=== PATIENT | female | born 1945 | race Caucasian/White ===

== ENCOUNTER → 2018-05-14 | Outpatient (CLI) | payer MEDICARE ==
--- NOTE | 2018-05-14 18:38 | ECHOF ---
Referral Reason:G47.33 obstructive sleep apnea MEASUREMENTS -------- HEIGHT: 165.1 cm WEIGHT: 147.4 kg BP: RVIDd: 3.7 cm (< 3.3) IVSd: 1.2 cm (0.6 - 1.1) LVIDd: 5.1 cm (3.9 - 5.3) LVPWd: 1.2 cm (0.6 - 1.1) IVSs: 1.4 cm LVIDs: 4.1 cm LVPWs: 1.5 cm LA Diam: 5.3 cm (2.7 - 3.8) LAESV Index (A-L): 55.95 ml/m Ao Diam: 2.9 cm (2.0 - 3.7) AV Cusp: 1.3 cm (1.5 - 2.6) LA Diam: 5.0 cm (2.7 - 3.8) MV EXCURSION: 20.304 mm (> 18.000) MV EF SLOPE: 44 mm/s (70 - 150) EPSS: 0.5 cm MV E Jesse: 1.21 m/s MV DecT: 286 ms MV A Jesse: 0.33 m/s MV E/A Ratio: 3.67 AV maxP.86 mmHg AV meanP.53 mmHg RAP: 5.00 mmHg RVSP: 44.08 mmHg FINDINGS -------- Sinus rhythm. This was a technically adequate study. Morbid Obesity The left ventricular size is normal. There is mild concentric left ventricular hypertrophy. Overa ll left ventricular systolic function is low-normal with, an EF between 50 - 55 %. The right ventricle is mildly enlarged. The left atrium is markedly dilated. The right atrial size is normal. Aortic valve is trileaflet and is moderately thickened. There is moderate aortic stenosis present. Peak/mean gradient across the Aortic Valve is 40.86mmHg / 24.53mmHg. Mild mitral annular calcification present. Moderate mitral regurgitation is present. Moderate tricuspid regurgitation present. There is mild pulmonary hypertension. The right ventric ular systolic pressure, as measured by Doppler, is 44.08mmHg. There is no pulmonic regurgitation present. The aortic root size is normal. There is no pericardial effusion. CONCLUSIONS -------- 1. This was a technically adequate study. 2. Morbid Obesity 3. The left ventricular size is normal. 4. There is mild concentric left ventricular hypertrophy. 5. Overall left ventricular systolic function is low-normal with, an EF between 50 - 55 %. 6. The right ventricle is mildly enlarged. 7. The left atrium is markedly dilated. 8. The right atrial size is normal. 9. Aortic valve is trileaflet and is moderately thickened. 10. There is moderate aortic stenosis present. 11. Peak/mean gradient across the Aortic Valve is 40.86mmHg / 24.53mmHg. 12. Mild mitral annular calcification present. 13. Moderate mitral regurgitation is present. 14. Moderate tricuspid regurgitation present. 15. There is mild pulmonary hypertension. 16. The right ventricular systolic pressure, as measured by Doppler, is 44.08mmHg. 17. There is no pulmonic regurgitation present. 18. The aortic root size is normal. 19. There is no pericardial effusion. SLURRY CONTROL OPERATOR HELPER: Mariana Mullen RDCS
== END | disposition home or self-care (01) ==
LOC: RADECHMAIN 12:58
PROVIDERS: ATTEND Family Medicine
DX: I08.1 Rheumatic disorders of both mitral and tricuspid valves (principal); E66.01 Morbid (severe) obesity due to excess calories; I27.20 Pulmonary hypertension, unspecified; G47.33 Obstructive sleep apnea (adult) (pediatric)
CPT/HCPCS: 93306

== ENCOUNTER 2019-03-23 11:41 | Inpatient (IN) | payer MEDICARE ==
--- NOTE | 2019-03-23 11:57 | ED ---
General Adult HPI - General Stated complaint: SHARON Time Seen by Provider: 03/23/19 11:43 Source: patient, family, RN notes reviewed, old records reviewed - History of Present Illness Initial comments: 73-year-old female presenting for evaluation of dyspnea. Patient has had mobility issues for the past 2 months she is on chronic home oxygen to 3 L continuous. She's had worsening dyspnea and difficulty ambulating over the past 2 months. This is gone to the point where she cannot go to the bathroom. She discontinued her Lasix one week ago because she could not make it to the bathroom. Her dyspnea has continued to worsen. She's had weight gain and lower extremity edema. No history of asthma or COPD. No history DVT or PE. No chest pain. No fever. No cough. - Related Data Home Medications Medication Instructions Recorded Confirmed ALPRAZolam [Xanax] 0.25 - 0.5 mg PO DAILY PRN 12/29/14 03/23/19 Famotidine [Pepcid] 20 mg PO DAILY 12/29/14 03/23/19 Potassium Chloride ER [K-Dur 20] 20 meq PO DAILY 12/29/14 03/23/19 Sertraline HCl [Zoloft] 100 mg PO BID 12/29/14 03/23/19 Furosemide [Lasix] 20 mg PO MOWEFR 03/23/19 03/23/19 Losartan Potassium 100 mg PO DAILY 03/23/19 03/23/19 Metoprolol Tartrate [Lopressor] 25 mg PO DAILY 03/23/19 03/23/19 Allergies Allergy/AdvReac Type Severity Reaction Status Date / Time No Known Allergies Allergy Verified 03/23/19 12:29 Review of Systems ROS Statement: Those systems with pertinent positive or pertinent negative responses have been documented in the HPI. ROS Other: All systems not noted in ROS Statement are negative. Past Medical History Past Medical History: Blood Disorder, Heart Failure, CVA/TIA, GERD/Reflux, Hypertension Additional Past Medical History / Comment(s): ITP DISORDER History of Any Multi-Drug Resistant Organisms: MRSA Date of last positivie culture/infection: 2012 MDRO Source:: URINE Additional Past Surgical History / Comment(s): BRAIN SURGERY AFTER BLEED Past Psychological History: Depression Smoking Status: Never smoker Past Alcohol Use History: None Reported Past Drug Use History: None Reported General Exam General appearance: alert, in no apparent distress Head exam: Present: atraumatic, normocephalic Eye exam: Present: normal appearance, PERRL ENT exam: Present: normal exam Neck exam: Present: normal inspection. Absent: tenderness, meningismus Respiratory exam: Present: respiratory distress, wheezes, rales, accessory muscle use, decreased breath sounds Cardiovascular Exam: Present: regular rate, normal rhythm, systolic murmur GI/Abdominal exam: Present: soft, distended. Absent: tenderness, guarding, rebound Extremities exam: Present: pedal edema Neurological exam: Present: alert, oriented X3 Psychiatric exam: Present: normal affect, normal mood Skin exam: Present: warm, dry, intact. Absent: cyanosis, diaphoretic Course Vital Signs 03/23/19 03/23/19 11:59 13:26 Temperature 97.8 F Pulse Rate 75 75 Respiratory 18 20 Rate Blood Pressure 141/69 143/73 O2 Sat by Pulse 94 L 98 Oximetry EKG Findings - EKG Comments: EKG Findings:: EKG: Atrial fibrillation, incomplete right bundle branch block, no ST segment elevation, rate of 77, QRS duration 108, QTC 488 Medical Decision Making - Medical Decision Making 73-year-old female presenting with dyspnea, weight gain, lower extremity edema. Patient has not been on her Lasix because she's had difficulty ambulating to the restroom. On exam patient has bilateral Rales and decreased breath sounds. She has significant lower extremity edema. She is dyspneic on 3 L of oxygen. Chest x-ray confirming pulmonary venous congestion and congestive heart failure with small effusions. She has a hemoglobin 9.7 with no recent for comparison. She has an elevated BNP 1140. She's given Lasix in the emergency department. She is in atrial fibrillation with no history of A. fib, she has previous history of intracranial hemorrhage, she will not be heparinized at this time, awaiting cardiology recommendations. She will be admitted for diuresis, repeat echo, telemetry, cardiology consultation. - Lab Data Result diagrams: 03/23/19 12:10 03/23/19 12:10 Lab Results 03/23/19 03/23/19 03/23/19 Range/Units 12:10 12:10 12:10 WBC 6.6 (3.8-10.6) k/uL RBC 3.52 L (3.80-5.40) m/uL Hgb 9.7 L (11.4-16.0) gm/dL Hct 31.4 L (34.0-46.0) % MCV 89.0 (80.0-100.0) fL MCH 27.6 (25.0-35.0) pg MCHC 31.0 (31.0-37.0) g/dL RDW 15.6 H (11.5-15.5) % Plt Count 113 L (150-450) k/uL Neutrophils % 85 % Lymphocytes % 6 % Monocytes % 6 % Eosinophils % 2 % Basophils % 0 % Neutrophils # 5.6 (1.3-7.7) k/uL Lymphocytes # 0.4 L (1.0-4.8) k/uL Monocytes # 0.4 (0-1.0) k/uL Eosinophils # 0.1 (0-0.7) k/uL Basophils # 0.0 (0-0.2) k/uL Hypochromasia Moderate PT (9.0-12.0) sec INR (<1.2) APTT (22.0-30.0) sec Sodium 142 (137-145) mmol/L Potassium 4.2 (3.5-5.1) mmol/L Chloride 107 (98-107) mmol/L Carbon Dioxide 26 (22-30) mmol/L Anion Gap 9 mmol/L BUN 19 H (7-17) mg/dL Creatinine 0.68 (0.52-1.04) mg/dL Est GFR (CKD-EPI)AfAm >90 (>60 ml/min/1.73 sqM) Est GFR (CKD-EPI)NonAf 86 (>60 ml/min/1.73 sqM) Glucose 117 H (74-99) mg/dL Calcium 9.0 (8.4-10.2) mg/dL Magnesium 1.8 (1.6-2.3) mg/dL Total Bilirubin 1.2 (0.2-1.3) mg/dL AST 35 (14-36) U/L ALT 23 (4-34) U/L Alkaline Phosphatase 113 (38-126) U/L Troponin I (0.000-0.034) ng/mL NT-Pro-B Natriuret Pep 1140 pg/mL Total Protein 7.2 (6.3-8.2) g/dL Albumin 3.8 (3.5-5.0) g/dL 03/23/19 03/23/19 Range/Units 12:10 12:10 WBC (3.8-10.6) k/uL RBC (3.80-5.40) m/uL Hgb (11.4-16.0) gm/dL Hct (34.0-46.0) % MCV (80.0-100.0) fL MCH (25.0-35.0) pg MCHC (31.0-37.0) g/dL RDW (11.5-15.5) % Plt Count (150-450) k/uL Neutrophils % % Lymphocytes % % Monocytes % % Eosinophils % % Basophils % % Neutrophils # (1.3-7.7) k/uL Lymphocytes # (1.0-4.8) k/uL Monocytes # (0-1.0) k/uL Eosinophils # (0-0.7) k/uL Basophils # (0-0.2) k/uL Hypochromasia PT 11.5 (9.0-12.0) sec INR 1.1 (<1.2) APTT 24.8 (22.0-30.0) sec Sodium (137-145) mmol/L Potassium (3.5-5.1) mmol/L Chloride (98-107) mmol/L Carbon Dioxide (22-30) mmol/L Anion Gap mmol/L BUN (7-17) mg/dL Creatinine (0.52-1.04) mg/dL Est GFR (CKD-EPI)AfAm (>60 ml/min/1.73 sqM) Est GFR (CKD-EPI)NonAf (>60 ml/min/1.73 sqM) Glucose (74-99) mg/dL Calcium (8.4-10.2) mg/dL Magnesium (1.6-2.3) mg/dL Total Bilirubin (0.2-1.3) mg/dL AST (14-36) U/L ALT (4-34) U/L Alkaline Phosphatase (38-126) U/L Troponin I 0.031 (0.000-0.034) ng/mL NT-Pro-B Natriuret Pep pg/mL Total Protein (6.3-8.2) g/dL Albumin (3.5-5.0) g/dL Disposition Clinical Impression: Congestive heart failure, A-fib Disposition: ADMITTED IP TO THIS [facility] Condition: Stable Is patient prescribed a controlled substance at d/c from ED?: No Referrals: Bob Kuo MD [Primary Care Provider] - 1-2 days Decision to Admit Reason: Admit from EC Decision Date: 03/23/19 Decision Time: 13:37
[2019-03-23 12:27] LABS: Basophils % (A) 0 %; Eosinophils # (A) 0.1 k/uL (0-0.7); Eosinophils % (A) 2 %; HCT 31.4 % (34.0-46.0); HGB 9.7 gm/dL (11.4-16.0); Hypochromasia Moderate; Lymphocytes # (A) 0.4 k/uL (1.0-4.8); Lymphocytes % (A) 6 %; MCH 27.6 pg (25.0-35.0); Monocytes # (A) 0.4 k/uL (0-1.0); Monocytes % (A) 6 %; Neutrophils # (A) 5.6 k/uL (1.3-7.7); Neutrophils % (A) 85 %; Platelet Count 113 k/uL (150-450); RBC 3.52 m/uL (3.80-5.40); RDW 15.6 % (11.5-15.5); WBC 6.6 k/uL (3.8-10.6)
[2019-03-23 12:41] LABS: INR 1.1 (<1.2); Partial Thromboplastin Time 24.8 sec (22.0-30.0); Prothrombin Time 11.5 sec (9.0-12.0)
[2019-03-23 12:45] LABS: ALT 23 U/L (4-34); AST 35 U/L (14-36); African American GFR (CKD) >90 (>60 ml/min/1.73 sqM); Albumin 3.8 g/dL (3.5-5.0); Alkaline Phosphatase 113 U/L (38-126); Anion Gap 9 mmol/L; Blood Urea Nitrogen 19 mg/dL (7-17); Carbon Dioxide 26 mmol/L (22-30); Chloride 107 mmol/L (98-107); Glucose 117 mg/dL (74-99); Magnesium 1.8 mg/dL (1.6-2.3); Non-African American GFR(CKD) 86 (>60 ml/min/1.73 sqM); Potassium 4.2 mmol/L (3.5-5.1); Sodium 142 mmol/L (137-145); Total Bilirubin 1.2 mg/dL (0.2-1.3); Total Protein 7.2 g/dL (6.3-8.2)
--- NOTE | 2019-03-23 12:50 | XR ---
EXAMINATION TYPE: XR chest 2V DATE OF EXAM: 03/23/2019 COMPARISON: NONE TECHNIQUE: PA and lateral views submitted. HISTORY: Hypertension FINDINGS: Exam limited by technique. Heart is markedly enlarged and the mediastinum is prominent. Diffuse osteo penia and arthropathy of the shoulders and there is a coarsened interstitium. No definite consolidati ve process seen. Pleural thickening or tiny effusions not excluded. IMPRESSION: 1. Cardiomegaly with diffuse interstitial pattern could be on the basis of interstitial venous conges tion or pneumonitis. Lateral view does suggest tiny bilateral pleural effusions. Interstitial pneumon itis or chronic lung disease in the differential diagnosis.
[2019-03-23] MEDS ORDERED: ASPIRIN 325 MG TAB PO STA (13:15)
[2019-03-23] MEDS ORDERED: FUROSEMIDE 10 MG/ML 4 ML VIAL IV STA (13:15)
[2019-03-23] MEDS ORDERED: NALOXONE 0.4 MG/ML 1 ML VIAL IV PRN (13:33)
[2019-03-23] MEDS ORDERED: FUROSEMIDE 10 MG/ML 4 ML VIAL IV SCH (21:00)
--- NOTE | 2019-03-23 22:27 | P.HPIM ---
History of Present Illness H&P Date: 03/23/19 Chief Complaint: Short of breath History of presenting complaint: This is a very pleasant 73-year-old patient of Dr. Bob Kuo. Chronic stable medical conditions include GERD, hypertension, ITP, depression,. Patient's a prior brain bleed. Has left her with some weakness on the right side. She has trouble feeling with the right hand. Patient has trouble getting to the bathroom. Patient is noticed that progressively she's been getting more and more short of breath interval activity. Increasing leg swelling. No cough no chills no fever. Some orthopnea is present. Because of trouble making up to the bathroom patient has not been taking Lasix for at least 1 month. Patient ER was diagnosed to have congestive heart exacerbation. Started on IV Lasix. Daughter the bedside. Review of systems: GEN.: Tired EYES: None HEENT: None NECK: None RESPIRATORY: As above CARDIOVASCULAR: As above, no chest pain GASTROINTESTINAL: None GENITOURINARY: None MUSCULOSKELETAL: Joint pains LYMPHATICS: None HEMATOLOGICAL: None PSYCHIATRY: None NEUROLOGICAL: Residual right-sided weakness Past medical history to include: Congestive heart failure, brain bleed pleural effusion and right-sided weakness, GERD, hypertension, ITP, depression Social history: . Does use a walker. Does not smoke or drink alcohol. Family history: Reviewed, noncontributory to presentation Physical examination: VITAL SIGNS: 97.8, 75, 18, 141/69, 94% room air GENERAL: BMI 43.6, laying in bed tired. EYES: Pupils equal. Conjunctiva normal. HEENT: External appearance of nose and ears normal, oral cavity grossly normal. NECK: JVD unable to assess, masses not palpable. HEART: First and second heart sounds are normal; edema present. LUNGS: Respiratory rate normal; clear to auscultation. ABDOMEN: Soft, nontender, liver spleen not palpable, no masses palpable. PSYCH: Alert and oriented x3; mood and affect normal. NEUROLOGICAL: Cranial nerves grossly intact; no facial asymmetry, power and sensation grossly intact. LYMPHATICS: No lymph nodes palpable in the axilla and neck Muscular skeletal: Evidence of OA INVESTIGATIONS, reviewed in the clinical context: White count 6.6 hemoglobin 9.7 L from 13 potassium 4.2 creatinine 0.68 ProBNP 1140 Chest x-ray film personally reviewed by me-cardiomegaly, venous prominence EKG tracing personally reviewed by me-atrial fibrillation with controlled Assessment: -Acute on chronic congestive heart failure exacerbation EF not known -New diagnosis of atrial fibrillation rate controlled -GERD -Essential hypertension -Chronic ITP -Depression otherwise specified -Morbid obesity BMI 43.6 -Some 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 We'll start the patient on IV Lasix 60 mg every 8. Given 2-D echocardiogram. Eyes of nose and a tricycle followed closely. Care was discussed with the patient and daughter the bedside. Question were answered. She'll also start on Lovenox. Past Medical History Past Medical History: Blood Disorder, Heart Failure, CVA/TIA, GERD/Reflux, Hypertension Additional Past Medical History / Comment(s): ITP DISORDER History of Any Multi-Drug Resistant Organisms: MRSA Date of last positivie culture/infection: 2012 MDRO Source:: URINE Past Surgical History: Orthopedic Surgery Additional Past Surgical History / Comment(s): BRAIN SURGERY AFTER BLEED in 2 013, bilateral knee replacements Past Psychological History: Depression Smoking Status: Never smoker Past Alcohol Use History: None Reported Past Drug Use History: None Reported Medications and Allergies Home Medications Medication Instructions Recorded Confirmed Type ALPRAZolam [Xanax] 0.25 mg PO DAILY PRN 12/29/14 03/23/19 History Famotidine [Pepcid] 20 mg PO DAILY 12/29/14 03/23/19 History Potassium Chloride ER [K-Dur 20] 20 meq PO DAILY 12/29/14 03/23/19 History Sertraline HCl [Zoloft] 200 mg PO DAILY 12/29/14 03/23/19 History Furosemide [Lasix] 20 mg PO BID 03/23/19 03/23/19 History HYDROcodone/APAP 5-325MG [Goddard 5 - 325 mg PO Q6HR PRN 03/23/19 03/23/19 History 5-325] Losartan Potassium 100 mg PO DAILY 03/23/19 03/23/19 History Metoprolol Tartrate [Lopressor] 25 mg PO DAILY 03/23/19 03/23/19 History Allergies Allergy/AdvReac Type Severity Reaction Status Date / Time No Known Allergies Allergy Verified 03/23/19 12:29 Physical Exam Vitals: Vital Signs Temp Pulse Pulse Resp BP BP Pulse Ox 03/23/19 20:51 100 03/23/19 20:09 98.4 F 85 18 150/74 98 03/23/19 20:00 85 18 03/23/19 19:43 98.0 F 70 20 99/65 98 03/23/19 18:30 76 18 101/77 100 03/23/19 16:00 68 20 130/65 97 03/23/19 13:26 75 20 143/73 98 03/23/19 11:59 97.8 F 75 18 141/69 94 L Intake and Output 03/23/19 03/23/19 03/23/19 06:59 14:59 22:59 Intake Total 222 Output Total 3075 Balance -2853 Intake: Oral 222 Output: Urine 3075 Other: Weight 170.097 kg 122.5 kg Results CBC & Chem 7: 03/23/19 12:10 03/23/19 12:10 Labs: Abnormal Lab Results - Last 24 Hours (Table) 03/23/19 03/23/19 Range/Units 12:10 12:10 RBC 3.52 L (3.80-5.40) m/uL Hgb 9.7 L (11.4-16.0) gm/dL Hct 31.4 L (34.0-46.0) % RDW 15.6 H (11.5-15.5) % Plt Count 113 L (150-450) k/uL Lymphocytes # 0.4 L (1.0-4.8) k/uL BUN 19 H (7-17) mg/dL Glucose 117 H (74-99) mg/dL Thrombosis Risk Factor Assmnt - Choose All That Apply Any of the Below Risk Factors Present?: No Other Risk Factors: Yes Each Risk Factor Represents 2 Points: Age 61-74 years Other congenital or acquired thrombophilia - If yes, enter type in comment: No Thrombosis Risk Factor Assessment Total Risk Factor Score: 2 Thrombosis Risk Factor Assessment Level: Low Risk
[2019-03-23] MEDS ORDERED: ENOXAPARIN 40 MG/0.4 ML SYRINGE SQ SCH (22:30)
[2019-03-23] MEDS: ALPRAZolam 0.25 MG TAB PO PRN (22:39)
[2019-03-24] MEDS: FUROSEMIDE 10 MG/ML 10 ML VIAL IV SCH ×3 (06:38→20:00)
[2019-03-24 07:15] LABS: African American GFR (CKD) >90 (>60 ml/min/1.73 sqM); Anion Gap 7 mmol/L; Blood Urea Nitrogen 18 mg/dL (7-17); Calcium 8.8 mg/dL (8.4-10.2); Carbon Dioxide 34 mmol/L (22-30); Chloride 101 mmol/L (98-107); Glucose 88 mg/dL (74-99); Non-African American GFR(CKD) 87 (>60 ml/min/1.73 sqM); Potassium 3.6 mmol/L (3.5-5.1); Sodium 142 mmol/L (137-145)
[2019-03-24] MEDS: FAMOTIDINE 20 MG TAB PO SCH (07:43)
[2019-03-24] MEDS: SERTRALINE 100 MG TAB PO SCH (07:44)
[2019-03-24] MEDS: POTASSIUM CHLORIDE ER 20 MEQ TAB.ER PO SCH (07:44)
[2019-03-24] MEDS: LOSARTAN 50 MG TAB PO SCH (07:44)
[2019-03-24] MEDS ORDERED: METOPROLOL TARTRATE 25 MG TAB PO SCH (09:00)
[2019-03-24] MEDS ORDERED: APIXABAN 5 MG TAB PO SCH (10:30)
--- NOTE | 2019-03-24 11:38 | ECHOF ---
Referral Reason:CHF MEASUREMENTS -------- HEIGHT: 167.6 cm WEIGHT: 170.1 kg BP: RVIDd: 3.8 cm (< 3.3) IVSd: 1.2 cm (0.6 - 1.1) LVIDd: 4.8 cm (3.9 - 5.3) LVPWd: 1.5 cm (0.6 - 1.1) IVSs: 1.8 cm LVIDs: 2.6 cm LVPWs: 1.9 cm IVSd: 1.2 cm (0.6 - 1.1) LVIDd: 5.0 cm (3.9 - 5.3) LVPWd: 1.5 cm (0.6 - 1.1) IVSs: 1.6 cm LVIDs: 2.8 cm LVPWs: 2.3 cm EDV(Teich): 121 ml ESV(Teich): 30 ml EF(Teich): 75 % %FS: 44 % SV(Teich): 91 ml Ao Diam: 2.4 cm (2.0 - 3.7) AV Cusp: 1.5 cm (1.5 - 2.6) LA Diam: 4.6 cm (2.7 - 3.8) MV EXCURSION: 16.937 mm (> 18.000) MV EF SLOPE: 80 mm/s (70 - 150) EPSS: 0.6 cm MV E Jesse: 1.67 m/s MV DecT: 191 ms MV A Jesse: 0.69 m/s MV E/A Ratio: 2.41 AV maxP.83 mmHg AV meanP.43 mmHg AR PHT: 686 ms RAP: 5.00 mmHg RVSP: 57.04 mmHg FINDINGS -------- Undetermined rhythm. This was a technically difficult study with suboptimal views. The left ventricular size is normal. There is mild concentric left ventricular hypertrophy. Overa ll left ventricular systolic function is normal with, an EF between 55 - 60 %. The right ventricle is mild to moderately enlarged. The left atrial size is normal. RA appears enlarged. 5.0mg of Lumason was utilized for enhancement of images Aortic valve is trileaflet and is moderately thickened. There is mild aortic regurgitation. There is moderate aortic stenosis present. Peak/mean gradient across the Aortic Valve is 41.83mmHg / 23. 43mmHg. The mitral valve is normal. The mitral valve leaflets are mildly thickened. Moderate mitral regur gitation is present. The tricuspid valve appears structurally normal. Moderate tricuspid regurgitation present. There is moderate pulmonary hypertension. The right ventricular systolic pressure, as measured by Doppler , is 57.04mmHg. There is no pulmonic regurgitation present. The aortic root size is normal. IVC Not well visulized. There is no pericardial effusion. CONCLUSIONS -------- 1. Undetermined rhythm. 2. This was a technically difficult study with suboptimal views. 3. The left ventricular size is normal. 4. There is mild concentric left ventricular hypertrophy. 5. Overall left ventricular systolic function is normal with, an EF between 55 - 60 %. 6. The right ventricle is mild to moderately enlarged. 7. The left atrial size is normal. 8. RA appears enlarged. 9. 5.0mg of Lumason was utilized for enhancement of images 10. Aortic valve is trileaflet and is moderately thickened. 11. There is mild aortic regurgitation. 12. There is moderate aortic stenosis present. 13. Peak/mean gradient across the Aortic Valve is 41.83mmHg / 23.43mmHg. 14. The mitral valve is normal. 15. The mitral valve leaflets are mildly thickened. 16. Moderate mitral regurgitation is present. 17. The tricuspid valve appears structurally normal. 18. Moderate tricuspid regurgitation present. 19. There is moderate pulmonary hypertension. 20. The right ventricular systolic pressure, as measured by Doppler, is 57.04mmHg. 21. There is no pulmonic regurgitation present. 22. The aortic root size is normal. 23. IVC Not well visulized. 24. There is no pericardial effusion. PHLEBOTOMIST MEDICAL LAB ASSISTANT: Latanya Tinoco RDCS
--- NOTE | 2019-03-24 12:40 | P.CRDCN ---
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 She has a known history of hypertension, hyperlipidemia, obesity, history according to Dr. Alves's office note of paroxysmal atrial fibrillation,. According to the patient's office note, she also at that time had some mild aortic stenosis. She presented to the hospital on this admission with symptoms of one month's duration of progressively worsening shortness of breath with associated peripheral edema. Positive PND and orthopnea. Approximately 2 months ago patient states she experienced a fall and since then has been progressively more and more weak and short of breath. Patient does have a history of a brain bleed in the past which was felt to be secondary to ITP according to her. Chest x-ray on presentation here showed cardiomegaly with diffuse interstitial pattern which could be on the basis of interstitial venous congestion or pneumonitis. Lateral view does suggest tiny bilateral pleural effusions. Interstitial pneumonitis or chronic lung disease in the differential diagnosis. EKG on presentation here showed atrial fibrillation with a controlled ventricular response, incomplete right bundle branch block pattern. An echocardiogram with Doppler study was performed which revealed moderate aorti c stenosis, moderate mitral regurgitation and moderate tricuspid regurg, ejection fraction of 55-60%. Blood pressure 126/78 with a heart rate in the 90s, 95% on 3 L of oxygen. White blood cell count 6.6, hemoglobin 9.7, platelet count 113. Sodium 142, potassium 3.6, BUN 18, creatinine 0.6. Magnesium 1.8. Troponin 0.031 BNP level 1140. Patient was initiated on IV Lasix in the emergency room and has already been diuresing well according to her. She continues to have shortness of breath and significant edema. Past Medical History Past Medical History: Blood Disorder, Heart Failure, CVA/TIA, GERD/Reflux, Hypertension Additional Past Medical History / Comment(s): ITP DISORDER History of Any Multi-Drug Resistant Organisms: MRSA Date of last positivie culture/infection: 2012 MDRO Source:: URINE Past Surgical History: Orthopedic Surgery Additional Past Surgical History / Comment(s): BRAIN SURGERY AFTER BLEED in 2013, bilateral knee replacements Past Psychological History: Depression Smoking Status: Never smoker Past Alcohol Use History: None Reported Past Drug Use History: None Reported Medications and Allergies Home Medications Medication Instructions Recorded Confirmed Type ALPRAZolam [Xanax] 0.25 mg PO DAILY PRN 12/29/14 03/23/19 History Famotidine [Pepcid] 20 mg PO DAILY 12/29/14 03/23/19 History Potassium Chloride ER [K-Dur 20] 20 meq PO DAILY 12/29/14 03/23/19 History Sertraline HCl [Zoloft] 200 mg PO DAILY 12/29/14 03/23/19 History Furosemide [Lasix] 20 mg PO BID 03/23/19 03/23/19 History HYDROcodone/APAP 5-325MG [[place] 5 - 325 mg PO Q6HR PRN 03/23/19 03/23/19 History 5-325] Losartan Potassium 100 mg PO DAILY 03/23/19 03/23/19 History Metoprolol Tartrate [Lopressor] 25 mg PO DAILY 03/23/19 03/23/19 History Allergies Allergy/AdvReac Type Severity Reaction Status Date / Time No Known Allergies Allergy Verified 03/23/19 12:29 Physical Exam Vitals: Vital Signs Temp Pulse Pulse Resp BP BP Pulse Ox 03/24/19 07:50 98.4 F 96 18 126/79 95 03/24/19 04:00 97.5 F L 63 18 125/77 95 03/24/19 00:00 98.0 F 78 18 121/67 98 03/23/19 20:51 100 03/23/19 20:09 98.4 F 85 18 150/74 98 03/23/19 20:00 85 18 03/23/19 19:43 98.0 F 70 20 99/65 98 03/23/19 18:30 76 18 101/77 100 03/23/19 16:00 68 20 130/65 97 03/23/19 13:26 75 20 143/73 98 Intake and Output 03/23/19 03/24/19 03/24/19 22:59 06:59 14:59 Intake Total 222 358 Output Total 4075 1999 1099 Balance -3853 -1999 -742 Intake: Oral 222 358 Output: Urine 4074 1999 1099 Other: Weight 122.5 kg 119.5 kg PHYSICAL EXAMINATION: GENERAL: 73 HEENT: Head is atraumatic, normocephalic. Pupils equal, round. Sclera anicteric. Conjunctiva are clear. Mucous membranes of the mouth are moist. Neck is supple. There is elevated jugular venous pressure. No carotid bruit is heard. HEART EXAMINATION: Heart S1 and S2 irregularly irregular a systolic murmur is heard in the aortic and mitral area CHEST EXAMINATION:'s reveal diminished air entry to bilateral bases ABDOMEN: Soft, obese, nontender. Bowel sounds are heard. No organomegaly noted. EXTREMITIES: 2+ peripheral pulses with 2+ evidence of peripheral edema , evidence of some erythema and small ulcerated areas . NEUROLOGIC patient is awake, alert and oriented 3. . Results 03/23/19 12:10 03/24/19 06:13 Cardiac Enzymes 03/23/19 03/23/19 Range/Units 12:10 12:10 AST 35 (14-36) U/L Troponin I 0.031 (0.000-0.034) ng/mL Coagulation 03/23/19 Range/Units 12:10 PT 11.5 (9.0-12.0) sec APTT 24.8 (22.0-30.0) sec Comprehensive Metabolic Panel 03/23/19 03/24/19 Range/Units 12:10 06:13 Sodium 142 142 (137-145) mmol/L Potassium 4.2 3.6 (3.5-5.1) mmol/L Chloride 107 101 (98-107) mmol/L Carbon Dioxide 26 34 H (22-30) mmol/L BUN 19 H 18 H (7-17) mg/dL Creatinine 0.68 0.66 (0.52-1.04) mg/dL Glucose 117 H 88 (74-99) mg/dL Calcium 9.0 8.8 (8.4-10.2) mg/dL AST 35 (14-36) U/L ALT 23 (4-34) U/L Alkaline Phosphatase 113 (38-126) U/L Total Protein 7.2 (6.3-8.2) g/dL Albumin 3.8 (3.5-5.0) g/dL Current Medications Generic Name Dose Route Start Last Admin Trade Name Freq PRN Reason Stop Dose Admin Hydrocodone Bitart/Acetaminophen 1 each 03/23/19 20:42 [place] 5-325 PO Q6HR PRN Moderate to Severe Pain Alprazolam 0.25 mg 03/23/19 20:42 03/23/19 22:39 Xanax PO 0.25 mg DAILY PRN Administration Anxiety Famotidine 20 mg 03/24/19 09:00 03/24/19 07:43 Pepcid PO 20 mg DAILY BLAINE Administration Furosemide 60 mg 03/24/19 06:00 03/24/19 06:38 Lasix IV 60 mg Q8H BLAINE Administration Losartan Potassium 100 mg 03/24/19 09:00 03/24/19 07:44 Cozaar PO 100 mg DAILY [facility]LAINE Administration Metoprolol Tartrate 25 mg 03/24/19 09:00 03/24/19 07:45 Lopressor PO 25 mg DAILY [facility]LAINE Administration Naloxone HCl 0.2 mg 03/23/19 13:33 Narcan IV Q2M PRN Opioid Reversal Potassium Chloride 20 meq 03/24/19 09:00 03/24/19 07:44 K-Dur 20 PO 20 meq DAILY BLAINE Administration Sertraline HCl 200 mg 03/24/19 09:00 03/24/19 07:44 Zoloft PO 200 mg DAILY [facility]LAINE Administration Intake and Output 03/23/19 03/24/19 03/24/19 22:59 06:59 14:59 Intake Total 222 358 Output Total 4075 1999 1099 Balance -3853 -2000 -742 Intake: Oral 222 358 Output: Urine 4075 1999 1100 Other: Weight 122.5 kg 119.5 kg 03/23/19 12:10 03/24/19 06:13 EKG Interpretations (text) EKG showed atrial fibrillation with a controlled ventricular response Assessment and Plan Plan: Assessment and plan #1 congestive heart failure, diastolic acute on chronic #2 aortic stenosis and mitral regurgitation' #3 paroxysmal atrial fibrillation, not on anticoagulation as an outpatient #4 hypertension #5 hyperlipidemia #6 obesity Plan We will discontinue the Lovenox and start the patient on Eliquis 5 mg one tablet by mouth twice a day, consult hematology, continue light Lasix IV 60 mg every 8 hourly and from tomorrow morning changed to Lasix 40 mg by mouth twice a day. Increase dose of beta palmira to 25 mg by mouth twice a day, discontinue aspirin. Further recommendations to follow. DNP note has been reviewed, I agree with a documented findings and plan of care. Patient was seen and examined.
[2019-03-24] MEDS: HYDROcodone/APAP 5-325MG 1 EACH TAB PO PRN (12:42)
[2019-03-24] MEDS: APIXABAN 5 MG TAB PO SCH ×2 (12:56→20:00)
--- NOTE | 2019-03-24 14:20 | P.PN ---
Progress Note - Text Progress Note Date: 03/24/19 Chief Complaint: Short of breath Interval history: This is a very pleasant 73-year-old patient of Dr. Bob Kuo. Chronic stable medical conditions include GERD, hypertension, ITP, depression,. Patient's a prior brain bleed. Has left her with some weakness on the right side. She has trouble feeling with the right hand. Patient has trouble getting to the bathroom. Patient is noticed that progressively she's been getting more and more short of breath interval activity. Increasing leg swelling. No cough no chills no fever. Some orthopnea is present. Because of trouble making up to the bathroom patient has not been taking Lasix for at least 1 month. Patient ER was diagnosed to have congestive heart exacerbation. Started on IV Lasix. Today-patient has been diuresing well. Making good urine. Feels edema was coming down. Abdomen less distended. at the bedside. Eating better. Review of systems: Was done for constitutional, cardiovascular, GI, pulmonary. relevant finding as above Active Medications Hydrocodone Bitart/Acetaminophen ([place] 5-325) 1 each PO Q6HR PRN PRN Reason: Moderate to Severe Pain Last Admin: 03/24/19 12:42 Dose: 1 each Documented by: Alprazolam (Xanax) 0.25 mg PO DAILY PRN PRN Reason: Anxiety Last Admin: 03/23/19 22:39 Dose: 0.25 mg Documented by: Apixaban (Eliquis) 5 mg PO BID [facility] Last Admin: 03/24/19 12:56 Dose: 5 mg Documented by: Famotidine (Pepcid) 20 mg PO DAILY [facility] Last Admin: 03/24/19 07:43 Dose: 20 mg Documented by: Furosemide (Lasix) 60 mg IV Q8H [facility] Stop: 03/25/19 09:00 Last Admin: 03/24/19 06:38 Dose: 60 mg Documented by: Furosemide (Lasix) 40 mg PO BID@0900,1600 [facility] Losartan Potassium (Cozaar) 100 mg PO DAILY [facility] Last Admin: 03/24/19 07:44 Dose: 100 mg Documented by: Metoprolol Tartrate (Lopressor) 25 mg PO BID [facility] Naloxone HCl (Narcan) 0.2 mg IV Q2M PRN PRN Reason: Opioid Reversal Potassium Chloride (K-Dur 20) 20 meq PO DAILY [facility] Last Admin: 03/24/19 07:44 Dose: 20 meq Documented by: Sertraline HCl (Zoloft) 200 mg PO DAILY [facility] Last Admin: 03/24/19 07:44 Dose: 200 mg Documented by: Physical examination: VITAL SIGNS: 98.4, 96, 18, 126/79, 95% on 3 L GENERAL: Laying in bed, more perky EYES: Pupils equal. Conjunctiva normal. HEENT: External appearance of nose and ears normal, oral cavity grossly normal. NECK: JVD unable to assess, masses not palpable. HEART: First and second heart sounds are normal; edema decreased. LUNGS: Respiratory rate normal; clear to auscultation. ABDOMEN: Soft, nontender, liver spleen not palpable, no masses palpable. PSYCH: Alert and oriented x3; mood and affect normal. Muscular skeletal: Evidence of OA INVESTIGATIONS, reviewed in the clinical context: Creatinine 0.66 Previous testing White count 6.6 hemoglobin 9.7 L from 13 potassium 4.2 creatinine 0.68 ProBNP 1140 Chest x-ray film personally reviewed by me-cardiomegaly, venous prominence EKG tracing personally reviewed by me-atrial fibrillation with controlled 2-D echo-EF 55-60%, moderate aortic stenosis, moderate tricuspid regurgitation, moderate pulmonary hypertension Assessment: -Acute on chronic congestive heart failure exacerbation from diastolic dysfunction EF 55-60% from hypertensive heart disease, slow to respond -Moderate aortic stenosis, moderate tricuspid regurgitation, moderate pulmonary hypertension secondary -New diagnosis of atrial fibrillation rate controlled -GERD -Essential hypertension -Chronic ITP -Depression otherwise specified -Morbid obesity BMI 43.6 -Some right-sided paresis from a prior brain bleed -Depression not otherwise specified -Chronic gait dysfunction uses a walker at her baseline -Full code Plan: Patient diuresing well. Continue with IV Lasix. Consult PTOT. Also consult Dr. Mcnally from rehab. Care was discussed at length with the patient and husb and at the bedside. Follow electrolytes closely. Cardiology did start the patient on eliquis. Patient has a superficial wound on the right lower extremity for which we'll use Silvadene cream with Kerlix and Curt wrap. Total time spent today was about 40 minutes with over 25 minutes discussion.
[2019-03-24] MEDS: METOPROLOL TARTRATE 25 MG TAB PO SCH (20:00)
[2019-03-25] MEDS: FUROSEMIDE 10 MG/ML 10 ML VIAL IV SCH (06:12)
[2019-03-25] MEDS: APIXABAN 5 MG TAB PO SCH ×2 (07:32→20:22)
[2019-03-25] MEDS: FAMOTIDINE 20 MG TAB PO SCH (07:32)
[2019-03-25] MEDS: POTASSIUM CHLORIDE ER 20 MEQ TAB.ER PO SCH (07:32)
[2019-03-25] MEDS: LOSARTAN 50 MG TAB PO SCH (07:32)
[2019-03-25] MEDS: SERTRALINE 100 MG TAB PO SCH (07:32)
[2019-03-25] MEDS: METOPROLOL TARTRATE 25 MG TAB PO SCH ×2 (07:32→20:21)
--- NOTE | 2019-03-25 11:51 | PN ---
PROGRESS NOTE Mrs Mays is feeling much better today. A lot of weight has come down. Edema has improved. She was on IV Lasix, which I will switch her to oral Lasix. She came in with diastolic heart failure, pulmonary hypertension. She also has moderate aortic stenosis and what seems to be atrial fibrillation with a controlled ventricular rate. I am recommending that we continue her Eliquis, switch her from IV to oral Lasix and based on clinical course, make further recommendations. I will request physical therapy to increase activity and improve her strength, coordination, and mobility. I placed her on Lopressor 25 mg b.i.d., rate control is good. She is on Eliquis 2.5 mg b.i.d., rhythm remains atrial fibrillation but the rate control is much better. Vitals are stable, JVD is evident. S1-S2 heard normally, irregular rhythm noted, short systolic murmur noted at the base. lungs reveal improved air entry. Abdomen is soft. Lower extremity edema has improved remarkably. Echocardiogram revealed ejection fraction of 55% to 60% with moderate pulmonary hypertension and moderate aortic stenosis. Plan is to switch her to oral Lasix and see how she does. MMODL / IJN: [id number] /
[2019-03-25] MEDS: FUROSEMIDE 40 MG TAB PO SCH (16:33)
--- NOTE | 2019-03-25 17:13 | P.CONS ---
<Stephanie Quan - Last Filed: 03/25/19 17:01> History of Present Illness - Reason for Consult Consult date: 03/25/19 Hx ITP Requesting physician: Maya Guerrero - Chief Complaint weakness, fall - History of Present Illness Ms. Mays is a very pleasant 73-year-old female patient who has seen Dr. Mckeon the past for history of ITP. She presented in 2012 with complaints of severe headache and vaginal bleeding, she was found to have intracranial bleeding, platelet count was 6000. She was taken to [facility], seen by Neurosurgery and Hematology. She was treated with IV steroids, IVIG and platelets. She had a craniotomy for decompression of the bleeding. She ended up responding very well to the therapy, steroids were weaned off and she was discharged home. She followed with Dr. Mckeon from that time until September 2014. All of the workup for ITP was negative, platelet count had become nearly normal, staying in the 120,000 range. She was placed on PRN f/u and reminded to follow with her PCP regularly. Patient is currently admitted with congestive heart failure, she has a history of proximal atrial fibrillation. We've been asked to see patient for anticoagulation recommendations. Patient is doing well today, she denies any complaints on a 14 point review of systems. Review of Systems 14 point review of systems is negative except as stated in HPI 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 MDRO Source:: URINE Past Surgical History: Orthopedic Surgery Additional Past Surgical History / Comment(s): BRAIN SURGERY AFTER BLEED in 2013, bilateral knee replacements Past Psychological History: Depression Smoking Status: Never smoker Past Alcohol Use History: None Reported Past Drug Use History: None Reported Medications and Allergies Home Medications Medication Instructions Recorded Confirmed Type ALPRAZolam [Xanax] 0.25 mg PO DAILY PRN 12/29/14 03/23/19 History Famotidine [Pepcid] 20 mg PO DAILY 12/29/14 03/23/19 History Potassium Chloride ER [K-Dur 20] 20 meq PO DAILY 12/29/14 03/23/19 History Sertraline HCl [Zoloft] 200 mg PO DAILY 12/29/14 03/23/19 History Furosemide [Lasix] 20 mg PO BID 03/23/19 03/23/19 History HYDROcodone/APAP 5-325MG [[place] 5 - 325 mg PO Q6HR PRN 03/23/19 03/23/19 History 5-325] Losartan Potassium 100 mg PO DAILY 03/23/19 03/23/19 History Metoprolol Tartrate [Lopressor] 25 mg PO DAILY 03/23/19 03/23/19 History Allergies Allergy/AdvReac Type Severity Reaction Status Date / Time No Known Allergies Allergy Verified 03/23/19 12:29 Physical Exam Vitals: Vital Signs Temp Pulse Resp BP Pulse Ox 03/25/19 16:00 98.1 F 83 18 126/66 93 L 03/25/19 12:00 82 18 03/25/19 11:13 98.1 F 82 18 121/62 93 L 03/25/19 08:00 93 18 03/25/19 07:28 98.2 F 93 18 141/79 95 03/25/19 03:33 98.2 F 75 18 127/74 95 03/25/19 00:00 78 18 132/75 96 03/24/19 23:24 79 20 03/24/19 20:00 98.4 F 75 20 142/64 95 Intake and Output 03/25/19 03/25/19 03/25/19 06:59 14:59 22:59 Intake Total 240 Output Total 1000 1500 Balance -1000 -1260 Intake: Oral 240 Output: Urine 1000 1500 Other: Weight 104.5 kg - Constitutional General appearance: cooperative, morbidly obese, no acute distress - EENT Eyes: anicteric sclerae, EOMI ENT: hearing grossly normal, normal oropharynx - Neck Neck: no lymphadenopathy - Respiratory Respiratory: bilateral: CTA - Cardiovascular Rhythm: irregularly irregular Heart sounds: normal: S1, S2 leg Peripheral Edema: bilateral: Trace - Gastrointestinal General gastrointestinal: no absent bowel sounds, no decreased bowel sounds, no distended, no hepatomegaly, no hyperactive bowel sounds, normal bowel sounds, no organomegaly, no rigid, no scaphoid, soft, no splenomegaly, no tenderness, no umbilical hernia, no ventral hernia - Integumentary Integumentary: normal - Neurologic Neurologic: CNII-XII intact - Psychiatric Psychiatric: A&O x's 3, appropriate affect, intact judgment & insight Results CBC & Chem 7: 03/23/19 12:10 03/24/19 06:13 Comments: echo report reviewed Assessment and Plan (1) A-fib Current Visit: Yes Status: Chronic Priority: High Code(s): I48.91 - UNSPECIFIED ATRIAL FIBRILLATION SNOMED Code(s): 62965536 Plan: Patient had incidence of ITP back in 2012. After treatment she has had no recurrence. Platelet count may not be normal, ranging in the 120,000 range, but it is adequate for anticoagulation. Platelet count needs to be greater than 50,000 to be on anticoagulation. If patient's platelets were to fall below 50,000 recommendation would be to treat ITP. I reviewed the scenario with the patient and her boyfriend, they verbalized understanding. Patient were told to contact the office at any time for follow-up if need be. She will follow with her Marketing Operations Coordinator and PCP at this time and cont CBC monitoring. We reviewed bleeding precautions on anticoagulation. <Farhad Pillai - Last Filed: 03/25/19 17:53> Physical Exam Vitals: Vital Signs Temp Pulse Resp BP Pulse Ox 03/25/19 16:00 98.1 F 83 18 126/66 93 L 03/25/19 12:00 82 18 03/25/19 11:13 98.1 F 82 18 121/62 93 L 03/25/19 08:00 93 18 03/25/19 07:28 98.2 F 93 18 141/79 95 03/25/19 03:33 98.2 F 75 18 127/74 95 03/25/19 00:00 78 18 132/75 96 03/24/19 23:24 79 20 03/24/19 20:00 98.4 F 75 20 142/64 95 Intake and Output 03/25/19 03/25/19 03/25/19 06:59 14:59 22:59 Intake Total 240 Output Total 1000 1500 1999 Balance -[id number] Intake: Oral 240 Output: Urine 1000 1500 2000 Other: Weight 104.5 kg Results CBC & Chem 7: 03/23/19 12:10 03/24/19 06:13 Assessment and Plan Plan: Patient evaluated and examined personally. Case discussed with SLIVER LAPPER. Agree with the above plan. At this time there is no contrast indication from the hematology standpoint for anticoagulation or antiplatelet therapy. A platelet count of greater than 50,000 is adequate for the same. I did discuss with the patient, and given the unpredictable nature of ITP, exacerbations could occur in the future. The patient therefore has to be quite attentive for any signs of unusual bruising or bleeding. Typical signs and symptoms of the same were discussed with her. If this were to occur, then she was advised to immediately stop her anticoagulation and seek attention to get her CBC checked as soon as possible.
[2019-03-25] MEDS: HYDROcodone/APAP 5-325MG 1 EACH TAB PO PRN (20:25)
--- NOTE | 2019-03-25 21:43 | P.PN ---
Progress Note - Text Progress Note Date: 03/25/19 Chief Complaint: Short of breath Interval history: This is a very pleasant 73-year-old patient of Dr. Bob Kuo. Chronic stable medical conditions include GERD, hypertension, ITP, depression,. Patient's a prior brain bleed. Has left her with some weakness on the right side. She has trouble feeling with the right hand. Patient has trouble getting to the bathroom. Patient is noticed that progressively she's been getting more and more short of breath interval activity. Increasing leg swelling. No cough no chills no fever. Some orthopnea is present. Because of trouble making up to the bathroom patient has not been taking Lasix for at least 1 month. Patient ER was diagnosed to have congestive heart exacerbation. Started on IV Lasix. Today-. Responded well to IV Lasix. Switched over to by mouth Lasix. Overall feeling much better. at the bedside. Review of systems: Was done for constitutional, cardiovascular, GI, pulmonary. relevant finding as above Active Medications Hydrocodone Bitart/Acetaminophen ([place] 5-325) 1 each PO Q6HR PRN PRN Reason: Moderate to Severe Pain Last Admin: 03/25/19 20:25 Dose: 1 each Documented by: Alprazolam (Xanax) 0.25 mg PO DAILY PRN PRN Reason: Anxiety Last Admin: 03/23/19 22:39 Dose: 0.25 mg Documented by: Apixaban (Eliquis) 5 mg PO BID [facility] Last Admin: 03/25/19 20:22 Dose: 5 mg Documented by: Famotidine (Pepcid) 20 mg PO DAILY [facility] Last Admin: 03/25/19 07:32 Dose: 20 mg Documented by: Furosemide (Lasix) 40 mg PO BID@0900,1600 [facility] Last Admin: 03/25/19 16:33 Dose: 40 mg Documented by: Losartan Potassium (Cozaar) 100 mg PO DAILY [facility] Last Admin: 03/25/19 07:32 Dose: 100 mg Documented by: Metoprolol Tartrate (Lopressor) 25 mg PO BID [facility] Last Admin: 03/25/19 20:21 Dose: 25 mg Documented by: Naloxone HCl (Narcan) 0.2 mg IV Q2M PRN PRN Reason: Opioid Reversal Potassium Chloride (K-Dur 20) 20 meq PO DAILY [facility] Last Admin: 03/25/19 07:32 Dose: 20 meq Documented by: Sertraline HCl (Zoloft) 200 mg PO DAILY [facility] Last Admin: 03/25/19 07:32 Dose: 200 mg Documented by: Silver Sulfadiazine (Silvadene Cream) 1 applic TOPICAL DAILY [facility] Physical examination: VITAL SIGNS: 98.1, 82, 18, 121/62, 93% on 3 L GENERAL: Laying in bed, more comfortable EYES: Pupils equal. Conjunctiva normal. HEENT: External appearance of nose and ears normal, oral cavity grossly normal. NECK: JVD unable to assess, masses not palpable. HEART: First and second heart sounds are normal; minimal edema LUNGS: Respiratory rate normal; improved air entry. ABDOMEN: Soft, nontender, liver spleen not palpable, no masses palpable. PSYCH: Alert and oriented x3; mood and affect normal. Muscular skeletal: Evidence of OA INVESTIGATIONS, reviewed in the clinical context: Creatinine 0.66 Previous testing White count 6.6 hemoglobin 9.7 L from 13 potassium 4.2 creatinine 0.68 ProBNP 1140 Chest x-ray film personally reviewed by me-cardiomegaly, venous prominence EKG tracing personally reviewed by me-atrial fibrillation with controlled 2-D echo-EF 55-60%, moderate aortic stenosis, moderate tricuspid regurgitation, moderate pulmonary hypertension Assessment: -Acute on chronic congestive heart failure exacerbation from diastolic dysfunction EF 55-60% from hypertensive heart disease, improved -Moderate aortic stenosis, moderate tricuspid regurgitation, moderate pulmonary hypertension secondary -New diagnosis of atrial fibrillation rate controlled -GERD -Essential hypertension -Chronic ITP -Depression otherwise specified -Morbid obesity BMI 43.6 -Some right-sided paresis from a prior brain bleed -Depression not otherwise specified -Chronic gait dysfunction uses a walker at her baseline -Full code Plan: Clinically much improved. Patient is going to rehab. Authorization pending. Switched to by mouth Lasix. Discussed with the patient and her . Question answered. Patient started on eliquis.
[2019-03-26] MEDS: FAMOTIDINE 20 MG TAB PO SCH (08:35)
[2019-03-26] MEDS: POTASSIUM CHLORIDE ER 20 MEQ TAB.ER PO SCH (08:35)
[2019-03-26] MEDS: APIXABAN 5 MG TAB PO SCH ×2 (08:35→19:53)
[2019-03-26] MEDS: FUROSEMIDE 40 MG TAB PO SCH ×2 (08:35→15:30)
[2019-03-26] MEDS: SERTRALINE 100 MG TAB PO SCH (08:35)
[2019-03-26] MEDS: METOPROLOL TARTRATE 25 MG TAB PO SCH ×2 (08:35→19:52)
[2019-03-26] MEDS: LOSARTAN 50 MG TAB PO SCH (08:35)
[2019-03-26] MEDS: HYDROcodone/APAP 5-325MG 1 EACH TAB PO PRN ×3 (08:41→19:53)
--- NOTE | 2019-03-26 13:06 | PN ---
PROGRESS NOTE Mrs. Mays is in atrial fibrillation, which is chronic. Rate is controlled. She is anticoagulated. Heart rate is well controlled. She has lost weight. Edema has improved. Vitals are stable. JVD is 1 cm. No carotid bruit. S1, S2 heard normally. Regular rate and rhythm noted. Short systolic murmur noted. Lungs reveal improved air entry. Abdomen is soft. Lower extremity edema has improved. We will leave her on oral Lasix, increase activity and plan for discharge in the next 24 to 48 hours. MMODL / IJN: [id number] /
--- NOTE | 2019-03-26 22:26 | P.PN ---
Progress Note - Text Progress Note Date: 03/26/19 Chief Complaint: Short of breath Interval history: This is a very pleasant 73-year-old patient of Dr. Bob Kuo. Chronic stable medical conditions include GERD, hypertension, ITP, depression,. Patient's a prior brain bleed. Has left her with some weakness on the right side. She has trouble feeling with the right hand. Patient has trouble getting to the bathroom. Patient is noticed that progressively she's been getting more and more short of breath interval activity. Increasing leg swelling. No cough no chills no fever. Some orthopnea is present. Because of trouble making up to the bathroom patient has not been taking Lasix for at least 1 month. Patient ER was diagnosed to have congestive heart exacerbation. Started on IV Lasix. Today-. stable. Edema was gone on. On oral Lasix. Tolerating a diet. No new issues. at the bedside. Review of systems: Was done for constitutional, cardiovascular, GI, pulmonary. relevant finding as above Active Medications Hydrocodone Bitart/Acetaminophen ([place] 5-325) 1 each PO Q6HR PRN PRN Reason: Moderate to Severe Pain Last Admin: 03/26/19 19:53 Dose: 1 each Documented by: Alprazolam (Xanax) 0.25 mg PO DAILY PRN PRN Reason: Anxiety Last Admin: 03/23/19 22:39 Dose: 0.25 mg Documented by: Apixaban (Eliquis) 5 mg PO BID [facility] Last Admin: 03/26/19 19:53 Dose: 5 mg Documented by: Famotidine (Pepcid) 20 mg PO DAILY [facility] Last Admin: 03/26/19 08:35 Dose: 20 mg Documented by: Furosemide (Lasix) 40 mg PO BID@0900,1600 [facility] Last Admin: 03/26/19 15:30 Dose: 40 mg Documented by: Losartan Potassium (Cozaar) 100 mg PO DAILY [facility] Last Admin: 03/26/19 08:35 Dose: 100 mg Documented by: Metoprolol Tartrate (Lopressor) 25 mg PO BID [facility] Last Admin: 03/26/19 19:52 Dose: 25 mg Documented by: Naloxone HCl (Narcan) 0.2 mg IV Q2M PRN PRN Reason: Opioid Reversal Potassium Chloride (K-Dur 20) 20 meq PO DAILY [facility] Last Admin: 03/26/19 08:35 Dose: 20 meq Documented by: Sertraline HCl (Zoloft) 200 mg PO DAILY [facility] Last Admin: 03/26/19 08:35 Dose: 200 mg Documented by: Silver Sulfadiazine (Silvadene Cream) 1 applic TOPICAL DAILY [facility] Last Admin: 03/26/19 11:13 Dose: 1 applic Documented by: Physical examination: VITAL SIGNS:98.7, 79, 18, 11 6/71, para 3% on 4 L GENERAL: propped up in bed, comfortable EYES: Pupils equal. Conjunctiva normal. HEENT: External appearance of nose and ears normal, oral cavity grossly normal. NECK: JVD unable to assess, masses not palpable. HEART: First and second heart sounds are normal; minimal edema LUNGS: Respiratory rate normal; improved air entry. ABDOMEN: Soft, nontender, liver spleen not palpable, no masses palpable. PSYCH: Alert and oriented x3; mood and affect normal. Muscular skeletal: Evidence of OA INVESTIGATIONS, reviewed in the clinical context: Creatinine 0.66 Previous testing White count 6.6 hemoglobin 9.7 L from 13 potassium 4.2 creatinine 0.68 ProBNP 1140 Chest x-ray film personally reviewed by me-cardiomegaly, venous prominence EKG tracing personally reviewed by me-atrial fibrillation with controlled 2-D echo-EF 55-60%, moderate aortic stenosis, moderate tricuspid regurgitation, moderate pulmonary hypertension Assessment: -Acute on chronic congestive heart failure exacerbation from diastolic dysfunction EF 55-60% from hypertensive heart disease, compensated -Moderate aortic stenosis, moderate tricuspid regurgitation, moderate pulmonary hypertension secondary -New diagnosis of atrial fibrillation rate controlled -Acute cellulitis on the right lower extremity, on Silvadene cream with Kerlix and Curt wrap -GERD -Essential hypertension -Chronic ITP -Depression otherwise specified -Morbid obesity BMI 43.6 -Some 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 No new issues. Pending to go to the [facility] that'll happen on Thursday.
[2019-03-27] MEDS: HYDROcodone/APAP 5-325MG 1 EACH TAB PO PRN ×4 (04:04→22:05)
[2019-03-27 08:07] LABS: Calcium 8.3 mg/dL (8.4-10.2); Potassium 3.5 mmol/L (3.5-5.1)
[2019-03-27] MEDS: METOPROLOL TARTRATE 25 MG TAB PO SCH ×2 (08:15→22:05)
[2019-03-27] MEDS: FAMOTIDINE 20 MG TAB PO SCH (08:15)
[2019-03-27] MEDS: FUROSEMIDE 40 MG TAB PO SCH (08:15)
[2019-03-27] MEDS: SERTRALINE 100 MG TAB PO SCH (08:15)
[2019-03-27] MEDS: POTASSIUM CHLORIDE ER 20 MEQ TAB.ER PO SCH (08:15)
[2019-03-27] MEDS: LOSARTAN 50 MG TAB PO SCH (08:15)
[2019-03-27] MEDS: APIXABAN 5 MG TAB PO SCH ×2 (08:15→22:05)
[2019-03-27 09:21] LABS: HCT 31.6 % (34.0-46.0); HGB 9.8 gm/dL (11.4-16.0); Hypochromasia Moderate; MCH 27.1 pg (25.0-35.0); MCV 87.4 fL (80.0-100.0); Mean Platelet Volume 10.5; Platelet Count 127 k/uL (150-450); RBC 3.61 m/uL (3.80-5.40); RDW 15.2 % (11.5-15.5); WBC 7.2 k/uL (3.8-10.6)
[2019-03-27] MEDS: FUROSEMIDE 100 MG in SODIUM CHLORIDE 0.9% 90 ML IV SCH ×2 (11:02→19:34)
[2019-03-27] MEDS: METOLAZONE 5 MG TAB PO SCH (11:02)
--- NOTE | 2019-03-27 12:45 | US ---
EXAMINATION TYPE: US venous doppler duplex LE LT DATE OF EXAM: 03/27/2019 11:28 AM COMPARISON: NONE CLINICAL HISTORY: left foot pain, new . Left foot pain noted after removal of Curt Wrap on foot 2 days ago. SIDE PERFORMED: Left TECHNIQUE: The lower extremity deep venous system is examined utilizing real time linear array sonog giselle with graded compression, doppler sonography and color-flow sonography. VESSELS IMAGED: Common Femoral Vein Deep Femoral Vein Greater Saphenous Vein * Femoral Vein Popliteal Vein Small Saphenous Vein * Proximal Calf Veins (* superficial vessels) Left Leg: Negative for DVT as was able to assess as limited access to left popliteal fossa space with large body limb. No popliteal fossa lesion was identified. IMPRESSION: THIS EXAMINATION IS NEGATIVE FOR DVT WITHIN THE LEFT LEG.
--- NOTE | 2019-03-27 13:51 | XR ---
EXAMINATION TYPE: XR foot complete LT , 3 VIEWS DATE OF EXAM ORDERED: 03/27/2019 HISTORY: left foot pain, new as of 2 days ago. COMPARISON: None. FINDINGS: There is a mild hallux valgus deformity. There are degenerative changes in the left first MTP joint. There are hammertoe deformities of the second through fifth digits. No fracture or disloca tion is seen. IMPRESSION: 1. DEGENERATIVE CHANGE. 2. HAMMERTOE DEFORMITIES OF THE SECOND THROUGH FIFTH DIGITS.
--- NOTE | 2019-03-27 15:22 | PN ---
PROGRESS NOTE Mrs. Mays has gained some weight. Her edema is more obvious today. She remains in atrial fib, rate control is good. Vitals are stable. JVD is evident. S1-S2 heard normally. Irregular rhythm noted. Short systolic murmur at the base is audible, second heart sound is preserved. Lungs reveal diminished air entry over both bases. Abdomen is soft. Lower extremity edema has increased. RECOMMENDATION: I am recommending that we will initiate her on Lasix drip with a 40 mg bolus, Lasix drip and Metolazone. Do daily weights, strict I and Os and check BMP tomorrow. This lady has multiple comorbid conditions and we will try and diurese her aggressively and based on clinical course, we will make further recommendations. Discussed my thoughts with the patient and family. MMTONOL / IJN: [id number] /
--- NOTE | 2019-03-27 20:45 | P.PN ---
Progress Note - Text Progress Note Date: 03/27/19 Chief Complaint: Short of breath Interval history: This is a very pleasant 73-year-old patient of Dr. Bob Kuo. Chronic stable medical conditions include GERD, hypertension, ITP, depression,. Patient's a prior brain bleed. Has left her with some weakness on the right side. She has trouble feeling with the right hand. Patient has trouble getting to the bathroom. Patient is noticed that progressively she's been getting more and more short of breath interval activity. Increasing leg swelling. No cough no chills no fever. Some orthopnea is present. Because of trouble making up to the bathroom patient has not been taking Lasix for at least 1 month. Patient ER was diagnosed to have congestive heart exacerbation. Started on IV Lasix. Patient did diurese well. Also patient has localized cellulitis lower extremity for which she was put on Silvadene cream. Today-. Patient has been complaining of pain in the left lower extremity. Doppler ultrasound was ordered. Patient breathing has been stable. Overall feeling better. Eating fine. Seen by Dr. ELDA Finch earlier today who put the patient on a Lasix drip for fluid overload. Review of systems: Was done for constitutional, cardiovascular, GI, pulmonary. relevant finding as above Active Medications Hydrocodone Bitart/Acetaminophen ([place] 5-325) 1 each PO Q6HR PRN PRN Reason: Moderate to Severe Pain Last Admin: 03/27/19 15:20 Dose: 1 each Documented by: Alprazolam (Xanax) 0.25 mg PO DAILY PRN PRN Reason: Anxiety Last Admin: 03/23/19 22:39 Dose: 0.25 mg Documented by: Apixaban (Eliquis) 5 mg PO BID [facility] Last Admin: 03/27/19 08:15 Dose: 5 mg Documented by: Famotidine (Pepcid) 20 mg PO DAILY [facility] Last Admin: 03/27/19 08:15 Dose: 20 mg Documented by: Gabapentin (Neurontin) 100 mg PO HS [facility] Furosemide 100 mg/ Sodium (Chloride) 100 mls @ 10 mls/hr IV .Q10H [facility] Last Admin: 03/27/19 19:34 Dose: 10 mg/hr, 10 mls/hr Documented by: Losartan Potassium (Cozaar) 100 mg PO DAILY [facility] Last Admin: 03/27/19 08:15 Dose: 100 mg Documented by: Metolazone (Zaroxolyn) 5 mg PO DAILY [facility] Last Admin: 03/27/19 11:02 Dose: 5 mg Documented by: Metoprolol Tartrate (Lopressor) 25 mg PO BID [facility] Last Admin: 03/27/19 08:15 Dose: 25 mg Documented by: Naloxone HCl (Narcan) 0.2 mg IV Q2M PRN PRN Reason: Opioid Reversal Potassium Chloride (K-Dur 20) 20 meq PO DAILY [facility] Last Admin: 03/27/19 08:15 Dose: 20 meq Documented by: Sertraline HCl (Zoloft) 200 mg PO DAILY [facility] Last Admin: 03/27/19 08:15 Dose: 200 mg Documented by: Silver Sulfadiazine (Silvadene Cream) 1 applic TOPICAL DAILY [facility] Last Admin: 03/27/19 12:00 Dose: 1 applic Documented by: Physical examination: VITAL SIGNS: 98.1, 85, 18, 120/66, 96% 4 L GENERAL: propped up in bed, comfortable, awake EYES: Pupils equal. Conjunctiva normal. HEENT: External appearance of nose and ears normal, oral cavity grossly normal. NECK: JVD unable to assess, masses not palpable. HEART: First and second heart sounds are normal; nonpitting edema LUNGS: Respiratory rate normal; improved air entry. ABDOMEN: Soft, nontender, liver spleen not palpable, no masses palpable. PSYCH: Alert and oriented x3; mood and affect normal. Muscular skeletal: Evidence of OA DERMATOLOGICAL: Evidence of localized cellulitis on the right lower extremity on mid between ankle and knee Neurological: Patient is hypersensitive lower extremity with minimal touch INVESTIGATIONS, reviewed in the clinical context: White count 7.2 hemoglobin 9.8 bun 29 creatinine 0.81 Previous testing White count 6.6 hemoglobin 9.7 L from 13 potassium 4.2 creatinine 0.68 ProBNP 1140 Chest x-ray film personally reviewed by me-cardiomegaly, venous prominence EKG tracing personally reviewed by me-atrial fibrillation with controlled 2-D echo-EF 55-60%, moderate aortic stenosis, moderate tricuspid regurgitation, moderate pulmonary hypertension Assessment: -Acute on chronic congestive heart failure exacerbation from diastolic dysfunction EF 55-60% from hypertensive heart disease, started on Lasix drip by cardiology today. -Moderate aortic stenosis, moderate tricuspid regurgitation, moderate pulmonary hypertension secondary -New diagnosis of atrial fibrillation rate controlled -Acute cellulitis on the right lower extremity, on Silvadene cream with Kerlix and Curt wrap -Left foot pain. Likely from arthritis. Plan x-ray and orthopedic consult will be done. -Possible painful peripheral neuropathy, start Neurontin -GERD -Essential hypertension -Chronic ITP -Depression otherwise specified -Morbid obesity BMI 43.6 -Some right-sided paresis from a prior brain bleed -Depression not otherwise specified -Chronic gait dysfunction uses a walker at her baseline -Full code Plan: -Cardiac patient started on Lasix drip by Dr. ELDA Finch. Concern for renal function. Recheck tomorrow. We'll start the patient on Neurontin 100 mg daily at bedtime. X-ray of the left foot and orthopedic consultation. Care was discussed with the patient and at the bedside.
[2019-03-27] MEDS: GABAPENTIN 100 MG CAP PO SCH (22:05)
[2019-03-28 06:43] LABS: HCT 30.4 % (34.0-46.0); HGB 9.2 gm/dL (11.4-16.0); Hypochromasia Moderate; MCH 26.5 pg (25.0-35.0); MCHC 30.3 g/dL (31.0-37.0); MCV 87.6 fL (80.0-100.0); Mean Platelet Volume 8.7; Platelet Count 124 k/uL (150-450); RBC 3.47 m/uL (3.80-5.40); RDW 15.1 % (11.5-15.5); WBC 6.9 k/uL (3.8-10.6)
[2019-03-28] MEDS: FUROSEMIDE 100 MG in SODIUM CHLORIDE 0.9% 90 ML IV SCH ×3 (06:46→20:10)
[2019-03-28 06:53] LABS: Calcium 8.4 mg/dL (8.4-10.2); Potassium 3.2 mmol/L (3.5-5.1)
[2019-03-28] MEDS: SERTRALINE 100 MG TAB PO SCH (09:28)
[2019-03-28] MEDS: METOLAZONE 5 MG TAB PO SCH (09:29)
[2019-03-28] MEDS: METOPROLOL TARTRATE 25 MG TAB PO SCH ×2 (09:29→20:09)
[2019-03-28] MEDS: APIXABAN 5 MG TAB PO SCH ×2 (09:29→20:10)
[2019-03-28] MEDS: FAMOTIDINE 20 MG TAB PO SCH (09:29)
[2019-03-28] MEDS: POTASSIUM CHLORIDE ER 20 MEQ TAB.ER PO SCH ×5 (09:29→20:09)
[2019-03-28] MEDS: LOSARTAN 50 MG TAB PO SCH (09:29)
[2019-03-28] MEDS: HYDROcodone/APAP 5-325MG 1 EACH TAB PO PRN (16:16)
--- NOTE | 2019-03-28 18:06 | P.CNOR ---
History of Present Illness - [facility] Consult date: 03/28/19 Requesting physician: Shaq Carrasco Consult reason: other (Left foot pain) History of present illness: Patient is a pleasant 73-year-old female who is seen and examined at bedside for further evaluation for left foot pain. She originally presented to the emergency department with dyspnea. She was diagnosed with congestive heart failure. She's been started on a Eliquis. She is known have aortic stenosis, mitral regurgitation, atrial fibrillation. She also has a medical history which includes hypertension. She states over the past 2 months she has had difficulty with ambulation. She has pain in the bilateral lower extremities. She states her skin is sensitive to even light palpation. She did sustain a fall couple weeks ago. She has had some increased pain in her left foot since that time. She is also being treated for cellulitis of the right lower extremity. She does have a dressing on the left lower extremity as well. She is undergoing dressing changes with Silvadene cream. She has been experiencing some pain in the left calf as well recently had a Doppler performed due to her leg pain as well and results were negative for DVT. Patient does have the swelling in bilateral lower extremities and has been placed on Lasix. Patient has been using a walker to aid in ambulation. 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 MDRO Source:: URINE Past Surgical History: Orthopedic Surgery Additional Past Surgical History / Comment(s): BRAIN SURGERY AFTER BLEED in 2013, bilateral knee replacements Past Psychological History: Depression Smoking Status: Never smoker Past Alcohol Use History: None Reported Past Drug Use History: None Reported Medications and Allergies Home Medications Medication Instructions Recorded Confirmed Type ALPRAZolam [Xanax] 0.25 mg PO DAILY PRN 12/29/14 03/23/19 History Famotidine [Pepcid] 20 mg PO DAILY 12/29/14 03/23/19 History Potassium Chloride ER [K-Dur 20] 20 meq PO DAILY 12/29/14 03/23/19 History Sertraline HCl [Zoloft] 200 mg PO DAILY 12/29/14 03/23/19 History Furosemide [Lasix] 20 mg PO BID 03/23/19 03/23/19 History HYDROcodone/APAP 5-325MG [[place] 5 - 325 mg PO Q6HR PRN 03/23/19 03/23/19 History 5-325] Losartan Potassium 100 mg PO DAILY 03/23/19 03/23/19 History Metoprolol Tartrate [Lopressor] 25 mg PO DAILY 03/23/19 03/23/19 History Allergies Allergy/AdvReac Type Severity Reaction Status Date / Time No Known Allergies Allergy Verified 03/23/19 12:29 Physical Examination Physical Exam: Patient is awake, alert, and oriented 3 Vital signs stable Good chest excursion with deep inspiration and expiration Pain with palpation at the metatarsal phalangeal joints at the left third, fourth, and fifth digits No significant swelling, erythema, or bruising over the left foot Evidence of some swelling over the bilateral lower extremities Patient is able to perform some dorsiflexion and plantarflexion on the left Generalized pain with palpation of the bilateral lower extremities below the knees Lower extremities pneumatic heel cuffs intact which are removed and replaced during physical examination Evidence of dressing over the distal lower extremities bilaterally to treat cellulitis Results Pertinent studies: X-rays left foot taken on 03/27/2019: No evidence of fracture dislocation in the left foot or ankle; mild hallux valgus deformity; osteoarthritis of the first m etacarpal phalangeal joint; hammertoe deformities of the second through fifth digits Venous ultrasound Doppler left lower extremity taken on 03/27/2019: Negative for DVT in the left lower extremity - Labs Labs: Abnormal Lab Results - Last 24 Hours (Table) 03/28/19 03/28/19 Range/Units 05:52 05:52 RBC 3.47 L (3.80-5.40) m/uL Hgb 9.2 L (11.4-16.0) gm/dL Hct 30.4 L (34.0-46.0) % MCHC 30.3 L (31.0-37.0) g/dL Plt Count 124 L (150-450) k/uL Sodium 136 L (137-145) mmol/L Potassium 3.2 L (3.5-5.1) mmol/L Chloride 90 L (98-107) mmol/L Carbon Dioxide 38 H (22-30) mmol/L BUN 41 H (7-17) mg/dL Creatinine 1.16 H (0.52-1.04) mg/dL H & H 03/23/19 03/27/19 03/28/19 Range/Units 12:10 05:30 05:52 Hgb 9.7 L 9.8 L 9.2 L (11.4-16.0) gm/dL Hct 31.4 L 31.6 L 30.4 L (34.0-46.0) % Coagulation 03/23/19 Range/Units 12:10 INR 1.1 (<1.2) Result Diagrams: 03/28/19 05:52 03/28/19 05:52 Assessment and Plan Assessment: Assessment: Left foot pain without evidence of fracture dislocation within the left foot Difficulty with ambulation due to pain Status post fall Mild hallux valgus deformity 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 Hammertoe deformities of the second through fifth digits Congestive heart failure Hypertension Lower extremity edema Aortic stenosis Mitral regurgitation Atrial fibrillation Right lower extremity cellulitis Hypersensitivity bilateral lower extremities (1) Left foot pain Current Visit: Yes Status: Acute Code(s): M79.672 - PAIN IN LEFT FOOT SNOMED Code(s): 56627172 (2) Osteoarthritis of left foot Current Visit: Yes Status: Acute Code(s): M19.072 - PRIMARY OSTEOARTHRITIS, LEFT ANKLE AND FOOT SNOMED Code(s): 7092353683074936 (3) Hallux valgus (acquired), left foot Current Visit: Yes Status: Acute Code(s): M20.12 - HALLUX VALGUS (ACQUIRED), LEFT FOOT SNOMED Code(s): 17176349 (4) Hammertoe of left foot Current Visit: Yes Status: Acute Code(s): M20.42 - OTHER HAMMER TOE(S) (ACQUIRED), LEFT FOOT SNOMED Code(s): 586015112 (5) Hypertension Current Visit: Yes Status: Acute Code(s): I10 - ESSENTIAL (PRIMARY) HYPERTENSION SNOMED Code(s): 58956313 (6) Lower extremity edema Current Visit: Yes Status: Acute Code(s): R60.0 - LOCALIZED EDEMA SNOMED Code(s): 809637867 (7) Lower extremity cellulitis Current Visit: Yes Status: Acute Code(s): L03.119 - CELLULITIS OF UNSPECIFIED PART OF LIMB SNOMED Code(s): 332142366 (8) Aortic stenosis Current Visit: Yes Status: Acute Code(s): I35.0 - NONRHEUMATIC AORTIC (VALVE) STENOSIS SNOMED Code(s): 07649249 (9) Mitral regurgitation Current Visit: Yes Status: Acute Code(s): I34.0 - NONRHEUMATIC MITRAL (VALVE ) INSUFFICIENCY SNOMED Code(s): 56713747 (10) Hypersensitivity Current Visit: Yes Status: Acute Code(s): T78.40XA - ALLERGY, UNSPECIFIED, INITIAL ENCOUNTER SNOMED Code(s): 120137461 (11) Congestive heart failure Current Visit: Yes Status: Acute Code(s): I50.9 - HEART FAILURE, UNSPECIFIED SNOMED Code(s): 28032951 (12) A-fib Current Visit: Yes Status: Chronic Priority: High Code(s): I48.91 - UNSPECIFIED ATRIAL FIBRILLATION SNOMED Code(s): 20921736 Plan: Plan: 1. After reviewing of imaging, further discussion with the patient, and physical examination the patient, we'll currently plan to continue with conservative at this time. Reviewing of imaging does not show evidence of any fracture or dislocation within the left foot. She does have multilevel significant degenerative change in her left foot. She also is currently being treated for multiple other medical diagnoses including acute on chronic congestive heart failure, atrial fibrillation, and acute cellulitis. At this time, we recommend continued conservative treatment with regards to her left foot. We discussed we do not plan for acute surgical intervention as her imaging shows significant degenerative change without acute injury and surgery will most likely not alleviate all of her symptoms. We will plan to have her follow-up with Dr. Petty in the outpatient setting for further evaluation and discuss further treatment options in regards to her left foot. She may ambulate as tolerated on her left lower extremity. She may use a walker to aid in ambulation as needed. We discussed she should continue with treatment as recommended by other medical providers for her other medical diagnoses. From an orthopedic standpoint, patient is clear for discharge. Plan have her follow-up with Dr. Petty at [facility] had approximately 2-3 weeks for further evaluation 2. Patient will continue to be seen and examined by other medical providers for her other medical diagnoses. Time with Patient: Greater than 30 (Including obtaining history, physical examination, reviewing of imaging, and dictation.)
--- NOTE | 2019-03-28 20:01 | PN ---
PROGRESS NOTE Mrs. Mays is doing better. I placed her on a Lasix drip. Her edema has improved. Her breathing has improved. She is quite obese and she also has significant edema, but there is definitely some clinical improvement. Her potassium level was low. I am aggressively supplementing the potassium and we will repeat CBC and BMP tomorrow. Her echocardiogram revealed fairly well-preserved systolic function with ejection fraction in the range of 55%. There was moderate aortic stenosis with moderate pulmonary hypertension. Plan is to continue the current diuretic regimen, obtain CBC, BMP tomorrow, and based on clinical course, I will make further recommendations. Prognosis remains guarded. Blood pressure was 116/70, pulse rate 60 per minute. JVD 1 cm. No carotid bruit. S1, S2 heard normally. Distant heart sounds. Short systolic murmur at the base of the heart. Second heart sound preserved. Lungs reveal diminished air entry. Abdomen is soft. Lower extremity edema has improved. MMODL / IJN: [id number] /
[2019-03-28] MEDS: GABAPENTIN 100 MG CAP PO SCH (20:09)
--- NOTE | 2019-03-28 22:29 | P.PN ---
Progress Note - Text Progress Note Date: 03/28/19 Chief Complaint: Short of breath Interval history: This is a very pleasant 73-year-old patient of Dr. Bob Kuo. Chronic stable medical conditions include GERD, hypertension, ITP, depression,. Patient's a prior brain bleed. Has left her with some weakness on the right side. She has trouble feeling with the right hand. Patient has trouble getting to the bathroom. Patient is noticed that progressively she's been getting more and more short of breath interval activity. Increasing leg swelling. No cough no chills no fever. Some orthopnea is present. Because of trouble making up to the bathroom patient has not been taking Lasix for at least 1 month. Patient ER was diagnosed to have congestive heart exacerbation. Started on IV Lasix. Patient did diurese well. Also patient has localized cellulitis lower extremity for which she was put on Silvadene cream. On March 27 patient started on a Lasix drip. Patient also felt to have painful peripheral neuropathy for which Neurontin was started. Today-. Patient started on Neurontin yesterday for painful peripheral neuropathy. Diuresis well with a Lasix drip. Does feel weak and tired.. Daughter and at the bedside. Review of systems: Was done for constitutional, cardiovascular, GI, pulmonary. relevant finding as above Active Medications Hydrocodone Bitart/Acetaminophen ([place] 5-325) 1 each PO Q6HR PRN PRN Reason: Moderate to Severe Pain Last Admin: 03/28/19 16:16 Dose: 1 each Documented by: Alprazolam (Xanax) 0.25 mg PO DAILY PRN PRN Reason: Anxiety Last Admin: 03/23/19 22:39 Dose: 0.25 mg Documented by: Apixaban (Eliquis) 5 mg PO BID [facility] Last Admin: 03/28/19 20:10 Dose: 5 mg Documented by: Famotidine (Pepcid) 20 mg PO DAILY [facility] Last Admin: 03/28/19 09:29 Dose: 20 mg Documented by: Gabapentin (Neurontin) 100 mg PO HS [facility] Last Admin: 03/28/19 20:09 Dose: 100 mg Documented by: Furosemide 100 mg/ Sodium (Chloride) 100 mls @ 10 mls/hr IV .Q10H [facility] Last Admin: 03/28/19 20:10 Dose: 10 mg/hr, 10 mls/hr Documented by: Losartan Potassium (Cozaar) 100 mg PO DAILY [facility] Last Admin: 03/28/19 09:29 Dose: 100 mg Documented by: Metolazone (Zaroxolyn) 5 mg PO DAILY [facility] Last Admin: 03/28/19 09:29 Dose: 5 mg Documented by: Metoprolol Tartrate (Lopressor) 25 mg PO BID [facility] Last Admin: 03/28/19 20:09 Dose: 25 mg Documented by: Naloxone HCl (Narcan) 0.2 mg IV Q2M PRN PRN Reason: Opioid Reversal Potassium Chloride (K-Dur 20) 20 meq PO DAILY [facility] Last Admin: 03/28/19 09:29 Dose: 20 meq Documented by: Sertraline HCl (Zoloft) 200 mg PO DAILY [facility] Last Admin: 03/28/19 09:28 Dose: 200 mg Documented by: Silver Sulfadiazine (Silvadene Cream) 1 applic TOPICAL DAILY [facility] Last Admin: 03/28/19 09:30 Dose: 1 applic Documented by: Physical examination: VITAL SIGNS: 98.2, 72, 20, 103/58, 96% on 3 L GENERAL: propped up in bed, comfortable, awake EYES: Pupils equal. Conjunctiva normal. HEENT: External appearance of nose and ears normal, oral cavity grossly normal. NECK: JVD unable to assess, masses not palpable. HEART: First and second heart sounds are normal; nonpitting edema LUNGS: Respiratory rate normal; improved air entry. ABDOMEN: Soft, nontender, liver spleen not palpable, no masses palpable. PSYCH: Alert and oriented x3; mood and affect normal. Muscular skeletal: Evidence of OA DERMATOLOGICAL: Evidence of localized cellulitis/dermatitis on the right lower extremity on mid between ankle and knee Neurological: Patient is hypersensitive lower extremity with minimal touch INVESTIGATIONS, reviewed in the clinical context: White count 6.9 hemoglobin 9.2 potassium 3.2 bun 41 creatinine 1.16 Previous testing White count 6.6 hemoglobin 9.7 L from 13 potassium 4.2 creatinine 0.68 ProBNP 1140 Chest x-ray film personally reviewed by me-cardiomegaly, venous prominence EKG tracing personally reviewed by me-atrial fibrillation with controlled 2-D echo-EF 55-60%, moderate aortic stenosis, moderate tricuspid regurgitation, moderate pulmonary hypertension Assessment: -Acute on chronic congestive heart failure exacerbation from diastolic dysfunction EF 55-60% from hypertensive heart disease, started on Lasix drip . -Moderate aortic stenosis, moderate tricuspid regurgitation, moderate pulmonary hypertension secondary -New diagnosis of atrial fibrillation rate controlled -Acute cellulitis on the right lower extremity, on Silvadene cream with Kerlix and Curt wrap -Left foot pain. Likely from arthritis. Plan x-ray and orthopedic consult will be done. 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 -Depression not otherwise specified -Chronic gait dysfunction uses a walker at her baseline -Full code Plan: Patient remains on Lasix drip. Dose of Neurontin will be increased to 100 mg 3 times a day. Care was discussed at length with the patient daughter bedside and with the patient. Patient was diagnosed probable well. Looking the patient go to rehab in 24-48 hours
[2019-03-29 06:44] LABS: Potassium 3.7 mmol/L (3.5-5.1)
[2019-03-29] MEDS: FUROSEMIDE 100 MG in SODIUM CHLORIDE 0.9% 90 ML IV SCH (08:46)
[2019-03-29] MEDS: LOSARTAN 50 MG TAB PO SCH (08:47)
[2019-03-29] MEDS: SERTRALINE 100 MG TAB PO SCH (08:47)
[2019-03-29] MEDS: POTASSIUM CHLORIDE ER 20 MEQ TAB.ER PO SCH (08:47)
[2019-03-29] MEDS: APIXABAN 5 MG TAB PO SCH ×2 (08:47→20:03)
[2019-03-29] MEDS: GABAPENTIN 100 MG CAP PO SCH ×3 (08:47→23:44)
[2019-03-29] MEDS: HYDROcodone/APAP 5-325MG 1 EACH TAB PO PRN ×2 (08:47→20:03)
[2019-03-29] MEDS: FAMOTIDINE 20 MG TAB PO SCH (08:47)
[2019-03-29] MEDS: METOLAZONE 5 MG TAB PO SCH (08:49)
[2019-03-29] MEDS: METOPROLOL TARTRATE 25 MG TAB PO SCH ×2 (11:33→20:03)
[2019-03-29] MEDS: ALPRAZolam 0.25 MG TAB PO PRN (12:43)
--- NOTE | 2019-03-29 14:41 | P.PN ---
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 She has a known history of hypertension, hyperlipidemia, obesity, history according to Dr. Alves's office note of paroxysmal atrial fibrillation,. According to the patient's office note, she also at that time had some mild aortic stenosis. She presented to the hospital on this admission with symptoms of one month's duration of progressively worsening shortness of breath with associated peripheral edema. Positive PND and orthopnea. Approximately 2 months ago patient states she experienced a fall and since then has been progressively more and more weak and short of breath. Patient does have a history of a brain bleed in the past which was felt to be secondary to ITP according to her. Chest x-ray on presentation here showed cardiomegaly with diffuse interstitial pattern which could be on the basis of interstitial venous congestion or pneumonitis. Lateral view does suggest tiny bilateral pleural effusions. Interstitial pneumonitis or chronic lung disease in the differential diagnosis. EKG on presentation here showed atrial fibrillation with a controlled ventricular response, incomplete right bundle branch block pattern. An echocardiogram with Doppler study was performed which revealed moderate aortic stenosis, moderate mitral regurgitation and moderate tricuspid regurg, ejection fraction of 55-60%. Blood pressure 126/78 with a heart rate in the 90s, 95% on 3 L of oxygen. White blood cell count 6.6, hemoglobin 9.7, platelet count 113. Sodium 142, potassium 3.6, BUN 18, creatinine 0.6. Magnesium 1.8. Troponin 0.031 BNP level 1140. Patient was initiated on IV Lasix in the emergency room and has already been diuresing well according to her. She continues to have shortness of breath and significant edema. 03/29/2019 Patient was seen and examined this morning, diuresed very well on the IV Lasix drip, edema is improving significantly and patient overall feels better.let pressure 105/56, heart rate in the 60s, 94% on 3 L of oxygen.sodium 140, potassium 3.7, BUN 53, creatinine 1.3. Objective - Vital Signs Vital signs: Vital Signs Temp 97.9 F 03/29/19 08:00 Pulse 66 03/29/19 11:55 Resp 18 03/29/19 11:55 BP 105/57 03/29/19 11:55 Pulse Ox 94 L 03/29/19 11:55 Intake & Output 03/28/19 03/29/19 03/29/19 18:59 06:59 18:59 Intake Total 730.833 453.167 590 Output Total 1700 3140 650 Balance -969.167 -2686.833 -60 Weight 161.3 kg Intake: Intake, IV Titration 80.833 153.167 Amount Furosemide 100 mg In 80.833 153.167 Sodium Chloride 0.9% 90 ml @ 10 MG/HR 10 mls/hr IV .Q10H [facility] Rx#: [id number] Oral 650 300 590 Output: Urine 1700 3140 650 Other: # Voids 0 - Exam PHYSICAL EXAMINATION: GENERAL: 73Caucasian female in no acute distress at the time of my examination HEENT: Head is atraumatic, normocephalic. Pupils equal, round. Sclera anicteric. Conjunctiva are clear. Mucous membranes of the mouth are moist. Neck is supple. There is elevated jugular venous pressure. No carotid bruit is heard. HEART EXAMINATION: Heart S1 and S2 irregularly irregular a systolic murmur is heard in the aortic and mitral area CHEST EXAMINATION: lungss reveal improvement in air entry to bilateral bases ABDOMEN: Soft, obese, nontender. Bowel sounds are heard. No organomegaly noted. EXTREMITIES: 2+ peripheral pulses with 1-2+ evidence of peripheral edema , e vidence of some erythema and small ulcerated areas . NEUROLOGIC patient is awake, alert and oriented 3. . - Labs CBC & Chem 7: 03/28/19 05:52 03/29/19 05:35 Labs: Abnormal Lab Results - Last 24 Hours (Table) 03/29/19 Range/Units 05:35 Chloride 86 L (98-107) mmol/L Carbon Dioxide 43 H* (22-30) mmol/L BUN 53 H (7-17) mg/dL Creatinine 1.35 H (0.52-1.04) mg/dL Assessment and Plan Plan: Assessment and plan #1 congestive heart failure, diastolic acute on chronic #2 aortic stenosis and mitral regurgitation' #3 paroxysmal atrial fibrillation, not on anticoagulation as an outpatient #4 hypertension #5 hyperlipidemia #6 obesity Plan We'll decrease the metolazone to every other day, discontinue the Lasix drip and start the patient on Lasix 40 mg IV every 8 hourly. Obtain lytes BUN and creatinine today and daily, repeat chest x-ray in the morning. DNP note has been reviewed, I agree with a documented findings and plan of care. Patient was seen and examined.
[2019-03-29] MEDS ORDERED: FUROSEMIDE 10 MG/ML 4 ML VIAL IV SCH (16:00)
--- NOTE | 2019-03-29 22:33 | P.PN ---
Progress Note - Text Progress Note Date: 03/29/19 Chief Complaint: Short of breath Interval history: This is a very pleasant 73-year-old patient of Dr. Bob Kuo. Chronic stable medical conditions include GERD, hypertension, ITP, depression,. Patient's a prior brain bleed. Has left her with some weakness on the right side. She has trouble feeling with the right hand. Patient has trouble getting to the bathroom. Patient is noticed that progressively she's been getting more and more short of breath interval activity. Increasing leg swelling. No cough no chills no fever. Some orthopnea is present. Because of trouble making up to the bathroom patient has not been taking Lasix for at least 1 month. Patient ER was diagnosed to have congestive heart exacerbation. Started on IV Lasix. Patient did diurese well. Also patient has localized cellulitis lower extremity for which she was put on Silvadene cream. On March 27 patient started on a Lasix drip. Patient also felt to have painful peripheral neuropathy for which Neurontin was started. Today-. Eating well. Per cardiology Lasix drip. This morning. Put on 40 mg IV bolus every 8 hours. Dose of metolazone cut back. Review of systems: Was done for constitutional, cardiovascular, GI, pulmonary. relevant finding as above Active Medications Hydrocodone Bitart/Acetaminophen ([place] 5-325) 1 each PO Q6HR PRN PRN Reason: Moderate to Severe Pain Last Admin: 03/29/19 20:03 Dose: 1 each Documented by: Alprazolam (Xanax) 0.25 mg PO DAILY PRN PRN Reason: Anxiety Last Admin: 03/29/19 12:43 Dose: 0.25 mg Documented by: Apixaban (Eliquis) 5 mg PO BID [facility] Last Admin: 03/29/19 20:03 Dose: 5 mg Documented by: Famotidine (Pepcid) 20 mg PO DAILY [facility] Last Admin: 03/29/19 08:47 Dose: 20 mg Documented by: Furosemide (Lasix) 40 mg IV Q8HR [facility] Last Admin: 03/29/19 15:00 Dose: 40 mg Documented by: Gabapentin (Neurontin) 100 mg PO TID [facility] Last Admin: 03/29/19 15:00 Dose: 100 mg Documented by: Losartan Potassium (Cozaar) 100 mg PO DAILY [facility] Last Admin: 03/29/19 08:47 Dose: 100 mg Documented by: Metolazone (Zaroxolyn) 5 mg PO MOWE [facility] Metoprolol Tartrate (Lopressor) 25 mg PO BID [facility] Last Admin: 03/29/19 20:03 Dose: 25 mg Documented by: Naloxone HCl (Narcan) 0.2 mg IV Q2M PRN PRN Reason: Opioid Reversal Potassium Chloride (K-Dur 20) 20 meq PO DAILY [facility] Last Admin: 03/29/19 08:47 Dose: 20 meq Documented by: Sertraline HCl (Zoloft) 200 mg PO DAILY [facility] Last Admin: 03/29/19 08:47 Dose: 200 mg Documented by: Silver Sulfadiazine (Silvadene Cream) 1 applic TOPICAL DAILY [facility] Last Admin: 03/29/19 11:33 Dose: 1 applic Documented by: Physical examination: VITAL SIGNS: 97.9, 67, 18, 98/57, 93% on 3 L GENERAL: propped up in bed, comfortable, awake EYES: Pupils equal. Conjunctiva normal. HEENT: External appearance of nose and ears normal, oral cavity grossly normal. NECK: JVD unable to assess, masses not palpable. HEART: First and second heart sounds are normal; nonpitting edema LUNGS: Respiratory rate normal; improved air entry. ABDOMEN: Soft, nontender, liver spleen not palpable, no masses palpable. PSYCH: Alert and oriented x3; mood and affect normal. Muscular skeletal: Evidence of OA DERMATOLOGICAL: Evidence of localized cellulitis/dermatitis on the right lower extremity on mid between ankle and knee Neurological: Patient is hypersensitive lower extremity with minimal touch INVESTIGATIONS, reviewed in the clinical context: Potassium 3.7 bun 53 creatinine 1.35 Previous testing White count 6.6 hemoglobin 9.7 L from 13 potassium 4.2 creatinine 0.68 ProBNP 1140 Chest x-ray film personally reviewed by me-cardiomegaly, venous prominence EKG tracing personally reviewed by me-atrial fibrillation with controlled 2-D echo-EF 55-60%, moderate aortic stenosis, moderate tricuspid regurgitation, moderate pulmonary hypertension Assessment: -Acute on chronic congestive heart failure exacerbation from diastolic dysfunction EF 55-60% from hypertensive heart disease, much improved. -Acute kidney injury creatinine going from 0.68-1.35, along with metabolic alkalosis indicating volume contraction. -Moderate aortic stenosis, moderate tricuspid regurgitation, moderate pulmonary hypertension secondary -New diagnosis of atrial fibrillation rate controlled -Acute cellulitis on the right lower extremity, on Silvadene cream with Kerlix and Curt wrap -Left foot pain. Likely from arthritis. Plan x-ray and orthopedic consult will be done. 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 -Depression not otherwise specified -Chronic gait dysfunction uses a walker at her baseline -Full code Plan: Per cardiology Lasix drip. This morning. Put on IV Lasix bolus. Patient's creatinine has jumped up and also metabolic alkalosis contraction. We'll hold off Lasix for now. Resume tomorrow depending on renal function and clinical status. Discussed with patient.
[2019-03-30 06:23] LABS: Calcium 8.7 mg/dL (8.4-10.2); Potassium 3.4 mmol/L (3.5-5.1)
[2019-03-30] MEDS: SERTRALINE 100 MG TAB PO SCH (07:39)
[2019-03-30] MEDS: FAMOTIDINE 20 MG TAB PO SCH (07:39)
[2019-03-30] MEDS: LOSARTAN 50 MG TAB PO SCH (07:39)
[2019-03-30] MEDS: APIXABAN 5 MG TAB PO SCH ×2 (07:40→20:40)
[2019-03-30] MEDS: HYDROcodone/APAP 5-325MG 1 EACH TAB PO PRN ×3 (07:40→20:40)
[2019-03-30] MEDS: POTASSIUM CHLORIDE ER 20 MEQ TAB.ER PO SCH (07:40)
[2019-03-30] MEDS: GABAPENTIN 100 MG CAP PO SCH ×3 (07:40→22:43)
[2019-03-30] MEDS: METOPROLOL TARTRATE 25 MG TAB PO SCH ×2 (07:42→20:40)
[2019-03-30] MEDS ORDERED: METOLAZONE 5 MG TAB PO SCH (09:00)
--- NOTE | 2019-03-30 09:08 | XR ---
EXAMINATION TYPE: XR chest 2V DATE OF EXAM: 03/30/2019 COMPARISON: Prior chest x-ray 03/23/2019 HISTORY: Congestive heart failure follow-up TECHNIQUE: Frontal and lateral views of the chest are obtained. FINDINGS: The heart remains enlarged. Central vascularity is again prominent. Aorta is dense and pos sibly ectatic. No evident pneumothorax or pleural effusion. There are overlying cardiac leads. There may be some improvement in aeration within the lungs. . Marked cardiomegaly. IMPRESSION: There may be some improvement in patient's volume status. Additional findings above.
--- NOTE | 2019-03-30 15:05 | PN ---
PROGRESS NOTE Mrs Mays has developed some prerenal azotemia with aggressive diuresis, but she is feeling better. Weight is down almost 15-20 pounds. Vitals are stable. JVD 1 cm, no carotid bruit. S1-S2 heard normally. Rate is controlled, irregular, short systolic murmur noted. Lungs revealed improved air entry. Abdomen is soft. Lower extremity edema has improved. Plan is to hold Lasix today, switch her to oral Lasix and Zaroxolyn will be every other day and will recheck her BMP tomorrow. MMODL / IJN: [id number] /
[2019-03-30] MEDS: ALPRAZolam 0.25 MG TAB PO PRN (15:43)
--- NOTE | 2019-03-30 16:43 | P.PN ---
Progress Note - Text Progress Note Date: 03/30/19 Chief Complaint: Short of breath Interval history: This is a very pleasant 73-year-old patient of Dr. Bob Kuo. Chronic stable medical conditions include GERD, hypertension, ITP, depression,. Patient's a prior brain bleed. Has left her with some weakness on the right side. She has trouble feeling with the right hand. Patient has trouble getting to the bathroom. Patient is noticed that progressively she's been getting more and more short of breath interval activity. Increasing leg swelling. No cough no chills no fever. Some orthopnea is present. Because of trouble making up to the bathroom patient has not been taking Lasix for at least 1 month. Patient ER was diagnosed to have congestive heart exacerbation. Started on IV Lasix. Patient did diurese well. Also patient has localized cellulitis lower extremity for which she was put on Silvadene cream. On March 27 patient started on a Lasix drip. Patient also felt to have painful peripheral neuropathy for which Neurontin was started. Acute kidney injury, prerenal from diuresis. Today-. He stopped Lasix drip last night. Renal function is worsening. Patient tolerated diet. Breathing is stable. Neuropathic pain and lower extremity present. Review of systems: Was done for constitutional, cardiovascular, GI, pulmonary. relevant finding as above Active Medications Hydrocodone Bitart/Acetaminophen ([place] 5-325) 1 each PO Q6HR PRN PRN Reason: Moderate to Severe Pain Last Admin: 03/30/19 13:17 Dose: 1 each Documented by: Alprazolam (Xanax) 0.25 mg PO DAILY PRN PRN Reason: Anxiety Last Admin: 03/30/19 15:43 Dose: 0.25 mg Documented by: Apixaban (Eliquis) 5 mg PO BID [facility] Last Admin: 03/30/19 07:40 Dose: 5 mg Documented by: Famotidine (Pepcid) 20 mg PO DAILY [facility] Last Admin: 03/30/19 07:39 Dose: 20 mg Documented by: Gabapentin (Neurontin) 100 mg PO TID [facility] Last Admin: 03/30/19 15:16 Dose: 100 mg Documented by: Losartan Potassium (Cozaar) 100 mg PO DAILY [facility] Last Admin: 03/30/19 07:39 Dose: 100 mg Documented by: Metolazone (Zaroxolyn) 5 mg PO MOWEFR [facility] Last Admin: 03/30/19 07:42 Dose: 5 mg Documented by: Metoprolol Tartrate (Lopressor) 25 mg PO BID [facility] Last Admin: 03/30/19 07:42 Dose: 25 mg Documented by: Naloxone HCl (Narcan) 0.2 mg IV Q2M PRN PRN Reason: Opioid Reversal Potassium Chloride (K-Dur 20) 20 meq PO DAILY [facility] Last Admin: 03/30/19 07:40 Dose: 20 meq Documented by: Sertraline HCl (Zoloft) 200 mg PO DAILY [facility] Last Admin: 03/30/19 07:39 Dose: 200 mg Documented by: Silver Sulfadiazine (Silvadene Cream) 1 applic TOPICAL DAILY [facility] Last Admin: 03/30/19 10:30 Dose: 1 applic Documented by: Physical examination: VITAL SIGNS: 97.6, 71, 18, 107/51, 97% on 3 L GENERAL: propped up in bed, comfortable, awake EYES: Pupils equal. Conjunctiva normal. HEENT: External appearance of nose and ears normal, oral cavity grossly normal. NECK: JVD unable to assess, masses not palpable. HEART: First and second heart sounds are normal; nonpitting edema LUNGS: Respiratory rate normal; improved air entry. ABDOMEN: Soft, nontender, liver spleen not palpable, no masses palpable. PSYCH: Alert and oriented x3; mood and affect normal. Muscular skeletal: Evidence of OA DERMATOLOGICAL: Evidence of localized cellulitis/dermatitis on the right lower extremity on mid between ankle and knee Neurological: Patient is hypersensitive lower extremity with minimal touch INVESTIGATIONS, reviewed in the clinical context: Potassium 3.4 bicarb 45 132 creatinine 1.98 Previous testing White count 6.6 hemoglobin 9.7 L from 13 potassium 4.2 creatinine 0.68 ProBNP 1140 Chest x-ray film personally reviewed by me-cardiomegaly, venous prominence EKG tracing personally reviewed by me-atrial fibrillation with controlled 2-D echo-EF 55-60%, moderate aortic stenosis, moderate tricuspid regurgitation, moderate pulmonary hypertension Assessment: -Acute on chronic congestive heart failure exacerbation from diastolic dysfunction EF 55-60% from hypertensive heart disease, much improved. -Acute kidney injury creatinine going from 0.68- 1.98 along with metabolic alkalosis indicating volume contraction. Patient in no -Moderate aortic stenosis, moderate tricuspid regurgitation, moderate pulmonary hypertension secondary -New diagnosis of atrial fibrillation rate controlled -Acute cellulitis on the right lower extremity, on Silvadene cream with Kerlix and Curt wrap -Left foot pain. Likely from arthritis. Plan x-ray and orthopedic consult will be done. 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 -Depression not otherwise specified -Chronic gait dysfunction uses a walker at her baseline -Full code Plan: -Continue to hold off Lasix. Patient did receive metolazone today. Repeated twice in the morning. Discussed with Dr. ELDA Finch. Continue to hold off Lasix for now. Patient is rather more contracted and creatinine has bumped up. We'll get some IV fluids gently today. Discussed with patient and .
[2019-03-30] MEDS ORDERED: SODIUM CHLORIDE 0.9% 1,000 ML IV SCH (16:45)
[2019-03-30] MEDS ORDERED: POTASSIUM CHLORIDE ER 20 MEQ TAB.ER PO STA (17:13)
[2019-03-31 06:47] LABS: HCT 29.3 % (34.0-46.0); HGB 9.2 gm/dL (11.4-16.0); Hypochromasia Marked; MCH 27.6 pg (25.0-35.0); MCHC 31.3 g/dL (31.0-37.0); MCV 88.1 fL (80.0-100.0); Mean Platelet Volume 8.4; Platelet Count 162 k/uL (150-450); RBC 3.32 m/uL (3.80-5.40); RDW 14.7 % (11.5-15.5); WBC 5.9 k/uL (3.8-10.6)
[2019-03-31 07:06] LABS: Calcium 8.1 mg/dL (8.4-10.2); Potassium 3.8 mmol/L (3.5-5.1)
[2019-03-31] MEDS: ALPRAZolam 0.25 MG TAB PO PRN (07:47)
[2019-03-31] MEDS: POTASSIUM CHLORIDE ER 20 MEQ TAB.ER PO SCH (07:47)
[2019-03-31] MEDS: METOPROLOL TARTRATE 25 MG TAB PO SCH ×2 (07:47→23:02)
[2019-03-31] MEDS: LOSARTAN 50 MG TAB PO SCH (07:47)
[2019-03-31] MEDS: GABAPENTIN 100 MG CAP PO SCH ×3 (07:48→23:01)
[2019-03-31] MEDS: FAMOTIDINE 20 MG TAB PO SCH (07:48)
[2019-03-31] MEDS: HYDROcodone/APAP 5-325MG 1 EACH TAB PO PRN ×3 (07:48→23:02)
[2019-03-31] MEDS: APIXABAN 5 MG TAB PO SCH ×2 (07:48→23:02)
[2019-03-31] MEDS: SERTRALINE 100 MG TAB PO SCH (07:53)
[2019-03-31] MEDS ORDERED: FUROSEMIDE 40 MG TAB PO SCH (09:00)
[2019-03-31 11:31] VITALS: BMI 58.0
--- NOTE | 2019-03-31 11:46 | P.PN ---
Subjective Progress Note Date: 03/31/19 This is a 73-year-old female who follows with Dr. Alves as her sole skiver. She has a known history of hypertension, hyperlipidemia, obesity, history according to Dr. Alves's office note of paroxysmal atrial fibrillation,. According to the patient's office note, she also at that time had some mild aortic stenosis. She presented to the hospital on this admission with symptoms of one month's duration of progressively worsening shortness of breath with associated peripheral edema. Positive PND and orthopnea. Approximately 2 months ago patient states she experienced a fall and since then has been progressively more and more weak and short of breath. Patient does have a history of a brain bleed in the past which was felt to be secondary to ITP according to her. Chest x-ray on presentation here showed cardiomegaly with diffuse interstitial pattern which could be on the basis of interstitial venous congestion or pneumonitis. Lateral view does suggest tiny bilateral pleural effusions. Interstitial pneumonitis or chronic lung disease in the differential diagnosis. EKG on presentation here showed atrial fibrillation with a controlled ventricular response, incomplete right bundle branch block pattern. An echocardiogram with Doppler study was performed which revealed moderate aortic stenosis, moderate mitral regurgitation and moderate tricuspid regurg, ejection fraction of 55-60%. Blood pressure 126/78 with a heart rate in the 90s, 95% on 3 L of oxygen. White blood cell count 6.6, hemoglobin 9.7, platelet count 113. Sodium 142, potassium 3.6, BUN 18, creatinine 0.6. Magnesium 1.8. Troponin 0.031 BNP level 1140. Patient was initiated on IV Lasix in the emergency room and has already been diuresing well according to her. She continues to have shortness of breath and significant edema. 03/29/2019 Patient was seen and examined this morning, diuresed very well on the IV Lasix drip, edema is improving significantly and patient overall feels better.let pressure 105/56, heart rate in the 60s, 94% on 3 L of oxygen.sodium 140, potassium 3.7, BUN 53, creatinine 1.3. 03/31/2019 Patient seen and examined this morning, overall doing significantly better. Her creatinine however is up to 2.83 today, BUN 83, potassium 3.8, sodium 136. Hemoglobin 9.2. We will discontinue her oral Lasix, discontinue Zaroxolyn, discontinue her angiotensin palmira, give the patient 75 mL per hour of IV fluids. Continue to monitor the patient for 24 hours check lytes BUN and c reatinine in the morning. Objective - Vital Signs Vital signs: Vital Signs Temp 96.6 F L 03/31/19 08:00 Pulse 60 03/31/19 10:31 Resp 20 03/31/19 08:00 BP 97/55 03/31/19 10:31 Pulse Ox 99 03/31/19 08:00 Intake & Output 03/30/19 03/31/19 03/31/19 18:59 06:59 18:59 Intake Total 480 150 240 Output Total 600 Balance 480 -450 240 Weight 163.2 kg 163.2 kg Intake: Intake, IV Titration 150 Amount Sodium Chloride 0.9% 1, 150 000 ml @ 75 mls/hr IV . [id number] [facility] Rx#:[id number] Oral 480 240 Output: Urine 600 - Exam PHYSICAL EXAMINATION: GENERAL: 73Caucasian female in no acute distress at the time of my examination HEENT: Head is atraumatic, normocephalic. Pupils equal, round. Sclera anicteric. Conjunctiva are clear. Mucous membranes of the mouth are moist. Neck is supple. There is elevated jugular venous pressure. No carotid bruit is heard. HEART EXAMINATION: Heart S1 and S2 irregularly irregular a systolic murmur is heard in the aortic and mitral area CHEST EXAMINATION: lungss reveal improvement in air entry to bilateral bases ABDOMEN: Soft, obese, nontender. Bowel sounds are heard. No organomegaly noted. EXTREMITIES: 2+ peripheral pulses with 1-2+ evidence of peripheral edema , evidence of some erythema and small ulcerated areas . NEUROLOGIC patient is awake, alert and oriented 3. . - Labs CBC & Chem 7: 03/31/19 05:42 03/31/19 05:42 Labs: Abnormal Lab Results - Last 24 Hours (Table) 03/31/19 03/31/19 Range/Units 05:42 05:42 RBC 3.32 L (3.80-5.40) m/uL Hgb 9.2 L (11.4-16.0) gm/dL Hct 29.3 L (34.0-46.0) % Sodium 136 L (137-145) mmol/L Chloride 86 L (98-107) mmol/L Carbon Dioxide 43 H* (22-30) mmol/L BUN 83 H (7-17) mg/dL Creatinine 2.83 H (0.52-1.04) mg/dL Calcium 8.1 L (8.4-10.2) mg/dL Assessment and Plan Plan: Assessment and plan #1 congestive heart failure, diastolic acute on chronic #2 aortic stenosis and mitral regurgitation' #3 paroxysmal atrial fibrillation, not on anticoagulation as an outpatient #4 hypertension #5 hyperlipidemia #6 obesity Plan Creatinine today has gone up to 2.8, we will discontinue the oral diuretics and Zaroxolyn, discontinue the angiotensin palmira, give the patient 75 mL of normal saline per hour. Monitor for 24 hours check lytes BUN and creatinine in the morning. DNP note has been reviewed, I agree with a documented findings and plan of care. Patient was seen and examined.
[2019-03-31] MEDS: SODIUM CHLORIDE 0.9% 1,000 ML IV SCH (13:48)
--- NOTE | 2019-03-31 21:04 | P.PN ---
Progress Note - Text Progress Note Date: 03/31/19 Chief Complaint: Short of breath Interval history: This is a very pleasant 73-year-old patient of Dr. Bob Kuo. Chronic stable medical conditions include GERD, hypertension, ITP, depression,. Patient's a prior brain bleed. Has left her with some weakness on the right side. She has trouble feeling with the right hand. Patient has trouble getting to the bathroom. Patient is noticed that progressively she's been getting more and more short of breath interval activity. Increasing leg swelling. No cough no chills no fever. Some orthopnea is present. Because of trouble making up to the bathroom patient has not been taking Lasix for at least 1 month. Patient ER was diagnosed to have congestive heart exacerbation. Started on IV Lasix. Patient did diurese well. Also patient has localized cellulitis lower extremity for which she was put on Silvadene cream. On March 27 patient started on a Lasix drip. Patient also felt to have painful peripheral neuropathy for which Neurontin was started. Acute kidney injury, prerenal from diuresis. Today-. I started the patient some IV fluids last night-75 mL an hour.. Feels tired. Otherwise tolerating a diet. Review of systems: Was done for constitutional, cardiovascular, GI, pulmonary. relevant finding as above Active Medications Hydrocodone Bitart/Acetaminophen ([place] 5-325) 1 each PO Q6HR PRN PRN Reason: Moderate to Severe Pain Last Admin: 03/31/19 13:50 Dose: 1 each Documented by: Alprazolam (Xanax) 0.25 mg PO DAILY PRN PRN Reason: Anxiety Last Admin: 03/31/19 07:47 Dose: 0.25 mg Documented by: Apixaban (Eliquis) 5 mg PO BID [facility] Last Admin: 03/31/19 07:48 Dose: 5 mg Documented by: Famotidine (Pepcid) 20 mg PO DAILY [facility] Last Admin: 03/31/19 07:48 Dose: 20 mg Documented by: Gabapentin (Neurontin) 100 mg PO TID [facility] Last Admin: 03/31/19 15:23 Dose: 100 mg Documented by: Sodium Chloride (Saline 0.9%) 1,000 mls @ 75 mls/hr IV .[id number] [facility] Last Admin: 03/31/19 13:48 Dose: 75 mls/hr Documented by: Metoprolol Tartrate (Lopressor) 25 mg PO BID [facility] Last Admin: 03/31/19 07:47 Dose: 25 mg Documented by: Naloxone HCl (Narcan) 0.2 mg IV Q2M PRN PRN Reason: Opioid Reversal Potassium Chloride (K-Dur 20) 20 meq PO DAILY [facility] Last Admin: 03/31/19 07:47 Dose: 20 meq Documented by: Sertraline HCl (Zoloft) 200 mg PO DAILY [facility] Last Admin: 03/31/19 07:53 Dose: 200 mg Documented by: Silver Sulfadiazine (Silvadene Cream) 1 applic TOPICAL DAILY [facility] Last Admin: 03/31/19 07:56 Dose: 1 applic Documented by: Physical examination: VITAL SIGNS: 96.6, 66, 18, 96/50, 99% on 3 L GENERAL: propped up in bed, tired, awake EYES: Pupils equal. Conjunctiva normal. HEENT: External appearance of nose and ears normal, oral cavity grossly normal. NECK: JVD unable to assess, masses not palpable. HEART: First and second heart sounds are normal; nonpitting edema LUNGS: Respiratory rate normal; improved air entry. ABDOMEN: Soft, nontender, liver spleen not palpable, no masses palpable. PSYCH: Alert and oriented x3; mood and affect tired Muscular skeletal: Evidence of OA DERMATOLOGICAL: Evidence of localized cellulitis/dermatitis on the right lower extremity on mid between ankle and knee Neurological: Patient is hypersensitive lower extremity with minimal touch INVESTIGATIONS, reviewed in the clinical context: Potassium 3.8 bun 83, creatinine 2.83 Previous testing White count 6.6 hemoglobin 9.7 L from 13 potassium 4.2 creatinine 0.68 ProBNP 1140 Chest x-ray film personally reviewed by me-cardiomegaly, venous prominence EKG tracing personally reviewed by me-atrial fibrillation with controlled 2-D echo-EF 55-60%, moderate aortic stenosis, moderate tricuspid regurgitation, moderate pulmonary hypertension Assessment: -Acute on chronic congestive heart failure exacerbation from diastolic dysfunction EF 55-60% from hypertensive heart disease, he will awake. -Acute kidney injury creatinine going from 0.68-2.8 along with metabolic alkalosis indicating volume contraction. Worsening -Moderate aortic stenosis, moderate tricuspid regurgitation, moderate pulmonary hypertension secondary -New diagnosis of atrial fibrillation rate controlled -Acute cellulitis on the right lower extremity, on Silvadene cream with Kerlix and Curt wrap -Left foot pain. Likely from arthritis. Plan x-ray and orthopedic consult will be done. 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 -Depression not otherwise specified -Chronic gait dysfunction uses a walker at her baseline -Full code Plan: Patient's continued on IV fluids. Discharge has been held. Would like to renal function to stabilize before we let her go. Discussed with the patient and . Also discussed with Dr. ELDA Finch.
[2019-04-01 06:58] LABS: Calcium 8.4 mg/dL (8.4-10.2); Potassium 4.4 mmol/L (3.5-5.1)
[2019-04-01] MEDS: SODIUM CHLORIDE 0.9% 1,000 ML IV SCH ×2 (08:06→15:02)
[2019-04-01] MEDS: POTASSIUM CHLORIDE ER 20 MEQ TAB.ER PO SCH (09:19)
[2019-04-01] MEDS: GABAPENTIN 100 MG CAP PO SCH (09:19)
[2019-04-01] MEDS: SERTRALINE 100 MG TAB PO SCH (09:19)
[2019-04-01] MEDS: FAMOTIDINE 20 MG TAB PO SCH (09:19)
[2019-04-01] MEDS: APIXABAN 5 MG TAB PO SCH (09:19)
[2019-04-01] MEDS: METOPROLOL TARTRATE 25 MG TAB PO SCH ×2 (09:20→19:58)
--- NOTE | 2019-04-01 12:59 | PN ---
PROGRESS NOTE Mrs. Mays is a lady with diastolic heart failure and pulmonary hypertension with chronic atrial fibrillation. With some aggressive diuresis in view of significant edema, she has developed initially what seemed to be prerenal azotemia, but now the creatinine is still going up and the BUN is a stable at . I am requesting nephrology evaluation. Diuretics and losartan have all been discontinued. We are going to hydrate her cautiously and seek Nephrology input. She is complaining of fatigue and lack of energy, remains in atrial fib. Rate is controlled. Vitals are stable. JVD 1 cm. No carotid bruit. S1, S2 heard normally. Short systolic murmur noted. Lungs reveal improved air entry. Abdomen is soft. Lower extremity edema has improved. Her BUN and creatinine are still increased, especially creatinine has gone up. Will seek Nephrology input. Continue cautious hydration. MMTONOL / HON: [id number] /
--- NOTE | 2019-04-01 23:03 | P.PN ---
Progress Note - Text Progress Note Date: 04/01/19 Chief Complaint: Short of breath Interval history: This is a very pleasant 73-year-old patient of Dr. Bob Kuo. Chronic stable medical conditions include GERD, hypertension, ITP, depression,. Patient's a prior brain bleed. Has left her with some weakness on the right side. She has trouble feeling with the right hand. Patient has trouble getting to the bathroom. Patient is noticed that progressively she's been getting more and more short of breath interval activity. Increasing leg swelling. No cough no chills no fever. Some orthopnea is present. Because of trouble making up to the bathroom patient has not been taking Lasix for at least 1 month. Patient ER was diagnosed to have congestive heart exacerbation. Started on IV Lasix. Patient did diurese well. Also patient has localized cellulitis lower extremity for which she was put on Silvadene cream. On March 27 patient started on a Lasix drip. Patient also felt to have painful peripheral neuropathy for which Neurontin was started. Acute kidney injury, prerenal from diuresis. Today-. Patient remains on gentle hydration. However tired. Some shortness of lower extremity. [place] to be from Neurontin the setting of renal failure. Nephrology was consulted. Review of systems: Was done for constitutional, cardiovascular, GI, pulmonary. relevant finding as above Active Medications Hydrocodone Bitart/Acetaminophen ([place] 5-325) 1 each PO Q6HR PRN PRN Reason: Moderate to Severe Pain Last Admin: 03/31/19 23:02 Dose: 1 each Documented by: Alprazolam (Xanax) 0.25 mg PO DAILY PRN PRN Reason: Anxiety Last Admin: 03/31/19 07:47 Dose: 0.25 mg Documented by: Apixaban (Eliquis) 2.5 mg PO BID [facility] Famotidine (Pepcid) 20 mg PO DAILY [facility] Last Admin: 04/01/19 09:19 Dose: 20 mg Documented by: Gabapentin (Neurontin) 100 mg PO DAILY [facility] Sodium Chloride (Saline 0.9%) 1,000 mls @ 75 mls/hr IV .[id number] [facility] Last Admin: 04/01/19 15:02 Dose: Not Given Documented by: Metoprolol Tartrate (Lopressor) 25 mg PO BID [facility] Last Admin: 04/01/19 19:58 Dose: 25 mg Documented by: Naloxone HCl (Narcan) 0.2 mg IV Q2M PRN PRN Reason: Opioid Reversal Potassium Chloride (K-Dur 20) 20 meq PO DAILY [facility] Last Admin: 04/01/19 09:19 Dose: 20 meq Documented by: Sertraline HCl (Zoloft) 200 mg PO DAILY [facility] Last Admin: 04/01/19 09:19 Dose: 200 mg Documented by: Silver Sulfadiazine (Silvadene Cream) 1 applic TOPICAL HS [facility] Last Admin: 04/01/19 19:59 Dose: 1 applic Documented by: Physical examination: VITAL SIGNS: 97.8, 85, 16, 131/82, 100% on 3 L GENERAL: Propped her diet, we can bit tired EYES: Pupils equal. Conjunctiva normal. HEENT: External appearance of nose and ears normal, oral cavity grossly normal. NECK: JVD unable to assess, masses not palpable. HEART: First and second heart sounds are normal; nonpitting edema LUNGS: Respiratory rate normal; improved air entry. ABDOMEN: Soft, nontender, liver spleen not palpable, no masses palpable. PSYCH: Alert and oriented x3; mood and affect tired Muscular skeletal: Evidence of OA DERMATOLOGICAL: Evidence of localized cellulitis/dermatitis on the right lower extremity on mid between ankle and knee Neurological: Patient is hypersensitive lower extremity with minimal touch INVESTIGATIONS, reviewed in the clinical context: Potassium 4.4 bicarb 40, bun 33 creatinine 2.69 Previous testing White count 6.6 hemoglobin 9.7 L from 13 potassium 4.2 creatinine 0.68 ProBNP 1140 Chest x-ray film personally reviewed by me-cardiomegaly, venous prominence EKG tracing personally reviewed by me-atrial fibrillation with controlled 2-D echo-EF 55-60%, moderate aortic stenosis, moderate tricuspid regurgitation, moderate pulmonary hypertension Assessment: -Acute on chronic congestive heart failure exacerbation from diastolic dysfunction EF 55-60% from hypertensive heart disease, stabilized -Acute kidney injury creatinine going from 0.68-2.8 along with metabolic alkalosis indicating volume contraction. Slow to respond -Moderate aortic stenosis, moderate tricuspid regurgitation, moderate pulmonary hypertension secondary -New diagnosis of atrial fibrillation rate controlled -Acute cellulitis on the right lower extremity, on Silvadene cream with Kerlix and Curt wrap -Left foot pain. Likely from arthritis. Plan x-ray and orthopedic consult will be done. 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 -Depression not otherwise specified -Chronic gait dysfunction uses a walker at her baseline -Full code Plan: Continue with gentle hydration. Nephrology was consulted. We'll cut back the dose of Neurontin 100 mg a day. Care was discussed with the patient and at the bedside. Hopefully the leg jerks should improve in 24 hours. Repeat labs.
[2019-04-02] MEDS: SODIUM CHLORIDE 0.9% 1,000 ML IV SCH ×3 (02:43→14:46)
[2019-04-02 06:26] LABS: HCT 29.5 % (34.0-46.0); HGB 9.2 gm/dL (11.4-16.0); Hypochromasia Marked; MCH 27.1 pg (25.0-35.0); MCHC 31.2 g/dL (31.0-37.0); Mean Platelet Volume 8.4; Platelet Count 148 k/uL (150-450); RBC 3.39 m/uL (3.80-5.40); RDW 14.6 % (11.5-15.5); WBC 4.9 k/uL (3.8-10.6)
[2019-04-02 06:33] LABS: Calcium 8.8 mg/dL (8.4-10.2); Potassium 4.1 mmol/L (3.5-5.1)
--- NOTE | 2019-04-02 10:10 | PN ---
PROGRESS NOTE DATE OF SERVICE: April 02, 2019. INTERVAL HISTORY: The patient was seen this morning. Overall, she is feeling better in term of shortness of breath. No chest pain or chest discomfort. She continues to be on IV fluids 75 mL/hour. The creatinine has been trending down. She is currently in the process of seeing a nephrology consult. She denies any symptoms of chest pain or chest discomfort at this point. We will continue the IV fluid. Follow up with the Nephrology consult and follow up with the patient. MMODL / IJN: [id number] /
[2019-04-02] MEDS: METOPROLOL TARTRATE 25 MG TAB PO SCH ×2 (10:12→21:59)
[2019-04-02] MEDS: FAMOTIDINE 20 MG TAB PO SCH (10:12)
[2019-04-02] MEDS: APIXABAN 2.5 MG TABLET PO SCH ×2 (10:12→21:59)
[2019-04-02] MEDS: GABAPENTIN 100 MG CAP PO SCH (10:12)
[2019-04-02] MEDS: SERTRALINE 100 MG TAB PO SCH (10:12)
[2019-04-02] MEDS: ALPRAZolam 0.25 MG TAB PO PRN (10:19)
--- NOTE | 2019-04-02 12:38 | P.NPCON ---
History of Present Illness - Reason for Consult Consult date: 04/02/19 acute renal failure - Chief Complaint Congestive heart failure - History of Present Illness This is a 73-year-old somewhat obese female who is being seen because of acute kidney injury that occurred in the hospital and is resolving. She came in because of shortness of breath at home over the last few days. She was diuresed. Her creatinine was 0.68 on admission on 03/23/2019, went up to 1.16 dated 03/28/2019, further peaked at 2.83 on 03/31/2019. Subsequently her Lasix was discontinued and she was hydrated and her creatinine, known to 1.29 this morning Additionally she showed significant metabolic alkalosis this also improving. Her bicarb was 26 on admission, went up to 45 as of 03/30/2019 and is down to 39 this morning improved She currently she is awake alert oriented on oxygen but says she is somewhat dizzy when she stands up. Appetite is poor. No nausea vomiting diarrhea a bdominal pain no chest pain no cough. No fever chills. Past Medical History Past Medical History: Blood Disorder, Heart Failure, CVA/TIA, GERD/Reflux, Hypertension Additional Past Medical History / Comment(s): ITP DISORDER History of Any Multi-Drug Resistant Organisms: MRSA Date of last positivie culture/infection: 2012 MDRO Source:: URINE Past Surgical History: Orthopedic Surgery Additional Past Surgical History / Comment(s): BRAIN SURGERY AFTER BLEED in 2012, bilateral knee replacements Past Psychological History: Depression Smoking Status: Never smoker Past Alcohol Use History: None Reported Past Drug Use History: None Reported Medications and Allergies Home Medications Medication Instructions Recorded Confirmed Type ALPRAZolam [Xanax] 0.25 mg PO DAILY PRN 12/29/14 03/23/19 History Famotidine [Pepcid] 20 mg PO DAILY 12/29/14 03/23/19 History Potassium Chloride ER [K-Dur 20] 20 meq PO DAILY 12/29/14 03/23/19 History Sertraline HCl [Zoloft] 200 mg PO DAILY 12/29/14 03/23/19 History Furosemide [Lasix] 20 mg PO BID 03/23/19 03/23/19 History HYDROcodone/APAP 5-325MG [[place] 5 - 325 mg PO Q6HR PRN 03/23/19 03/23/19 History 5-325] Losartan Potassium 100 mg PO DAILY 03/23/19 03/23/19 History Metoprolol Tartrate [Lopressor] 25 mg PO DAILY 03/23/19 03/23/19 History Allergies Allergy/AdvReac Type Severity Reaction Status Date / Time No Known Allergies Allergy Verified 03/23/19 12:29 Physical Exam Vitals: Vital Signs Temp Pulse Resp BP Pulse Ox 04/02/19 07:57 97.7 F 79 16 112/70 04/02/19 04:00 71 20 96/59 96 04/02/19 00:00 67 20 98/62 04/01/19 20:00 97.7 F 76 19 125/60 98 04/01/19 16:00 97.7 F 78 14 107/57 95 Intake and Output 04/01/19 04/02/19 04/02/19 22:59 06:59 14:59 Intake Total 180 Output Total 1350 850 Balance -1170 -850 Intake: Oral 180 Output: Urine 1350 850 Stool 0 Other: Voiding Method Bedside Commode Weight 165.6 kg On examination obese female comfortable on supine and on oxygen HEENT exam no JVP, neck is supple no facial asymmetry Lungs are significant for diminished air entry bilaterally. No crackles were heard. Heart sounds are unremarkable seen to be normal sinus rhythm with some extra beats. She has a grade 2 systolic ejection murmur at the aortic area. Abdomen soft nontender obese difficult to examine no masses were felt Extreme exam was minimal edema Neurologically awake alert oriented but generalized weakness Results - Lab Results Most recent lab results Calcium 8.8 mg/dL (8.4-10.2) 04/02/19 06:10 Magnesium 1.8 mg/dL (1.6-2.3) 03/23/19 12:10 04/02/19 06:10 04/02/19 06:10 Assessment and Plan Assessment: Impression 1. Acute kidney injury from prerenal. Improved with hydration and off of diuretics. Creatinine was 0.68 on 03/23/2019, peaked at 2.18 on 03/31/2019 and today is 1.29. 2. Significant metabolic alkalosis secondary to diuresis, improved from 45-39 hydration and discontinuation of diuretics 3. Obesity 4. Paroxysmal atrial fibrillation 5. Moderate aortic stenosis and mitral regurg and right ventricle pressure of 57 suggestive of pulmonary hypertension. Recommendation 1. Maintain slow hydration. Could be done orally no need for IV fluids anymore 2. Repeat labs tomorrow. 3. She is off of the ARB, losartan which was taking at home are 100 mg. She may be her to resume when her creatinine is stable and her blood pressure is stable 4. Keep strict I's and O's
--- NOTE | 2019-04-02 22:24 | P.PN ---
Progress Note - Text Progress Note Date: 04/02/19 Chief Complaint: Short of breath Interval history: This is a very pleasant 73-year-old patient of Dr. Bob Kuo. Chronic stable medical conditions include GERD, hypertension, ITP, depression,. Patient's a prior brain bleed. Has left her with some weakness on the right side. She has trouble feeling with the right hand. Patient has trouble getting to the bathroom. Patient is noticed that progressively she's been getting more and more short of breath interval activity. Increasing leg swelling. No cough no chills no fever. Some orthopnea is present. Because of trouble making up to the bathroom patient has not been taking Lasix for at least 1 month. Patient ER was diagnosed to have congestive heart exacerbation. Started on IV Lasix. Patient did diurese well. Also patient has localized cellulitis lower extremity for which she was put on Silvadene cream. On March 27 patient started on a Lasix drip. Patient also felt to have painful peripheral neuropathy for which Neurontin was started. Acute kidney injury, prerenal from diuresis. Today-. Continue gentle hydration. Diuretics continued to be held off. Dose of Neurontin was cut back yesterday. Jerkiness stopped. Tolerating a diet. at the bedside. Review of systems: Was done for constitutional, cardiovascular, GI, pulmonary. relevant finding as above Active Medications Hydrocodone Bitart/Acetaminophen ([place] 5-325) 1 each PO Q6HR PRN PRN Reason: Moderate to Severe Pain Last Admin: 03/31/19 23:02 Dose: 1 each Documented by: Alprazolam (Xanax) 0.25 mg PO DAILY PRN PRN Reason: Anxiety Last Admin: 04/02/19 10:19 Dose: 0.25 mg Documented by: Apixaban (Eliquis) 2.5 mg PO BID [facility] Last Admin: 04/02/19 21:59 Dose: 2.5 mg Documented by: Famotidine (Pepcid) 20 mg PO DAILY [facility] Last Admin: 04/02/19 10:12 Dose: 20 mg Documented by: Gabapentin (Neurontin) 100 mg PO DAILY [facility] Last Admin: 04/02/19 10:12 Dose: 100 mg Documented by: Sodium Chloride (Saline 0.9%) 1,000 mls @ 75 mls/hr IV .[id number] [facility] Last Admin: 04/02/19 14:46 Dose: Not Given Documented by: Sodium Chloride (Saline 0.9%) 1,000 mls @ 50 mls/hr IV .Q20H [facility] Last Admin: 04/02/19 13:03 Dose: 50 mls/hr Documented by: Metoprolol Tartrate (Lopressor) 25 mg PO BID [facility] Last Admin: 04/02/19 21:59 Dose: 25 mg Documented by: Naloxone HCl (Narcan) 0.2 mg IV Q2M PRN PRN Reason: Opioid Reversal Sertraline HCl (Zoloft) 200 mg PO DAILY [facility] Last Admin: 04/02/19 10:12 Dose: 200 mg Documented by: Silver Sulfadiazine (Silvadene Cream) 1 applic TOPICAL HS [facility] Last Admin: 04/02/19 21:59 Dose: 1 applic Documented by: Physical examination: VITAL SIGNS: 97.9, 63, 12, 123/71, 95% on 4 L GENERAL: Propped up in bed, EYES: Pupils equal. Conjunctiva normal. HEENT: External appearance of nose and ears normal, oral cavity grossly normal. NECK: JVD unable to assess, masses not palpable. HEART: First and second heart sounds are normal; nonpitting edema LUNGS: Respiratory rate normal; improved air entry. ABDOMEN: Soft, nontender, liver spleen not palpable, no masses palpable. PSYCH: Alert and oriented x3; mood and affect tired Muscular skeletal: Evidence of OA DERMATOLOGICAL: Evidence of localized cellulitis/dermatitis on the right lower extremity on mid between ankle and knee Neurological: Patient is hypersensitive lower extremity with minimal touch INVESTIGATIONS, reviewed in the clinical context: Impression 4.1 bun 84 creatinine 1.29 hemoglobin 9.2 Previous testing White count 6.6 hemoglobin 9.7 L from 13 potassium 4.2 creatinine 0.68 ProBNP 1140 Chest x-ray film personally reviewed by me-cardiomegaly, venous prominence EKG tracing personally reviewed by me-atrial fibrillation with controlled 2-D echo-EF 55-60%, moderate aortic stenosis, moderate tricuspid regurgitation, moderate pulmonary hypertension Assessment: -Acute on chronic congestive heart failure exacerbation from diastolic dysfunction EF 55-60% from hypertensive heart disease, stabilized -Acute kidney injury creatinine going from 0.68-2.8 along with metabolic alkalosis indicating volume contraction. Improving -Moderate aortic stenosis, moderate tricuspid regurgitation, moderate pulmonary hypertension secondary -New diagnosis of atrial fibrillation rate controlled -Acute cellulitis on the right lower extremity, on Silvadene cream with Kerlix and Curt wrap -Left foot pain. Likely from arthritis. Plan x-ray and orthopedic consult will be done. 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 -Depression not otherwise specified -Chronic gait dysfunction uses a walker at her baseline -Full code Plan: Renal function much improved. IV fluids cut back. Discussed at length with the . Patient eventually will need long-term care. He does understand the same. Questions were answered. ECF on Thursday
[2019-04-03] MEDS: HYDROcodone/APAP 5-325MG 1 EACH TAB PO PRN (04:17)
[2019-04-03] MEDS: ALPRAZolam 0.25 MG TAB PO PRN (09:54)
[2019-04-03] MEDS: SERTRALINE 100 MG TAB PO SCH (09:54)
[2019-04-03] MEDS: FAMOTIDINE 20 MG TAB PO SCH (09:54)
[2019-04-03] MEDS: GABAPENTIN 100 MG CAP PO SCH (09:54)
[2019-04-03] MEDS: METOPROLOL TARTRATE 25 MG TAB PO SCH ×2 (09:55→20:03)
[2019-04-03] MEDS: APIXABAN 2.5 MG TABLET PO SCH ×2 (09:55→20:03)
[2019-04-03] MEDS: SODIUM CHLORIDE 0.9% 1,000 ML IV SCH (10:26)
--- NOTE | 2019-04-03 11:18 | P.PN ---
Subjective Progress Note Date: 04/03/19 Principal diagnosis: This is a 73-year-old somewhat obese female who is being seen because of acute kidney injury that occurred in the hospital and is resolving. Her acute kidney injury is deemed to be from prerenal from diuresis. She is responding to but all of diuretics and gentle hydration. Her breathing is improved she is on home oxygen and remains on oxygen here via nasal cannula Appetite is better did she complains of fatigue and tiredness and inability to walk. History of present illness; She came in because of shortness of breath at home over the last few days. She was diuresed. Her creatinine was 0.68 on admission on 03/23/2019, went up to 1.16 dated 03/28/2019, further peaked at 2.83 on 03/31/2019. Subsequently her Lasix was discontinued and she was hydrated and her creatinine, known to 1.29 this morning Objective - Vital Signs Vital signs: Vital Signs Temp 97.7 F 04/03/19 08:00 Pulse 75 04/03/19 08:00 Resp 21 04/03/19 08:00 BP 133/94 04/03/19 08:00 Pulse Ox 95 04/03/19 08:00 Intake & Output 04/02/19 04/03/19 04/03/19 18:59 06:59 18:59 Intake Total 1450 120 600 Output Total 950 600 Balance 500 120 0 Weight 163.2 kg Intake: Intake, IV Titration 550 600 Amount Sodium Chloride 0.9% 1, 100 600 000 ml @ 50 mls/hr IV . Q20H [facility] Rx#:[id number] Sodium Chloride 0.9% 1, 450 000 ml @ 75 mls/hr IV . [id number] [facility] Rx#:[id number] Oral 900 120 Output: Urine 950 600 Stool 0 Other: Voiding Method Bedside Commode Diaper Incontinent # Voids 1 On examination she is obese on nasal cannula oxygen. HEENT exam no JVP neck is supple no facial asymmetry Lungs are significant for somewhat diminished breath sounds and maybe an occasional coarse crackle Heart sounds are unremarkable for any murmur rub gallop somewhat distant Abdomen is obese protuberant and nontender Extremity exam was trace edema Neurologically awake alert oriented but profoundly weak - Labs CBC & Chem 7: 04/02/19 06:10 04/02/19 06:10 Assessment and Plan Assessment: Impression 1. Acute kidney injury from prerenal. Improved with hydration and off of diuretics. Creatinine was 0.68 on 03/23/2019, peaked at 2.18 on 03/31/2019 and yesterday was 1.29. labs today are pending 2. Significant metabolic alkalosis secondary to diuresis, improved from 45-39 hydration and discontinuation of diuretics. Bicarb is improving. Labs are pending today 3. Obesity 4. Paroxysmal atrial fibrillation 5. Moderate aortic stenosis and mitral regurg and right ventricle pressure of 57 suggestive of pulmonary hypertension. Recommendation 1. DC IV hydration 2. Repeat labs today 3. She is off of the ARB, losartan which was taking at home are 100 mg. She may be her to resume when her creatinine is stable and her blood pressure is stable 4. Keep Keep strict I's 5. We can resume her diuretics based on orthostatic changes
--- NOTE | 2019-04-03 11:24 | P.PN ---
Subjective Progress Note Date: 04/03/19 Principal diagnosis: Heart failure/atrial fibrillation This is a very pleasant 73-year-old female patient with a past medical history significant for heart failure, paroxysmal atrial fibrillation, and aortic stenosis, was admitted to the hospital initially with shortness of breath and was diagnosed with heart failure secondary to diastolic dysfunction. The patient was started on diuretics but she developed acute renal failure. Subsequently the diuretics was stopped and she was started on IV fluids. She was seen this morning. Overall she's feeling better in terms of shortness of breath. She is a slightly on the dry side. The chest examination is unremarkable. She does have bilateral lower extremity swelling but no edema and that seems to be chronic. No symptoms of chest pain or chest discomfort. The creatinine was trending down until yesterday but we don't have any creatinine this morning. Blood work was ordered and will follow-up with . Overall she's feeling weak and I asked the patient to get up and around. She is on IV fluid at 75 mm per hour. Nephrology is on the case. Objective - Vital Signs Vital signs: Vital Signs Temp 97.7 F 04/03/19 08:00 Pulse 75 04/03/19 08:00 Resp 21 04/03/19 08:00 BP 133/94 04/03/19 08:00 Pulse Ox 95 04/03/19 08:00 Intake & Output 04/02/19 04/03/19 04/03/19 18:59 06:59 18:59 Intake Total 1450 120 600 Output Total 950 600 Balance 500 120 0 Weight 163.2 kg Intake: Intake, IV Titration 550 600 Amount Sodium Chloride 0.9% 1, 100 600 000 ml @ 50 mls/hr IV . Q20H [facility] Rx#:[id number] Sodium Chloride 0.9% 1, 450 000 ml @ 75 mls/hr IV . [id number] [facility] Rx#:[id number] Oral 900 120 Output: Urine 950 600 Stool 0 0 Other: Voiding Method Bedside Commode Bedside Commode Diaper Diaper Incontinent Incontinent # Voids 1 - Constitutional General appearance: Present: no acute distress - Respiratory Respiratory: bilateral: diminished - Cardiovascular Heart sounds: normal: S1, S2 Abnormal Heart Sounds: Present: systolic murmur - Labs CBC & Chem 7: 04/02/19 06:10 04/02/19 06:10 Assessment and Plan Assessment: Assessment #1 congestive heart failure exacerbation secondary to diastolic dysfunction which has resolved #2 acute renal failure which has been improving #3 paroxysmal atrial fibrillation #4 aortic stenosis Plan #1 continue monitoring the kidney function and electrolytes #2 follow-up with the patient for possible discharge in the next 24 hours
[2019-04-03 11:54] LABS: African American GFR (CKD) >90 (>60 ml/min/1.73 sqM); Anion Gap 3 mmol/L; Blood Urea Nitrogen 44 mg/dL (7-17); Calcium 9.3 mg/dL (8.4-10.2); Chloride 100 mmol/L (98-107); Glucose 108 mg/dL (74-99); Non-African American GFR(CKD) 81 (>60 ml/min/1.73 sqM); Potassium 3.7 mmol/L (3.5-5.1); Sodium 143 mmol/L (137-145)
[2019-04-03 12:04] LABS: Carbon Dioxide 40 mmol/L (22-30)
[2019-04-03 16:38] VITALS: RESP 18
--- NOTE | 2019-04-03 22:30 | P.PN ---
Progress Note - Text Progress Note Date: 04/03/19 Chief Complaint: Short of breath Interval history: This is a very pleasant 73-year-old patient of Dr. Bob Kuo. Chronic stable medical conditions include GERD, hypertension, ITP, depression,. Patient's a prior brain bleed. Has left her with some weakness on the right side. She has trouble feeling with the right hand. Patient has trouble getting to the bathroom. Patient is noticed that progressively she's been getting more and more short of breath interval activity. Increasing leg swelling. No cough no chills no fever. Some orthopnea is present. Because of trouble making up to the bathroom patient has not been taking Lasix for at least 1 month. Patient ER was diagnosed to have congestive heart exacerbation. Started on IV Lasix. Patient did diurese well. Also patient has localized cellulitis lower extremity for which she was put on Silvadene cream. On March 27 patient started on a Lasix drip. Patient also felt to have painful peripheral neuropathy for which Neurontin was started. Acute kidney injury, prerenal from diuresis. Today-. Feeling better. Oral intake fine. Kidney function improving. Review of systems: Was done for constitutional, cardiovascular, GI, pulmonary. relevant finding as above Active Medications Hydrocodone Bitart/Acetaminophen ([place] 5-325) 1 each PO Q6HR PRN PRN Reason: Moderate to Severe Pain Last Admin: 04/03/19 04:17 Dose: 1 each Documented by: Alprazolam (Xanax) 0.25 mg PO DAILY PRN PRN Reason: Anxiety Last Admin: 04/03/19 09:54 Dose: 0.25 mg Documented by: Apixaban (Eliquis) 2.5 mg PO BID [facility] Last Admin: 04/03/19 20:03 Dose: 2.5 mg Documented by: Famotidine (Pepcid) 20 mg PO DAILY [facility] Last Admin: 04/03/19 09:54 Dose: 20 mg Documented by: Gabapentin (Neurontin) 100 mg PO DAILY [facility] Last Admin: 04/03/19 09:54 Dose: 100 mg Documented by: Sodium Chloride (Saline 0.9%) 1,000 mls @ 50 mls/hr IV .Q20H [facility] Last Admin: 04/03/19 10:26 Dose: Not Given Documented by: Metoprolol Tartrate (Lopressor) 25 mg PO BID [facility] Last Admin: 04/03/19 20:03 Dose: 25 mg Documented by: Naloxone HCl (Narcan) 0.2 mg IV Q2M PRN PRN Reason: Opioid Reversal Sertraline HCl (Zoloft) 200 mg PO DAILY [facility] Last Admin: 04/03/19 09:54 Dose: 200 mg Documented by: Silver Sulfadiazine (Silvadene Cream) 1 applic TOPICAL HS [facility] Last Admin: 04/03/19 20:03 Dose: 1 applic Documented by: Physical examination: VITAL SIGNS: 97.8, 70, 19, 123/80, 94% on 3 L GENERAL: Propped up in bed, EYES: Pupils equal. Conjunctiva normal. HEENT: External appearance of nose and ears normal, oral cavity grossly normal. NECK: JVD unable to assess, masses not palpable. HEART: First and second heart sounds are normal; nonpitting edema LUNGS: Respiratory rate normal; improved air entry. ABDOMEN: Soft, nontender, liver spleen not palpable, no masses palpable. PSYCH: Alert and oriented x3; mood and affect tired Muscular skeletal: Evidence of OA DERMATOLOGICAL: Evidence of localized cellulitis/dermatitis on the right lower extremity on mid between ankle and knee Neurological: Patient is hypersensitive lower extremity with minimal touch INVESTIGATIONS, reviewed in the clinical context: Potassium 3.7 bun 44 creatinine 0.74 Previous testing White count 6.6 hemoglobin 9.7 L from 13 potassium 4.2 creatinine 0.68 ProBNP 1140 Chest x-ray film personally reviewed by me-cardiomegaly, venous prominence EKG tracing personally reviewed by me-atrial fibrillation with controlled 2-D echo-EF 55-60%, moderate aortic stenosis, moderate tricuspid regurgitation, moderate pulmonary hypertension Assessment: -Acute on chronic congestive heart failure exacerbation from diastolic dysfunction EF 55-60% from hypertensive heart disease, stabilized -Acute kidney injury creatinine going from 0.68-2.8 along with metabolic alkalosis indicating volume contraction. Corrected -Moderate aortic stenosis, moderate tricuspid regurgitation, moderate pulmonary hypertension secondary -New diagnosis of atrial fibrillation rate controlled -Acute cellulitis on the right lower extremity, on Silvadene cream with Kerlix and Curt wrap -Left foot pain. Likely from arthritis. Plan x-ray and orthopedic consult will be done. 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 -Depression not otherwise specified -Chronic gait dysfunction uses a walker at her baseline -Full code Plan: Overall doing much better. Kidney function corrected. Discussed the patient. DC the ECF tomorrow.
[2019-04-04 08:05] VITALS: BP 123/72; PULSE 75; TEMP 97.8
[2019-04-04] MEDS ORDERED: FUROSEMIDE 40 MG TAB PO SCH (09:00)
--- NOTE | 2019-04-04 09:06 | P.PN ---
Subjective Patient is seen in follow-up for acute kidney injury. GFR is back to baseline. Denies chest pain or shortness of breath. Urine output is good. Vital signs are stable. General: The patient appeared well nourished and normally developed. HEENT: Head exam is unremarkable. Neck is without jugular venous distension. LUNGS: Lungs are clear to auscultation and percussion. Breath sounds decreased. HEART: Rate and Rhythm are regular. First and second heart sounds normal. No murmurs, rubs or gallops. ABDOMEN: Abdominal exam reveals normal bowel sounds. Non-tender and non- distended. No evidence of peritonitis. EXTREMITITES: No clubbing, cyanosis, or edema. No drainage. Objective - Vital Signs Vital signs: Vital Signs Temp 97.8 F 04/04/19 08:00 Pulse 75 04/04/19 08:00 Resp 18 04/04/19 08:00 BP 123/72 04/04/19 08:00 Pulse Ox 95 04/04/19 08:00 Intake & Output 04/03/19 04/04/19 04/04/19 18:59 06:59 18:59 Intake Total 840 777 240 Output Total 1100 1225 Balance -260 -448 240 Weight 161.3 kg Intake: Intake, IV Titration 600 Amount Sodium Chloride 0.9% 1, 600 000 ml @ 50 mls/hr IV . Q20H [facility] Rx#:[id number] Oral 240 777 240 Output: Urine 1100 1225 Stool 0 0 Other: Voiding Method Bedside Commode Bedside Commode Diaper Diaper Incontinent Incontinent - Labs CBC & Chem 7: 04/02/19 06:10 04/03/19 11:15 Labs: Abnormal Lab Results - Last 24 Hours (Table) 04/03/19 Range/Units 11:15 Carbon Dioxide 40 H (22-30) mmol/L BUN 44 H (7-17) mg/dL Glucose 108 H (74-99) mg/dL Assessment and Plan Plan: Assessment: 1. Acute kidney injury mostly prerenal secondary to overdiuresis. Resolved. Creatinine 0.74 today. 2. Chronic diastolic CHF with moderate aortic stenosis, mitral regurgitation, tricuspid regurgitation and pulmonary hypertension. 3. Metabolic alkalosis secondary to diuresis. Improved. 4. A. fib. Plan: Resume Lasix 40 mg orally once daily. Potential discharge to ECF today. Repeat BMP and magnesium level 2-3 days postdischarge. Follow up outpatient in 1-2 weeks. Advised to monitor her weight closely.
[2019-04-04] MEDS: ALPRAZolam 0.25 MG TAB PO PRN (09:18)
[2019-04-04] MEDS: APIXABAN 2.5 MG TABLET PO SCH (09:18)
[2019-04-04] MEDS: GABAPENTIN 100 MG CAP PO SCH (09:18)
[2019-04-04] MEDS: FAMOTIDINE 20 MG TAB PO SCH (09:19)
[2019-04-04] MEDS: METOPROLOL TARTRATE 25 MG TAB PO SCH (09:19)
[2019-04-04] MEDS: SERTRALINE 100 MG TAB PO SCH (09:19)
--- NOTE | 2019-04-04 11:46 | P.PN ---
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 She has a known history of hypertension, hyperlipidemia, obesity, history according to Dr. Alves's office note of paroxysmal atrial fibrillation,. According to the patient's office note, she also at that time had some mild aortic stenosis. She presented to the hospital on this admission with symptoms of one month's duration of progressively worsening shortness of breath with associated peripheral edema. Positive PND and orthopnea. Approximately 2 months ago patient states she experienced a fall and since then has been progressively more and more weak and short of breath. Patient does have a history of a brain bleed in the past which was felt to be secondary to ITP according to her. Chest x-ray on presentation here showed cardiomegaly with diffuse interstitial pattern which could be on the basis of interstitial venous congestion or pneumonitis. Lateral view does suggest tiny bilateral pleural effusions. Interstitial pneumonitis or chronic lung disease in the differential diagnosis. EKG on presentation here showed atrial fibrillation with a controlled ventricular response, incomplete right bundle branch block pattern. An echocardiogram with Doppler study was performed which revealed moderate aortic stenosis, moderate mitral regurgitation and moderate tricuspid regurg, ejection fraction of 55-60%. Blood pressure 126/78 with a heart rate in the 90s, 95% on 3 L of oxygen. White blood cell count 6.6, hemoglobin 9.7, platelet count 113. Sodium 142, potassium 3.6, BUN 18, creatinine 0.6. Magnesium 1.8. Troponin 0.031 BNP level 1140. Patient was initiated on IV Lasix in the emergency room and has already been diuresing well according to her. She continues to have shortness of breath and significant edema. 03/29/2019 Patient was seen and examined this morning, diuresed very well on the IV Lasix drip, edema is improving significantly and patient overall feels better.let pressure 105/56, heart rate in the 60s, 94% on 3 L of oxygen.sodium 140, potassium 3.7, BUN 53, creatinine 1.3. 03/31/2019 Patient seen and examined this morning, overall doing significantly better. Her creatinine however is up to 2.83 today, BUN 83, potassium 3.8, sodium 136. Hemoglobin 9.2. We will discontinue her oral Lasix, discontinue Zaroxolyn, discontinue her angiotensin palmira, give the patient 75 mL per hour of IV fluids. Continue to monitor the patient for 24 hours check lytes BUN and c reatinine in the morning. 04/04/2019 Patient seen and examined this morning, overall she states she's feeling significantly better. I pressure 122/70 with a heart rate in the 70s, 95% on 3 L of oxygen. Sodium 143, potassium 3.7, BUN 44, creatinine 0.7. Objective - Vital Signs Vital signs: Vital Signs Temp 97.8 F 04/04/19 08:00 Pulse 75 04/04/19 08:00 Resp 18 04/04/19 08:00 BP 123/72 04/04/19 08:00 Pulse Ox 95 04/04/19 08:00 Intake & Output 04/03/19 04/04/19 04/04/19 18:59 06:59 18:59 Intake Total 840 777 240 Output Total 1100 1225 Balance -260 -448 240 Weight 161.3 kg Intake: Intake, IV Titration 600 Amount Sodium Chloride 0.9% 1, 600 000 ml @ 50 mls/hr IV . Q20H [facility] Rx#:[id number] Oral 240 777 240 Output: Urine 1100 1225 Stool 0 0 Other: Voiding Method Bedside Commode Bedside Commode Bedside Commode Diaper Diaper Diaper Incontinent Incontinent Incontinent - Exam PHYSICAL EXAMINATION: GENERAL: 73Caucasian female in no acute distress at the time of my examination HEENT: Head is atraumatic, normocephalic. Pupils equal, round. Sclera anicteric. Conjunctiva are clear. Mucous membranes of the mouth are moist. Neck is supple. There is elevated jugular venous pressure. No carotid bruit is heard. HEART EXAMINATION: Heart S1 and S2 irregularly irregular a systolic murmur is heard in the aortic and mitral area CHEST EXAMINATION: lungss reveal improvement in air entry to bilateral bases ABDOMEN: Soft, obese, nontender. Bowel sounds are heard. No organomegaly noted. EXTREMITIES: 2+ peripheral pulses with 1-2+ evidence of peripheral edema , evidence of some erythema and small ulcerated areas . NEUROLOGIC patient is awake, alert and oriented 3. . - Labs CBC & Chem 7: 04/02/19 06:10 04/03/19 11:15 Labs: Abnormal Lab Results - Last 24 Hours (Table) 04/03/19 Range/Units 11:15 Carbon Dioxide 40 H (22-30) mmol/L BUN 44 H (7-17) mg/dL Glucose 108 H (74-99) mg/dL Assessment and Plan Plan: Assessment and plan #1 congestive heart failure, diastolic acute on chronic #2 aortic stenosis and mitral regurgitation' #3 paroxysmal atrial fibrillation, not on anticoagulation as an outpatient #4 hypertension #5 hyperlipidemia #6 obesity Plan From cardiology's perspective, patient may be discharged to ECF or home once cleared by primary. We will recommend to continue current medications. Patient has also been advised to take her Lasix regularly at home on discharge. She was taking 20 mg daily and will be discharged home on 40 mg daily. DNP note has been reviewed, I agree with a documented findings and plan of care. Patient was seen and examined.
--- NOTE | 2019-04-04 13:10 | P.DS ---
Providers Date of admission: 03/23/19 13:33 Expected date of discharge: 04/04/19 Attending physician: Shaq Carrasco Consults: 03/23/19 13:34 Consult Physician Routine Consulting Provider: Isabel Trujillo Consult Reason/Comments: CHF, a-fib Do you want consulting provider notified?: Yes 03/24/19 12:39 Consult Physician Routine Consulting Provider: Farhad Pillai Consult Reason/Comments: hx itp Do you want consulting provider notified?: Yes 03/27/19 14:43 Consult Physician Routine Consulting Provider: Dayami Jimenez Consult Reason/Comments: new Left foot pain, degenerative changes Do you want consulting provider notified?: Yes 04/01/19 09:49 Consult Physician Routine Consulting Provider: Lyly Ace Consult Reason/Comments: arf new onset Do you want consulting provider notified?: Yes Primary care physician: Bob Kuo [place] Hospital Course: Chief Complaint: Short of breath Hospital course: This is a very pleasant 73-year-old patient of Dr. Bob Kuo. Chronic stable medical conditions include GERD, hypertension, ITP, depression,. Patient's a prior brain bleed. Has left her with some weakness on the right side. She has trouble feeling with the right hand. Patient has trouble getting to the bathroom. Patient is noticed that progressively she's been getting more and more short of breath interval activity. Increasing leg swelling. No cough no chills no fever. Some orthopnea is present. Because of trouble making up to the bathroom patient has not been taking Lasix for at least 1 month. Patient ER was diagnosed to have congestive heart exacerbation. Started on IV Lasix. Patient did diurese well. Also patient has localized cellulitis lower extremity for which she was put on Silvadene cream. On March 27 patient started on a Lasix drip. Patient also felt to have painful peripheral neuropathy for which Neurontin was started. Acute kidney injury, prerenal from diuresis. Diuretics held. Given IV fluids. Creatinine had bumped up to 2.83 came down to 0.74. Also new onset atrial fibrillation. Rate now controlled. Also had cellulitis of the right lower extremity. Applied Silvadene cream. Today-. Feeling better. Oral intake fine. Stable. Breathing stable. Discussed with patient.. Discussion and discharge planning more than 35 minutes Consultation: [facility] Dr. Petty from orthopedics for left foot pain. Dr. Ace from nephrology Physical examination: VITAL SIGNS: 97.8, 75, 18, 123/72, 95% on 3 L GENERAL: Propped up in bed, EYES: Pupils equal. Conjunctiva normal. HEENT: External appearance of nose and ears normal, oral cavity grossly normal. NECK: JVD unable to assess, masses not palpable. HEART: First and second heart sounds are normal; nonpitting edema LUNGS: Respiratory rate normal; improved air entry. ABDOMEN: Soft, nontender, liver spleen not palpable, no masses palpable. PSYCH: Alert and oriented x3; mood and affect tired Muscular skeletal: Evidence of OA DERMATOLOGICAL: Evidence of localized cellulitis/dermatitis on the right lower extremity on mid between ankle and knee Neurological: Patient is hypersensitive lower extremity with minimal touch INVESTIGATIONS, reviewed in the clinical context: Potassium 3.7 bun 44 creatinine 0.74 Previous testing White count 6.6 hemoglobin 9.7 L from 13 potassium 4.2 creatinine 0.68 ProBNP 1140 Chest x-ray film personally reviewed by me-cardiomegaly, venous prominence EKG tracing personally reviewed by me-atrial fibrillation with controlled 2-D echo-EF 55-60%, moderate aortic stenosis, moderate tricuspid regurgitation, moderate pulmonary hypertension Foot [id number] of DJD, hammertoe deformity of the second through fifth digits. Assessment: -Acute on chronic congestive heart failure exacerbation from diastolic dysfunction EF 55-60% from hypertensive heart disease, stabilized -Acute kidney injury creatinine going from 0.68-2.8 along with metabolic alkalosis indicating volume contraction. Corrected -Moderate aortic stenosis, moderate tricuspid regurgitation, moderate pulmonary hypertension secondary -Persistent atrial fibrillation rate controlled -Acute cellulitis on the right lower extremity, on Silvadene cream with Kerlix and Curt wrap -Left foot pain. -Left foot osteoarthritis with hammertoe from second to through fifth toe. 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 -Depression not otherwise specified -Chronic gait dysfunction uses a walker at her baseline -Full code Disposition: F/[place] Patient Condition at Discharge: Stable Plan - Discharge Summary Discharge Rx Participant: No New Discharge Prescriptions: New Apixaban [Eliquis] 2.5 mg PO BID tablet Furosemide [Lasix] 40 mg PO DAILY #0 tab Metoprolol Tartrate [Lopressor] 25 mg PO BID tab Gabapentin [Neurontin] 100 mg PO BID #6 cap SILVER sulfADIAZINE CREAM [Silvadene Cream] 1 applic TOPICAL HS applic Continue Famotidine [Pepcid] 20 mg PO DAILY Sertraline HCl [Zoloft] 200 mg PO DAILY Potassium Chloride ER [K-Dur 20] 20 meq PO DAILY HYDROcodone/APAP 5-325MG [[place] 5-325] 5 - 325 mg PO Q6HR PRN #12 tab PRN Reason: Moderate To Severe Pain ALPRAZolam [Xanax] 0.25 mg PO DAILY PRN #3 tab PRN Reason: Anxiety Discontinued Metoprolol Tartrate [Lopressor] 25 mg PO DAILY Furosemide [Lasix] 20 mg PO BID No Action Losartan Potassium 100 mg PO DAILY Discharge Medication List Famotidine [Pepcid] 20 mg PO DAILY 12/29/14 [History] Potassium Chloride ER [K-Dur 20] 20 meq PO DAILY 12/29/14 [History] Sertraline HCl [Zoloft] 200 mg PO DAILY 12/29/14 [History] Losartan Potassium 100 mg PO DAILY 03/23/19 [History] ALPRAZolam [Xanax] 0.25 mg PO DAILY PRN #3 tab 04/04/19 [Rx] Apixaban [Eliquis] 2.5 mg PO BID tablet 04/04/19 [Rx] Furosemide [Lasix] 40 mg PO DAILY #0 tab 04/04/19 [Rx] Gabapentin [Neurontin] 100 mg PO BID #6 cap 04/04/19 [Rx] HYDROcodone/APAP 5-325MG [[place] 5-325] 5 - 325 mg PO Q6HR PRN #12 tab 04/04/19 [Rx] Metoprolol Tartrate [Lopressor] 25 mg PO BID tab 04/04/19 [Rx] SILVER sulfADIAZINE CREAM [Silvadene Cream] 1 applic TOPICAL HS applic 04/04/19 [Rx] Follow up Appointment(s)/Referral(s): Pardeep Finch MD [STAFF PHYSICIAN] - 04/05/19 1:30 pm Bob Kuo MD [Primary Care Provider] - 1-2 days [facility], [NON-STAFF] - Mello Petty MD [Medical Doctor] - 2 Weeks (Patient may follow-up with Dr. Petty at [facility] in 2-3 weeks following discharge. ) Activity/Diet/Wound Care/Special Instructions: 1. Patient may weight-bear as tolerated on the left lower extremity 2. Patient may use walker to aid in ambulation as needed BMP per Dr. Hernandes
== END 2019-04-04 16:51 | DRG 292 ==
LOC: EC 11:41 → 3SCARD 13:33
PROVIDERS: ADMIT Hospitalist; ATTEND Hospitalist
DX: I11.0 Hypertensive heart disease with heart failure (principal); I48.19 Other persistent atrial fibrillation; N17.9 Acute kidney failure, unspecified; L03.115 Cellulitis of right lower limb; Z68.41 Body mass index [BMI] 40.0-44.9, adult; D69.3 Immune thrombocytopenic purpura; I69.251 Hemiplegia and hemiparesis following other nontraumatic intracranial hemorrhage affecting right dominant side; E87.3 Alkalosis; I50.33 Acute on chronic diastolic (congestive) heart failure; I27.20 Pulmonary hypertension, unspecified; M19.072 Primary osteoarthritis, left ankle and foot; M20.10 Hallux valgus (acquired), unspecified foot; M20.42 Other hammer toe(s) (acquired), left foot; T50.2X5A Adverse effect of carbonic-anhydrase inhibitors, benzothiadiazides and other diuretics, initial encounter; Z79.899 Other long term (current) drug therapy; I45.10 Unspecified right bundle-branch block; I08.3 Combined rheumatic disorders of mitral, aortic and tricuspid valves; G62.9 Polyneuropathy, unspecified; F32.9 Major depressive disorder, single episode, unspecified; E66.01 Morbid (severe) obesity due to excess calories; E78.5 Hyperlipidemia, unspecified; K21.9 Gastro-esophageal reflux disease without esophagitis; Z96.653 Presence of artificial knee joint, bilateral; Z99.81 Dependence on supplemental oxygen; Z86.14 Personal history of Methicillin resistant Staphylococcus aureus infection; Z91.81 History of falling; R26.9 Unspecified abnormalities of gait and mobility
CPT/HCPCS: 36415; 71046; 80048; 80053; 83735; 83880; 84484; 85025; 85027; 85610; 85730; 93005; 93306; 94760; 96374; 99285

== ENCOUNTER 2019-04-28 17:13 | Inpatient (IN) | payer MEDICARE ==
[2019-04-28 18:22] LABS: Anisocytosis Slight; Basophils % (A) 0 %; Eosinophils # (A) 0.1 k/uL (0-0.7); Eosinophils % (A) 1 %; Hypochromasia Marked; Lymphocytes % (A) 10 %; MCH 27.8 pg (25.0-35.0); MCHC 31.1 g/dL (31.0-37.0); MCV 89.3 fL (80.0-100.0); Monocytes # (A) 0.5 k/uL (0-1.0); Monocytes % (A) 5 %; Neutrophils # (A) 7.9 k/uL (1.3-7.7); Neutrophils % (A) 82 %; Platelet Count 167 k/uL (150-450); RBC 2.01 m/uL (3.80-5.40); RDW 18.5 % (11.5-15.5); WBC 9.6 k/uL (3.8-10.6)
[2019-04-28] MEDS ORDERED: DEXAMETHASONE SOD PHOSPHATE 10 MG/ML 1 ML VIAL IV STA (18:24)
[2019-04-28] MEDS ORDERED: IPRATROPIUM-ALBUTEROL 3 ML NEB INHALATION STA (18:24)
[2019-04-28 18:25] LABS: Albumin 3.5 g/dL (3.5-5.0); Calcium 9.1 mg/dL (8.4-10.2); Magnesium 2.8 mg/dL (1.6-2.3); Total Bilirubin 0.5 mg/dL (0.2-1.3); Total Protein 6.5 g/dL (6.3-8.2)
[2019-04-28 18:29] LABS: Potassium 6.2 mmol/L (3.5-5.1)
--- NOTE | 2019-04-28 18:29 | XR ---
EXAMINATION: XR chest 2V DATE AND TIME: 04/28/2019 6:01 PM CLINICAL INDICATION: PHH; difficulty breathing TECHNIQUE: Departmental protocol COMPARISON: 03/30/2019 FINDINGS: The lungs are positive for an interstitial pattern in the appearance of interstitial phase pulmonary edema. The pleural spaces are negative. The cardiac silhouette is markedly enlarged, with radiographic features of left atrial enlargement. The skeletal structures and soft tissues are negative for acute findings. IMPRESSION: Interstitial phase cardiogenic pulmonary edema pattern.
[2019-04-28 18:30] LABS: HCT 17.9 % (34.0-46.0); HGB 5.6 gm/dL (11.4-16.0)
[2019-04-28 18:40] LABS: Partial Thromboplastin Time 20.9 sec (22.0-30.0); Prothrombin Time 10.8 sec (9.0-12.0)
[2019-04-28] MEDS ORDERED: PANTOPRAZOLE 40 MG/10 ML VIAL IVP ONE (19:58)
[2019-04-28] MEDS ORDERED: INSULIN REGULAR 100 UNIT/ML VIAL IV ONE (19:59)
[2019-04-28] MEDS ORDERED: DEXTROSE 10 % IN WATER 250 ML IV ONE (19:59)
[2019-04-28] MEDS ORDERED: SODIUM BICARB 8.4% 50 ML SYR (1 MEQ/ML) IV ONE (19:59)
[2019-04-28] MEDS ORDERED: ALBUTEROL NEB (CONC) 2.5 MG/0.5 ML INHALATION ONE (19:59)
[2019-04-28] MEDS ORDERED: FUROSEMIDE 10 MG/ML 4 ML VIAL IV STA (21:05)
[2019-04-28] MEDS ORDERED: ASPIRIN 81 MG PO STA (21:07)
[2019-04-28] MEDS ORDERED: NALOXONE 0.4 MG/ML 1 ML VIAL IV PRN (21:10)
[2019-04-28] MEDS ORDERED: ONDANSETRON 4 MG/2 ML VIAL IVP PRN (21:10)
--- NOTE | 2019-04-28 21:10 | ED ---
General Adult HPI - General Chief complaint: Shortness of Breath Stated complaint: Difficulty Breathing Time Seen by Provider: 04/28/19 17:28 Source: EMS Mode of arrival: EMS Limitations: no limitations - History of Present Illness Initial comments: Dictation was produced using [employer] dictation software. please excuse any grammatical, word or spelling errors. Chief Complaint: 73-year-old female past medical history of ITP, heart failure, hypertension presents with generalized weakness, shortness of breath, lower extremity swelling. History of Present Illness: 73-year-old female she presents with the aforementioned symptoms. Patient was recently discharged from rehab facility and is ago. Since being at home she is been having worsening symptoms of generalized weakness shortness of breath and lower extremity swelling. For se dation are really felt quite right since leaving from the rehab facility. She states she lives at home by herself under the care of her who has medical issues as well. Patient does not know if she's had GI bleed. She reports she has history of hemorrhoids. The ROS documented in this emergency department record has been reviewed and confirmed by me. Those systems with pertinent positive or negative responses have been documented in the HPI. All other systems are other negative and/or noncontributory. PHYSICAL EXAM: General Impression: Alert and oriented x3, mildly dyspneic HEENT: Normocephalic atraumatic, extra-ocular movements intact, pupils equal and reactive to light bilaterally, mucous membranes moist. Cardiovascular: Heart regular rate and rhythm, S1&S2 audible, no murmurs, rubs or gallops Chest: Bilateral wheezing Abdomen: Bowel sounds present, abdomen soft, non-tender, non-distended, no organomegaly Musculoskeletal: Pulses present and equal in all extremities, no peripheral edema Motor: no focal deficits noted Neurological: CN II-XII grossly intact, no focal motor or sensory deficits noted Skin: Intact with no visualized rashes Psych: Normal affect and mood Rectal exam: Melanotic stool, no masses in the rectal vault ED course: 73-year-old female with multiple complaints. As upon arrival shows heart rate of 59, rest of vital signs within acceptable limits. Physical examination shows well-appearing female she is in moderate respiratory distress. She does have wheezing on auscultation of lungs. She pushes history of COPD and heart failure. Patient was given a trial of breathing treatment and steroids. She does not report any improvement with breathing treatment. She does have a history of heart failure. Patient treated with Lasix. Laboratory evaluation obtained. Hemoglobin 5.6. Celexa secondary to GI bleed. Coag panel is unremarkable. She is on close however. Metabolic panel shows potassium 6.2 without any hemolysis. BNP creatinine ratio is elevated. He secondary to prolonged Lasix use with dehydration and prerenal azotemia. Patient given gentle hydration. Troponin is elevated with a level of 2.950. This is likely a component of troponin leak and acute kidney injury. Patient does have baseline elevated troponin and usually is not this high however. EKG shows diffuse ST depressions without any ST elevation. Concern for non-ST segment elevation [place]. Given aspirin. Heparin is held at this time given concerns of GI bleed. Furthermore, patient's elevated troponin could be secondary to anemia, type II [place]. Chest x-ray shows cardiogenic pulmonary edema. Patient treated with hyperkalemia cocktail. Patient will be admitted to cardiac telemetry. Cardiology and gastroenterology will be consulted. Patient was given Protonix. Discussed patient case with Dr. Hermes Seay who is willing to accept patients care. EKG interpretation: Ventricular rate 71, sinus rhythm, QS 118, QTc 445. There appears to be ST depression in 1, aVL, V2 through V4. - Related Data Home Medications Medication Instructions Recorded Confirmed Famotidine [Pepcid] 20 mg PO DAILY 12/29/14 03/23/19 Potassium Chloride ER [K-Dur 20] 20 meq PO DAILY 12/29/14 03/23/19 Sertraline HCl [Zoloft] 200 mg PO DAILY 12/29/14 03/23/19 Losartan Potassium 100 mg PO DAILY 03/23/19 03/23/19 Previous Rx's Medication Instructions Recorded ALPRAZolam [Xanax] 0.25 mg PO DAILY PRN #3 tab 04/04/19 Apixaban [Eliquis] 2.5 mg PO BID tablet 04/04/19 Furosemide [Lasix] 40 mg PO DAILY #0 tab 04/04/19 Gabapentin [Neurontin] 100 mg PO BID #6 cap 04/04/19 HYDROcodone/APAP 5-325MG [[place] 5 - 325 mg PO Q6HR PRN #12 tab 04/04/19 5-325] Metoprolol Tartrate [Lopressor] 25 mg PO BID tab 04/04/19 SILVER sulfADIAZINE CREAM 1 applic TOPICAL HS applic 04/04/19 [Silvadene Cream] Allergies Allergy/AdvReac Type Severity Reaction Status Date / Time No Known Allergies Allergy Verified 03/23/19 12:29 Review of Systems ROS Statement: Those systems with pertinent positive or pertinent negative responses have been documented in the HPI. ROS Other: All systems not noted in ROS Statement are negative. Past Medical History Past Medical History: Blood Disorder, Heart Failure, CVA/TIA, GERD/Reflux, Hypertension Additional Past Medical History / Comment(s): ITP DISORDER History of Any Multi-Drug Resistant Organisms: MRSA Date of last positivie culture/infection: 2012 MDRO Source:: URINE Past Surgical History: Orthopedic Surgery Additional Past Surgical History / Comment(s): BRAIN SURGERY AFTER BLEED in 2012, bilateral knee replacements Past Psychological History: Depression Smoking Status: Never smoker Past Alcohol Use History: None Reported Past Drug Use History: None Reported General Exam Limitations: no limitations Course Vital Signs 04/28/19 04/28/19 04/28/19 17:19 17:30 18:39 Temperature 98.0 F Pulse Rate 59 L 71 Respiratory 22 26 H Rate Blood Pressure 119/57 O2 Sat by Pulse 100 Oximetry 04/28/19 04/28/19 18:47 20:15 Temperature Pulse Rate 75 69 Respiratory 20 Rate Blood Pressure 97/46 O2 Sat by Pulse 100 Oximetry Medical Decision Making - Lab Data Result diagrams: 04/28/19 18:05 04/28/19 18:05 Lab Results 04/28/19 04/28/19 04/28/19 Range/Units 18:05 18:05 18:05 WBC 9.6 (3.8-10.6) k/uL RBC 2.01 L (3.80-5.40) m/uL Hgb 5.6 L* D (11.4-16.0) gm/dL Hct 17.9 L* (34.0-46.0) % MCV 89.3 (80.0-100.0) fL MCH 27.8 (25.0-35.0) pg MCHC 31.1 (31.0-37.0) g/dL RDW 18.5 H (11.5-15.5) % Plt Count 167 (150-450) k/uL Neutrophils % 82 % Lymphocytes % 10 % Monocytes % 5 % Eosinophils % 1 % Basophils % 0 % Neutrophils # 7.9 H (1.3-7.7) k/uL Lymphocytes # 1.0 (1.0-4.8) k/uL Monocytes # 0.5 (0-1.0) k/uL Eosinophils # 0.1 (0-0.7) k/uL Basophils # 0.0 (0-0.2) k/uL Hypochromasia Marked Anisocytosis Slight PT (9.0-12.0) sec INR (<1.2) APTT (22.0-30.0) sec Sodium 135 L (137-145) mmol/L Potassium 6.2 H* (3.5-5.1) mmol/L Chloride 103 (98-107) mmol/L Carbon Dioxide 22 (22-30) mmol/L Anion Gap 10 mmol/L BUN 87 H (7-17) mg/dL Creatinine 1.77 H (0.52-1.04) mg/dL Est GFR (CKD-EPI)AfAm 32 (>60 ml/min/1.73 sqM) Est GFR (CKD-EPI)NonAf 28 (>60 ml/min/1.73 sqM) Glucose 122 H (74-99) mg/dL Plasma Lactic Acid Sam (0.7-2.0) mmol/L Calcium 9.1 (8.4-10.2) mg/dL Magnesium 2.8 H (1.6-2.3) mg/dL Total Bilirubin 0.5 (0.2-1.3) mg/dL AST 47 H (14-36) U/L ALT 27 (4-34) U/L Alkaline Phosphatase 69 (38-126) U/L Troponin I (0.000-0.034) ng/mL NT-Pro-B Natriuret Pep pg/mL Total Protein 6.5 (6.3-8.2) g/dL Albumin 3.5 (3.5-5.0) g/dL Stool Occult Blood (Negative) Influenza Type A RNA Not Detected (Not Detectd) Influenza Type B (PCR) Not Detected (Not Detectd) 04/28/19 04/28/19 04/28/19 Range/Units 18:05 18:05 18:05 WBC (3.8-10.6) k/uL RBC (3.80-5.40) m/uL Hgb (11.4-16.0) gm/dL Hct (34.0-46.0) % MCV (80.0-100.0) fL MCH (25.0-35.0) pg MCHC (31.0-37.0) g/dL RDW (11.5-15.5) % Plt Count (150-450) k/uL Neutrophils % % Lymphocytes % % Monocytes % % Eosinophils % % Basophils % % Neutrophils # (1.3-7.7) k/uL Lymphocytes # (1.0-4.8) k/uL Monocytes # (0-1.0) k/uL Eosinophils # (0-0.7) k/uL Basophils # (0-0.2) k/uL Hypochromasia Anisocytosis PT 10.8 (9.0-12.0) sec INR 1.0 (<1.2) APTT 20.9 L (22.0-30.0) sec Sodium (137-145) mmol/L Potassium (3.5-5.1) mmol/L Chloride (98-107) mmol/L Carbon Dioxide (22-30) mmol/L Anion Gap mmol/L BUN (7-17) mg/dL Creatinine (0.52-1.04) mg/dL Est GFR (CKD-EPI)AfAm (>60 ml/min/1.73 sqM) Est GFR (CKD-EPI)NonAf (>60 ml/min/1.73 sqM) Glucose (74-99) mg/dL Plasma Lactic Acid Sam 1.7 (0.7-2.0) mmol/L Calcium (8.4-10.2) mg/dL Magnesium (1.6-2.3) mg/dL Total Bilirubin (0.2-1.3) mg/dL AST (14-36) U/L ALT (4-34) U/L Alkaline Phosphatase (38-126) U/L Troponin I (0.000-0.034) ng/mL NT-Pro-B Natriuret Pep 89533 pg/mL Total Protein (6.3-8.2) g/dL Albumin (3.5-5.0) g/dL Stool Occult Blood (Negative) Influenza Type A RNA (Not Detectd) Influenza Type B (PCR) (Not Detectd) 04/28/19 04/28/19 Range/Units 18:05 20:11 WBC (3.8-10.6) k/uL RBC (3.80-5.40) m/uL Hgb (11.4-16.0) gm/dL Hct (34.0-46.0) % MCV (80.0-100.0) fL MCH (25.0-35.0) pg MCHC (31.0-37.0) g/dL RDW (11.5-15.5) % Plt Count (150-450) k/uL Neutrophils % % Lymphocytes % % Monocytes % % Eosinophils % % Basophils % % Neutrophils # (1.3-7.7) k/uL Lymphocytes # (1.0-4.8) k/uL Monocytes # (0-1.0) k/uL Eosinophils # (0-0.7) k/uL Basophils # (0-0.2) k/uL Hypochromasia Anisocytosis PT (9.0-12.0) sec INR (<1.2) APTT (22.0-30.0) sec Sodium (137-145) mmol/L Potassium (3.5-5.1) mmol/L Chloride (98-107) mmol/L Carbon Dioxide (22-30) mmol/L Anion Gap mmol/L BUN (7-17) mg/dL Creatinine (0.52-1.04) mg/dL Est GFR (CKD-EPI)AfAm (>60 ml/min/1.73 sqM) Est GFR (CKD-EPI)NonAf (>60 ml/min/1.73 sqM) Glucose (74-99) mg/dL Plasma Lactic Acid Sam (0.7-2.0) mmol/L Calcium (8.4-10.2) mg/dL Magnesium (1.6-2.3) mg/dL Total Bilirubin (0.2-1.3) mg/dL AST (14-36) U/L ALT (4-34) U/L Alkaline Phosphatase (38-126) U/L Troponin I 2.950 H* (0.000-0.034) ng/mL NT-Pro-B Natriuret Pep pg/mL Total Protein (6.3-8.2) g/dL Albumin (3.5-5.0) g/dL Stool Occult Blood Positive H (Negative) Influenza Type A RNA (Not Detectd) Influenza Type B (PCR) (Not Detectd) Critical Care Time Critical Care Time: Yes Total Critical Care Time: 31 Disposition Clinical Impression: GI bleed, JANNET (acute kidney injury), Hyperkalemia Disposition: ADMITTED IP TO THIS [facility] Condition: Critical Referrals: Bob Kuo MD [Primary Care Provider] - 1-2 days Decision Time: 21:09
[2019-04-28] MEDS ORDERED: SODIUM CHLORIDE 0.9% 1,000 ML IV SCH (21:15)
[2019-04-28] MEDS: SODIUM CHLORIDE 0.9% 500 ML 500 ML IV STA ×2 (22:31→22:36)
[2019-04-28] MEDS: SODIUM POLYSTYRENE SULFONATE 15 GM/60 ML BOTTLE PO SCH (22:34)
--- NOTE | 2019-04-28 22:43 | P.HPIM ---
History of Present Illness H&P Date: 04/28/19 Chief Complaint: Difficulty breathing The patient is a 73-year-old female with a past medical history of chronic diastolic congestive heart failure, essential hypertension , persistent atrial fibrillation on anticoagulation with Eliquis. Moderate aortic stenosis. Moderate TR and moderate pulmonary artery hypertension and Chronic ITP that presented to the ER with chief complaint of generalized weakness lower, extremity swelling and difficulty breathing over the last 7 days. The patient was recently discharged to rehab services and was discharged approximately a week ago, she had reported intermittent cough and was seen by her PCP and prescribed cefuroxime and an inhaler for reported pneumonia. Over the past several weeks the patient has been noting bleeding from suspected hemorrhoids, she describes a dripping faucet -type sound when going to have a bowel movement. She reports she was doing well and was ambulating with a walker but is now too weak to do so. In the ER the patient a comprehensive workup, chest x-ray showed interstitial phase cardiogenic pulmonary edema. On labs he was noted to have a hemoglobin and hematocrit of 5.6 and 17.9. Serum sodium was 135, potassium 6.2, BUN 87 creatinine 1.77, glucose 122. Magnesium 2.8, AST 47, troponin 2.95, NT proBNP 09635, stool Hemoccult was positive. The patient was given a liter of normal saline and started on maintenance fluids at NS at 120 mL per hour Review of Systems pertinent positives per HPI all other review of systems otherwise negative Past Medical History Past Medical History: Blood Disorder, Heart Failure, CVA/TIA, GERD/Reflux, Hypertension Additional Past Medical History / Comment(s): ITP DISORDER History of Any Multi-Drug Resistant Organisms: MRSA Date of last positivie culture/infection: 2012 MDRO Source:: URINE Past Surgical History: Orthopedic Surgery Additional Past Surgical History / Comment(s): BRAIN SURGERY AFTER BLEED in 2013, bilateral knee replacements Past Psychological History: Depression Smoking Status: Never smoker Past Alcohol Use History: None Reported Past Drug Use History: None Reported - Past Family History Sister(s) Family Medical History: Congestive Heart Failure (CHF) Medications and Allergies Home Medications Medication Instructions Recorded Confirmed Type Famotidine [Pepcid] 20 mg PO DAILY 12/29/14 04/28/19 History Potassium Chloride ER [K-Dur 20] 20 meq PO DAILY 12/29/14 04/28/19 History Sertraline HCl [Zoloft] 200 mg PO DAILY 12/29/14 04/28/19 History Losartan Potassium 100 mg PO DAILY 03/23/19 04/28/19 History Apixaban [Eliquis] 2.5 mg PO BID tablet 04/04/19 04/28/19 Rx Furosemide [Lasix] 40 mg PO DAILY #0 tab 04/04/19 04/28/19 Rx Gabapentin [Neurontin] 100 mg PO BID #6 cap 04/04/19 04/28/19 Rx Metoprolol Tartrate [Lopressor] 25 mg PO BID tab 04/04/19 04/28/19 Rx SILVER sulfADIAZINE CREAM 1 applic TOPICAL HS applic 04/04/19 04/28/19 Rx [Silvadene Cream] ALPRAZolam [Xanax] 0.25 mg PO TID PRN 04/28/19 04/28/19 History Albuterol Sulfate [Ventolin HFA] 2 puff INHALATION RT-Q4H PRN 04/28/19 04/28/19 History Cefuroxime Axetil [Ceftin] 500 mg PO Q12H 04/28/19 04/28/19 History HYDROcodone/APAP 5-325MG [[place] 1 tab PO Q6HR PRN 04/28/19 04/28/19 History 5-325] SUMAtriptan SUCCINATE [Imitrex] 50 mg PO DAILY PRN 04/28/19 04/28/19 History Allergies Allergy/AdvReac Type Severity Reaction Status Date / Time No Known Allergies Allergy Verified 04/28/19 22:21 Physical Exam Vitals: Vital Signs Temp Pulse Resp BP Pulse Ox 04/28/19 20:15 69 20 97/46 100 04/28/19 18:47 75 04/28/19 18:39 71 04/28/19 17:30 26 H 04/28/19 17:19 98.0 F 59 L 22 119/57 100 Intake and Output 04/28/19 04/28/19 04/28/19 06:59 14:59 22:59 Other: Weight 160.572 kg Constitutional: No acute distress, conversant, pleasant Eyes: Anicteric sclerae, moist conjunctiva, no lid-lag, PERRLA ENMT: NC/AT,Oropharynx clear, no erythema, exudates Neck:Supple, FROM, no masses, or JVD, No carotid bruits; No thyromegaly Lungs: Clear to auscultation, Clear to percussion, Normal respiratory effort, no accessory muscle use Cardiovascular: irregularly irregular, No murmurs, gallops, or rubs no peripheral edema Abdominal: Soft Nontender, nom distended, no guarding, no rebound or rigidity, Normoactive bowel sounds No hepatomegaly, No splenomegaly, No palpable mass No abdominal wall hernia noted Skin: Normal temperature, tone, texture, turgor, No induration No subcutaneous nodules, No rash, lesions, No ulcers Extremities:No digital cyanosis No clubbing, Pedal pulses intact and symmetrical Radial pulses intact and symmetrical Normal gait and station, No calf tenderness Psychiatric: Alert and oriented to person, place and time, Appropriate affect Intact judgement Neuro: Muscles Strength 5/5 in all 4 extremities, Sensation to light touch grossly present throughout, Cranial nerves II-XII grossly intact. No focal sensory deficits Results CBC & Chem 7: 04/29/19 05:57 04/29/19 05:57 Labs: Abnormal Lab Results - Last 24 Hours (Table) 04/28/19 04/28/19 04/28/19 Range/Units 18:05 18:05 18:05 RBC 2.01 L (3.80-5.40) m/uL Hgb 5.6 L* D (11.4-16.0) gm/dL Hct 17.9 L* (34.0-46.0) % RDW 18.5 H (11.5-15.5) % Neutrophils # 7.9 H (1.3-7.7) k/uL APTT 20.9 L (22.0-30.0) sec Sodium 135 L (137-145) mmol/L Potassium 6.2 H* (3.5-5.1) mmol/L BUN 87 H (7-17) mg/dL Creatinine 1.77 H (0.52-1.04) mg/dL Glucose 122 H (74-99) mg/dL Magnesium 2.8 H (1.6-2.3) mg/dL AST 47 H (14-36) U/L Troponin I (0.000-0.034) ng/mL Stool Occult Blood (Negative) 04/28/19 04/28/19 Range/Units 18:05 20:11 RBC (3.80-5.40) m/uL Hgb (11.4-16.0) gm/dL Hct (34.0-46.0) % RDW (11.5-15.5) % Neutrophils # (1.3-7.7) k/uL APTT (22.0-30.0) sec Sodium (137-145) mmol/L Potassium (3.5-5.1) mmol/L BUN (7-17) mg/dL Creatinine (0.52-1.04) mg/dL Glucose (74-99) mg/dL Magnesium (1.6-2.3) mg/dL AST (14-36) U/L Troponin I 2.950 H* (0.000-0.034) ng/mL Stool Occult Blood Positive H (Negative) Assessment and Plan Assessment: GI bleed Acute blood loss anemia Acute on chronic diastolic CHF exacerbation acute kidney injury Elevated troponin Hyperkalemia Multifactorial dyspnea Hemorrhoids Persistent A. fib previously on anticoagulation w/Eliquis Plan: The patient is admitted anticipated greater than 2 midnight stay with GI bleed with acute blood loss anemia due to suspected bleeding hemorrhoid in a patient on anticoagulation with Eliquis for persistent A. fib that presented with dyspn ea likely multifactorial etiology due to acute on chronic diastolic CHF and severe anemia. On presentation hemoglobin is 5.7, noted positive Hemoccult, patient was typed and crossed for 2 units of packed RBCs. We'll plan for diuresis with Lasix 40 mg IV between transfusions. Patient is also with have acute kidney injury and hyperkalemia , patient given high-dose albuterol/IV insulin/amp of bicarb and Kayexalate in the ER we'll recheck. plan to consult nephrology. will also continue to trend sequential H/H. Will plan for GI consultation to evaluate the anemia possibly considering EGD and colonoscopy cardiology was also been consulted re: elevated troponin which is likely a type II event secondary to demand ischemia from severe anemia/CHF exacerbation. Our team, will continue to follow patient's clinical course. CODE STATUS: Full code Anticipated discharge place: care home facility versus home Discussed plan of care with: Patient's and daughter Greater than 60 minutes was spent in evaluation of this patient
[2019-04-28 23:05] LABS: Glucose,Whole Blood 85 mg/dL (75-99)
[2019-04-29] MEDS ORDERED: FUROSEMIDE 10 MG/ML 4 ML VIAL IV STA (01:00)
[2019-04-29] MEDS: ALPRAZolam 0.25 MG TAB PO PRN ×3 (01:18→20:47)
[2019-04-29] MEDS: SODIUM POLYSTYRENE SULFONATE 15 GM/60 ML BOTTLE PO SCH ×3 (01:21→15:28)
[2019-04-29 06:12] LABS: Anisocytosis Slight; Basophils % (A) 0 %; Eosinophils % (A) 0 %; HCT 20.7 % (34.0-46.0); Hypochromasia Slight; Lymphocytes # (A) 0.6 k/uL (1.0-4.8); Lymphocytes % (A) 6 %; MCH 28.3 pg (25.0-35.0); MCHC 31.8 g/dL (31.0-37.0); Mean Platelet Volume 8.5; Monocytes # (A) 0.1 k/uL (0-1.0); Monocytes % (A) 1 %; Neutrophils # (A) 8.9 k/uL (1.3-7.7); Neutrophils % (A) 92 %; Platelet Count 136 k/uL (150-450); RBC 2.32 m/uL (3.80-5.40); RDW 17.8 % (11.5-15.5); WBC 9.7 k/uL (3.8-10.6)
[2019-04-29 06:26] LABS: Calcium 8.6 mg/dL (8.4-10.2); Potassium 5.9 mmol/L (3.5-5.1)
[2019-04-29 06:29] LABS: HGB 6.6 gm/dL (11.4-16.0)
[2019-04-29] MEDS ORDERED: DEXTROSE 10 % IN WATER 250 ML IV STA (07:21)
[2019-04-29] MEDS ORDERED: INSULIN REGULAR 100 UNIT/ML VIAL IV ONE (07:22)
[2019-04-29] MEDS ORDERED: CALCIUM GLUCONATE 1 GM in SODIUM CHLORIDE 0.9% 100 ML IVPB ONE (07:22)
[2019-04-29] MEDS ORDERED: SODIUM BICARB 8.4% 50 ML SYR (1 MEQ/ML) IV STA (07:22)
[2019-04-29] MEDS ORDERED: FUROSEMIDE 10 MG/ML 10 ML VIAL IV STA (07:57)
--- NOTE | 2019-04-29 08:27 | P.NPCON ---
History of Present Illness - Reason for Consult acute renal failure - History of Present Illness Reason for consultation: Acute kidney injury and hyperkalemia History of present illness: Patient is a 73-year-old female seen in renal consultation for acute kidney injury and hyperkalemia. Patient presented to the hospital due to progressively worsening weakness over the last 2-3 weeks. Patient was recently started on liquids for new onset atrial fibrillation. Patient has been noticing blood with her bowel movements. Hemoglobin was 5.6 on admission and she is currently receiving third unit of blood transfusion. Hemoglobin this morning was 6.6. Patient's potassium level was also high at 6.2 on admission which was medically treated. This morning her potassium level was 5.9. She is currently receiving IV calcium, Kayexalate as well as IV insulin. Patient does admit to history of hemorrhoids. No vomiting or diarrhea. Denies use of nonsteroidals. Her baseline creatinine is near 1. Denies family history of renal disease. No history of diabetes. She was also on losartan as well as potassium supplementation at home which are both currently held at this time. She denies any hematuria. No chest pain. Patient states edema in the lower extremities is better. Vital signs are stable. General: The patient appeared well nourished and normally developed. HEENT: Head exam is unremarkable. Neck is without jugular venous distension. LUNGS: Lungs are clear to auscultation and percussion. Breath sounds decreased. HEART: Rate and Rhythm are regular. First and second heart sounds normal. No murmurs, rubs or gallops. ABDOMEN: Abdominal exam reveals normal bowel sounds. Non-tender and non- distended. No evidence of peritonitis. EXTREMITITES: 1+ edema. Chronic changes noted. Past Medical History Past Medical History: Blood Disorder, Heart Failure, CVA/TIA, GERD/Reflux, Hypertension Additional Past Medical History / Comment(s): ITP DISORDER History of Any Multi-Drug Resistant Organisms: MRSA Date of last positivie culture/infection: 2012 MDRO Source:: URINE Past Surgical History: Orthopedic Surgery Additional Past Surgical History / Comment(s): BRAIN SURGERY AFTER BLEED in 2013, bilateral knee replacements Past Anesthesia/Blood Transfusion Reactions: No Reported Reaction Past Psychological History: Depression Smoking Status: Never smoker Past Alcohol Use History: None Reported Past Drug Use History: None Reported - Past Family History Sister(s) Family Medical History: Congestive Heart Failure (CHF) Medications and Allergies Home Medications Medication Instructions Recorded Confirmed Type Famotidine [Pepcid] 20 mg PO DAILY 12/29/14 04/28/19 History Potassium Chloride ER [K-Dur 20] 20 meq PO DAILY 12/29/14 04/28/19 History Sertraline HCl [Zoloft] 200 mg PO DAILY 12/29/14 04/28/19 History Losartan Potassium 100 mg PO DAILY 03/23/19 04/28/19 History Apixaban [Eliquis] 2.5 mg PO BID tablet 04/04/19 04/28/19 Rx Furosemide [Lasix] 40 mg PO DAILY #0 tab 04/04/19 04/28/19 Rx Gabapentin [Neurontin] 100 mg PO BID #6 cap 04/04/19 04/28/19 Rx Metoprolol Tartrate [Lopressor] 25 mg PO BID tab 04/04/19 04/28/19 Rx SILVER sulfADIAZINE CREAM 1 applic TOPICAL HS applic 04/04/19 04/28/19 Rx [Silvadene Cream] ALPRAZolam [Xanax] 0.25 mg PO TID PRN 04/28/19 04/28/19 History Albuterol Sulfate [Ventolin HFA] 2 puff INHALATION RT-Q4H PRN 04/28/19 04/28/19 History Cefuroxime Axetil [Ceftin] 500 mg PO Q12H 04/28/19 04/28/19 History HYDROcodone/APAP 5-325MG [[place] 1 tab PO Q6HR PRN 04/28/19 04/28/19 History 5-325] SUMAtriptan SUCCINATE [Imitrex] 50 mg PO DAILY PRN 04/28/19 04/28/19 History Allergies Allergy/AdvReac Type Severity Reaction Status Date / Time No Known Allergies Allergy Verified 04/28/19 22:21 Physical Exam Vitals: Vital Signs Temp Pulse Resp BP Pulse Ox 04/29/19 07:00 79 24 108/88 98 04/29/19 06:30 84 15 98/78 98 04/29/19 06:00 85 18 107/66 98 04/29/19 05:30 77 20 80/47 99 04/29/19 05:00 80 19 95/54 92 L 04/29/19 04:51 98.3 F 82 19 95/54 98 02/14/20 04:30 86 22 107/56 97 04/29/19 04:00 98.3 F 84 17 124/60 97 04/29/19 03:58 98.3 F 76 19 115/68 98 04/29/19 03:30 93 23 83/52 97 04/29/19 03:28 98.2 F 90 18 124/60 97 04/29/19 03:18 98.2 F 94 21 83/52 98 04/29/19 03:00 80 15 81/68 98 04/29/19 02:38 98.2 F 80 17 95/79 99 04/29/19 02:30 100 17 110/27 100 04/29/19 02:00 80 14 97/64 100 04/29/19 01:30 81 24 91/66 100 04/29/19 01:27 98.2 F 88 17 102/52 100 04/29/19 01:00 80 24 93/76 93 L 04/29/19 00:57 98.1 F 92 18 101/61 100 04/29/19 00:47 97.9 F 80 20 93/76 99 04/29/19 00:30 78 8 L 80/56 100 04/29/19 00:00 85 16 74/41 98 04/28/19 23:30 97.9 F 90 24 148/105 97 04/28/19 23:05 86 23 100 04/28/19 22:41 100 22 04/28/19 22:13 92 22 04/28/19 22:00 78 93/58 97 04/28/19 20:15 69 20 97/46 100 04/28/19 20:00 98.7 F 65 26 H 92/51 97 04/28/19 18:47 75 04/28/19 18:39 71 04/28/19 17:30 26 H 04/28/19 17:19 98.0 F 59 L 22 119/57 100 Intake and Output 04/28/19 04/29/19 04/29/19 22:59 06:59 14:59 Intake Total 1320 20 Output Total 500 200 Balance 820 -180 Intake: IV 80 20 normal saline 80 20 Blood Product 1240 0 Rc As-1 Unit 0 [id number] Rc As-1 Unit 310 [id number] Rc Pheresis As-3 Unit 310 [id number] Output: Urine 500 200 Other: # Voids 1 1 Weight 162.8 kg 159.6 kg Results - Lab Results Most recent lab results Calcium 8.6 mg/dL (8.4-10.2) 04/29/19 05:57 Magnesium 2.8 mg/dL (1.6-2.3) H 04/28/19 18:05 04/29/19 05:57 04/29/19 05:57 Assessment and Plan Plan: Assessment: 1. Acute kidney injury mostly prerenal secondary to acute blood loss anemia. Creatinine 1.77 on admission and is 1.61 today. 2. Acute blood loss anemia currently receiving third unit of blood transfusion. Hemoglobin 6.6 this morning. GI consulted. 3. Hyperkalemia secondary to acute kidney injury, GI bleed. Patient was also on potassium supplementation and losartan at home. 4. Volume overload. 5. Acute on chronic diastolic CHF with moderate aortic stenosis, moderate mitral and tricuspid regurgitation and moderate pulmonary hypertension. 6. History of A. fib. Plan: Lasix 60 mg IV once after blood transfusion completed. Repeat potassium level this evening. Avoid nephrotoxins. Continue to monitor renal function and urine output. Thank you for the consultation. I will continue to follow the patient with you during her hospital stay.
[2019-04-29] MEDS ORDERED: PANTOPRAZOLE 40 MG/10 ML VIAL IV SCH (09:00)
--- NOTE | 2019-04-29 09:17 | P.CRDCN ---
History of Present Illness Consult date: 04/29/19 History of present illness: This is a 73-year-old female with history of atrial fibrillation on long-term anticoagulation therapy who was admitted to the hospital with complaints of increasing fatigue and weakness. She was found to be significantly anemic with hemoglobin of less than 7. She apparently has a hemorrhoids and bleeding issues, but recently has been having excessive bleeding from hemorrhoids. She also developed acute renal failure. She denied any chest pain and doesn't appear to be in acute respiratory distress. Patient has received blood transfusion and still receiving blood transfusion at this time. She is going to be evaluated by GI department and also surgery for evaluation of a hemorrhoid problem. Her anticoagulation is held at this time. She is also seen by nephrology for acute renal failure. Patient's potassium was high and she has received Axillary and also IV insulin. At the time of my examination patient seemed to be relatively stable. Denies any chest pain and doesn't appear to be in acute distress at this time. Patient is in atrial fibrillation but rate is controlled Review of Systems As per the chart Past Medical History Past Medical History: Blood Disorder, Heart Failure, CVA/TIA, GERD/Reflux, Hypertension Additional Past Medical History / Comment(s): ITP DISORDER History of Any Multi-Drug Resistant Organisms: MRSA Date of last positivie culture/infection: 2012 MDRO Source:: URINE Past Surgical History: Orthopedic Surgery Additional Past Surgical History / Comment(s): BRAIN SURGERY AFTER BLEED in 2013, bilateral knee replacements Past Anesthesia/Blood Transfusion Reactions: No Reported Reaction Past Psychological History: Depression Smoking Status: Never smoker Past Alcohol Use History: None Reported Past Drug Use History: None Reported - Past Family History Sister(s) Family Medical History: Congestive Heart Failure (CHF) Medications and Allergies Home Medications Medication Instructions Recorded Confirmed Type Famotidine [Pepcid] 20 mg PO DAILY 12/29/14 04/28/19 History Potassium Chloride ER [K-Dur 20] 20 meq PO DAILY 12/29/14 04/28/19 History Sertraline HCl [Zoloft] 200 mg PO DAILY 12/29/14 04/28/19 History Losartan Potassium 100 mg PO DAILY 03/23/19 04/28/19 History Apixaban [Eliquis] 2.5 mg PO BID tablet 04/04/19 04/28/19 Rx Furosemide [Lasix] 40 mg PO DAILY #0 tab 04/04/19 04/28/19 Rx Gabapentin [Neurontin] 100 mg PO BID #6 cap 04/04/19 04/28/19 Rx Metoprolol Tartrate [Lopressor] 25 mg PO BID tab 04/04/19 04/28/19 Rx SILVER sulfADIAZINE CREAM 1 applic TOPICAL HS applic 04/04/19 04/28/19 Rx [Silvadene Cream] ALPRAZolam [Xanax] 0.25 mg PO TID PRN 04/28/19 04/28/19 History Albuterol Sulfate [Ventolin HFA] 2 puff INHALATION RT-Q4H PRN 04/28/19 04/28/19 History Cefuroxime Axetil [Ceftin] 500 mg PO Q12H 04/28/19 04/28/19 History HYDROcodone/APAP 5-325MG [[place] 1 tab PO Q6HR PRN 04/28/19 04/28/19 History 5-325] SUMAtriptan SUCCINATE [Imitrex] 50 mg PO DAILY PRN 04/28/19 04/28/19 History Allergies Allergy/AdvReac Type Severity Reaction Status Date / Time No Known Allergies Allergy Verified 04/28/19 22:21 Physical Exam Vitals: Vital Signs Temp Pulse Resp BP Pulse Ox 04/29/19 08:28 98.6 F 88 20 101/59 94 L 04/29/19 07:58 98.9 F 84 20 134/59 98 04/29/19 07:48 98.7 F 84 20 96/68 96 04/29/19 07:00 79 24 108/88 98 04/29/19 06:30 84 15 98/78 98 04/29/19 06:00 85 18 107/66 98 04/29/19 05:30 77 20 80/47 99 04/29/19 05:00 80 19 95/54 92 L 04/29/19 04:51 98.3 F 82 19 95/54 98 04/29/19 04:30 86 22 107/56 97 04/29/19 04:00 98.3 F 84 17 124/60 97 04/29/19 03:58 98.3 F 76 19 115/68 98 04/29/19 03:30 93 23 83/52 97 04/29/19 03:28 98.2 F 90 18 124/60 97 02/14/20 03:18 98.2 F 94 21 83/52 98 04/29/19 03:00 80 15 81/68 98 04/29/19 02:38 98.2 F 80 17 95/79 99 04/29/19 02:30 100 17 110/27 100 04/29/19 02:00 80 14 97/64 100 04/29/19 01:30 81 24 91/66 100 04/29/19 01:27 98.2 F 88 17 102/52 100 04/29/19 01:00 80 24 93/76 93 L 04/29/19 00:57 98.1 F 92 18 101/61 100 04/29/19 00:47 97.9 F 80 20 93/76 99 04/29/19 00:30 78 8 L 80/56 100 04/29/19 00:00 85 16 74/41 98 04/28/19 23:30 97.9 F 90 24 148/105 97 04/28/19 23:05 86 23 100 04/28/19 22:41 100 22 04/28/19 22:13 92 22 04/28/19 22:00 78 93/58 97 04/28/19 20:15 69 20 97/46 100 04/28/19 20:00 98.7 F 65 26 H 92/51 97 04/28/19 18:47 75 04/28/19 18:39 71 04/28/19 17:30 26 H 04/28/19 17:19 98.0 F 59 L 22 119/57 100 Intake and Output 04/28/19 04/29/19 04/29/19 22:59 06:59 14:59 Intake Total 1320 20 Output Total 500 200 Balance 820 -180 Intake: IV 80 20 normal saline 80 20 Blood Product 1240 0 Rc As-1 Unit 0 [id number] Rc As-1 Unit 310 [id number] Rc Pheresis As-3 Unit 310 [id number] Output: Urine 500 200 Other: # Voids 1 1 Weight 162.8 kg 159.6 kg GENERAL EXAM: Patient is alert and oriented and doesn't appear to be in any acute distress HEENT: Normocephalic. Normal reaction of pupils, equal size, normal range of extraocular motion. No erythema or exudates in the throat. NECK: No masses, no nuchal rigidity. CHEST: No chest wall deformity. LUNGS: Equal air entry with no crackles or wheeze. HEART: S1 and S2 normal. Systolic murmur in the aortic area suggestive of aortic flow murmur ABDOMEN: No hepatosplenomegaly, normal bowel sounds, no guarding or rigidity. SKIN: No rashes CENTRAL NERVOUS SYSTEM: No focal deficits. EXTREMITIES: Mild edema Results 04/29/19 05:57 04/29/19 05:57 Cardiac Enzymes 04/28/19 04/28/19 04/29/19 Range/Units 18:05 18:05 00:38 AST 47 H (14-36) U/L Lactate Dehydrogenase (313-618) U/L Troponin I 2.950 H* 2.780 H* (0.000-0.034) ng/mL 04/29/19 04/29/19 Range/Units 05:37 05:57 AST (14-36) U/L Lactate Dehydrogenase 586 (313-618) U/L Troponin I 2.430 H* (0.000-0.034) ng/mL Coagulation 04/28/19 Range/Units 18:05 PT 10.8 (9.0-12.0) sec APTT 20.9 L (22.0-30.0) sec CBC 04/28/19 04/29/19 Range/Units 18:05 05:57 WBC 9.6 9.7 (3.8-10.6) k/uL RBC 2.01 L 2.32 L (3.80-5.40) m/uL Hgb 5.6 L* D 6.6 L* (11.4-16.0) gm/dL Hct 17.9 L* 20.7 L (34.0-46.0) % Plt Count 167 136 L (150-450) k/uL Comprehensive Metabolic Panel 04/28/19 04/29/19 04/29/19 Range/Units 18:05 00:38 05:57 Sodium 135 L 136 L (137-145) mmol/L Potassium 6.2 H* 5.2 H 5.9 H (3.5-5.1) mmol/L Chloride 103 104 (98-107) mmol/L Carbon Dioxide 22 23 (22-30) mmol/L BUN 87 H 91 H (7-17) mg/dL Creatinine 1.77 H 1.61 H (0.52-1.04) mg/dL Glucose 122 H 129 H (74-99) mg/dL Calcium 9.1 8.6 (8.4-10.2) mg/dL AST 47 H (14-36) U/L ALT 27 (4-34) U/L Alkaline Phosphatase 69 (38-126) U/L Total Protein 6.5 (6.3-8.2) g/dL Albumin 3.5 (3.5-5.0) g/dL Current Medications Generic Name Dose Route Start Last Admin Trade Name Freq PRN Reason Stop Dose Admin Acetaminophen 650 mg 04/28/19 21:10 Tylenol Tab PO Q6HR PRN Mild Pain or Fever > 100.5 Alprazolam 0.25 mg 04/29/19 00:59 04/29/19 08:43 Xanax PO 0.25 mg TID PRN Administration Mild Anxiety Naloxone HCl 0.2 mg 04/28/19 21:10 Narcan IV Q2M PRN Opioid Reversal Ondansetron HCl 4 mg 04/28/19 21:10 Zofran IVP Q8HR PRN Nausea And Vomiting Pantoprazole Sodium 40 mg 04/29/19 09:00 04/29/19 08:43 Protonix IV 40 mg DAILY BLAINE Administration Sodium Polystyrene Sulfonate 15 gm 04/28/19 20:00 04/29/19 07:08 Kayexalate PO 15 gm Q6HR BLAINE Administration Protocol Intake and Output 04/28/19 04/29/19 04/29/19 22:59 06:59 14:59 Intake Total 1320 20 Output Total 500 200 Balance 820 -180 Intake: IV 80 20 normal saline 80 20 Blood Product 1240 0 Rc As-1 Unit 0 [id number] Rc As-1 Unit 310 [id number] Rc Pheresis As-3 Unit 310 [id number] Output: Urine 500 200 Other: # Voids 1 1 Weight 162.8 kg 159.6 kg 04/29/19 05:57 04/29/19 05:57 EKG Interpretations (text) Atrial fibrillation with controlled ventricular response Assessment and Plan (1) JANNET (acute kidney injury) Current Visit: Yes Status: Acute Code(s): N17.9 - ACUTE KIDNEY FAILURE, UNSPECIFIED SNOMED Code(s): 87348398 (2) GI bleed Current Visit: Yes Status: Acute Code(s): K92.2 - GASTROINTESTINAL HEMORRHAGE, UNSPECIFIED SNOMED Code(s): 23663899 (3) Hyperkalemia Current Visit: Yes Status: Acute Code(s): E87.5 - HYPERKALEMIA SNOMED Co de(s): 10769507 (4) Aortic stenosis Current Visit: No Status: Acute Code(s): I35.0 - NONRHEUMATIC AORTIC (VALVE) STENOSIS SNOMED Code(s): 26150486 (5) Congestive heart failure Current Visit: No Status: Acute Code(s): I50.9 - HEART FAILURE, UNSPECIFIED SNOMED Code(s): 11195900 (6) A-fib Current Visit: No Status: Chronic Priority: High Code(s): I48.91 - UNSPECIFIED ATRIAL FIBRILLATION SNOMED Code(s): 83967020 Plan: This patient is mainly admitted with GI bleeding and anemia and also acute renal injury associated with hyperkalemia. Patient is receiving blood transfusion. She is off anticoagulation therapy. Surgical and also gastroenterology sales consultant residential manager short pending. Further comminution depend upon the clinical course
--- NOTE | 2019-04-29 11:09 | P.GSCN ---
<Cheri Alva - Last Filed: 04/29/19 11:08> History of Present Illness Consult date: 04/29/19 Reason for Consult: Hemorrhoids Requesting physician: Hermes Seay History of present illness: CHIEF COMPLAINT: Hemorrhoids HISTORY OF PRESENT ILLNESS: 73-year-old female who is admitted to the hospital s econdary to possible GI bleed. General surgery was consulted to evaluate patients hemorrhoids for possible source of bleeding. Patient examined in the intensive care unit with Dr. Gordon. Patient's daughter at the bedside. Patient reports she has a history of hemorrhoids for the last 2 or 3 years. She denies any discomfort to her rectum. She denies any rectal bleeding since coming to the hospital but states she has noticed rectal bleeding when she uses the bathroom for the last few weeks. Patient states she has never had a colonoscopy. No history of colon cancer. Patient's daughter does have a history of colon polyps. PAST MEDICAL HISTORY: See list. PAST SURGICAL HISTORY: See list. MEDICATIONS: See list. ALLERGIES: See list. SOCIAL HISTORY: No illicit drug use. REVIEW OF SYSTEMS: CONSTITUTIONAL: Denies fever or chills. HEENT: Denies blurred vision, vision changes, or eye pain. Denies hemoptysis ENDOCRINE: Denies heat or cold intolerance. CARDIOVASCULAR: Denies chest pain or pressure. Reports history of irregular heartbeat RESPIRATORY: No shortness of breath. GASTROINTESTINAL: Denies abdominal pain. Denies nausea or vomiting. Reports history of hemorrhoids NEURO: Denies history of seizures. PSYCH: No suicidal ideation HEMATOLOGIC: Denies bleeding disorders. LYMPHATIC: The patient denies any lumps and bumps around the neck. GENITOURINARY: Denies any blood in urine or increased urinary frequency. MUSCULOSKELETAL: Denies myalgias. Denies joint swelling. Denies decreased range of motion beyond patients baseline. SKIN: Denies pruitis. Denies rash. PHYSICAL EXAM: VITAL SIGNS: Reviewed. GENERAL: Well-developed in no acute distress. HEENT: No sclera icterus. Extraocular movements grossly intact. Moist buccal mucosa. Head is atraumatic, normocephalic. Hears conversational speech. No nasal drainage. NECK: Supple without lymphadenopathy. CHEST: Non-labored respirations and equal bilateral excursions. CARDIOVASCULAR: Irregular rhythm. Palpable 2+ radial pulses. ABDOMEN: Soft. Nondistended. Nontender. MUSCULOSKELETAL: No clubbing or cyanosis. NEUROLOGIC: No focal or lateralizing signs. Cranial nerves II through XII grossly intact. PSYCH: Appropriate affect. Alert and oriented to person, place and time. SKIN: Well perfused. Good skin turgor. LABORATORY DATA: WBC 9.7. Hemoglobin 6.6. Platelet count 136. Sodium 136. Potassium 5.9. BUN 91. Creatinine 1.61. Troponin 2.950, 2.780, 2.430. Stool for occult blood positive ASSESSMENT: 1. Acute blood loss anemia, possibly related to hemorrhoids 2. History of atrial fibrillation, previously on anticoagulation with Eliquis 3. Acute kidney injury 4. Hyperkalemia 5. Acute on chronic diastolic congestive heart failure PLAN: -Okay for clear liquid diet -Monitor hemoglobin. Transfuse for hemoglobin less than 7.0 -Continue to hold Eliquis -Patient will need EGD/colonoscopy when medically stable to evaluate for source of bleeding. Possibly related to hemorrhoids but cannot rule out underlying neoplasm or diverticuli as source of bleeding Nurse practitioner note has been reviewed by physician. Signing provider agrees with the documented findings, assessment, and plan of care. 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 MDRO Source:: URINE Past Surgical History: Orthopedic Surgery Additional Past Surgical History / Comment(s): BRAIN SURGERY AFTER BLEED in 2013, bilateral knee replacements Past Anesthesia/Blood Transfusion Reactions: No Reported Reaction Past Psychological History: Depression Smoking Status: Never smoker Past Alcohol Use History: None Reported Past Drug Use History: None Reported - Past Family History Sister(s) Family Medical History: Congestive Heart Failure (CHF) Medications and Allergies Home Medications Medication Instructions Recorded Confirmed Type Famotidine [Pepcid] 20 mg PO DAILY 12/29/14 04/28/19 History Potassium Chloride ER [K-Dur 20] 20 meq PO DAILY 12/29/14 04/28/19 History Sertraline HCl [Zoloft] 200 mg PO DAILY 12/29/14 04/28/19 History Losartan Potassium 100 mg PO DAILY 03/23/19 04/28/19 History Apixaban [Eliquis] 2.5 mg PO BID tablet 04/04/19 04/28/19 Rx Furosemide [Lasix] 40 mg PO DAILY #0 tab 04/04/19 04/28/19 Rx Gabapentin [Neurontin] 100 mg PO BID #6 cap 04/04/19 04/28/19 Rx Metoprolol Tartrate [Lopressor] 25 mg PO BID tab 04/04/19 04/28/19 Rx SILVER sulfADIAZINE CREAM 1 applic TOPICAL HS applic 04/04/19 04/28/19 Rx [Silvadene Cream] ALPRAZolam [Xanax] 0.25 mg PO TID PRN 04/28/19 04/28/19 History Albuterol Sulfate [Ventolin HFA] 2 puff INHALATION RT-Q4H PRN 04/28/19 04/28/19 History Cefuroxime Axetil [Ceftin] 500 mg PO Q12H 04/28/19 04/28/19 History HYDROcodone/APAP 5-325MG [[place] 1 tab PO Q6HR PRN 04/28/19 04/28/19 History 5-325] SUMAtriptan SUCCINATE [Imitrex] 50 mg PO DAILY PRN 04/28/19 04/28/19 History Allergies Allergy/AdvReac Type Severity Reaction Status Date / Time No Known Allergies Allergy Verified 04/28/19 22:21 Surgical - Exam Vital Signs Temp Pulse Resp BP Pulse Ox 98.0 F 59 L 22 119/57 100 04/28/19 17:19 04/28/19 17:19 04/28/19 17:19 04/28/19 17:19 04/28/19 17:19 Results - Labs 04/29/19 05:57 04/29/19 05:57 Abnormal Lab Results - Last 24 Hours (Table) 04/28/19 04/28/19 04/28/19 Range/Units 18:05 18:05 18:05 RBC 2.01 L (3.80-5.40) m/uL Hgb 5.6 L* D (11.4-16.0) gm/dL Hct 17.9 L* (34.0-46.0) % RDW 18.5 H (11.5-15.5) % Plt Count (150-450) k/uL Neutrophils # 7.9 H (1.3-7.7) k/uL Lymphocytes # (1.0-4.8) k/uL APTT 20.9 L (22.0-30.0) sec Sodium 135 L (137-145) mmol/L Potassium 6.2 H* (3.5-5.1) mmol/L BUN 87 H (7-17) mg/dL Creatinine 1.77 H (0.52-1.04) mg/dL Glucose 122 H (74-99) mg/dL Magnesium 2.8 H (1.6-2.3) mg/dL AST 47 H (14-36) U/L Troponin I (0.000-0.034) ng/mL Stool Occult Blood (Negative) Crossmatch 04/28/19 04/28/19 04/28/19 Range/Units 18:05 19:00 20:11 RBC (3.80-5.40) m/uL Hgb (11.4-16.0) gm/dL Hct (34.0-46.0) % RDW (11.5-15.5) % Plt Count (150-450) k/uL Neutrophils # (1.3-7.7) k/uL Lymphocytes # (1.0-4.8) k/uL APTT (22.0-30.0) sec Sodium (137-145) mmol/L Potassium (3.5-5.1) mmol/L BUN (7-17) mg/dL Creatinine (0.52-1.04) mg/dL Glucose (74-99) mg/dL Magnesium (1.6-2.3) mg/dL AST (14-36) U/L Troponin I 2.950 H* (0.000-0.034) ng/mL Stool Occult Blood Positive H (Negative) Crossmatch See Detail 04/29/19 04/29/19 04/29/19 Range/Units 00:38 00:38 05:57 RBC (3.80-5.40) m/uL Hgb (11.4-16.0) gm/dL Hct (34.0-46.0) % RDW (11.5-15.5) % Plt Count (150-450) k/uL Neutrophils # (1.3-7.7) k/uL Lymphocytes # (1.0-4.8) k/uL APTT (22.0-30.0) sec Sodium (137-145) mmol/L Potassium 5.2 H (3.5-5.1) mmol/L BUN (7-17) mg/dL Creatinine (0.52-1.04) mg/dL Glucose (74-99) mg/dL Magnesium (1.6-2.3) mg/dL AST (14-36) U/L Troponin I 2.780 H* 2.430 H* (0.000-0.034) ng/mL Stool Occult Blood (Negative) Crossmatch 04/29/19 04/29/19 Range/Units 05:57 05:57 RBC 2.32 L (3.80-5.40) m/uL Hgb 6.6 L* (11.4-16.0) gm/dL Hct 20.7 L (34.0-46.0) % RDW 17.8 H (11.5-15.5) % Plt Count 136 L (150-450) k/uL Neutrophils # 8.9 H (1.3-7.7) k/uL Lymphocytes # 0.6 L (1.0-4.8) k/uL APTT (22.0-30.0) sec Sodium 136 L (137-145) mmol/L Potassium 5.9 H (3.5-5.1) mmol/L BUN 91 H (7-17) mg/dL Creatinine 1.61 H (0.52-1.04) mg/dL Glucose 129 H (74-99) mg/dL Magnesium (1.6-2.3) mg/dL AST (14-36) U/L Troponin I (0.000-0.034) ng/mL Stool Occult Blood (Negative) Crossmatch Diabetes panel 04/28/19 04/29/19 04/29/19 Range/Units 18:05 00:38 05:57 Sodium 135 L 136 L (137-145) mmol/L Potassium 6.2 H* 5.2 H 5.9 H (3.5-5.1) mmol/L Chloride 103 104 (98-107) mmol/L Carbon Dioxide 22 23 (22-30) mmol/L BUN 87 H 91 H (7-17) mg/dL Creatinine 1.77 H 1.61 H (0.52-1.04) mg/dL Glucose 122 H 129 H (74-99) mg/dL Calcium 9.1 8.6 (8.4-10.2) mg/dL AST 47 H (14-36) U/L ALT 27 (4-34) U/L Alkaline Phosphatase 69 (38-126) U/L Total Protein 6.5 (6.3-8.2) g/dL Albumin 3.5 (3.5-5.0) g/dL Calcium panel 04/28/19 04/29/19 Range/Units 18:05 05:57 Calcium 9.1 8.6 (8.4-10.2) mg/dL Albumin 3.5 (3.5-5.0) g/dL Pituitary panel 04/28/19 04/29/19 04/29/19 Range/Units 18:05 00:38 05:57 Sodium 135 L 136 L (137-145) mmol/L Potassium 6.2 H* 5.2 H 5.9 H (3.5-5.1) mmol/L Chloride 103 104 (98-107) mmol/L Carbon Dioxide 22 23 (22-30) mmol/L BUN 87 H 91 H (7-17) mg/dL Creatinine 1.77 H 1.61 H (0.52-1.04) mg/dL Glucose 122 H 129 H (74-99) mg/dL Calcium 9.1 8.6 (8.4-10.2) mg/dL Adrenal panel 04/28/19 04/29/19 04/29/19 Range/Units 18:05 00:38 05:57 Sodium 135 L 136 L (137-145) mmol/L Potassium 6.2 H* 5.2 H 5.9 H (3.5-5.1) mmol/L Chloride 103 104 (98-107) mmol/L Carbon Dioxide 22 23 (22-30) mmol/L BUN 87 H 91 H (7-17) mg/dL Creatinine 1.77 H 1.61 H (0.52-1.04) mg/dL Glucose 122 H 129 H (74-99) mg/dL Calcium 9.1 8.6 (8.4-10.2) mg/dL Total Bilirubin 0.5 (0.2-1.3) mg/dL AST 47 H (14-36) U/L ALT 27 (4-34) U/L Alkaline Phosphatase 69 (38-126) U/L Total Protein 6.5 (6.3-8.2) g/dL Albumin 3.5 (3.5-5.0) g/dL <Audrey Gordon N - Last Filed: 04/29/19 19:11> History of Present Illness History of present illness: Patient seen and evaluated with above. Patient reports NEVER having a colonoscopy with persistent rectal bleeding. She reports being afraid to get screening colonoscopy or medical care. Her daughter at bedside reports her own personal history of colon polyps. With the patient's delayed presentation, 24 years of no medical care or colon screening including family history of colon polyps, I am suspicious of colon malignancy. Recommend upper and lower endoscopy when medically stable. Otherwise, may also benefit from cancer tumor markers, iron panel, and CT of the abdomen and pelvis with oral contrast only. Will follow. Surgical - Exam Vital Signs Temp Pulse Resp BP Pulse Ox 98.0 F 59 L 22 119/57 100 04/28/19 17:19 04/28/19 17:19 04/28/19 17:19 04/28/19 17:19 04/28/19 17:19 Results - Labs 04/29/19 16:59 04/29/19 16:59 Abnormal Lab Results - Last 24 Hours (Table) 04/28/19 04/28/19 04/29/19 Range/Units 19:00 20:11 00:38 WBC (3.8-10.6) k/uL RBC (3.80-5.40) m/uL Hgb (11.4-16.0) gm/dL Hct (34.0-46.0) % RDW (11.5-15.5) % Plt Count (150-450) k/uL Neutrophils # (1.3-7.7) k/uL Lymphocytes # (1.0-4.8) k/uL Sodium (137-145) mmol/L Potassium (3.5-5.1) mmol/L BUN (7-17) mg/dL Creatinine (0.52-1.04) mg/dL Glucose (74-99) mg/dL Troponin I 2.780 H* (0.000-0.034) ng/mL Stool Occult Blood Positive H (Negative) Crossmatch See Detail 04/29/19 04/29/19 04/29/19 Range/Units 00:38 05:57 05:57 WBC (3.8-10.6) k/uL RBC 2.32 L (3.80-5.40) m/uL Hgb 6.6 L* (11.4-16.0) gm/dL Hct 20.7 L (34.0-46.0) % RDW 17.8 H (11.5-15.5) % Plt Count 136 L (150-450) k/uL Neutrophils # 8.9 H (1.3-7.7) k/uL Lymphocytes # 0.6 L (1.0-4.8) k/uL Sodium (137-145) mmol/L Potassium 5.2 H (3.5-5.1) mmol/L BUN (7-17) mg/dL Creatinine (0.52-1.04) mg/dL Glucose (74-99) mg/dL Troponin I 2.430 H* (0.000-0.034) ng/mL Stool Occult Blood (Negative) Crossmatch 04/29/19 04/29/19 Range/Units 05:57 16:59 WBC 14.3 H (3.8-10.6) k/uL RBC 2.66 L (3.80-5.40) m/uL Hgb 7.5 L (11.4-16.0) gm/dL Hct 23.8 L (34.0-46.0) % RDW 17.5 H (11.5-15.5) % Plt Count 144 L (150-450) k/uL Neutrophils # (1.3-7.7) k/uL Lymphocytes # (1.0-4.8) k/uL Sodium 136 L (137-145) mmol/L Potassium 5.9 H (3.5-5.1) mmol/L BUN 91 H (7-17) mg/dL Creatinine 1.61 H (0.52-1.04) mg/dL Glucose 129 H (74-99) mg/dL Troponin I (0.000-0.034) ng/mL Stool Occult Blood (Negative) Crossmatch Diabetes panel 04/29/19 04/29/19 04/29/19 Range/Units 00:38 05:57 16:59 Sodium 136 L (137-145) mmol/L Potassium 5.2 H 5.9 H 4.9 (3.5-5.1) mmol/L Chloride 104 (98-107) mmol/L Carbon Dioxide 23 (22-30) mmol/L BUN 91 H (7-17) mg/dL Creatinine 1.61 H (0.52-1.04) mg/dL Glucose 129 H (74-99) mg/dL Calcium 8.6 (8.4-10.2) mg/dL Calcium panel 04/29/19 Range/Units 05:57 Calcium 8.6 (8.4-10.2) mg/dL Pituitary panel 04/29/19 04/29/19 04/29/19 Range/Units 00:38 05:57 16:59 Sodium 136 L (137-145) mmol/L Potassium 5.2 H 5.9 H 4.9 (3.5-5.1) mmol/L Chloride 104 (98-107) mmol/L Carbon Dioxide 23 (22-30) mmol/L BUN 91 H (7-17) mg/dL Creatinine 1.61 H (0.52-1.04) mg/dL Glucose 129 H (74-99) mg/dL Calcium 8.6 (8.4-10.2) mg/dL Adrenal panel 04/29/19 04/29/19 04/29/19 Range/Units 00:38 05:57 16:59 Sodium 136 L (137-145) mmol/L Potassium 5.2 H 5.9 H 4.9 (3.5-5.1) mmol/L Chloride 104 (98-107) mmol/L Carbon Dioxide 23 (22-30) mmol/L BUN 91 H (7-17) mg/dL Creatinine 1.61 H (0.52-1.04) mg/dL Glucose 129 H (74-99) mg/dL Calcium 8.6 (8.4-10.2) mg/dL Assessment and Plan (1) Morbid obesity due to excess calories Current Visit: Yes Status: Acute Code(s): E66.01 - MORBID (SEVERE) OBESITY DUE TO EXCESS CALORIES SNOMED Code(s): 600829157 (2) Adult BMI 50.0-59.9 kg/sq m Current Visit: Yes Status: Acute Code(s): Z68.43 - BODY MASS INDEX (BMI) 50.0-59.9, ADULT SNOMED Code(s): 588428046 (3) Family hx colonic polyps Current Visit: Yes Status: Acute Code(s): Z83.71 - FAMILY HISTORY OF COLONIC POLYPS SNOMED Code(s): 184801575 (4) Fear of other medical care Current Visit: Yes Status: Acute Code(s): F40.232 - FEAR OF OTHER MEDICAL C ARE SNOMED Code(s): 800754052 (5) JANNET (acute kidney injury) Current Visit: Yes Status: Acute Code(s): N17.9 - ACUTE KIDNEY FAILURE, UNSPECIFIED SNOMED Code(s): 88432254 (6) GI bleed Current Visit: Yes Status: Acute Code(s): K92.2 - GASTROINTESTINAL HEM ORRHAGE, UNSPECIFIED SNOMED Code(s): 86383621 (7) Congestive heart failure Current Visit: No Status: Acute Code(s): I50.9 - HEART FAILURE, UNSPECIFIED SNOMED Code(s): 14032516
[2019-04-29] MEDS ORDERED: ALPRAZolam 0.25 MG TAB PO PRN (15:25)
--- NOTE | 2019-04-29 15:30 | P.PN ---
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 On arrival here she was found to have a pulse of 59 and vital signs were otherwise within normal limits. Laboratory analysis showed he moglobin of 5.6 (baseline 9), hematocrit 17, platelet 167, sodium 135, potassium 6.2, BUN 87, creatinine 1.77, an elevated troponin at 2.95. She was also found to have an elevated BNP at 10,200, fecal occult blood was positive, and influenza nasal swab is negative. Initial chest x-ray showed cardiogenic pulmonary edema. She was ordered 2 units of packed red blood cells on have possible bleeding hemorrhoid. She is admitted to the ICU for further monitoring. She was started on IV Protonix and made nothing by mouth. She is given temporizing measures for her hyperkalemia. She has not started on aspirin or heparin secondary to her ongoing GI bleed and significant anemia. Her Eliquis was held. Initially her potassium went down. Despite 2 units of packed red blood cells her hemoglobin does not rise appropriately. One additional unit of packed red blood cells was ordered. Her potassium remained elevated and nephrology was consulted, they recommended lasix and following potassium levels. Objective - Vital Signs Vital signs: Vital Signs Temp 98.5 F 04/29/19 11:41 Pulse 88 04/29/19 11:41 Resp 20 04/29/19 11:41 BP 108/52 04/29/19 11:41 Pulse Ox 96 04/29/19 11:41 Intake & Output 04/28/19 04/29/19 04/29/19 18:59 06:59 18:59 Intake Total 1320 1430 Output Total 500 900 Balance 820 530 Weight 160.572 kg 159.6 kg Intake: IV 80 60 normal saline 80 60 Intake, IV Titration 350 Amount Calcium Gluconate 1 gm In 100 Sodium Chloride 0.9% 100 ml @ 100 mls/hr IVPB ONCE ONE Rx#:[id number] Dextrose 10 % in Water 250 250 ml @ 999 mls/hr IV ONCE STA Rx#:[id number] Oral 360 Blood Product 1240 660 Rc As-1 Unit 310 [id number] Rc As-1 Unit 310 [id number] Rc Pheresis As-3 Unit 310 [id number] Output: Urine 500 900 Other: # Voids 1 1 - Labs CBC & Chem 7: 04/29/19 05:57 04/29/19 05:57 Labs: Abnormal Lab Results - Last 24 Hours (Table) 04/28/19 04/28/19 04/28/19 Range/Units 18:05 18:05 18:05 RBC 2.01 L (3.80-5.40) m/uL Hgb 5.6 L* D (11.4-16.0) gm/dL Hct 17.9 L* (34.0-46.0) % RDW 18.5 H (11.5-15.5) % Plt Count (150-450) k/uL Neutrophils # 7.9 H (1.3-7.7) k/uL Lymphocytes # (1.0-4.8) k/uL APTT 20.9 L (22.0-30.0) sec Sodium 135 L (137-145) mmol/L Potassium 6.2 H* (3.5-5.1) mmol/L BUN 87 H (7-17) mg/dL Creatinine 1.77 H (0.52-1.04) mg/dL Glucose 122 H (74-99) mg/dL Magnesium 2.8 H (1.6-2.3) mg/dL AST 47 H (14-36) U/L Troponin I (0.000-0.034) ng/mL Stool Occult Blood (Negative) Crossmatch 04/28/19 04/28/19 04/28/19 Range/Units 18:05 19:00 20:11 RBC (3.80-5.40) m/uL Hgb (11.4-16.0) gm/dL Hct (34.0-46.0) % RDW (11.5-15.5) % Plt Count (150-450) k/uL Neutrophils # (1.3-7.7) k/uL Lymphocytes # (1.0-4.8) k/uL APTT (22.0-30.0) sec Sodium (137-145) mmol/L Potassium (3.5-5.1) mmol/L BUN (7-17) mg/dL Creatinine (0.52-1.04) mg/dL Glucose (74-99) mg/dL Magnesium (1.6-2.3) mg/dL AST (14-36) U/L Troponin I 2.950 H* (0.000-0.034) ng/mL Stool Occult Blood Positive H (Negative) Crossmatch See Detail 04/29/19 04/29/19 04/29/19 Range/Units 00:38 00:38 05:57 RBC (3.80-5.40) m/uL Hgb (11.4-16.0) gm/dL Hct (34.0-46.0) % RDW (11.5-15.5) % Plt Count (150-450) k/uL Neutrophils # (1.3-7.7) k/uL Lymphocytes # (1.0-4.8) k/uL APTT (22.0-30.0) sec Sodium (137-145) mmol/L Potassium 5.2 H (3.5-5.1) mmol/L BUN (7-17) mg/dL Creatinine (0.52-1.04) mg/dL Glucose (74-99) mg/dL Magnesium (1.6-2.3) mg/dL AST (14-36) U/L Troponin I 2.780 H* 2.430 H* (0.000-0.034) ng/mL Stool Occult Blood (Negative) Crossmatch 04/29/19 04/29/19 Range/Units 05:57 05:57 RBC 2.32 L (3.80-5.40) m/uL Hgb 6.6 L* (11.4-16.0) gm/dL Hct 20.7 L (34.0-46.0) % RDW 17.8 H (11.5-15.5) % Plt Count 136 L (150-450) k/uL Neutrophils # 8.9 H (1.3-7.7) k/uL Lymphocytes # 0.6 L (1.0-4.8) k/uL APTT (22.0-30.0) sec Sodium 136 L (137-145) mmol/L Potassium 5.9 H (3.5-5.1) mmol/L BUN 91 H (7-17) mg/dL Creatinine 1.61 H (0.52-1.04) mg/dL Glucose 129 H (74-99) mg/dL Magnesium (1.6-2.3) mg/dL AST (14-36) U/L Troponin I (0.000-0.034) ng/mL Stool Occult Blood (Negative) Crossmatch Assessment and Plan Assessment: Acute blood loss anemia with probable bleeding hemorrhoid - s/p 3 units pRBC - follow CBC - eliquis on hold. - patient now with 2 significant bleeding events - clear liquid diet - Surgery recs appreciated, plan is for EGD and Colon JANNET with hyperkalemia - lasix, s/p temporazing measures for hyperkalemia - neohro recs appreciated - follow CR and K levels - avoid additional nephrotoxic agents - losartan and K+ on hold NSTEMI - Cardio recs - echo - unable to have ASA or heparin due to active bleeding - tele - Beta palmira as able blood pressure and hold - Statin therapy Acute exacerbation of diastolic CHF, EF 55-60 % - Status post IV Lasix -Resume oral Lasix -Resume beta palmira -Arb on hold secondary trachea and hyperkalemia -Cardiology recommendations A fib - resume Lopressor mild thrombocytopenia with History of ITP -Follow CBC closely Morbid obesity with BMI 56.8 - structured outpatient weight loss DVT prophylaxis: SCDs Discussed with: Patient, daughter, nursing Anticipated discharge: 4-[address]: home A total of 45 minutes was spent on the care of this complex patient more than 50% of the time was spent in counseling and care coordination.
[2019-04-29] MEDS: HYDROcodone/APAP 5-325MG 1 EACH TAB PO PRN (15:35)
[2019-04-29] MEDS: ALBUTEROL NEBULIZED 2.5 MG/3 ML INHALATION PRN ×2 (16:42→19:18)
[2019-04-29 17:48] LABS: Anisocytosis Slight; HCT 23.8 % (34.0-46.0); HGB 7.5 gm/dL (11.4-16.0); Hypochromasia Slight; MCHC 31.4 g/dL (31.0-37.0); MCV 89.4 fL (80.0-100.0); Mean Platelet Volume 8.5; Platelet Count 144 k/uL (150-450); Poikilocytosis Slight; RBC 2.66 m/uL (3.80-5.40); RDW 17.5 % (11.5-15.5); WBC 14.3 k/uL (3.8-10.6)
[2019-04-29] MEDS: PANTOPRAZOLE 40 MG/10 ML VIAL IV SCH (20:46)
[2019-04-29] MEDS: ATORVASTATIN 40 MG TAB PO SCH (20:47)
[2019-04-29] MEDS: GABAPENTIN 100 MG CAP PO SCH (20:47)
[2019-04-29] MEDS: METOPROLOL TARTRATE 25 MG TAB PO SCH (20:47)
[2019-04-30 05:41] LABS: Anisocytosis Slight; Hypochromasia Slight; MCH 28.2 pg (25.0-35.0); MCHC 31.7 g/dL (31.0-37.0); Mean Platelet Volume 8.5; Platelet Count 151 k/uL (150-450); Poikilocytosis Slight; RBC 2.47 m/uL (3.80-5.40)
[2019-04-30 05:53] LABS: Calcium 8.4 mg/dL (8.4-10.2); Potassium 4.3 mmol/L (3.5-5.1)
--- NOTE | 2019-04-30 07:15 | XR ---
EXAMINATION TYPE: XR chest 1V DATE OF EXAM: 04/30/2019 HISTORY: CHF. REFERENCE: Previous study dated 04/28/2019. FINDINGS: Heart is enlarged. There is vascular congestion and subtle interstitial change. I suspect s mall, bilateral effusions. IMPRESSION: CONTINUING CHANGES OF CONGESTIVE HEART FAILURE.
[2019-04-30] MEDS: ALBUTEROL NEBULIZED 2.5 MG/3 ML INHALATION PRN ×4 (08:05→19:50)
--- NOTE | 2019-04-30 08:33 | PN ---
PROGRESS NOTE Mrs Lorraine Mays is a lady with chronic atrial fibrillation, controlled ventricular rate, came to the hospital with anemia, had hemorrhoidal bleed. She is resting comfortably. No further active bleeding. Hemoglobin is around 7.5. She received multiple units of blood. Vitals are stable. No JVD. S1, S2 heard normally, ejection systolic murmur is audible. Lungs reveal diminished air entry. Abdomen and lower extremity exam unchanged. FRUCTOSE LOADER=OK. Troponin is high, but all values are flat and there was some acute Kidney injury which is resolving. In the setting of acute anemia, the troponin may reflect some Oxygen mismatch situation. No aggressive intervention needed. LV function is preserved. Will follow up after D/C. From a cardiac standpoint I am recommending no anticoagulation for this lady. Rate control is good with beta blockers. Will continue current medications and I will await further input from GI and Surgery. We will see her as needed from a cardiac standpoint. Thank you very much for the consult. MMODL / IJN: [id number] / JESÚS
--- NOTE | 2019-04-30 08:39 | ECHOF ---
Referral Reason:EF, wall motion abnormality, new [place] MEASUREMENTS -------- HEIGHT: 167.6 cm WEIGHT: 159.2 kg BP: 111/67 IVSd: 1.5 cm (0.6 - 1.1) LVIDd: 5.3 cm (3.9 - 5.3) LVPWd: 1.5 cm (0.6 - 1.1) IVSs: 2.2 cm LVIDs: 3.8 cm LVPWs: 2.0 cm FINDINGS -------- Sinus rhythm. This was a technically difficult study with suboptimal views. Morbid Obesity Limited Study The left ventricle is mildly dilated. There is moderate concentric left ventricular hypertrophy. Overall left ventricular systolic function is low-normal with, an EF between 50 - 55 %. There is no pericardial effusion. CONCLUSIONS -------- 1. Sinus rhythm. 2. This was a technically difficult study with suboptimal views. 3. Morbid Obesity 4. Limited Study 5. The left ventricle is mildly dilated. 6. There is moderate concentric left ventricular hypertrophy. 7. There is no pericardial effusion. PANTS PRESSER: Bre Yadav, [facility]
[2019-04-30] MEDS: FUROSEMIDE 10 MG/ML 4 ML VIAL IV SCH (08:42)
[2019-04-30] MEDS: GABAPENTIN 100 MG CAP PO SCH ×2 (08:42→22:09)
[2019-04-30] MEDS: PANTOPRAZOLE 40 MG/10 ML VIAL IV SCH ×2 (08:42→22:08)
[2019-04-30] MEDS: METOPROLOL TARTRATE 25 MG TAB PO SCH (08:42)
[2019-04-30] MEDS: ALPRAZolam 0.25 MG TAB PO PRN ×2 (08:43→22:09)
[2019-04-30] MEDS: SERTRALINE 100 MG TAB PO SCH (08:43)
[2019-04-30] MEDS ORDERED: FUROSEMIDE 40 MG TAB PO SCH (09:00)
--- NOTE | 2019-04-30 09:12 | P.PN ---
Subjective Patient is seen in follow-up for acute kidney injury. Renal function is improving. Urine output is good. Denies any active bleeding. No vomiting or diarrhea. Vital signs are stable. General: The patient appeared well nourished and normally developed. HEENT: Head exam is unremarkable. Neck is without jugular venous distension. LUNGS: Lungs are clear to auscultation and percussion. Breath sounds decreased. HEART: Rate and Rhythm are regular. First and second heart sounds normal. No murmurs, rubs or gallops. ABDOMEN: Abdominal exam reveals normal bowel sounds. Non-tender and non- distended. Obese. EXTREMITITES: 1+ edema. Objective - Vital Signs Vital signs: Vital Signs Temp 99.6 F 04/30/19 08:00 Pulse 91 04/30/19 08:17 Resp 26 H 04/30/19 08:00 BP 111/26 04/30/19 08:00 Pulse Ox 96 04/30/19 08:00 Intake & Output 04/29/19 04/30/19 04/30/19 18:59 06:59 18:59 Intake Total 2090 110 Output Total 2300 500 Balance -210 -390 Weight 160 kg Intake: IV 120 110 normal saline 120 110 Intake, IV Titration 350 Amount Calcium Gluconate 1 gm In 100 Sodium Chloride 0.9% 100 ml @ 100 mls/hr IVPB ONCE ONE Rx#:[id number] Dextrose 10 % in Water 250 250 ml @ 999 mls/hr IV ONCE STA Rx#:[id number] Oral 960 Blood Product 660 Rc As-1 Unit 310 [id number] Output: Urine 2300 500 Other: # Voids 1 # Bowel Movements 1 - Labs CBC & Chem 7: 04/30/19 05:13 04/30/19 05:13 Labs: Abnormal Lab Results - Last 24 Hours (Table) 04/28/19 04/29/19 04/30/19 Range/Units 19:00 16:59 05:13 WBC 14.3 H 13.0 H (3.8-10.6) k/uL RBC 2.66 L 2.47 L (3.80-5.40) m/uL Hgb 7.5 L 7.0 L (11.4-16.0) gm/dL Hct 23.8 L 22.0 L (34.0-46.0) % RDW 17.5 H 17.0 H (11.5-15.5) % Plt Count 144 L (150-450) k/uL Sodium (137-145) mmol/L BUN (7-17) mg/dL Creatinine (0.52-1.04) mg/dL Glucose (74-99) mg/dL Crossmatch See Detail 04/30/19 Range/Units 05:13 WBC (3.8-10.6) k/uL RBC (3.80-5.40) m/uL Hgb (11.4-16.0) gm/dL Hct (34.0-46.0) % RDW (11.5-15.5) % Plt Count (150-450) k/uL Sodium 136 L (137-145) mmol/L BUN 80 H (7-17) mg/dL Creatinine 1.27 H (0.52-1.04) mg/dL Glucose 102 H (74-99) mg/dL Crossmatch Microbiology - Last 24 Hours (Table) 04/28/19 19:00 Blood Culture - Preliminary Blood No Growth after 24 hours Assessment and Plan Plan: Assessment: 1. Acute kidney injury mostly prerenal secondary to acute blood loss anemia. Creatinine 1.77 on admission and is 1.27 today. 2. Acute blood loss anemia currently receiving third unit of blood transfusion. Hemoglobin 7 this morning. Surgery following. Potential endoscopy this admission. 3. Hyperkalemia secondary to acute kidney injury, GI bleed. Patient was also on potassium supplementation and losartan at home. Resolved. 4. Volume overload. 5. Acute on chronic diastolic CHF with moderate aortic stenosis, moderate mitral and tricuspid regurgitation and moderate pulmonary hypertension. 6. History of A. fib. Plan: Start Lasix 40 mg IV once daily. Avoid nephrotoxins. Continue to monitor renal function and urine output.
[2019-04-30 10:03] LABS: Carcinoembryonic Antigen 2.4 ng/mL (0.0-4.9)
[2019-04-30 10:06] LABS: Alpha Fetoprotein, Tumor Mkr <2.5 ng/mL (0.0-7.9)
[2019-04-30 10:08] LABS: Ferritin 39.8 ng/mL (10.0-291.0)
[2019-04-30 10:10] LABS: % Iron Saturation 3.46 (12.00-45.00)
--- NOTE | 2019-04-30 11:19 | P.CONS ---
History of Present Illness - Reason for Consult Consult date: 04/29/19 Blood per rectum, deficiency anemia Requesting physician: Hermes Seay - Chief Complaint Weakness, shortness of breath, blood per rectum - History of Present Illness 73 with a medical history significant for diastolic congestive heart failure, persistent atrial fibrillation on Eliquis therapy, hypertension, aortic stenosis, tricuspid regurgitation chronic ITP and pulmonary artery hypertension who presented to the hospital due to complaints of weakness and worsening carlee rtness of breath and lower extremity swelling. Patient reports symptoms have been worsening over the past week. She is recently being treated for suspected pneumonia with antibiotic therapy and use of an inhaler. Patient also reports painless blood per rectum. She states that this has been intermittent over past few years but worse over the past 3-4 weeks. She reports baseline of 1-2 bowel movements daily with no change in her bowel habits, constipation or diarrhea. She reports passage of painless bright red blood with the bowel movements. On presentation to the hospital she was found to have stool testing positive for blood. She has never had an EGD or colonoscopy in the past. She denies any abdominal pain. We will been 5.6 on presentation and subsequently 6.6 after transfusion, total bilirubin 0.5, alkaline phosphatase 69, AST 47 and ALT 27. Review of Systems REVIEW OF SYSTEMS: CONSTITUTIONAL: Denies any fevers, chills, weight change but does report shortness of breath and fatigue. CARDIOVASCULAR: Denies any chest pain, palpitations high or low blood pressures RESPIRATORY: Denies any hemoptysis or cough but does report shortness of breath. GENITOURINARY: No dysuria or hematuria. MUSCULOSKELETAL: No focal weakness reported. SKIN: Denies any new rashes or lesions, jaundice or pallor. PSYCHIATRIC: Denies any depression or anxiety. NEUROLOGY: Denies headache, denies any new focal deficits. EARS/NOSE/THROAT: No recent hearing change, congestion, nasal discharge or sore throat. EYES: No pain in eyes, discharge or change in vision. GASTROINTESTINAL: As per HPI. Past Medical History Past Medical History: Blood Disorder, Heart Failure, CVA/TIA, GERD/Reflux, H ypertension Additional Past Medical History / Comment(s): ITP DISORDER History of Any Multi-Drug Resistant Organisms: MRSA Year Discovered:: 2013 MDRO Source:: URINE Past Surgical History: Orthopedic Surgery Additional Past Surgical History / Comment(s): BRAIN SURGERY AFTER BLEED in 2013, bilateral knee replacements Past Anesthesia/Blood Transfusion Reactions: No Reported Reaction Past Psychological History: Depression Smoking Status: Never smoker Past Alcohol Use History: None Reported Past Drug Use History: None Reported - Past Family History Sister(s) Family Medical History: Congestive Heart Failure (CHF) Medications and Allergies Home Medications Medication Instructions Recorded Confirmed Type Famotidine [Pepcid] 20 mg PO DAILY 12/29/14 04/28/19 History Potassium Chloride ER [K-Dur 20] 20 meq PO DAILY 12/29/14 04/28/19 History Sertraline HCl [Zoloft] 200 mg PO DAILY 12/29/14 04/28/19 History Losartan Potassium 100 mg PO DAILY 03/23/19 04/28/19 History Apixaban [Eliquis] 2.5 mg PO BID tablet 04/04/19 04/28/19 Rx Furosemide [Lasix] 40 mg PO DAILY #0 tab 04/04/19 04/28/19 Rx Gabapentin [Neurontin] 100 mg PO BID #6 cap 04/04/19 04/28/19 Rx Metoprolol Tartrate [Lopressor] 25 mg PO BID tab 04/04/19 04/28/19 Rx SILVER sulfADIAZINE CREAM 1 applic TOPICAL HS applic 04/04/19 04/28/19 Rx [Silvadene Cream] ALPRAZolam [Xanax] 0.25 mg PO TID PRN 04/28/19 04/28/19 History Albuterol Sulfate [Ventolin HFA] 2 puff INHALATION RT-Q4H PRN 04/28/19 04/28/19 History Cefuroxime Axetil [Ceftin] 500 mg PO Q12H 04/28/19 04/28/19 History HYDROcodone/APAP 5-325MG [[place] 1 tab PO Q6HR PRN 04/28/19 04/28/19 History 5-325] SUMAtriptan SUCCINATE [Imitrex] 50 mg PO DAILY PRN 04/28/19 04/28/19 History Allergies Allergy/AdvReac Type Severity Reaction Status Date / Time No Known Allergies Allergy Verified 04/28/19 22:21 Physical Exam Vitals: Vital Signs Temp Pulse Resp BP Pulse Ox 04/29/19 11:41 98.5 F 88 20 108/52 96 04/29/19 11:00 77 25 H 82/57 98 04/29/19 10:30 69 18 102/60 96 04/29/19 10:00 76 19 98/66 98 04/29/19 09:30 72 22 102/63 99 04/29/19 09:00 81 20 93/82 92 L 04/29/19 08:30 87 19 134/89 99 04/29/19 08:28 98.6 F 88 20 101/59 94 L 04/29/19 08:00 98.7 F 44 L 25 H 114/32 95 04/29/19 07:58 98.9 F 84 20 134/59 98 04/29/19 07:48 98.7 F 84 20 96/68 96 04/29/19 07:30 82 29 H 115/88 97 04/29/19 07:00 79 24 108/88 98 04/29/19 06:30 84 15 98/78 98 04/29/19 06:00 85 18 107/66 98 04/29/19 05:30 77 20 80/47 99 04/29/19 05:00 80 19 95/54 92 L 04/29/19 04:51 98.3 F 82 19 95/54 98 04/29/19 04:30 86 22 107/56 97 04/29/19 04:00 98.3 F 84 17 124/60 97 04/29/19 03:58 98.3 F 76 19 115/68 98 04/29/19 03:30 93 23 83/52 97 04/29/19 03:28 98.2 F 90 18 124/60 97 04/29/19 03:18 98.2 F 94 21 83/52 98 04/29/19 03:00 80 15 81/68 98 04/29/19 02:38 98.2 F 80 17 95/79 99 04/29/19 02:30 100 17 110/27 100 04/29/19 02:00 80 14 97/64 100 04/29/19 01:30 81 24 91/66 100 04/29/19 01:27 98.2 F 88 17 102/52 100 04/29/19 01:00 80 24 93/76 93 L 04/29/19 00:57 98.1 F 92 18 101/61 100 04/29/19 00:47 97.9 F 80 20 93/76 99 04/29/19 00:30 78 8 L 80/56 100 04/29/19 00:00 85 16 74/41 98 04/28/19 23:30 97.9 F 90 24 148/105 97 04/28/19 23:05 86 23 100 04/28/19 22:41 100 22 04/28/19 22:13 92 22 04/28/19 22:00 78 93/58 97 04/28/19 20:15 69 20 97/46 100 04/28/19 20:00 98.7 F 65 26 H 92/51 97 04/28/19 18:47 75 04/28/19 18:39 71 04/28/19 17:30 26 H 04/28/19 17:19 98.0 F 59 L 22 119/57 100 Intake and Output 04/28/19 04/29/19 04/29/19 22:59 06:59 14:59 Intake Total 1320 1430 Output Total 500 900 Balance 820 530 Intake: IV 80 60 normal saline 80 60 Intake, IV Titration 350 Amount Calcium Gluconate 1 gm In 100 Sodium Chloride 0.9% 100 ml @ 100 mls/hr IVPB ONCE ONE Rx#:[id number] Dextrose 10 % in Water 250 250 ml @ 999 mls/hr IV ONCE STA Rx#:[id number] Oral 360 Blood Product 1240 660 Rc As-1 Unit 310 [id number] Rc As-1 Unit 310 [id number] Rc Pheresis As-3 Unit 310 [id number] Output: Urine 500 900 Other: # Voids 1 1 Weight 162.8 kg 159.6 kg On physical examination, patient appears comfortable in no apparent distress. HEAD: Normocephalic, atraumatic. EYES: No scleral icterus. No conjunctival injection. MOUTH: No lesions, tongue midline. NECK: Trachea midline, no gross abnormalities. CHEST: Decreased air entry in all lung hussein. HEART: S1-S2 appreciated. ABDOMEN: Soft, obese and nontender. Bowel sounds are positive. No organomegaly. No guarding or rigidity. EXTREMITIES: 2+ pedal edema. SKIN: No rashes, no jaundice. NEUROLOGIC: Alert and oriented x3. No focal deficits. Results CBC & Chem 7: 04/30/19 05:13 04/30/19 05:13 Labs: Abnormal Lab Results - Last 24 Hours (Table) 04/28/19 04/28/19 04/28/19 Range/Units 18:05 18:05 18:05 RBC 2.01 L (3.80-5.40) m/uL Hgb 5.6 L* D (11.4-16.0) gm/dL Hct 17.9 L* (34.0-46.0) % RDW 18.5 H (11.5-15.5) % Plt Count (150-450) k/uL Neutrophils # 7.9 H (1.3-7.7) k/uL Lymphocytes # (1.0-4.8) k/uL APTT 20.9 L (22.0-30.0) sec Sodium 135 L (137-145) mmol/L Potassium 6.2 H* (3.5-5.1) mmol/L BUN 87 H (7-17) mg/dL Creatinine 1.77 H (0.52-1.04) mg/dL Glucose 122 H (74-99) mg/dL Magnesium 2.8 H (1.6-2.3) mg/dL AST 47 H (14-36) U/L Troponin I (0.000-0.034) ng/mL Stool Occult Blood (Negative) Crossmatch 04/28/19 04/28/19 04/28/19 Range/Units 18:05 19:00 20:11 RBC (3.80-5.40) m/uL Hgb (11.4-16.0) gm/dL Hct (34.0-46.0) % RDW (11.5-15.5) % Plt Count (150-450) k/uL Neutrophils # (1.3-7.7) k/uL Lymphocytes # (1.0-4.8) k/uL APTT (22.0-30.0) sec Sodium (137-145) mmol/L Potassium (3.5-5.1) mmol/L BUN (7-17) mg/dL Creatinine (0.52-1.04) mg/dL Glucose (74-99) mg/dL Magnesium (1.6-2.3) mg/dL AST (14-36) U/L Troponin I 2.950 H* (0.000-0.034) ng/mL Stool Occult Blood Positive H (Negative) Crossmatch See Detail 04/29/19 04/29/19 04/29/19 Range/Units 00:38 00:38 05:57 RBC (3.80-5.40) m/uL Hgb (11.4-16.0) gm/dL Hct (34.0-46.0) % RDW (11.5-15.5) % Plt Count (150-450) k/uL Neutrophils # (1.3-7.7) k/uL Lymphocytes # (1.0-4.8) k/uL APTT (22.0-30.0) sec Sodium (137-145) mmol/L Potassium 5.2 H (3.5-5.1) mmol/L BUN (7-17) mg/dL Creatinine (0.52-1.04) mg/dL Glucose (74-99) mg/dL Magnesium (1.6-2.3) mg/dL AST (14-36) U/L Troponin I 2.780 H* 2.430 H* (0.000-0.034) ng/mL Stool Occult Blood (Negative) Crossmatch 04/29/19 04/29/19 Range/Units 05:57 05:57 RBC 2.32 L (3.80-5.40) m/uL Hgb 6.6 L* (11.4-16.0) gm/dL Hct 20.7 L (34.0-46.0) % RDW 17.8 H (11.5-15.5) % Plt Count 136 L (150-450) k/uL Neutrophils # 8.9 H (1.3-7.7) k/uL Lymphocytes # 0.6 L (1.0-4.8) k/uL APTT (22.0-30.0) sec Sodium 136 L (137-145) mmol/L Potassium 5.9 H (3.5-5.1) mmol/L BUN 91 H (7-17) mg/dL Creatinine 1.61 H (0.52-1.04) mg/dL Glucose 129 H (74-99) mg/dL Magnesium (1.6-2.3) mg/dL AST (14-36) U/L Troponin I (0.000-0.034) ng/mL Stool Occult Blood (Negative) Crossmatch Chest x-ray: report reviewed (Cardiogenic pulmonary edema noted on x-ray on admission) Assessment and Plan (1) Anemia associated with acute blood loss Narrative/Plan: 73-year-old female with multiple medical comorbidities who came into the [facility] with complaints of shortness of breath, increased lower extremity swelling, and painless bright red blood per rectum. Currently being treated for fluid overload the patient also found to have an iron deficiency anemia. She reports painless episodes of bright red blood per rectum. She is been going on intermittently but more frequent over the past few weeks. No change in her bowel habits or abdominal pain reported. No prior EGD or colonoscopy reported. Patient reports problems with hemorrhoids in the past. Unclear etiology, may be secondary to hemorrhoidal bleeding worsened in the setting of anticoagulation therapy, AVM, diverticular bleed or other etiology. Current Visit: Yes Status: Acute Code(s): D62 - ACUTE POSTHEMORRHAGIC ANEMIA SNOMED Code(s): 605148891 (2) GI bleed Current Visit: Yes Status: Acute Code(s): K92.2 - GASTROINTESTINAL HEMORRHAGE, UNSPECIFIED SNOMED Code(s): 37114758 Plan: Supportive care Clear liquid diet Continue to monitor hemoglobin and hematocrit and transfuse as needed Hold anticoagulation therapy for now Surgical service following Extensive conversation with the patient and her at bedside, at this time they would like to proceed with EGD and colonoscopy with the surgical service with timing deferred to the surgical service Agree with plan for endoscopy with surgery given patient's complaint of hemorrhoidal disease Active for allowing us to participate in the care of the patient
[2019-04-30] MEDS ORDERED: SODIUM FERRIC GLUCONAT-SUCROSE 125 MG in SODIUM CHLORIDE 0.9% 100 ML IVPB ONE (12:30)
[2019-04-30] MEDS: HYDROcodone/APAP 5-325MG 1 EACH TAB PO PRN (13:10)
[2019-04-30] MEDS: MUPIROCIN 2% OINT 22 GM TUBE TOPICAL SCH ×3 (13:10→22:24)
[2019-04-30 15:25] LABS: Anisocytosis Slight; Basophils % (A) 0 %; Eosinophils # (A) 0.1 k/uL (0-0.7); Eosinophils % (A) 1 %; HCT 20.8 % (34.0-46.0); Hypochromasia Slight; Lymphocytes # (A) 0.5 k/uL (1.0-4.8); Lymphocytes % (A) 4 %; MCH 27.8 pg (25.0-35.0); MCHC 31.3 g/dL (31.0-37.0); MCV 88.8 fL (80.0-100.0); Mean Platelet Volume 8.2; Monocytes # (A) 0.5 k/uL (0-1.0); Monocytes % (A) 4 %; Neutrophils # (A) 10.1 k/uL (1.3-7.7); Neutrophils % (A) 90 %; Platelet Count 149 k/uL (150-450); Poikilocytosis Slight; RBC 2.34 m/uL (3.80-5.40); WBC 11.2 k/uL (3.8-10.6)
[2019-04-30 15:27] LABS: HGB 6.5 gm/dL (11.4-16.0)
[2019-04-30 16:21] LABS: INR 1.1 (<1.2); Partial Thromboplastin Time 25.4 sec (22.0-30.0); Prothrombin Time 11.2 sec (9.0-12.0)
--- NOTE | 2019-04-30 16:27 | P.PN ---
Subjective Progress Note Date: 04/30/19 (delayed charting patient seen at 1105) Principal diagnosis: shortness of breath Patient is a 73-year-old female with atrial fibrillation on anticoagulation with Eliquis diagnosed approximately one month ago during her hospital stay, hypertension, chronic diastolic congestive heart failure, history of ITP with intracranial hemorrhage resulting in craniotomy, and valvular heart disease who presented to the emergency department with complaints of difficulty in breathing. On arrival here she was found to have a pulse of 59 and vital signs were otherwise within normal limits. Laboratory analysis showed hemoglobin of 5.6 (baseline 9), hematocrit 17, platelet 167, sodium 135, potassium 6.2, BUN 87, creatinine 1.77, an elevated troponin at 2.95. She was also found to have an elevated BNP at 10,200, fecal occult blood was positive, and influenza nasal swab is negative. Initial chest x-ray showed cardiogenic pulmonary edema. She was ordered 2 units of packed red blood cells on have possible bleeding hemorrhoid. She is admitted to the ICU for further monitor ing. She was started on IV Protonix and made nothing by mouth. She is given temporizing measures for her hyperkalemia. She has not started on aspirin or heparin secondary to her ongoing GI bleed and significant anemia. Her Eliquis was held. Initially her potassium went down. Despite 2 units of packed red blood cells her hemoglobin does not rise appropriately. One additional unit of packed red blood cells was ordered. Her potassium remained elevated and nephrology was consulted, they recommended lasix and following potassium levels. Her renal function improved and potassium normalized. Her hemoglobin was initially stable on 04/29 which is slightly down on 04/30. Patient seen and examined at bedside. She complains of shortness of breath and cough productive of yellow sputum. She is concerned she is getting pneumonia again. She denies any overt chest discomfort, lightheadedness, dizziness, nausea, vomiting. Her last bowel movement was nonbloody green and formed. She has not noted any more hemorrhoidal bleeding. Objective - Vital Signs Vital signs: Vital Signs Temp 98.7 F 04/30/19 16:07 Pulse 71 04/30/19 16:07 Resp 22 04/30/19 16:07 BP 97/41 04/30/19 16:07 Pulse Ox 94 L 04/30/19 16:07 Intake & Output 04/29/19 04/30/19 04/30/19 18:59 06:59 18:59 Intake Total 2090 110 1100 Output Total 2300 500 900 Balance -210 -390 200 Weight 160 kg Intake: IV 120 110 260 Sodium Ferric Gluconat- 100 Sucrose 125 mg In Sodium Chloride 0.9% 100 ml @ 100 mls/hr IVPB ONCE ONE Rx#:[id number] normal saline 120 110 160 Intake, IV Titration 350 Amount Calcium Gluconate 1 gm In 100 Sodium Chloride 0.9% 100 ml @ 100 mls/hr IVPB ONCE ONE Rx#:[id number] Dextrose 10 % in Water 250 250 ml @ 999 mls/hr IV ONCE STA Rx#:[id number] Oral 960 840 Blood Product 660 0 Rc As-1 Unit 310 [id number] Rc As-1 Unit 0 [id number] Output: Urine 2300 500 900 Other: # Voids 1 # Bowel Movements 1 - Exam General: ill appearing, no distress, appears at stated age, obese Derm: Chronic venous statsis changes b/i LE with small opening right lower extremity, warm, dry Head: atraumatic, normocephalic, symmetric Eyes: EOMI, no lid lag, anicteric sclera Mouth: no lip lesion, mucus membranes moist Cardiovascular: S1S2 reg, no murmur, positive posterior tibial pulse bilateral, Lungs: crackles bilateral bases , no accessory muscle use Abdominal: soft, nontender to palpation, no guarding, no appreciable organomegaly Ext: no gross muscle atrophy, 2+ edema, no contractures Neuro: CN II-XI grossly intact, no focal neuro deficits Psych: Alert, oriented, appropriate affect - Labs CBC & Chem 7: 04/30/19 14:59 04/30/19 05:13 Labs: Abnormal Lab Results - Last 24 Hours (Table) 04/28/19 04/29/19 04/30/19 Range/Units 19:00 16:59 05:13 WBC 14.3 H 13.0 H (3.8-10.6) k/uL RBC 2.66 L 2.47 L (3.80-5.40) m/uL Hgb 7.5 L 7.0 L (11.4-16.0) gm/dL Hct 23.8 L 22.0 L (34.0-46.0) % RDW 17.5 H 17.0 H (11.5-15.5) % Plt Count 144 L (150-450) k/uL Neutrophils # (1.3-7.7) k/uL Lymphocytes # (1.0-4.8) k/uL Sodium (137-145) mmol/L BUN (7-17) mg/dL Creatinine (0.52-1.04) mg/dL Glucose (74-99) mg/dL Iron (50-170) ug/dL % Saturation (12.00-45.00) Crossmatch See Detail 04/30/19 04/30/19 Range/Units 05:13 14:59 WBC 11.2 H (3.8-10.6) k/uL RBC 2.34 L (3.80-5.40) m/uL Hgb 6.5 L* (11.4-16.0) gm/dL Hct 20.8 L (34.0-46.0) % RDW 17.0 H (11.5-15.5) % Plt Count 149 L (150-450) k/uL Neutrophils # 10.1 H (1.3-7.7) k/uL Lymphocytes # 0.5 L (1.0-4.8) k/uL Sodium 136 L (137-145) mmol/L BUN 80 H (7-17) mg/dL Creatinine 1.27 H (0.52-1.04) mg/dL Glucose 102 H (74-99) mg/dL Iron 12 L (50-170) ug/dL % Saturation 3.46 L (12.00-45.00) Crossmatch Microbiology - Last 24 Hours (Table) 04/28/19 19:00 Blood Culture - Preliminary Blood No Growth after 24 hours Assessment and Plan Assessment: Acute blood loss anemia with probable bleeding hemorrhoid - s/p 3 units pRBC, 1 additional unit now - follow CBC - eliquis on hold, recommended not restarting patient now with 2 significant bleeding events - full iquid diet - Surgery recs appreciated, plan is for EGD and Colon JANNET with hyperkalemia (resolved) - lasix, s/p temporazing measures for hyperkalemia - neohro recs appreciated - follow CR - avoid additional nephrotoxic agents - losartan and K+ on hold NSTEMI - Cardio recs - echo with preserved EF and no wall motion abnormality - unable to have ASA or heparin due to active bleeding - tele - Beta palmira on hold due to hypotension - Statin therapy Acute exacerbation of diastolic CHF, EF 55-60 % - IV Lasix -Beta palmira on hold due to hypotension -Arb on hold secondary trachea and hyperkalemia -Cardiology recommendations A fib - rate controlled - no AC, see above - tele - lopressor on hold due to hypotension mild thrombocytopenia with History of ITP -Follow CBC closely Morbid obesity with BMI 56.8 - structured outpatient weight loss DVT prophylaxis: SCDs Discussed with: Patient, daughter, nursing Anticipated discharge: 4-[address]: home A total of 35 minutes was spent on the care of this complex patient more than 50% of the time was spent in counseling and care coordination.
[2019-04-30] MEDS ORDERED: IOPAMIDOL CONTRAST (ORAL USE) VIAL PO PRN (17:22)
--- NOTE | 2019-04-30 17:22 | P.PN ---
Subjective Progress Note Date: 04/30/19 CHIEF COMPLAINT: Acute blood loss anemia HISTORY OF PRESENT ILLNESS: The patient is a 73-year-old female admitted secondary to acute bolus anemia requiring multiple blood transfusions, acute renal failure, congestive cardiomyopathy, super morbid obesity, and history of hemorrhoids. General surgery was consulted for management of hemorrhoids. She has received over 2+ units of blood. She has remained hypotensive and in the intensive care unit I was notified by nursing that patient Hgb dropped. No signs of bleeding. She had a bowel movement without blood. She is now on full liquid diet and tolera ting. She denies any abdominal pain. She is requesting oatmeal. Her family is at bedside. ROS: No reports of nausea and vomiting. Has bowel movements. No fevers or chills. No new chest pain. No productive sputum PHYSICAL EXAM: VITAL SIGNS: Reviewed CONSTITUTIONAL: Well developed and in no acute distress. EYES: Conjuctivae without sclera icterus. Extraocular movements grossly intact. HEAD, EARS, NOSE, THROAT: Moist buccal mucosa. Head is atraumatic, normocephalic. Hears conversational speech. No nasal drainage. NECK: Supple. No thyroidomegaly. RESPIRATORY: Non-labored respirations and equal bilateral excursions. CARDIOVASCULAR: Palpable 2+ radial pulses. ABDOMEN: Protuberant, soft, nontender MUSCULOSKELETAL: No gross deformity of the lower extremities noted. No clubbing. No cyanosis. SKIN: Good skin turgor. Well perfused. NEUROLOGIC: Cranial nerves I through XII grossly intact. No focal or lateralizing signs. PSYCH: Appropriate affect. Alert and oriented to person, place and time. CLINICAL LABS: White blood cell count normal. Hemoglobin 7.0. Tumor markers n egative. ASSESSMENT: 1. Acute bolus anemia 2. Hypovolemic hypotension due to chronic blood loss 3. Severe ischemic cardiomyopathy PLAN: 1. I personally spoke with GI for coordinated care including need for endoscopy. 2. Will get CT of the abdomen and pelvis to delineate abdominal tumors as at this time patient is unstable for endoscopy 3. Continue blood transfusion. CRITICAL CARE TIME: 21 minutes Objective - Vital Signs Vital signs: Vital Signs Temp 98.6 F 04/30/19 16:47 Pulse 76 04/30/19 17:00 Resp 25 H 04/30/19 17:00 BP 90/34 02/15/20 17:00 Pulse Ox 96 04/30/19 17:00 Intake & Output 04/29/19 04/30/19 04/30/19 18:59 06:59 18:59 Intake Total 2090 110 1660 Output Total 2300 500 1525 Balance -210 -390 135 Weight 160 kg Intake: IV 120 110 340 Sodium Ferric Gluconat- 100 Sucrose 125 mg In Sodium Chloride 0.9% 100 ml @ 100 mls/hr IVPB ONCE ONE Rx#:[id number] normal saline 120 110 240 Intake, IV Titration 350 Amount Calcium Gluconate 1 gm In 100 Sodium Chloride 0.9% 100 ml @ 100 mls/hr IVPB ONCE ONE Rx#:[id number] Dextrose 10 % in Water 250 250 ml @ 999 mls/hr IV ONCE STA Rx#:[id number] Oral 960 1320 Blood Product 660 0 Rc As-1 Unit 310 [id number] Rc As-1 Unit 0 [id number] Output: Urine 2300 500 1525 Other: # Voids 1 # Bowel Movements 1 - Labs CBC & Chem 7: 05/01/19 04:30 05/01/19 04:30 Labs: Abnormal Lab Results - Last 24 Hours (Table) 04/28/19 04/29/19 04/30/19 Range/Units 19:00 16:59 05:13 WBC 14.3 H 13.0 H (3.8-10.6) k/uL RBC 2.66 L 2.47 L (3.80-5.40) m/uL Hgb 7.5 L 7.0 L (11.4-16.0) gm/dL Hct 23.8 L 22.0 L (34.0-46.0) % RDW 17.5 H 17.0 H (11.5-15.5) % Plt Count 144 L (150-450) k/uL Neutrophils # (1.3-7.7) k/uL Lymphocytes # (1.0-4.8) k/uL Sodium (137-145) mmol/L BUN (7-17) mg/dL Creatinine (0.52-1.04) mg/dL Glucose (74-99) mg/dL Iron (50-170) ug/dL % Saturation (12.00-45.00) Crossmatch See Detail 04/30/19 04/30/19 Range/Units 05:13 14:59 WBC 11.2 H (3.8-10.6) k/uL RBC 2.34 L (3.80-5.40) m/uL Hgb 6.5 L* (11.4-16.0) gm/dL Hct 20.8 L (34.0-46.0) % RDW 17.0 H (11.5-15.5) % Plt Count 149 L (150-450) k/uL Neutrophils # 10.1 H (1.3-7.7) k/uL Lymphocytes # 0.5 L (1.0-4.8) k/uL Sodium 136 L (137-145) mmol/L BUN 80 H (7-17) mg/dL Creatinine 1.27 H (0.52-1.04) mg/dL Glucose 102 H (74-99) mg/dL Iron 12 L (50-170) ug/dL % Saturation 3.46 L (12.00-45.00) Crossmatch Microbiology - Last 24 Hours (Table) 04/28/19 19:00 Blood Culture - Preliminary Blood No Growth after 24 hours Assessment and Plan (1) Morbid obesity due to excess calories Current Visit: Yes Status: Acute Code(s): E66.01 - MORBID (SEVERE) OBESITY D UE TO EXCESS CALORIES SNOMED Code(s): 132298570 (2) Adult BMI 50.0-59.9 kg/sq m Current Visit: Yes Status: Acute Code(s): Z68.43 - BODY MASS INDEX (BMI) 50.0-59.9, ADULT SNOMED Code(s): 204131721 (3) Family hx colonic polyps Current Visit: Yes Status: Acute Code(s): Z83.71 - FAMILY HISTORY OF COLONIC POLYPS SNOMED Code(s): 770214832 (4) Fear of other medical care Current Visit: Yes Status: Acute Code(s): F40.232 - FEAR OF OTHER MEDICAL CARE SNOMED Code(s): 501436234 (5) JANNET (acute kidney injury) Current Visit: Yes Status: Acute Code(s): N17.9 - ACUTE KIDNEY FAILURE, UNSPECIFIED SNOMED Code(s): 86722772 (6) GI bleed Current Visit: Yes Status: Acute Code(s): K92.2 - GASTROINTESTINAL HEMORRHAGE, UNSPECIFIED SNOMED Code(s): 72047447 (7) Congestive heart failure Current Visit: No Status: Acute Code(s): I50.9 - HEART FAILURE, UNSPECIFIED SNOMED Code(s): 63389964 (8) Anemia associated with acute blood loss Current Visit: Yes Status: Acute Code(s): D62 - ACUTE POSTHEMORRHAGIC ANEMIA SNOMED Code(s): 309546602
[2019-04-30 17:35] LABS: Appearance,Urine Clear (Clear); Bacteria,Urine Rare /hpf; Bilirubin,Urine Negative (Negative); Blood,Urine Small (Negative); Color,Urine Light Yellow; Glucose,Urine (UA) Negative (Negative); Hyaline Casts,Urine 20 /lpf (0-2); Ketones,Urine Negative (Negative); Leukocyte Esterase,Urine Negative (Negative); Mucus,Urine Rare /hpf; Nitrite,Urine Negative (Negative); Protein,Urine Negative (Negative); RBC,Urine <1 /hpf (0-5); Specific Gravity,Urine 1.011 (1.001-1.035); Squamous Epithelial Cell,Urine 3 /hpf (0-4); Urobilinogen,Urine <2.0 mg/dL (<2.0); WBC,Urine <1 /hpf (0-5)
--- NOTE | 2019-04-30 18:04 | P.PN ---
Subjective Progress Note Date: 04/30/19 Principal diagnosis: Anemia acute blood loss, blood per rectum Patient is seen lying in bed reporting no further bowel movements or blood per rectum today. No abdominal pain reported. No nausea or vomiting. Objective - Vital Signs Vital signs: Vital Signs Temp 99.6 F 04/30/19 08:00 Pulse 91 04/30/19 08:17 Resp 26 H 04/30/19 08:00 BP 111/26 04/30/19 08:00 Pulse Ox 96 04/30/19 08:00 Intake & Output 04/29/19 04/30/19 04/30/19 18:59 06:59 18:59 Intake Total 2090 110 Output Total 2300 500 Balance -210 -390 Weight 160 kg Intake: IV 120 110 normal saline 120 110 Intake, IV Titration 350 Amount Calcium Gluconate 1 gm In 100 Sodium Chloride 0.9% 100 ml @ 100 mls/hr IVPB ONCE ONE Rx#:[id number] Dextrose 10 % in Water 250 250 ml @ 999 mls/hr IV ONCE STA Rx#:[id number] Oral 960 Blood Product 660 Rc As-1 Unit 310 [id number] Output: Urine 2300 500 Other: # Voids 1 # Bowel Movements 1 - Exam On physical examination, patient appears comfortable in no apparent distress. HEAD: Normocephalic, atraumatic. EYES: No scleral icterus. No conjunctival injection. MOUTH: No lesions, tongue midline. NECK: Trachea midline, no gross abnormalities. ABDOMEN: Soft, obese and nontender to palpation. Bowel sounds are positive. No organomegaly. No guarding or rigidity. EXTREMITIES: Bilateral pedal edema. SKIN: No rashes, no jaundice. NEUROLOGIC: Alert and oriented x3. No focal deficits. - Labs CBC & Chem 7: 04/30/19 14:59 04/30/19 05:13 Labs: Abnormal Lab Results - Last 24 Hours (Table) 04/28/19 04/29/19 04/30/19 Range/Units 19:00 16:59 05:13 WBC 14.3 H 13.0 H (3.8-10.6) k/uL RBC 2.66 L 2.47 L (3.80-5.40) m/uL Hgb 7.5 L 7.0 L (11.4-16.0) gm/dL Hct 23.8 L 22.0 L (34.0-46.0) % RDW 17.5 H 17.0 H (11.5-15.5) % Plt Count 144 L (150-450) k/uL Sodium (137-145) mmol/L BUN (7-17) mg/dL Creatinine (0.52-1.04) mg/dL Glucose (74-99) mg/dL Iron (50-170) ug/dL % Saturation (12.00-45.00) Crossmatch See Detail 04/30/19 Range/Units 05:13 WBC (3.8-10.6) k/uL RBC (3.80-5.40) m/uL Hgb (11.4-16.0) gm/dL Hct (34.0-46.0) % RDW (11.5-15.5) % Plt Count (150-450) k/uL Sodium 136 L (137-145) mmol/L BUN 80 H (7-17) mg/dL Creatinine 1.27 H (0.52-1.04) mg/dL Glucose 102 H (74-99) mg/dL Iron 12 L (50-170) ug/dL % Saturation 3.46 L (12.00-45.00) Crossmatch Microbiology - Last 24 Hours (Table) 04/28/19 19:00 Blood Culture - Preliminary Blood No Growth after 24 hours Assessment and Plan (1) Anemia associated with acute blood loss Narrative/Plan: 73-year-old female with multiple medical comorbidities who came into the hospital with complaints of shortness of breath, increased lower extremity swelling, and painless bright red blood per rectum. Currently being treated for fluid overload the patient also found to have an iron deficiency anemia. She reports painless episodes of bright red blood per rectum. She is been going on intermittently but more frequent over the past few weeks. No change in her bowel habits or abdominal pain reported. No prior EGD or colonoscopy reported. Patient reports problems with hemorrhoids in the past. Unclear etiology, may be secondary to hemorrhoidal bleeding worsened in the setting of anticoagulation therapy, AVM, diverticular bleed or other etiology. Current Visit: Yes Status: Acute Code(s): D62 - ACUTE POSTHEMORRHAGIC ANEMIA SNOMED Code(s): 336876195 (2) GI bleed Current Visit: Yes Status: Acute Code(s): K92.2 - GASTROINTESTINAL HEMORRHAGE, UNSPECIFIED SNOMED Code(s): 91099368 Plan: Supportive care Full liquid diet ordered today Continue to monitor hemoglobin and hematocrit and transfuse as needed Hold anticoagulation therapy for now Surgical service following Extensive conversation with the patient and her at bedside, at this time they would like to proceed with EGD and colonoscopy with the surgical service with timing deferred to the surgical service, when medically stable Agree with plan for endoscopy with surgery given patient's complaint of hemorrhoidal disease Thank you for allowing us to participate in the care of the patient, the GI service will stand by
[2019-04-30] MEDS: SODIUM CHLORIDE 0.9% 250 ML IV SCH ×4 (18:40→19:30)
[2019-04-30] MEDS: IOPAMIDOL CONTRAST (ORAL USE) VIAL PO PRN ×2 (20:04→21:04)
[2019-04-30 20:14] LABS: Anisocytosis Slight; HCT 23.2 % (34.0-46.0); HGB 7.3 gm/dL (11.4-16.0); Hypochromasia Slight; MCH 28.2 pg (25.0-35.0); MCHC 31.5 g/dL (31.0-37.0); MCV 89.5 fL (80.0-100.0); Mean Platelet Volume 8.2; Platelet Count 140 k/uL (150-450); Poikilocytosis Slight; RBC 2.59 m/uL (3.80-5.40); RDW 16.6 % (11.5-15.5); WBC 11.3 k/uL (3.8-10.6)
[2019-04-30] MEDS: ATORVASTATIN 40 MG TAB PO SCH (22:09)
--- NOTE | 2019-04-30 22:16 | CT ---
EXAMINATION TYPE: CT abdomen pelvis wo con DATE OF EXAM: 04/30/2019 COMPARISON: None HISTORY: abdominal mass CT DLP: 2571.2 mGycm Automated exposure control for dose reduction was used. Multiple axial sections were obtained from the diaphragm to the floor the pelvis with no contrast. There is bilateral basilar pulmonary airspace infiltrates and atelectasis. Heart is enlarged. There i s no pericardial effusion. There is no pleural effusion. Liver shows no focal defect. Gallbladder appears normal. Spleen is intact. Stomach appears normal. Th ere is no pancreatic mass. The bile ducts are not dilated. There is no adrenal mass. Kidneys show normal size. There is no hydronephrosis. Ureters are not dilat ed. There is no retroperitoneal adenopathy. There is moderate-sized umbilical hernia that contains fa t. Bladder distends smoothly. There is no inguinal hernia. Free fluid is not seen in the abdomen and pelvis. Uterus is anteverted. There is some retained fecal material in the rectum. There is no free a ir. There is no ascites. There is no mesenteric edema. There is contrast in the small bowel which carlee ws normal mucosal pattern. Appendix is not seen. There is no sign of thickened appendix. There is vacuum disc in the lower lumbar spine. There is no lumbar compression fracture. Bony pelvis is intact. IMPRESSION: Bilateral lower lobe pneumonia and atelectasis. Cardiomegaly. Umbilical hernia. No bowel obstruction. No acute abnormality within the abdomen and pelvis.
[2019-05-01 05:02] LABS: Anisocytosis Slight; HCT 22.1 % (34.0-46.0); Hypochromasia Slight; MCH 28.2 pg (25.0-35.0); MCHC 31.6 g/dL (31.0-37.0); MCV 89.2 fL (80.0-100.0); Platelet Count 141 k/uL (150-450); Poikilocytosis Slight; RBC 2.48 m/uL (3.80-5.40); RDW 16.7 % (11.5-15.5); WBC 10.5 k/uL (3.8-10.6)
[2019-05-01 05:12] LABS: Albumin 2.8 g/dL (3.5-5.0); Total Bilirubin 1.3 mg/dL (0.2-1.3); Total Protein 5.6 g/dL (6.3-8.2)
--- NOTE | 2019-05-01 05:56 | XR ---
EXAMINATION TYPE: XR chest 1V DATE OF EXAM: 05/01/2019 HISTORY: CHF. REFERENCE: Previous study dated 04/30/2019. FINDINGS: The heart remains enlarged. There is vascular congestion and mild edema. There is a left-si ded effusion. IMPRESSION: CONTINUING CHANGES OF CONGESTIVE HEART FAILURE.
[2019-05-01] MEDS: ALBUTEROL NEBULIZED 2.5 MG/3 ML INHALATION PRN ×4 (07:22→20:30)
[2019-05-01] MEDS: PANTOPRAZOLE 40 MG/10 ML VIAL IV SCH ×2 (08:58→21:13)
[2019-05-01] MEDS: GABAPENTIN 100 MG CAP PO SCH ×2 (08:58→21:13)
[2019-05-01] MEDS: FUROSEMIDE 10 MG/ML 4 ML VIAL IV SCH (08:58)
[2019-05-01] MEDS: MUPIROCIN 2% OINT 22 GM TUBE TOPICAL SCH ×3 (08:58→21:14)
[2019-05-01] MEDS: SERTRALINE 100 MG TAB PO SCH (08:58)
[2019-05-01] MEDS: ALPRAZolam 0.25 MG TAB PO PRN ×2 (09:11→21:18)
--- NOTE | 2019-05-01 09:18 | P.PN ---
Subjective Patient is seen in follow-up for acute kidney injury. Renal function is improving. Urine output is good. Denies any active bleeding. No vomiting or diarrhea. Hemoglobin 7.0 today. Vital signs are stable. General: The patient appeared well nourished and normally developed. HEENT: Head exam is unremarkable. Neck is without jugular venous distension. LUNGS: Lungs are clear to auscultation and percussion. Breath sounds decreased. HEART: Rate and Rhythm are regular. First and second heart sounds normal. No murmurs, rubs or gallops. ABDOMEN: Abdominal exam reveals normal bowel sounds. Non-tender and non- distended. Obese. EXTREMITITES: 1+ edema. Objective - Vital Signs Vital signs: Vital Signs Temp 99.0 F 05/01/19 08:00 Pulse 87 05/01/19 08:00 Resp 24 05/01/19 08:00 BP 96/61 05/01/19 08:00 Pulse Ox 95 05/01/19 08:00 Intake & Output 04/30/19 05/01/19 05/01/19 18:59 06:59 18:59 Intake Total 1970 840 270 Output Total 1525 800 200 Balance 445 40 70 Weight 164 kg Intake: IV 340 240 20 Sodium Ferric Gluconat- 100 Sucrose 125 mg In Sodium Chloride 0.9% 100 ml @ 100 mls/hr IVPB ONCE ONE Rx#:[id number] normal saline 240 240 20 Oral 1320 600 250 Blood Product 310 Rc As-1 Unit 310 [id number] Output: Urine 1525 800 200 - Labs CBC & Chem 7: 05/01/19 04:30 05/01/19 04:30 Labs: Abnormal Lab Results - Last 24 Hours (Table) 04/28/19 04/30/19 04/30/19 Range/Units 19:00 05:13 14:59 WBC 11.2 H (3.8-10.6) k/uL RBC 2.34 L (3.80-5.40) m/uL Hgb 6.5 L* (11.4-16.0) gm/dL Hct 20.8 L (34.0-46.0) % RDW 17.0 H (11.5-15.5) % Plt Count 149 L (150-450) k/uL Neutrophils # 10.1 H (1.3-7.7) k/uL Lymphocytes # 0.5 L (1.0-4.8) k/uL BUN (7-17) mg/dL Calcium (8.4-10.2) mg/dL Iron 12 L (50-170) ug/dL % Saturation 3.46 L (12.00-45.00) Total Protein (6.3-8.2) g/dL Albumin (3.5-5.0) g/dL Urine Blood (Negative) Urine Bacteria (None) /hpf Hyaline Casts (0-2) /lpf Urine Mucus (None) /hpf Crossmatch See Detail 04/30/19 04/30/19 05/01/19 Range/Units 16:55 20:00 04:30 WBC 11.3 H (3.8-10.6) k/uL RBC 2.59 L 2.48 L (3.80-5.40) m/uL Hgb 7.3 L 7.0 L (11.4-16.0) gm/dL Hct 23.2 L 22.1 L (34.0-46.0) % RDW 16.6 H 16.7 H (11.5-15.5) % Plt Count 140 L 141 L (150-450) k/uL Neutrophils # (1.3-7.7) k/uL Lymphocytes # (1.0-4.8) k/uL BUN (7-17) mg/dL Calcium (8.4-10.2) mg/dL Iron (50-170) ug/dL % Saturation (12.00-45.00) Total Protein (6.3-8.2) g/dL Albumin (3.5-5.0) g/dL Urine Blood Small H (Negative) Urine Bacteria Rare H (None) /hpf Hyaline Casts 20 H (0-2) /lpf Urine Mucus Rare H (None) /hpf Crossmatch 05/01/19 Range/Units 04:30 WBC (3.8-10.6) k/uL RBC (3.80-5.40) m/uL Hgb (11.4-16.0) gm/dL Hct (34.0-46.0) % RDW (11.5-15.5) % Plt Count (150-450) k/uL Neutrophils # (1.3-7.7) k/uL Lymphocytes # (1.0-4.8) k/uL BUN 58 H (7-17) mg/dL Calcium 8.0 L (8.4-10.2) mg/dL Iron (50-170) ug/dL % Saturation (12.00-45.00) Total Protein 5.6 L (6.3-8.2) g/dL Albumin 2.8 L (3.5-5.0) g/dL Urine Blood (Negative) Urine Bacteria (None) /hpf Hyaline Casts (0-2) /lpf Urine Mucus (None) /hpf Crossmatch Microbiology - Last 24 Hours (Table) 04/28/19 19:00 Blood Culture - Preliminary Blood No Growth after 48 hours Assessment and Plan Plan: Assessment: 1. Acute kidney injury mostly prerenal secondary to acute blood loss anemia. Creatinine 1.77 on admission and is 0.87 today. 2. Acute blood loss anemia currently receiving third unit of blood transfusion. Hemoglobin 7 this morning. Surgery following. Potential endoscopy this admission. 3. Hyperkalemia secondary to acute kidney injury, GI bleed. Patient was also on potassium supplementation and losartan at home. Resolved. 4. Volume overload. 5. Acute on chronic diastolic CHF with moderate aortic stenosis, moderate mitral and tricuspid regurgitation and moderate pulmonary hypertension. 6. History of A. fib. Plan: Continue Lasix 40 mg IV once daily. Avoid nephrotoxins. Continue to monitor renal function and urine output. Recheck hemoglobin this evening. If drops further, will transfuse.
[2019-05-01] MEDS: ACETAMINOPHEN TAB 325 MG TAB PO PRN (11:54)
--- NOTE | 2019-05-01 13:28 | P.PN ---
Subjective Progress Note Date: 05/01/19 CHIEF COMPLAINT: Acute blood loss anemia HISTORY OF PRESENT ILLNESS: The patient is a 73-year-old female admitted secondary to acute bolus anemia requiring multiple blood transfusions, acute renal failure, congestive cardiomyopathy, super morbid obesity, and history of hemorrhoids. Her kidneys are now back to baseline. She is tolerating diet. She reports having another bowel movement, no blood. She has received more blood transfusions yesterday. She is not on vasopressors. ROS: No reports of nausea and vomiting. Has bowel movements. No fevers or chills. No new chest pain. No productive sputum PHYSICAL EXAM: VITAL SIGNS: Reviewed CONSTITUTIONAL: Well developed and in no acute distress. EYES: Conjuctivae without sclera icterus. Extraocular movements grossly intact. HEAD, EARS, NOSE, THROAT: Moist buccal mucosa. Head is atraumatic, normocephalic. Hears conversational speech. No nasal drainage. NECK: Supple. No thyroidomegaly. RESPIRATORY: Non-labored respirations and equal bilateral excursions. CARDIOVASCULAR: Palpable 2+ radial pulses. ABDOMEN: Protuberant, soft, nontender MUSCULOSKELETAL: No gross deformity of the lower extremities noted. No clubbing. No cyanosis. SKIN: Good skin turgor. Well perfused. NEUROLOGIC: Cranial nerves I through XII grossly intact. No focal or lateralizing signs. PSYCH: Appropriate affect. Alert and oriented to person, place and time. CLINICAL LABS: Hemoglobin 7.0. Tumor markers negative. STUDIES: CT of the abdomen and pelvis independently reviewed without any large intra-abdominal masses of the colon, stomach, liver or spleen. ASSESSMENT: 1. Acute bolus anemia 2. Hypovolemic hypotension due to chronic blood loss 3. Severe ischemic cardiomyopathy PLAN: 1. Recommend EGD and colonoscopy. 2. In the meantime, will schedule upper scope. 3. Lower endoscopy on hold with acute kidney injury and hypotension. CRITICAL CARE TIME: 22 minutes Objective - Vital Signs Vital signs: Vital Signs Temp 99.0 F 05/01/19 08:00 Pulse 87 05/01/19 08:00 Resp 24 05/01/19 08:00 BP 96/61 05/01/19 08:00 Pulse Ox 95 05/01/19 08:00 Intake & Output 04/30/19 05/01/19 05/01/19 18:59 06:59 18:59 Intake Total 1970 840 270 Output Total 1525 800 200 Balance 445 40 70 Weight 164 kg Intake: IV 340 240 20 Sodium Ferric Gluconat- 100 Sucrose 125 mg In Sodium Chloride 0.9% 100 ml @ 100 mls/hr IVPB ONCE ONE Rx#:[id number] normal saline 240 240 20 Oral 1320 600 250 Blood Product 310 Rc As-1 Unit 310 [id number] Output: Urine 1525 800 200 - Labs CBC & Chem 7: 05/01/19 04:30 05/01/19 04:30 Labs: Abnormal Lab Results - Last 24 Hours (Table) 04/28/19 04/30/19 04/30/19 Range/Units 19:00 14:59 16:55 WBC 11.2 H (3.8-10.6) k/uL RBC 2.34 L (3.80-5.40) m/uL Hgb 6.5 L* (11.4-16.0) gm/dL Hct 20.8 L (34.0-46.0) % RDW 17.0 H (11.5-15.5) % Plt Count 149 L (150-450) k/uL Neutrophils # 10.1 H (1.3-7.7) k/uL Lymphocytes # 0.5 L (1.0-4.8) k/uL BUN (7-17) mg/dL Calcium (8.4-10.2) mg/dL Total Protein (6.3-8.2) g/dL Albumin (3.5-5.0) g/dL Urine Blood Small H (Negative) Urine Bacteria Rare H (None) /hpf Hyaline Casts 20 H (0-2) /lpf Urine Mucus Rare H (None) /hpf Crossmatch See Detail 04/30/19 05/01/19 05/01/19 Range/Units 20:00 04:30 04:30 WBC 11.3 H (3.8-10.6) k/uL RBC 2.59 L 2.48 L (3.80-5.40) m/uL Hgb 7.3 L 7.0 L (11.4-16.0) gm/dL Hct 23.2 L 22.1 L (34.0-46.0) % RDW 16.6 H 16.7 H (11.5-15.5) % Plt Count 140 L 141 L (150-450) k/uL Neutrophils # (1.3-7.7) k/uL Lymphocytes # (1.0-4.8) k/uL BUN 58 H (7-17) mg/dL Calcium 8.0 L (8.4-10.2) mg/dL Total Protein 5.6 L (6.3-8.2) g/dL Albumin 2.8 L (3.5-5.0) g/dL Urine Blood (Negative) Urine Bacteria (None) /hpf Hyaline Casts (0-2) /lpf Urine Mucus (None) /hpf Crossmatch Microbiology - Last 24 Hours (Table) 04/28/19 19:00 Blood Culture - Preliminary Blood No Growth after 48 hours Assessment and Plan (1) Morbid obesity due to excess calories Current Visit: Yes Status: Acute Code(s): E66.01 - MORBID (SEVERE) OBESITY DUE TO EXCESS CALORIES SNOMED Code(s): 011827092 (2) Adult BMI 50.0-59.9 kg/sq m Current Visit: Yes Status: Acute Code(s): Z68.43 - BODY MASS INDEX (BMI) 50.0-59.9, ADULT SNOMED Code(s): 115768483 (3) Family hx colonic polyps Current Visit: Yes Status: Acute Code(s): Z83.71 - FAMILY HISTORY OF COLONIC POLYPS SNOMED Code(s): 132032006 (4) Fear of other medical care Current Visit: Yes Status: Acute Code(s): F40.232 - FEAR OF OTHER MEDICAL CARE SNOMED Code(s): 502847982 (5) JANNET (acute kidney injury) Current Visit: Yes Status: Acute Code(s): N17.9 - ACUTE KIDNEY FAILURE, UNSPECIFIED SNOMED Code(s): 56855471 (6) GI bleed Current Visit: Yes Status: Acute Code(s): K92.2 - GASTROINTESTINAL HEMORRHAGE, UNSPECIFIED SNOMED Code(s): 95517357 (7) Congestive heart failure Current Visit: No Status: Acute Code(s): I50.9 - HEART FAILURE, UNSPECIFIED SNOMED Code(s): 78692388 (8) Anemia associated with acute blood loss Current Visit: Yes Status: Acute Code(s): D62 - ACUTE POSTHEMORRHAGIC ANEMIA SNOMED Code(s): 711460090
--- NOTE | 2019-05-01 13:57 | P.PN ---
Subjective Progress Note Date: 05/01/19 Principal diagnosis: Shortness of breath Patient seen and examined. No acute events overnight. Patient reports shortness of breath and cough productive of brown sputum. Family is at bedside. Family is concerned the patient might be getting pneumonia again. Patient denies any chest pain, palpitations, dizziness, nausea or vomiting. No bowel movements today. Patient denies any hematochezia or melena. Objective - Vital Signs Vital signs: Vital Signs Temp 100.7 F H 05/01/19 12:00 Pulse 84 05/01/19 12:00 Resp 28 H 05/01/19 12:00 BP 92/60 05/01/19 12:00 Pulse Ox 94 L 05/01/19 12:00 Intake & Output 04/30/19 05/01/19 05/01/19 18:59 06:59 18:59 Intake Total 1970 840 540 Output Total 1525 800 300 Balance 445 40 240 Weight 164 kg Intake: IV 340 240 40 Sodium Ferric Gluconat- 100 Sucrose 125 mg In Sodium Chloride 0.9% 100 ml @ 100 mls/hr IVPB ONCE ONE Rx#:[id number] normal saline 240 240 40 Oral 1320 600 500 Blood Product 310 Rc As-1 Unit 310 [id number] Output: Urine 1525 800 300 Other: # Voids 3 - Exam General: [non toxic], [appears short of breath, ill-appearing], [appears at stated age] Derm: [warm], [dry] Head: [atraumatic], [normocephalic], [symmetric] Eyes: [EOMI], [no lid lag], [anicteric sclera] Mouth: [no lip lesion], [mucus membranes moist] Cardiovascular: [S1S2 reg], [no murmur], [positive posterior tibial pulse bilateral], Lungs: [Crackles bilateral with decreased breath sounds], [no accessory muscle use] Abdominal: [soft], [ nontender to palpation], [no guarding], [no appreciable organomegaly] Ext: [no gross muscle atrophy], [1+ bilateral lower extremity edema], [no contractures], [chronic venous stasis skin changes bilateral lower extremities] Neuro: [ CN II-XI grossly intact], [no focal neuro deficits] Psych: [Alert], [oriented], [appropriate affect] - Labs CBC & Chem 7: 05/01/19 04:30 05/01/19 04:30 Labs: Abnormal Lab Results - Last 24 Hours (Table) 04/28/19 04/30/19 04/30/19 Range/Units 19:00 14:59 16:55 WBC 11.2 H (3.8-10.6) k/uL RBC 2.34 L (3.80-5.40) m/uL Hgb 6.5 L* (11.4-16.0) gm/dL Hct 20.8 L (34.0-46.0) % RDW 17.0 H (11.5-15.5) % Plt Count 149 L (150-450) k/uL Neutrophils # 10.1 H (1.3-7.7) k/uL Lymphocytes # 0.5 L (1.0-4.8) k/uL BUN (7-17) mg/dL Calcium (8.4-10.2) mg/dL Total Protein (6.3-8.2) g/dL Albumin (3.5-5.0) g/dL Urine Blood Small H (Negative) Urine Bacteria Rare H (None) /hpf Hyaline Casts 20 H (0-2) /lpf Urine Mucus Rare H (None) /hpf Crossmatch See Detail 04/30/19 05/01/19 05/01/19 Range/Units 20:00 04:30 04:30 WBC 11.3 H (3.8-10.6) k/uL RBC 2.59 L 2.48 L (3.80-5.40) m/uL Hgb 7.3 L 7.0 L (11.4-16.0) gm/dL Hct 23.2 L 22.1 L (34.0-46.0) % RDW 16.6 H 16.7 H (11.5-15.5) % Plt Count 140 L 141 L (150-450) k/uL Neutrophils # (1.3-7.7) k/uL Lymphocytes # (1.0-4.8) k/uL BUN 58 H (7-17) mg/dL Calcium 8.0 L (8.4-10.2) mg/dL Total Protein 5.6 L (6.3-8.2) g/dL Albumin 2.8 L (3.5-5.0) g/dL Urine Blood (Negative) Urine Bacteria (None) /hpf Hyaline Casts (0-2) /lpf Urine Mucus (None) /hpf Crossmatch Microbiology - Last 24 Hours (Table) 04/28/19 19:00 Blood Culture - Preliminary Blood No Growth after 48 hours Assessment and Plan Assessment: Acute blood loss anemia likely due to hemorrhoid Acute exacerbation of diastolic CHF Fever Non-ST elevation IA Elevated BUN with resolved acute kidney injury and hyperkalemia Controlled atrial fibrillation Thrombocytopenia with history of ITP Morbid obesity with BMI 58.4 Hemoglobin 7.0. Status post 4 unit PRBC. Status post 125 mg IV iron 1. CT abdomen pelvis shows umbilical hernia. Plans: Repeat CBC at 4 PM. Transfuse if hemoglobin less than 7. Continue Protonix 40 mg IV twice a day. Full liquid diet. Surgery and GI on board. Plans for colonoscopy when stable. Chest x-ray shows signs of congestive heart failure. Limited echocardiogram shows moderate concentric LVH with EF 50-55%. Plans: Lasix 40 mg IV twice a day. Hold ARB due to kidney injury and hyperkalemia. Beta palmira on hold due to hypotension. Strict intake and output. Daily weights. Follow cardiology recommendations. T-max 100.7 Fahrenheit. Respiratory rate 20. CT abdomen pelvis shows concerns for possible pneumonia. Blood cultures negative at 48 hours. Plans: Start Levaquin is for concerns of pneumonia. Follow sputum culture. Follow blood culture. Troponin 2.95, 2.78, 2.43 with EKG showing T-wave abnormalities. Limited echocardiogram does not show any wall motion abnormalities. Plans: No aspirin or heparin due to GI bleed. Beta palmira held due to hypotension. Continue Lipitor. Telemetry monitoring. Follow cardiology recommendations. BUN 58 creatinine within normal limits. Likely due to Lasix use. Plans: Avoid nephrotoxins. Repeat BMP tomorrow morning. Currently rate controlled. Plans: Telemetry monitoring. Potassium greater than 4 and magnesium greater than 2. Beta palmira on hold due to hypotension. No anticoagulation due to GI bleed. Platelets 141. Plans: Daily CBC. Continue to monitor. Plans: Structured weight loss program. [Patient admitted for GI bleed likely due to hemorrhoids, GI and surgery following. Hemoglobin stable after 4 unit PRBC. Repeat CBC this afternoon. Continue Lasix IV for decompensated CHF. Antibiotics started for possible pneumonia. Patient is pending clinical improvement. Likely DC in 3-4 days.]
[2019-05-01] MEDS: LEVOFLOXACIN 750MG-D5W PMX 750 MG in DEXTROSE/WATER 1 150ML.BAG IVPB SCH (14:28)
[2019-05-01 16:33] LABS: Anisocytosis Slight; Hypochromasia Slight; MCH 28.7 pg (25.0-35.0); MCV 89.7 fL (80.0-100.0); Mean Platelet Volume 8.1; Platelet Count 127 k/uL (150-450); Poikilocytosis Slight; RBC 2.45 m/uL (3.80-5.40); RDW 17.1 % (11.5-15.5); WBC 9.9 k/uL (3.8-10.6)
[2019-05-01] MEDS: ATORVASTATIN 40 MG TAB PO SCH (21:13)
[2019-05-02 05:20] LABS: Anisocytosis Slight; Basophils % (A) 0 %; Eosinophils # (A) 0.3 k/uL (0-0.7); Eosinophils % (A) 3 %; HCT 22.8 % (34.0-46.0); HGB 7.3 gm/dL (11.4-16.0); Hypochromasia Moderate; Lymphocytes # (A) 0.4 k/uL (1.0-4.8); Lymphocytes % (A) 4 %; MCH 28.7 pg (25.0-35.0); MCHC 31.8 g/dL (31.0-37.0); MCV 90.1 fL (80.0-100.0); Mean Platelet Volume 8.1; Monocytes # (A) 0.5 k/uL (0-1.0); Monocytes % (A) 5 %; Neutrophils # (A) 8.5 k/uL (1.3-7.7); Neutrophils % (A) 87 %; Platelet Count 125 k/uL (150-450); Poikilocytosis Slight; RBC 2.53 m/uL (3.80-5.40); RDW 16.9 % (11.5-15.5); WBC 9.8 k/uL (3.8-10.6)
[2019-05-02] MEDS: ALBUTEROL NEBULIZED 2.5 MG/3 ML INHALATION PRN ×2 (07:33→14:44)
[2019-05-02] MEDS: FUROSEMIDE 10 MG/ML 4 ML VIAL IV SCH (09:05)
[2019-05-02] MEDS: GABAPENTIN 100 MG CAP PO SCH ×2 (09:05→20:38)
[2019-05-02] MEDS: SERTRALINE 100 MG TAB PO SCH (09:05)
[2019-05-02] MEDS: PANTOPRAZOLE 40 MG/10 ML VIAL IV SCH ×2 (09:05→20:38)
[2019-05-02] MEDS: ALPRAZolam 0.25 MG TAB PO PRN ×2 (09:05→20:38)
--- NOTE | 2019-05-02 11:20 | P.PN ---
Subjective Progress Note Date: 05/02/19 Principal diagnosis: Shortness of breath Patient seen and examined. No acute events overnight. Patient continues to report, slightly improved from yesterday shortness of breath and cough productive of brown sputum. Family is at bedside. Plans for EGD today. Patient denies any chest pain, palpitations, dizziness, nausea or vomiting. No bowel movements today. Patient denies any hematochezia or melena. Hemoglobin stable at 7.3 this morning. Objective - Vital Signs Vital signs: Vital Signs Temp 98.4 F 05/02/19 08:00 Pulse 93 05/02/19 08:00 Resp 23 05/02/19 08:00 BP 108/76 05/02/19 08:00 Pulse Ox 93 L 05/02/19 08:00 Intake & Output 05/01/19 05/02/19 05/02/19 18:59 06:59 18:59 Intake Total 1110 80 Output Total 1050 1150 Balance 60 -1070 Weight 159.9 kg Intake: IV 60 80 normal saline 60 80 Intake, IV Titration 100 Amount Levofloxacin 750Mg-D5w 100 Pmx 750 mg In Dextrose/ Water 1 150ml.bag @ 100 mls/hr IVPB Q24H [facility] Rx#: [id number] Oral 950 Output: Urine 1050 1150 Other: # Voids 3 # Bowel Movements 1 - Exam General: [non toxic], [appears short of breath, improved from yesterday, ill- appearing], [appears at stated age] Derm: [warm], [dry] Head: [atraumatic], [normocephalic], [symmetric] Eyes: [EOMI], [no lid lag], [anicteric sclera] Mouth: [no lip lesion], [mucus membranes moist] Cardiovascular: [S1S2 reg], [no murmur], [positive posterior tibial pulse bilateral], Lungs: [Crackles bilateral with decreased breath sounds], [no accessory muscle use] Abdominal: [soft], [ nontender to palpation], [no guarding], [no appreciable organomegaly] Ext: [no gross muscle atrophy], [1+ bilateral lower extremity edema], [no contractures], [chronic venous stasis skin changes bilateral lower extremities] Neuro: [no focal neuro deficits] Psych: [Alert], [oriented], [appropriate affect] - Labs CBC & Chem 7: 05/02/19 04:34 05/01/19 04:30 Labs: Abnormal Lab Results - Last 24 Hours (Table) 05/01/19 05/02/19 Range/Units 15:56 04:34 RBC 2.45 L 2.53 L (3.80-5.40) m/uL Hgb 7.0 L 7.3 L (11.4-16.0) gm/dL Hct 22.0 L 22.8 L (34.0-46.0) % RDW 17.1 H 16.9 H (11.5-15.5) % Plt Count 127 L 125 L (150-450) k/uL Neutrophils # 8.5 H (1.3-7.7) k/uL Lymphocytes # 0.4 L (1.0-4.8) k/uL Microbiology - Last 24 Hours (Table) 05/01/19 18:45 Gram Stain - Preliminary Sputum Sputum Culture - Preliminary 04/28/19 19:00 Blood Culture - Preliminary Blood No Growth after 72 hours Assessment and Plan Assessment: Acute blood loss anemia likely due to hemorrhoid Acute exacerbation of diastolic CHF Fever Non-ST elevation LA Elevated BUN with resolved acute kidney injury and hyperkalemia Controlled atrial fibrillation Thrombocytopenia with history of ITP Morbid obesity with BMI 58.4 Hemoglobin 7.3. Status post 4 unit PRBC. Status post 125 mg IV iron 1. CT abdomen pelvis shows umbilical hernia. Plans: Transfuse if hemoglobin less than 7. Continue Protonix 40 mg IV twice a day. Plans for EGD today. Surgery and GI on board. Plans for colonoscopy when stable. Daily CBC. Chest x-ray shows signs of congestive heart failure. Limited echocardiogram shows moderate concentric LVH with EF 50-55%. Plans: Lasix 40 mg IV twice a day. Hold ARB due to kidney injury and hyperkalemia. Beta palmira on hold due to hypotension. Strict intake and output. Daily weights. Follow cardiology recommendations. T-max 100.7 Fahrenheit, afebrile since. Respiratory rate 20. CT abdomen pelvis shows concerns for possible pneumonia. Blood cultures negative at 72 hours. Plans: Continue Levaquin is for concerns of pneumonia. Follow sputum culture. Follow blood culture. Follow pro-calcitonin. Troponin 2.95, 2.78, 2.43 with EKG showing T-wave abnormalities. Limited echocardiogram does not show any wall motion abnormalities. Plans: No aspirin or heparin due to GI bleed. Beta palmira held due to hypotension. Continue Lipitor. Telemetry monitoring. Follow cardiology recommendations. BUN 58 creatinine within normal limits. Likely due to Lasix use. Plans: Avoid nephrotoxins. Repeat BMP tomorrow morning. Currently rate controlled. Plans: Telemetry monitoring. Potassium greater than 4 and magnesium greater than 2. Beta palmira on hold due to hypotension. No anticoagulation due to GI bleed. Platelets 125. Plans: Daily CBC. Continue to monitor. Plans: Structured weight loss program. [Patient admitted for GI bleed likely due to hemorrhoids, GI and surgery following. Hemoglobin stable after 4 unit PRBC. Plans for EGD today and colonoscopy at a later time. Continue Lasix IV for decompensated CHF. Antibiotics continued for possible pneumonia. Patient is pending clinical improvement. Likely DC in 2-3 days.]
[2019-05-02] MEDS ORDERED: IV FLUID CONTINUATION 500 ML IV ONE (11:30)
[2019-05-02] MEDS ORDERED: KETAMINE 10 MG/ML 20 ML VIAL ONE (11:32)
[2019-05-02] MEDS ORDERED: MIDAZOLAM 2 MG/2 ML VIAL ONE (11:32)
[2019-05-02] MEDS ORDERED: fentaNYL (PF) 50 MCG/ML 2 ML AMP ONE (11:32)
[2019-05-02] MEDS ORDERED: PROPOFOL 10 MG/ML 20 ML VIAL IV ONE (11:32)
[2019-05-02] MEDS ORDERED: LIDOCAINE 1% INJ 10MG/ML (20 ML MDV) ONE (11:32)
--- NOTE | 2019-05-02 12:00 | P.PCN ---
Date of Procedure: 05/02/19 Description of Procedure: PREOPERATIVE DIAGNOSIS: Acute blood loss anemia with multiple blood transfusions Gastrointestinal hemorrhage Morbid obesity due to excess calories, BMI 56.9 Ischemic congestive cardiomyopathy Hypovolemic hypotension POSTOPERATIVE DIAGNOSIS: Acute blood loss anemia with multiple blood transfusions Gastrointestinal hemorrhage Morbid obesity due to excess calories, BMI 56.9 Ischemic congestive cardiomyopathy Hypovolemic hypotension Acute superficial gastritis with bleeding Diaphragmatic hiatal hernia OPERATION: Esophagogastroduodenoscopy SURGEON: Audrey Gordon MD ANESTHESIA: MAC. INDICATIONS: The patient is a 73-year-old female who presents with a history of acute plus anemia including multiple blood transfusions. Benefits and risks of the procedure were described. Informed consent was obtained. DESCRIPTION: The patient was brought into the endoscopy suite and laid in the left lateral decubitus position. An Olympus gastroscope was passed along the posterior oropharynx down to the distal esophagus where the squamocolumnar junction was encountered at 37 cm from the incisors. The stomach was entered and no bile reflux was found. Additional findings are listed below. Biopsies with cold forceps were obtained of the antrum. The first through third portion of the duodenum was examined and unremarkable. Retroflexion of the scope confirmed Hill grade 3 lower esophageal valve. The squamocolumnar junction demonstrated LA grade B erosive esophagitis. The stomach was desufflated. The patient tolerated the procedure well. FINDINGS: Squamocolumnar junction 37 cm from the incisors. Diaphragmatic hiatus at 40 cm. Hiatal hernia, 3 cm Hill grade 4 lower esophageal valve. LA grade B erosive esophagitis. No active duodenitis. Diffuse acute superficial gastritis with bleeding along gastric cardia No acute gastric ulcers No duodenal ulcers RECOMMENDATIONS: 1. Patient currently on Protonix 40 mg twice a day 2. Will add Carafate 1 g twice a day 3. Upper endoscopy as needed.
--- NOTE | 2019-05-02 12:08 | P.PN ---
Subjective Progress Note Date: 05/02/19 CHIEF COMPLAINT: Acute blood loss anemia HISTORY OF PRESENT ILLNESS: The patient is a 73-year-old female admitted secondary to acute bolus anemia requiring multiple blood transfusions, acute renal failure, congestive cardiomyopathy, super morbid obesity, and history of hemorrhoids. Her kidneys are now back to baseline. She is tolerating diet. No reports of blood in stools. Hemoglobin is stable from 7.0 7.3. No reports of abdominal pain. ROS: No reports of nausea and vomiting. Has bowel movements. No fevers or chills. No new chest pain. No productive sputum PHYSICAL EXAM: VITAL SIGNS: Reviewed CONSTITUTIONAL: Well developed and in no acute distress. EYES: Conjuctivae without sclera icterus. Extraocular movements grossly intact. HEAD, EARS, NOSE, THROAT: Moist buccal mucosa. Head is atraumatic, normocephalic. Hears conversational speech. No nasal drainage. NECK: Supple. No thyroidomegaly. RESPIRATORY: Non-labored respirations and equal bilateral excursions. CARDIOVASCULAR: Palpable 2+ radial pulses. ABDOMEN: Protuberant, soft, nontender MUSCULOSKELETAL: No gross deformity of the lower extremities noted. No clubbing. No cyanosis. SKIN: Good skin turgor. Well perfused. NEUROLOGIC: Cranial nerves I through XII grossly intact. No focal or lateralizing signs. PSYCH: Appropriate affect. Alert and oriented to person, place and time. CLINICAL LABS: Hemoglobin 7.3. REPORT: Esophagogastroduodenoscopy demonstrated acute superficial gastritis with bleeding. No evidence of gastric ulcers or duodenal ulcers. ASSESSMENT: 1. Acute blood loss anemia 2. Hypovolemic hypotension due to chronic blood loss 3. Severe ischemic cardiomyopathy PLAN: 1. Recommend proceeding with colonoscopy in 48 hrs 2. Start bowel prep tomorrow Objective - Vital Signs Vital signs: Vital Signs Temp 98.4 F 05/02/19 08:00 Pulse 93 05/02/19 08:00 Resp 23 05/02/19 08:00 BP 108/76 05/02/19 08:00 Pulse Ox 93 L 05/02/19 08:00 Intake & Output 05/01/19 05/02/19 05/02/19 18:59 06:59 18:59 Intake Total 1110 80 100 Output Total 1050 1150 Balance 60 -1070 100 Weight 159.9 kg Intake: IV 60 80 100 normal saline 60 80 Intake, IV Titration 100 Amount Levofloxacin 750Mg-D5w 100 Pmx 750 mg In Dextrose/ Water 1 150ml.bag @ 100 mls/hr IVPB Q24H [facility] Rx#: [id number] Oral 950 Output: Urine 1050 1150 Other: # Voids 3 # Bowel Movements 1 - Labs CBC & Chem 7: 05/02/19 04:34 05/01/19 04:30 Labs: Abnormal Lab Results - Last 24 Hours (Table) 05/01/19 05/02/19 Range/Units 15:56 04:34 RBC 2.45 L 2.53 L (3.80-5.40) m/uL Hgb 7.0 L 7.3 L (11.4-16.0) gm/dL Hct 22.0 L 22.8 L (34.0-46.0) % RDW 17.1 H 16.9 H (11.5-15.5) % Plt Count 127 L 125 L (150-450) k/uL Neutrophils # 8.5 H (1.3-7.7) k/uL Lymphocytes # 0.4 L (1.0-4.8) k/uL Microbiology - Last 24 Hours (Table) 05/01/19 18:45 Gram Stain - Preliminary Sputum Sputum Culture - Preliminary 04/28/19 19:00 Blood Culture - Preliminary Blood No Growth after 72 hours Assessment and Plan (1) Morbid obesity due to excess calories Current Visit: Yes Status: Acute Code(s): E66.01 - MORBID (SEVERE) OBESITY DUE TO EXCESS CALORIES SNOMED Code(s): 768582978 (2) Adult BMI 50.0-59.9 kg/sq m Current Visit: Yes Status: Acute Code(s): Z68.43 - BODY MASS INDEX (BMI) 50.0-59.9, ADULT SNOMED Code(s): 039615126 (3) Family hx colonic polyps Current Visit: Yes Status: Acute Code(s): Z83.71 - FAMILY HISTORY OF COLONIC POLYPS SNOMED Code(s): 950852611 (4) Fear of other medical care Current Visit: Yes Status: Acute Code(s): F40.232 - FEAR OF OTHER MEDICAL CARE SNOMED Code(s): 815144466 (5) JANNET (acute kidney injury) Current Visit: Yes Status: Acute Code(s): N17.9 - ACUTE KIDNEY FAILURE, UNSPECIFIED SNOMED Code(s): 11475982 (6) GI bleed Current Visit: Yes Status: Acute Code(s): K92.2 - GASTROINTESTINAL HEMORRHAGE, UNSPECIFIED SNOMED Code(s): 66637616 (7) Congestive heart failure Current Visit: No Status: Acute Code(s): I50.9 - HEART FAILURE, UNSPECIFIED SNOMED Code(s): 01383861 (8) Anemia associated with acute blood loss Current Visit: Yes Status: Acute Code(s): D62 - ACUTE POSTHEMORRHAGIC ANEMIA SNOMED Code(s): 111445956
[2019-05-02] MEDS: MUPIROCIN 2% OINT 22 GM TUBE TOPICAL SCH ×3 (12:43→20:41)
[2019-05-02] MEDS: SUCRALFATE 1 GM TAB PO SCH ×2 (12:47→17:24)
[2019-05-02] MEDS: LEVOFLOXACIN 750MG-D5W PMX 750 MG in DEXTROSE/WATER 1 150ML.BAG IVPB SCH (14:58)
[2019-05-02] MEDS: ATORVASTATIN 40 MG TAB PO SCH (20:38)
[2019-05-03 05:29] LABS: Anisocytosis Slight; HCT 24.2 % (34.0-46.0); HGB 7.6 gm/dL (11.4-16.0); Hypochromasia Moderate; MCH 28.4 pg (25.0-35.0); MCHC 31.5 g/dL (31.0-37.0); Platelet Count 124 k/uL (150-450); Poikilocytosis Slight; RBC 2.69 m/uL (3.80-5.40); RDW 16.8 % (11.5-15.5); WBC 8.3 k/uL (3.8-10.6)
[2019-05-03 06:09] LABS: African American GFR (CKD) >90 (>60 ml/min/1.73 sqM); Anion Gap 5 mmol/L; Blood Urea Nitrogen 21 mg/dL (7-17); Calcium 8.2 mg/dL (8.4-10.2); Carbon Dioxide 33 mmol/L (22-30); Chloride 99 mmol/L (98-107); Glucose 93 mg/dL (74-99); Non-African American GFR(CKD) >90 (>60 ml/min/1.73 sqM); Potassium 3.5 mmol/L (3.5-5.1); Sodium 137 mmol/L (137-145)
[2019-05-03] MEDS: SUCRALFATE 1 GM TAB PO SCH ×2 (06:28→17:28)
[2019-05-03] MEDS: ALBUTEROL NEBULIZED 2.5 MG/3 ML INHALATION PRN ×3 (07:54→20:37)
[2019-05-03] MEDS: PANTOPRAZOLE 40 MG/10 ML VIAL IV SCH ×2 (08:57→20:50)
[2019-05-03] MEDS: FUROSEMIDE 10 MG/ML 4 ML VIAL IV SCH (08:57)
[2019-05-03] MEDS: GABAPENTIN 100 MG CAP PO SCH ×2 (08:57→20:50)
[2019-05-03] MEDS: SERTRALINE 100 MG TAB PO SCH (08:57)
[2019-05-03] MEDS: ALPRAZolam 0.25 MG TAB PO PRN (08:59)
--- NOTE | 2019-05-03 09:00 | XR ---
EXAMINATION TYPE: XR chest 1V portable DATE OF EXAM: 05/03/2019 COMPARISON: Prior chest x-ray 05/01/2019 HISTORY: Congestive heart failure TECHNIQUE: Single frontal view of the chest is obtained. FINDINGS: Technique is apical lordotic and rotated. The heart is enlarged as on prior. Aorta is dens e and ectatic. Perihilar vascular indistinctness, prominence and central vascularity and interstitium are noted. No definite pneumothorax or pleural effusion. IMPRESSION: Correlate for congestive heart failure.
[2019-05-03] MEDS: MUPIROCIN 2% OINT 22 GM TUBE TOPICAL SCH ×3 (09:35→22:00)
[2019-05-03] MEDS: SODIUM FERRIC GLUCONAT-SUCROSE 125 MG in SODIUM CHLORIDE 0.9% 100 ML IVPB SCH (10:04)
--- NOTE | 2019-05-03 10:43 | P.PN ---
Subjective Patient is seen in follow-up for acute kidney injury, which has resolved. Urine output is good. Denies any active bleeding. No vomiting or diarrhea. Underwent EGD yesterday which revealed superficial gastritis. Hemoglobin 7.6 today. Vital signs are stable. General: The patient appeared well nourished and normally developed. HEENT: Head exam is unremarkable. Neck is without jugular venous distension. LUNGS: Lungs are clear to auscultation and percussion. Breath sounds decreased. HEART: Rate and Rhythm are regular. First and second heart sounds normal. No murmurs, rubs or gallops. ABDOMEN: Abdominal exam reveals normal bowel sounds. Non-tender and non- distended. Obese. EXTREMITITES: 1+ edema. Objective - Vital Signs Vital signs: Vital Signs Temp 99.1 F 05/03/19 08:00 Pulse 92 05/03/19 08:06 Resp 20 05/03/19 08:00 BP 101/62 05/03/19 08:00 Pulse Ox 98 05/03/19 08:00 Intake & Output 05/02/19 05/03/19 05/03/19 18:59 06:59 18:59 Intake Total 370 150 140 Output Total 2125 1200 Balance -1755 -1050 140 Weight 159.9 kg Intake: IV 370 150 40 0.9 Normal Saline as KVO 120 150 40 at 10ml/hr Levofloxacin 750Mg-D5w 150 Pmx 750 mg In Dextrose/ Water 1 150ml.bag @ 100 mls/hr IVPB Q24H [facility] Rx#: [id number] Intake, IV Titration 100 Amount Sodium Ferric Gluconat- 100 Sucrose 125 mg In Sodium Chloride 0.9% 100 ml @ 100 mls/hr IVPB DAILY [facility] Rx#:[id number] Output: Urine 2125 1200 Other: # Voids 3 500 # Bowel Movements 1 - Labs CBC & Chem 7: 05/03/19 04:55 05/03/19 04:55 Labs: Abnormal Lab Results - Last 24 Hours (Table) 05/03/19 05/03/19 Range/Units 04:55 04:55 RBC 2.69 L (3.80-5.40) m/uL Hgb 7.6 L (11.4-16.0) gm/dL Hct 24.2 L (34.0-46.0) % RDW 16.8 H (11.5-15.5) % Plt Count 124 L (150-450) k/uL Carbon Dioxide 33 H (22-30) mmol/L BUN 21 H (7-17) mg/dL Calcium 8.2 L (8.4-10.2) mg/dL Microbiology - Last 24 Hours (Table) 05/01/19 18:45 Gram Stain - Final Sputum Sputum Culture - Final 04/28/19 19:00 Blood Culture - Preliminary Blood No Growth after 96 hours Assessment and Plan Plan: Assessment: 1. Acute kidney injury mostly prerenal secondary to acute blood loss anemia. Creatinine 1.77 on admission and is 0.59 today. 2. Acute blood loss anemia currently receiving third unit of blood transfusion. Hemoglobin 7.6 this morning. Surgery following. Status post EGD on May 02 which revealed superficial gastritis. 3. Hyperkalemia secondary to acute kidney injury, GI bleed. Patient was also on potassium supplementation and losartan at home. Resolved. 4. Volume overload. 5. Acute on chronic diastolic CHF with moderate aortic stenosis, moderate mitr al and tricuspid regurgitation and moderate pulmonary hypertension. 6. History of A. fib. Plan: Continue Lasix 40 mg IV once daily. Avoid nephrotoxins. Continue to monitor renal function and urine output. =
--- NOTE | 2019-05-03 11:01 | P.PN ---
<Cheri Alva - Last Filed: 05/03/19 10:58> Subjective Progress Note Date: 05/03/19 CHIEF COMPLAINT: GI bleed HISTORY OF PRESENT ILLNESS: Patient is status post EGD with Dr. Gordon revealing diffuse acute superficial gastritis with bleeding on the gastric cardia. Patient has been receiving Protonix. Carafate was added to patient's medication regimen. Patient remains in intensive care unit. She was examined at the bedside this morning with Dr. Gordon. She denies abdominal pain. She is to begin bowel prep this afternoon. Hemoglobin 7.6. PHYSICAL EXAM: VITAL SIGNS: Currently stable. GENERAL: Well-developed in no acute distress. HEENT: No sclera icterus. Extraocular movements grossly intact. Moist buccal mucosa. Head is atraumatic, normocephalic. Hears conversational speech. No nasal drainage. NECK: Supple without lymphadenopathy. CHEST: Non-labored respirations and equal bilateral excursions. CARDIOVASCULAR: Regular rate with regular rhythm. Palpable 2+ radial pulses. ABDOMEN: Soft. Nondistended. Nontender. MUSCULOSKELETAL: No clubbing, cyanosis or edema. NEUROLOGIC: No focal or lateralizing signs. Cranial nerves II through XII grossly intact. PSYCH: Appropriate affect. Alert and oriented to person, place and time. SKIN: Well perfused. Good skin turgor. ASSESSMENT: Acute blood loss anemia with multiple blood transfusions Gastrointestinal hemorrhage Morbid obesity due to excess calories, BMI 56.9 Ischemic congestive cardiomyopathy Hypovolemic hypotension Acute superficial gastritis with bleeding Diaphragmatic hiatal hernia PLAN: Patient received 1 dose of IV Iron on 04/30/2019. Will add additional dose today and tomorrow for a total of 3 doses. Clear liquid diet today. NPO at midnight Bowel prep today Patient to undergo colonoscopy tomorrow with Dr. Gordon Nurse practitioner note has been reviewed by physician. Signing provider agrees with the documented findings, assessment, and plan of care. Objective - Vital Signs Vital signs: Vital Signs Temp 99.1 F 05/03/19 08:00 Pulse 92 05/03/19 08:06 Resp 20 05/03/19 08:00 BP 101/62 05/03/19 08:00 Pulse Ox 98 05/03/19 08:00 Intake & Output 05/02/19 05/03/19 05/03/19 18:59 06:59 18:59 Intake Total 370 150 140 Output Total 2125 1200 Balance -1755 -1050 140 Weight 159.9 kg Intake: IV 370 150 40 0.9 Normal Saline as KVO 120 150 40 at 10ml/hr Levofloxacin 750Mg-D5w 150 Pmx 750 mg In Dextrose/ Water 1 150ml.bag @ 100 mls/hr IVPB Q24H [facility] Rx#: [id number] Intake, IV Titration 100 Amount Sodium Ferric Gluconat- 100 Sucrose 125 mg In Sodium Chloride 0.9% 100 ml @ 100 mls/hr IVPB DAILY [facility] Rx#:[id number] Output: Urine 2124 1200 Other: # Voids 3 500 # Bowel Movements 1 - Labs CBC & Chem 7: 05/03/19 04:55 05/03/19 04:55 Labs: Abnormal Lab Results - Last 24 Hours (Table) 05/03/19 05/03/19 Range/Units 04:55 04:55 RBC 2.69 L (3.80-5.40) m/uL Hgb 7.6 L (11.4-16.0) gm/dL Hct 24.2 L (34.0-46.0) % RDW 16.8 H (11.5-15.5) % Plt Count 124 L (150-450) k/uL Carbon Dioxide 33 H (22-30) mmol/L BUN 21 H (7-17) mg/dL Calcium 8.2 L (8.4-10.2) mg/dL Microbiology - Last 24 Hours (Table) 05/01/19 18:45 Gram Stain - Final Sputum Sputum Culture - Final 04/28/19 19:00 Blood Culture - Preliminary Blood No Growth after 96 hours <Audrey Gordon N - Last Filed: 05/03/19 21:24> Subjective Overall, no bloody bowel movements. Hgb improving. Will proceed with colonoscopy. Recommend holding Eliquis. Objective - Vital Signs Vital signs: Vital Signs Temp 98.7 F 05/03/19 17:18 Pulse 92 05/03/19 20:49 Resp 22 05/03/19 20:49 BP 107/84 05/03/19 17:18 Pulse Ox 95 05/03/19 17:18 Intake & Output 05/03/19 05/03/19 05/04/19 06:59 18:59 06:59 Intake Total 150 260 Output Total 1200 1700 Balance -1050 -1440 Weight 159.9 kg Intake: IV 150 160 0.9 Normal Saline as KVO 150 160 at 10ml/hr Intake, IV Titration 100 Amount Sodium Ferric Gluconat- 100 Sucrose 125 mg In Sodium Chloride 0.9% 100 ml @ 100 mls/hr IVPB DAILY [facility] Rx#:[id number] Output: Urine 1200 1700 Other: # Voids 3 # Bowel Movements 1 - Labs CBC & Chem 7: 05/03/19 04:55 05/03/19 04:55 Labs: Abnormal Lab Results - Last 24 Hours (Table) 05/03/19 05/03/19 05/03/19 Range/Units 04:55 04:55 04:55 RBC 2.69 L (3.80-5.40) m/uL Hgb 7.6 L (11.4-16.0) gm/dL Hct 24.2 L (34.0-46.0) % RDW 16.8 H (11.5-15.5) % Plt Count 124 L (150-450) k/uL Carbon Dioxide 33 H (22-30) mmol/L BUN 21 H (7-17) mg/dL Calcium 8.2 L (8.4-10.2) mg/dL Procalcitonin 0.14 H (0.02-0.09) ng/mL Microbiology - Last 24 Hours (Table) 04/28/19 19:00 Blood Culture - Preliminary Blood No Growth after 120 hours 05/01/19 18:45 Gram Stain - Final Sputum Sputum Culture - Final Assessment and Plan (1) Morbid obesity due to excess calories Current Visit: Yes Status: Acute Code(s): E66.01 - MORBID (SEVERE) OBESITY DUE TO EXCESS CALORIES SNOMED Code(s): 903355713 (2) Adult BMI 50.0-59.9 kg/sq m Current Visit: Yes Status: Acute Code(s): Z68.43 - BODY MASS INDEX (BMI) 50.0-59.9, ADULT SNOMED Code(s): 417109547 (3) Family hx colonic polyps Current Visit: Yes Status: Acute Code(s): Z83.71 - FAMILY HISTORY OF COLONIC POLYPS SNOMED Code(s): 638988272 (4) Fear of other medical care Current Visit: Yes Status: Acute Code(s): F40.232 - FEAR OF OTHER MEDICAL CARE SNOMED Code(s): 159251730 (5) JANNET (acute kidney injury) Current Visit: Yes Status: Acute Code(s): N17.9 - ACUTE KIDNEY FAILURE, UNSPECIFIED SNOMED Code(s): 93663581 (6) GI bleed Current Visit: Yes Status: Acute Code(s): K92.2 - GASTROINTESTINAL HEMORRHAGE, UNSPECIFIED SNOMED Code(s): 13743021 (7) Congestive heart failure Current Visit: No Status: Acute Code(s): I50.9 - HEART FAILURE, UNSPECIFIED SNOMED Code(s): 21851850 (8) Anemia associated with acute blood loss Current Visit: Yes Status: Acute Code(s): D62 - ACUTE POSTHEMORRHAGIC ANEMIA SNOMED Code(s): 571956301
[2019-05-03] MEDS ORDERED: POLYETHYLENE GLYCOL LYTES SOLN 4,000 ML SOLN.RECON PO ONE (12:00)
--- NOTE | 2019-05-03 14:10 | P.PN ---
Subjective Progress Note Date: 05/03/19 Principal diagnosis: Shortness of breath Patient seen and examined. No acute events overnight. Patient reports improvement in her breathing, continues to have cough productive of thick brown sputum. Family is at bedside. Plans for colonoscopy tomorrow. She underwent EGD yesterday. Patient denies any chest pain, palpitations, dizziness, nausea or vomiting. No bowel movements today. Patient denies any hematochezia or melena. Hemoglobin stable at 7.6 this morning. Objective - Vital Signs Vital signs: Vital Signs Temp 99.1 F 05/03/19 08:00 Pulse 80 05/03/19 12:11 Resp 20 05/03/19 08:00 BP 101/62 05/03/19 08:00 Pulse Ox 98 05/03/19 08:00 Intake & Output 05/02/19 05/03/19 05/03/19 18:59 06:59 18:59 Intake Total 370 150 160 Output Total 2125 1200 Balance -1755 -1050 160 Weight 159.9 kg Intake: IV 370 150 60 0.9 Normal Saline as KVO 120 150 60 at 10ml/hr Levofloxacin 750Mg-D5w 150 Pmx 750 mg In Dextrose/ Water 1 150ml.bag @ 100 mls/hr IVPB Q24H [facility] Rx#: [id number] Intake, IV Titration 100 Amount Sodium Ferric Gluconat- 100 Sucrose 125 mg In Sodium Chloride 0.9% 100 ml @ 100 mls/hr IVPB DAILY [facility] Rx#:[id number] Output: Urine 2125 1200 Other: # Voids 3 500 # Bowel Movements 1 - Exam General: [non toxic], [appears less short of breath today speaking in full sentences, ill-appearing], [appears at stated age] Derm: [warm], [dry] Head: [atraumatic], [normocephalic], [symmetric] Eyes: [EOMI], [no lid lag], [anicteric sclera] Mouth: [no lip lesion], [mucus membranes moist] Cardiovascular: [S1S2 reg], [no murmur], [positive posterior tibial pulse bilateral], Lungs: [Decreased breath sounds bilaterally, improved from yesterday], [no accessory muscle use] Abdominal: [soft], [ nontender to palpation], [no guarding], [no appreciable organomegaly] Ext: [no gross muscle atrophy], [1+ bilateral lower extremity edema], [no contractures], [chronic venous stasis skin changes bilateral lower extremities] Neuro: [no focal neuro deficits] Psych: [Alert], [oriented], [appropriate affect] - Labs CBC & Chem 7: 05/03/19 04:55 05/03/19 04:55 Labs: Abnormal Lab Results - Last 24 Hours (Table) 05/03/19 05/03/19 Range/Units 04:55 04:55 RBC 2.69 L (3.80-5.40) m/uL Hgb 7.6 L (11.4-16.0) gm/dL Hct 24.2 L (34.0-46.0) % RDW 16.8 H (11.5-15.5) % Plt Count 124 L (150-450) k/uL Carbon Dioxide 33 H (22-30) mmol/L BUN 21 H (7-17) mg/dL Calcium 8.2 L (8.4-10.2) mg/dL Microbiology - Last 24 Hours (Table) 05/01/19 18:45 Gram Stain - Final Sputum Sputum Culture - Final 04/28/19 19:00 Blood Culture - Preliminary Blood No Growth after 96 hours Assessment and Plan Assessment: Acute blood loss anemia likely due to hemorrhoid Acute exacerbation of diastolic CHF Fever Non-ST elevation FL Elevated BUN with resolved acute kidney injury and hyperkalemia Controlled atrial fibrillation Thrombocytopenia with history of ITP Morbid obesity with BMI 58.4 Hemoglobin 7.6. Status post 4 unit PRBC. 125 mg IV iron 3. CT abdomen pelvis shows umbilical hernia. EGD shows hiatal hernia, erosive esophagitis, gastritis. Plans: Transfuse if hemoglobin less than 7. Continue Protonix 40 mg IV twice a day. Plans for colonoscopy tomorrow. Surgery and GI on board. Daily CBC. Chest x-ray shows signs of congestive heart failure. Limited echocardiogram shows moderate concentric LVH with EF 50-55%. Chest x-ray shows findings of CHF. Plans: Lasix 40 mg IV switched from twice a day to daily. Hold ARB due to kidney injury and hyperkalemia. Beta palmira on hold due to hypotension. Strict intake and output. Daily weights. Follow cardiology recommendations. T-max 100.7 Fahrenheit, afebrile since. Respiratory rate 20. CT abdomen pelvis shows concerns for possible pneumonia. Blood cultures negative at 96 hours. Sputum culture negative so far. Plans: Continue Levaquin is for concerns of p neumonia. Follow sputum culture. Follow blood culture. Follow pro-calcitonin. Troponin 2.95, 2.78, 2.43 with EKG showing T-wave abnormalities. Limited echocardiogram does not show any wall motion abnormalities. Plans: No aspirin or heparin due to GI bleed. Beta palmira held due to hypotension. Continue Lipitor. Telemetry monitoring. Follow cardiology recommendations. BUN 58-21 creatinine within normal limits. Likely due to Lasix use. Plans: Avoid nephrotoxins. Repeat BMP tomorrow morning. Currently rate controlled. Plans: Telemetry monitoring. Potassium greater than 4 and magnesium greater than 2. Beta palmira on hold due to hypotension. No anticoagulation due to GI bleed. Platelets 124. Plans: Daily CBC. Continue to monitor. Plans: Structured weight loss program. [Patient admitted for GI bleed likely due to hemorrhoids, GI and surgery foll owing. Hemoglobin stable after 4 unit PRBC. Plans for colonoscopy tomorrow. Continue Lasix IV for decompensated CHF. Antibiotics continued for possible pneumonia. Patient is pending clinical improvement. Likely DC in 1-2 days.]
[2019-05-03] MEDS: LEVOFLOXACIN 750MG-D5W PMX 750 MG in DEXTROSE/WATER 1 150ML.BAG IVPB SCH (15:13)
[2019-05-03] MEDS: ATORVASTATIN 40 MG TAB PO SCH (20:49)
[2019-05-03] MEDS: HYDROcodone/APAP 5-325MG 1 EACH TAB PO PRN (20:50)
[2019-05-04 05:52] LABS: Anisocytosis Slight; Basophils % (A) 0 %; Eosinophils # (A) 0.4 k/uL (0-0.7); Eosinophils % (A) 7 %; HCT 24.3 % (34.0-46.0); HGB 7.6 gm/dL (11.4-16.0); Hypochromasia Moderate; Lymphocytes # (A) 0.8 k/uL (1.0-4.8); Lymphocytes % (A) 12 %; MCH 28.1 pg (25.0-35.0); MCHC 31.4 g/dL (31.0-37.0); MCV 89.7 fL (80.0-100.0); Mean Platelet Volume 7.8; Monocytes # (A) 0.4 k/uL (0-1.0); Monocytes % (A) 7 %; Neutrophils # (A) 4.7 k/uL (1.3-7.7); Neutrophils % (A) 73 %; Platelet Count 130 k/uL (150-450); Poikilocytosis Slight; RBC 2.71 m/uL (3.80-5.40); RDW 16.7 % (11.5-15.5); WBC 6.5 k/uL (3.8-10.6)
[2019-05-04 06:02] LABS: African American GFR (CKD) >90 (>60 ml/min/1.73 sqM); Anion Gap 3 mmol/L; Blood Urea Nitrogen 15 mg/dL (7-17); Calcium 8.1 mg/dL (8.4-10.2); Carbon Dioxide 34 mmol/L (22-30); Chloride 100 mmol/L (98-107); Glucose 86 mg/dL (74-99); Non-African American GFR(CKD) >90 (>60 ml/min/1.73 sqM); Potassium 3.2 mmol/L (3.5-5.1); Sodium 137 mmol/L (137-145)
[2019-05-04] MEDS: POTASSIUM CHLORIDE ER 20 MEQ TAB.ER PO SCH ×2 (06:23→08:47)
[2019-05-04] MEDS: SUCRALFATE 1 GM TAB PO SCH ×2 (06:42→16:54)
[2019-05-04] MEDS: ALBUTEROL NEBULIZED 2.5 MG/3 ML INHALATION PRN ×3 (07:46→15:24)
[2019-05-04] MEDS: FUROSEMIDE 10 MG/ML 4 ML VIAL IV SCH (08:09)
[2019-05-04] MEDS: PANTOPRAZOLE 40 MG/10 ML VIAL IV SCH ×2 (08:11→20:11)
[2019-05-04] MEDS: SERTRALINE 100 MG TAB PO SCH (08:47)
[2019-05-04] MEDS: MUPIROCIN 2% OINT 22 GM TUBE TOPICAL SCH ×3 (08:47→21:50)
[2019-05-04] MEDS: GABAPENTIN 100 MG CAP PO SCH ×2 (08:47→20:11)
[2019-05-04] MEDS: SODIUM FERRIC GLUCONAT-SUCROSE 125 MG in SODIUM CHLORIDE 0.9% 100 ML IVPB SCH (09:01)
[2019-05-04] MEDS ORDERED: LIDOCAINE 1% INJ 10MG/ML (20 ML MDV) ONE (12:04)
[2019-05-04] MEDS ORDERED: KETAMINE 10 MG/ML 20 ML VIAL ONE (12:04)
[2019-05-04] MEDS ORDERED: PROPOFOL 10 MG/ML 20 ML VIAL IV ONE (12:04)
[2019-05-04] MEDS ORDERED: SODIUM CHLORIDE 0.9% 1,000 ML IV ONE (12:07)
--- NOTE | 2019-05-04 12:39 | P.PCN ---
Date of Procedure: 05/04/19 Description of Procedure: PREOPERATIVE DIAGNOSIS: Gastrointestinal bleeding Acute blood loss anemia Morbid obesity due to excess calories, BMI 56.9 Ischemic cardiomyopathy Congestive heart failure POSTOPERATIVE DIAGNOSIS: Gastrointestinal bleeding Acute blood loss anemia Morbid obesity due to excess calories, BMI 56.9 Ischemic cardiomyopathy Congestive heart failure External hemorrhoids, grade 3 Internal hemorrhoids, grade 3 Sigmoid diverticulosis without bleeding Transverse colon adenoma OPERATION: Colonoscopy to the ileocecal valve and appendiceal orifice. Colonoscopy with hot snare polypectomy SURGEON: Audrey Gordon MD. ANESTHESIA: MAC. INDICATIONS: The patient is an 73-year-old female who comes a gastrointestinal hemorrhage, acute blood loss anemia and no prior history of lower endoscopy. Benefits and risks were described and informed consent was obtained. DESCRIPTION OF PROCEDURE: The patient had undergone a GoLYTELY prep. She had been brought into the operating room and laid in the left lateral decubitus position. After adequate intravenous sedation, the rectum was examined with 2% lidocaine jelly. External hemorrhoids were encountered. The rectal tone was within normal limits. No lesions were palpated in the rectal vault. An Olympus colonoscope was advanced until the ileocecal valve and appendiceal orifice were clearly viewed. The prep was fair. Sigmoid diverticulosis was encountered. Transverse colon adenoma was snare polypectomy. No evidence of focal colitis was found. Retroflexion of the scope demonstrated grade 3 internal hemorrhoids without active bleeding or inflammation. The colon was desufflated. The patient had tolerated the procedure well. Withdrawal time was over 6 minutes. FINDINGS: Aronchick preparation quality scale 3 (1-5) Internal hemorrhoids, grade 3 External hemorrhoids, grade 3 No arteriovenous malformations. Sigmoid diverticulosis Removal of 1 polyp: - Snare polypectomy and mid transverse colon, 8 mm tubulovillous adenoma polyp. No focal colitis. RECOMMENDATIONS: 1. Repeat colonoscopy 3 years, 2022 2. Diet as tolerated
[2019-05-04] MEDS: LEVOFLOXACIN 750 MG TAB PO SCH (14:43)
--- NOTE | 2019-05-04 17:42 | P.PN ---
Progress Note - Text Progress Note Date: 05/04/19 Hospital course: This is a very pleasant 73-year-old patient of Dr. Bob Kuo. Chronic stable medical conditions include GERD, hypertension, ITP, depression, painful peripheral neuropathy on Neurontin, CHF, atrial fibrillation. Patient's had a prior brain bleed. left her with some weakness on the right side. She has trouble feeling with the right hand. Patient has trouble getting to the bathroom. About 3 weeks ago was in the hospital with lower extremity cellulitis, CHF, atrial fibrillation. Presented with shortness of breath, weakness. hemoglobin of 5.6. Total of 4 units was transfused. EGD showed grade B erosive esophagitis and superficial gastritis with some bleeding along gastric cardia. Troponins were found to be positive for hemodynamic mismatch. Also felt to have bleeding hemorrhoids. Eliquis on hold. Also had acute kidney injury and hyperkalemia. Also treated for acute CHF exacerbation with IV Lasix. Today-Colonoscopy showed a polyp that was removed. Sitting on bed. Tired. at the bedside. Breathing stable. Review of systems: Was done for constitutional, cardiovascular, GI, pulmonary. relevant finding as above Active Medications Acetaminophen (Tylenol Tab) 650 mg PO Q6HR PRN PRN Reason: Mild Pain or Fever > 100.5 Last Admin: 05/01/19 11:54 Dose: 650 mg Documented by: Hydrocodone Bitart/Acetaminophen ([place] 5-325) 1 each PO Q6HR PRN PRN Reason: Moderate to Severe Pain Last Admin: 05/03/19 20:50 Dose: 1 each Documented by: Albuterol Sulfate (Ventolin Nebulized) 2.5 mg INHALATION RT-Q4H PRN PRN Reason: Shortness Of Breath Last Admin: 05/04/19 15:24 Dose: 2.5 mg Documented by: Alprazolam (Xanax) 0.25 mg PO TID PRN PRN Reason: Mild Anxiety Last Admin: 05/03/19 08:59 Dose: 0.25 mg Documented by: Atorvastatin Calcium (Lipitor) 40 mg PO HS [facility] Last Admin: 05/03/19 20:49 Dose: 40 mg Documented by: Furosemide (Lasix) 40 mg IV DAILY [facility] Last Admin: 05/04/19 08:09 Dose: 40 mg Documented by: Gabapentin (Neurontin) 100 mg PO BID [facility] Last Admin: 02/19/20 08:47 Dose: 100 mg Documented by: Levofloxacin (Levaquin) 750 mg PO Q25H [facility] Last Admin: 05/04/19 14:43 Dose: 750 mg Documented by: Mupirocin (Bactroban Oint) 1 applic TOPICAL TID [facility] Last Admin: 05/04/19 16:54 Dose: 1 applic Documented by: Naloxone HCl (Narcan) 0.2 mg IV Q2M PRN PRN Reason: Opioid Reversal Ondansetron HCl (Zofran) 4 mg IVP Q8HR PRN PRN Reason: Nausea And Vomiting Pantoprazole Sodium (Protonix) 40 mg IV BID [facility] Last Admin: 05/04/19 08:11 Dose: 40 mg Documented by: Sertraline HCl (Zoloft) 200 mg PO DAILY [facility] Last Admin: 05/04/19 08:47 Dose: 200 mg Documented by: Sucralfate (Carafate) 1 gm PO AC-BID [facility] Last Admin: 05/04/19 16:54 Dose: 1 gm Documented by: Physical examination: VITAL SIGNS: 99.8, 84, 22, 151/99, 94% on 3 L GENERAL: Propped up in bed, tired EYES: Pupils equal. Conjunctiva pale HEENT: External appearance of nose and ears normal, oral cavity grossly normal. NECK: JVD unable to assess, masses not palpable. HEART: First and second heart sounds are normal; nonpitting edema LUNGS: Respiratory rate normal; improved air entry. ABDOMEN: Soft, nontender, liver spleen not palpable, no masses palpable. PSYCH: Alert and oriented x3; mood and affect tired Muscular skeletal: Evidence of OA INVESTIGATIONS, reviewed in the clinical context: White count 6.5 hemoglobin 7.6 creatinine 0.58 Previous testing White count 9.6 hemoglobin 5.6 platelets 167 potassium 6.2 bun 87 creatinine 1.77 Labs from April 03-bun 44 creatinine 0.74 2-D echo-EF 55-50%, moderate concentric left ventricle hypertrophy Assessment: -Acute on chronic congestive heart failure exacerbation from diastolic dysfunction EF 50-55 % from hypertensive heart disease, stabilized -Acute kidney injury creatinine likely prerenal going from 0.74 up to 1.77 -Acute GI bleed combination of esophagitis gastritis from eliquis, with a combination of internal hemorrhoid bleeding -Bleeding internal hemorrhoids -Moderate aortic stenosis, moderate tricuspid regurgitation, moderate pulmonary hypertension secondary -Persistent atrial fibrillation rate controlled -Left foot osteoarthritis with hammertoe from second to through fifth toe. 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 Hold off antibiotics the present time. It probably could be resumed in a few days. With the understanding that she is a high risk of bleeding. Will get opinion from Dr. Benedict. Care was discussed with the patient and at the bedside. Increase activity.
[2019-05-04] MEDS: ATORVASTATIN 40 MG TAB PO SCH (20:11)
[2019-05-04] MEDS: ALPRAZolam 0.25 MG TAB PO PRN (20:15)
[2019-05-05 05:41] LABS: Anisocytosis Slight; Basophils % (A) 0 %; Eosinophils # (A) 0.3 k/uL (0-0.7); Eosinophils % (A) 4 %; HGB 7.8 gm/dL (11.4-16.0); Hypochromasia Marked; Lymphocytes # (A) 0.8 k/uL (1.0-4.8); Lymphocytes % (A) 11 %; MCH 27.7 pg (25.0-35.0); MCHC 31.1 g/dL (31.0-37.0); MCV 89.2 fL (80.0-100.0); Mean Platelet Volume 7.6; Monocytes # (A) 0.5 k/uL (0-1.0); Monocytes % (A) 6 %; Neutrophils # (A) 5.8 k/uL (1.3-7.7); Neutrophils % (A) 78 %; Platelet Count 132 k/uL (150-450); Poikilocytosis Slight; RBC 2.81 m/uL (3.80-5.40); RDW 16.2 % (11.5-15.5); WBC 7.4 k/uL (3.8-10.6)
[2019-05-05 05:58] LABS: African American GFR (CKD) >90 (>60 ml/min/1.73 sqM); Anion Gap 4 mmol/L; Blood Urea Nitrogen 12 mg/dL (7-17); Calcium 8.3 mg/dL (8.4-10.2); Carbon Dioxide 35 mmol/L (22-30); Chloride 100 mmol/L (98-107); Glucose 87 mg/dL (74-99); Non-African American GFR(CKD) >90 (>60 ml/min/1.73 sqM); Potassium 3.2 mmol/L (3.5-5.1); Sodium 139 mmol/L (137-145)
[2019-05-05] MEDS ORDERED: Potassium Replacement Protocol 1 EACH MISC MISCELLANE PRN (06:06)
[2019-05-05] MEDS: HYDROcodone/APAP 5-325MG 1 EACH TAB PO PRN (06:34)
[2019-05-05] MEDS: SUCRALFATE 1 GM TAB PO SCH ×2 (06:34→17:27)
[2019-05-05] MEDS: POTASSIUM CHLORIDE ER 20 MEQ TAB.ER PO SCH ×2 (06:35→08:24)
[2019-05-05] MEDS: ALBUTEROL NEBULIZED 2.5 MG/3 ML INHALATION PRN ×3 (07:27→16:04)
--- NOTE | 2019-05-05 08:01 | P.PN ---
Subjective Progress Note Date: 05/05/19 Principal diagnosis: GI bleeding This is a 73-year-old female patient with history of long-standing persistent atrial fibrillation as well as multiple comorbid conditions who was admitted to the hospital with GI bleeding. She underwent a colonoscopy and removal of polyp. She was on oral anticoagulation when she presented to the hospital. She was seen this morning. Today is 05/05/2019. Overall she's feeling better. The hemoglobin is around 8. At this point, I would continue holding oral anticoagulation. At certain points, we can restart the patient back on oral anticoagulation was a hemoglobin improved and once we have the green light from the surgeon and reassurance that we can restart the patient back on oral anticoagulation. Objective - Vital Signs Vital signs: Vital Signs Temp 98.4 F 05/05/19 04:00 Pulse 84 05/05/19 07:41 Resp 16 05/05/19 04:00 BP 122/69 05/05/19 04:00 Pulse Ox 92 L 05/05/19 07:30 Intake & Output 05/04/19 05/05/19 05/05/19 18:59 06:59 18:59 Intake Total 350 Output Total 500 Balance 350 -500 Weight 160 kg 160.4 kg Intake: IV 250 0.9 Normal Saline as KVO 50 at 10ml/hr Intake, IV Titration 100 Amount Sodium Ferric Gluconat- 100 Sucrose 125 mg In Sodium Chloride 0.9% 100 ml @ 100 mls/hr IVPB DAILY [facility] Rx#:[id number] Output: Urine 500 Other: # Voids 3 1 # Bowel Movements 1 - Constitutional General appearance: Present: no acute distress - Respiratory Respiratory: bilateral: diminished - Cardiovascular Rhythm: irregularly irregular Heart sounds: normal: S1, S2 - Labs CBC & Chem 7: 05/05/19 04:58 05/05/19 04:58 Labs: Abnormal Lab Results - Last 24 Hours (Table) 05/05/19 05/05/19 Range/Units 04:58 04:58 RBC 2.81 L (3.80-5.40) m/uL Hgb 7.8 L (11.4-16.0) gm/dL Hct 25.0 L (34.0-46.0) % RDW 16.2 H (11.5-15.5) % Plt Count 132 L (150-450) k/uL Lymphocytes # 0.8 L (1.0-4.8) k/uL Potassium 3.2 L (3.5-5.1) mmol/L Carbon Dioxide 35 H (22-30) mmol/L Calcium 8.3 L (8.4-10.2) mg/dL Microbiology - Last 24 Hours (Table) 04/28/19 19:00 Blood Culture - Final Blood No Growth after 144 hours Assessment and Plan Assessment: Assessment #1 GI bleeding #2 long-standing persistent atrial fibrillation Plan #1 I would continue holding oral anticoagulation #2 continue the current dose of metoprolol
[2019-05-05] MEDS: SERTRALINE 100 MG TAB PO SCH (08:24)
[2019-05-05] MEDS: PANTOPRAZOLE 40 MG/10 ML VIAL IV SCH ×2 (08:24→19:45)
[2019-05-05] MEDS: GABAPENTIN 100 MG CAP PO SCH ×2 (08:24→19:46)
[2019-05-05] MEDS: FUROSEMIDE 40 MG TAB PO SCH ×2 (08:24→15:45)
[2019-05-05] MEDS: MUPIROCIN 2% OINT 22 GM TUBE TOPICAL SCH ×2 (08:24→15:46)
--- NOTE | 2019-05-05 12:52 | P.PN ---
Subjective Progress Note Date: 05/05/19 CHIEF COMPLAINT: GI bleed HISTORY OF PRESENT ILLNESS: Patient is status post EGD with Dr. Gordon revealing diffuse acute superficial gastritis with bleeding on the gastric cardia. Patient also underwent colonoscopy with no active bleeding noted. Patient noted to have internal and external hemorrhoids and removal of one polyp from mid transverse colon. Denies abdominal pain. Tolerating diet. No nausea or vomiting. No bloody stools. Hemoglobin 7.8. PHYSICAL EXAM: VITAL SIGNS: Reviewed GENERAL: Well-developed in no acute distress. HEENT: No sclera icterus. Extraocular movements grossly intact. Moist buccal mucosa. Head is atraumatic, normocephalic. Hears conversational speech. No nasal drainage. NECK: Supple without lymphadenopathy. CHEST: Non-labored respirations and equal bilateral excursions. CARDIOVASCULAR: Regular rate with regular rhythm. Palpable 2+ radial pulses. ABDOMEN: Soft. Nondistended. Nontender. MUSCULOSKELETAL: No clubbing, cyanosis or edema. NEUROLOGIC: No focal or lateralizing signs. Cranial nerves II through XII grossly intact. PSYCH: Appropriate affect. Alert and oriented to person, place and time. SKIN: Well perfused. Good skin turgor. ASSESSMENT: Acute blood loss anemia with multiple blood transfusions Gastrointestinal hemorrhage Morbid obesity due to excess calories, BMI 56.9 Ischemic congestive cardiomyopathy Hypovolemic hypotension Acute superficial gastritis with bleeding Diaphragmatic hiatal hernia PLAN: Continue diet as tolerated No further intervention from a surgical standpoint We will sign off. Please re-consult if needed Nurse practitioner note has been reviewed by physician. Signing provider agrees with the documented findings, assessment, and plan of care. Objective - Vital Signs Vital signs: Vital Signs Temp 98.5 F 05/05/19 08:00 Pulse 88 05/05/19 11:36 Resp 21 05/05/19 08:00 BP 94/49 05/05/19 08:00 Pulse Ox 93 L 05/05/19 08:00 Intake & Output 05/04/19 05/05/19 05/05/19 18:59 06:59 18:59 Intake Total 350 Output Total 500 250 Balance 350 -500 -250 Weight 160 kg 160.4 kg Intake: IV 250 0.9 Normal Saline as KVO 50 at 10ml/hr Intake, IV Titration 100 Amount Sodium Ferric Gluconat- 100 Sucrose 125 mg In Sodium Chloride 0.9% 100 ml @ 100 mls/hr IVPB DAILY [facility] Rx#:[id number] Output: Urine 500 250 Other: # Voids 3 1 # Bowel Movements 1 - Labs CBC & Chem 7: 05/05/19 04:58 05/05/19 04:58 Labs: Abnormal Lab Results - Last 24 Hours (Table) 05/05/19 05/05/19 Range/Units 04:58 04:58 RBC 2.81 L (3.80-5.40) m/uL Hgb 7.8 L (11.4-16.0) gm/dL Hct 25.0 L (34.0-46.0) % RDW 16.2 H (11.5-15.5) % Plt Count 132 L (150-450) k/uL Lymphocytes # 0.8 L (1.0-4.8) k/uL Potassium 3.2 L (3.5-5.1) mmol/L Carbon Dioxide 35 H (22-30) mmol/L Calcium 8.3 L (8.4-10.2) mg/dL Microbiology - Last 24 Hours (Table) 04/28/19 19:00 Blood Culture - Final Blood No Growth after 144 hours
--- NOTE | 2019-05-05 15:20 | P.PN ---
Progress Note - Text Progress Note Date: 05/05/19 Hospital course: This is a very pleasant 73-year-old patient of Dr. Bob Kuo. Chronic stable medical conditions include GERD, hypertension, ITP, depression, painful peripheral neuropathy on Neurontin, CHF, atrial fibrillation. Patient's had a prior brain bleed. left her with some weakness on the right side. She has trouble feeling with the right hand. Patient has trouble getting to the bathroom. About 3 weeks ago was in the hospital with lower extremity cellulitis, CHF, atrial fibrillation. Presented with shortness of breath, weakness. hemoglobin of 5.6. Total of 4 units was transfused. EGD showed grade B erosive esophagitis and superficial gastritis with some bleeding along gastric cardia. Troponins were found to be positive for hemodynamic mismatch. Also felt to have bleeding hemorrhoids. Eliquis on hold. Also had acute kidney injury and hyperkalemia. Also treated for acute CHF exacerbation with IV Lasix. Today-sitting upon a chair by the bed. Breathing a bit better. Did tolerate some diet. Review of systems: Was done for constitutional, cardiovascular, GI, pulmonary. relevant finding as above Active Medications Acetaminophen (Tylenol Tab) 650 mg PO Q6HR PRN PRN Reason: Mild Pain or Fever > 100.5 Last Admin: 05/01/19 11:54 Dose: 650 mg Documented by: Hydrocodone Bitart/Acetaminophen ([place] 5-325) 1 each PO Q6HR PRN PRN Reason: Moderate to Severe Pain Last Admin: 05/05/19 06:34 Dose: 1 each Documented by: Albuterol Sulfate (Ventolin Nebulized) 2.5 mg INHALATION RT-Q4H PRN PRN Reason: Shortness Of Breath Last Admin: 05/05/19 11:25 Dose: 2.5 mg Documented by: Alprazolam (Xanax) 0.25 mg PO TID PRN PRN Reason: Mild Anxiety Last Admin: 05/04/19 20:15 Dose: 0.25 mg Documented by: Atorvastatin Calcium (Lipitor) 40 mg PO HS [facility] Last Admin: 05/04/19 20:11 Dose: 40 mg Documented by: Furosemide (Lasix) 40 mg PO BID@0900,1600 [facility] Last Admin: 05/05/19 08:24 Dose: 40 mg Documented by: Gabapentin (Neurontin) 100 mg PO BID [facility] Last Admin: 02/20/20 08:24 Dose: 100 mg Documented by: Levofloxacin (Levaquin) 750 mg PO Q25H [facility] Last Admin: 05/04/19 14:43 Dose: 750 mg Documented by: Miscellaneous Information (Potassium Per Protocol) 1 each MISCELLANE DAILY PRN; Protocol PRN Reason: Per Protocol Mupirocin (Bactroban Oint) 1 applic TOPICAL TID [facility] Last Admin: 05/05/19 08:24 Dose: 1 applic Documented by: Naloxone HCl (Narcan) 0.2 mg IV Q2M PRN PRN Reason: Opioid Reversal Pantoprazole Sodium (Protonix) 40 mg IV BID [facility] Last Admin: 05/05/19 08:24 Dose: 40 mg Documented by: Sertraline HCl (Zoloft) 200 mg PO DAILY [facility] Last Admin: 05/05/19 08:24 Dose: 200 mg Documented by: Sucralfate (Carafate) 1 gm PO AC-BID [facility] Last Admin: 05/05/19 06:34 Dose: 1 gm Documented by: Physical examination: VITAL SIGNS: 98.5, 81, 21, 94/49, 90% on 3 L GENERAL: Sitting up in a chair, awake EYES: Pupils equal. Conjunctiva pale HEENT: External appearance of nose and ears normal, oral cavity grossly normal. NECK: JVD unable to assess, masses not palpable. HEART: First and second heart sounds are normal; nonpitting edema LUNGS: Respiratory rate increased; decreased breath sounds. ABDOMEN: Soft, nontender, liver spleen not palpable, no masses palpable. PSYCH: Alert and oriented x3; mood and affect tired Muscular skeletal: Evidence of OA INVESTIGATIONS, reviewed in the clinical context: White count 7.4 hemoglobin 7.8 potassium 3.2 creatinine 0.57 Previous testing White count 9.6 hemoglobin 5.6 platelets 167 potassium 6.2 bun 87 creatinine 1.77 Labs from April 03-bun 44 creatinine 0.74 2-D echo-EF 55-50%, moderate concentric left ventricle hypertrophy Assessment: -Acute on chronic congestive heart failure exacerbation from diastolic dysfunction EF 50-55 % from hypertensive heart disease, stabilized -Acute kidney injury creatinine likely prerenal going from 0.74 up to 1.77, improved -Acute GI bleed combination of esophagitis gastritis from eliquis, with a combination of internal hemorrhoid bleeding -Bleeding internal hemorrhoids -Moderate aortic stenosis, moderate tricuspid regurgitation, moderate pulmonary hypertension secondary -Persistent atrial fibrillation rate controlled -Left foot osteoarthritis with hammertoe from second to through fifth toe. 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 Overall getting a bit better. Did speak to Dr. Benedict from cardiology. Continue current treatment. Hopefully discharge to ECF in next 24 hours
[2019-05-05] MEDS: LEVOFLOXACIN 750 MG TAB PO SCH (15:45)
[2019-05-05] MEDS: ACETAMINOPHEN TAB 325 MG TAB PO PRN (15:48)
--- NOTE | 2019-05-05 17:08 | PN ---
PROGRESS NOTE The patient is seen for follow up for acute kidney injury. Her renal function has improved significantly with creatinine now at about 0.5 mg/dL down from 1.7. The patient is maintained on a small dose of oral Lasix. She has had low potassium which is being replaced. PHYSICAL EXAMINATION: On examination today, blood pressure was 94/49, heart rate 81 per minute, patient is afebrile. Examination of the heart: S1 and S2. Examination of the lungs: Bilateral breath sounds are heard. Abdomen is soft, obese, nontender. Examination of the lower extremities shows edema 1+ bilaterally. DRUG SAFETY PHYSICIAN examination grossly intact. LABORATORY DATA: Laboratories show hemoglobin 7.8, sodium 139, potassium 3.2, chloride 100, CO2 35, BUN 12, creatinine 0.57. ASSESSMENT: 1. Acute kidney injury, currently resolved, mainly prerenal and associated with severe anemia. Creatinine is down to 0.57. 2. Volume overload, maintained on oral Lasix which we can continue. 3. Acute on top of chronic diastolic congestive heart failure, improved. 4. Moderate pulmonary hypertension with moderate aortic stenosis, moderate mitral and tricuspid regurgitation. 5. History of atrial fibrillation. 6. Hyperkalemia associated with acute kidney injury and gastrointestinal bleed, now improved. Patient was also on angiotensin receptor blockers and potassium supplements. PLAN: Continue current dose of oral Lasix. We will sign off. MMODL / IJN: [id number] /
[2019-05-05] MEDS: ATORVASTATIN 40 MG TAB PO SCH (19:46)
[2019-05-05] MEDS: ALPRAZolam 0.25 MG TAB PO PRN (19:46)
[2019-05-05 23:00] VITALS: RESP 18
[2019-05-06] MEDS: MUPIROCIN 2% OINT 22 GM TUBE TOPICAL SCH ×2 (01:36→12:37)
[2019-05-06] MEDS: SUCRALFATE 1 GM TAB PO SCH (06:00)
[2019-05-06] MEDS: ALBUTEROL NEBULIZED 2.5 MG/3 ML INHALATION PRN ×2 (07:52→11:45)
[2019-05-06] MEDS: PANTOPRAZOLE 40 MG/10 ML VIAL IV SCH (08:44)
[2019-05-06] MEDS: GABAPENTIN 100 MG CAP PO SCH (08:44)
[2019-05-06] MEDS: SERTRALINE 100 MG TAB PO SCH (08:44)
[2019-05-06] MEDS: FUROSEMIDE 40 MG TAB PO SCH (08:44)
[2019-05-06 08:53] VITALS: BP 105/66; TEMP 99
[2019-05-06] MEDS ORDERED: SIMETHICONE 80 MG CHEWABLE PO PRN (09:51)
--- NOTE | 2019-05-06 11:29 | P.DS ---
Providers Date of admission: 04/28/19 21:10 Expected date of discharge: 05/06/19 Attending physician: [facility] Consults: 04/28/19 21:11 Consult Physician Routine Consulting Provider: Wili Faria Consult Reason/Comments: elevated troponin, chf exacerbation, nstemi Do you want consulting provider notified?: Yes Consult Physician Routine Consulting Provider: Jas Aceves Consult Reason/Comments: Gi bleed Do you want consulting provider notified?: Yes 04/29/19 07:12 Consult Physician Routine Consulting Provider: Dagoberto Hernandes Consult Reason/Comments: yaakov/hyperkalemia Do you want consulting provider notified?: Yes Primary care physician: [facility] Course: Hospital course: This is a very pleasant 73-year-old patient of Dr. Bob Kuo. Chronic stable medical conditions include GERD, hypertension, ITP, depression, painful peripheral neuropathy on Neurontin, CHF, atrial fibrillation. Patient's had a prior brain bleed. left her with some weakness on the right side. She has trouble feeling with the right hand. Patient has trouble getting to the bathroom. About 3 weeks ago was in the hospital with lower extremity cellulitis, CHF, atrial fibrillation. Presented with shortness of breath, weakness. hemoglobin of 5.6. Total of 4 units was transfused. EGD showed grade B erosive esophagitis and superficial gastritis with some bleeding along gastric cardia. Troponins were found to be positive for hemodynamic mismatch. Also felt to have bleeding hemorrhoids. Eliquis-discontinued. Also had acute kidney injury and hyperkalemia. Also treated for acute CHF exacerbation with IV Lasix. Creatinine on presentation was 1.77 did come down to 0.57. Today-eating fair amount. No cardiac symptoms. Discussed with the . Consultation: Dr. Ace and associates from nephrology Dr. Vines from general surgery Dr. Lira and associates from GI Dr. ELDA Finch from cardiology Physical examination: VITAL SIGNS: 98.1, 58, 18, 110/56, 98% on 3 L GENERAL: Laying in bed, comfortable EYES: Pupils equal. Conjunctiva pale HEENT: External appearance of nose and ears normal, oral cavity grossly normal. NECK: JVD unable to assess, masses not palpable. HEART: First and second heart sounds are normal; nonpitting edema LUNGS: Respiratory rate increased; decreased breath sounds. ABDOMEN: Soft, nontender, liver spleen not palpable, no masses palpable. PSYCH: Alert and oriented x3; mood and affect tired Muscular skeletal: Evidence of OA INVESTIGATIONS, reviewed in the clinical context: White count 7.4 hemoglobin 7.8 potassium 3.2 Previous testing White count 9.6 hemoglobin 5.6 platelets 167 potassium 6.2 bun 87 creatinine 1.77 Labs from April 03-bun 44 creatinine 0.74 2-D echo-EF 55-50%, moderate concentric left ventricle hypertrophy Assessment: -Acute on chronic congestive heart failure exacerbation from diastolic dysfunction EF 50-55 % from hypertensive heart disease, stabilized -Acute kidney injury creatinine likely prerenal going from 0.74 up to 1.77, corrected -Acute GI bleed combination of esophagitis gastritis from eliquis, with a combination of internal hemorrhoid bleeding -Bleeding internal hemorrhoids -Moderate aortic stenosis, moderate tricuspid regurgitation, moderate pulmonary hypertension secondary -Persistent atrial fibrillation rate controlled -Left foot osteoarthritis with hammertoe from second to through fifth toe. 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 bleed -Depression not otherwise specified -Chronic gait dysfunction uses a walker at her baseline Plan: ECF/[facility] Patient Condition at Discharge: Stable Plan - Discharge Summary Discharge Rx Participant: No New Discharge Prescriptions: New Mupirocin 2% Oint [Bactroban 2% Oint] 1 applic TOPICAL TID applic Levofloxacin [Levaquin] 750 mg PO DAILY #3 tab Atorvastatin [Lipitor] 40 mg PO HS tab Simethicone Chew [Mylicon Chew] 40 mg PO QID PRN chew PRN Reason: gas pains/gi upset Omeprazole [PriLOSEC] 20 mg PO AC-BID #60 cap Continue Sertraline HCl [Zoloft] 200 mg PO DAILY Potassium Chloride ER [K-Dur 20] 20 meq PO DAILY SILVER sulfADIAZINE CREAM [Silvadene Cream] 1 applic TOPICAL HS applic Albuterol Sulfate [Ventolin HFA] 2 puff INHALATION RT-Q4H PRN PRN Reason: Shortness Of Breath SUMAtriptan SUCCINATE [Imitrex] 50 mg PO DAILY PRN PRN Reason: Migraine Headache Gabapentin [Neurontin] 100 mg PO BID #6 cap HYDROcodone/APAP 5-325MG [[place] 5-325] 1 tab PO Q6HR PRN #12 tab PRN Reason: Moderate To Severe Pain ALPRAZolam [Xanax] 0.25 mg PO TID PRN #9 tab PRN Reason: Anxiety Changed Furosemide [Lasix] 40 mg PO BID #0 tab Discontinued Famotidine [Pepcid] 20 mg PO DAILY Apixaban [Eliquis] 2.5 mg PO BID tablet Cefuroxime Axetil [Ceftin] 500 mg PO Q12H No Action Losartan Potassium 100 mg PO DAILY Metoprolol Tartrate [Lopressor] 25 mg PO BID tab Discharge Medication List Potassium Chloride ER [K-Dur 20] 20 meq PO DAILY 12/29/14 [History] Sertraline HCl [Zoloft] 200 mg PO DAILY 12/29/14 [History] Losartan Potassium 100 mg PO DAILY 03/23/19 [History] Metoprolol Tartrate [Lopressor] 25 mg PO BID tab 04/04/19 [Rx] SILVER sulfADIAZINE CREAM [Silvadene Cream] 1 applic TOPICAL HS applic 04/04/19 [Rx] Albuterol Sulfate [Ventolin HFA] 2 puff INHALATION RT-Q4H PRN 04/28/19 [History] SUMAtriptan SUCCINATE [Imitrex] 50 mg PO DAILY PRN 04/28/19 [History] ALPRAZolam [Xanax] 0.25 mg PO TID PRN #9 tab 05/06/19 [Rx] Atorvastatin [Lipitor] 40 mg PO HS tab 05/06/19 [Rx] Furosemide [Lasix] 40 mg PO BID #0 tab 05/06/19 [Rx] Gabapentin [Neurontin] 100 mg PO BID #6 cap 05/06/19 [Rx] HYDROcodone/APAP 5-325MG [[place] 5-325] 1 tab PO Q6HR PRN #12 tab 05/06/19 [Rx] Levofloxacin [Levaquin] 750 mg PO DAILY #3 tab 05/06/19 [Rx] Mupirocin 2% Oint [Bactroban 2% Oint] 1 applic TOPICAL TID applic 05/06/19 [Rx] Omeprazole [PriLOSEC] 20 mg PO AC-BID #60 cap 05/06/19 [Rx] Simethicone Chew [Mylicon Chew] 40 mg PO QID PRN chew 05/06/19 [Rx] Follow up Appointment(s)/Referral(s): Nam Kc DO [STAFF PHYSICIAN] - 1-2 Days Bob Kuo MD [STAFF PHYSICIAN] - As Needed Audrey Gordon MD [STAFF PHYSICIAN] - 1 Week [facility], [NON-STAFF] - 1-2 Days Lorena Villatoro MD [STAFF PHYSICIAN] - 10 Days
[2019-05-06 11:50] VITALS: PULSE 80
[2019-05-06 11:51] VITALS: BMI 48.2
--- NOTE | 2019-05-06 12:38 | P.PN ---
Subjective Progress Note Date: 05/06/19 This is a 73-year-old female patient with history of long-standing persistent atrial fibrillation as well as multiple comorbid conditions who was admitted to the hospital with GI bleeding. She underwent a colonoscopy and removal of polyp. She was on oral anticoagulation when she presented to the hospital. Patient underwent a colonoscopy yesterday which revealed some internal an external hemorrhoids, grade 3, no AV malformations, sigmoid diverticulosis, removal of one polyp. I spoke with Cheri the nurse practitioner with Dr. Vines this morning, regarding reinitiating anticoagulation, because her does not appear to be any clear-cut areas of active bleeding on the EGD or colonoscopy. She stated that Dr. Vines does not want the patient reinitiated on anticoagulation. We will clarify with her further regarding this. The patient in fact is not a candidate for anticoagulation, she may be a candidate for watchman device. This morning the patient complains of feeling mildly weak. Blood pressure 105/66 with a heart rate of 90, 93% on 3 L of oxygen. White blood cell count 7.4, hemoglobin 7.8, platelet count 132. Sodium 139, potassium 3.2, and 12, creatinine 0.5. Objective - Vital Signs Vital signs: Vital Signs Temp 99.0 F 05/06/19 08:00 Pulse 80 05/06/19 11:55 Resp 18 05/06/19 08:00 BP 105/66 05/06/19 08:00 Pulse Ox 93 L 05/06/19 08:00 Intake & Output 05/05/19 05/06/19 05/06/19 18:59 06:59 18:59 Intake Total 237 Output Total 1200 500 Balance -1200 -500 237 Weight 135.5 kg 135.5 kg Intake: Oral 237 Output: Urine 1200 500 Other: # Voids 1 - Exam General: The patient appeared well nourished and normally developed. HEENT: Head exam is unremarkable. Neck is without jugular venous distension. LUNGS: Lungs are clear to auscultation and percussion. Breath sounds decreased. HEART: Rate and Rhythm are regular. First and second heart sounds normal. No murmurs, rubs or gallops. ABDOMEN: Abdominal exam reveals normal bowel sounds. Non-tender and non- distended. Obese. EXTREMITITES: 1+ edema. - Labs CBC & Chem 7: 05/05/19 04:58 05/05/19 04:58 Assessment and Plan Plan: Assessment #1 GI bleeding #2 long-standing persistent atrial fibrillation Plan At this point in time anticoagulation continues to be on hold per surgical services. Patient is an absolute contraindication to be on anticoagulation, we may consider that she be an option for a watchman device. DNP note has been reviewed, I agree with a documented findings and plan of care. Patient was seen and examined.
[2019-05-06] MEDS ORDERED: LEVOFLOXACIN 750 MG TAB PO SCH (15:00)
== END 2019-05-06 16:51 | DRG 377 ==
LOC: EC 17:13 → 2SICU 21:10 → 3SCARD 05-05 18:06
PROVIDERS: ADMIT Hospitalist; ATTEND Hospitalist
PROC: 30233N1 Transfusion of Nonautologous Red Blood Cells into Peripheral Vein, Percutaneous Approach (ICD-10-PCS; principal; 2019-04-29)
PROC: 0DJ08ZZ Inspection of Upper Intestinal Tract, Via Natural or Artificial Opening Endoscopic (ICD-10-PCS; 2019-05-02)
PROC: 0DBL8ZX Excision of Transverse Colon, Via Natural or Artificial Opening Endoscopic, Diagnostic (ICD-10-PCS; 2019-05-04)
DX: K29.01 Acute gastritis with bleeding (principal); I50.33 Acute on chronic diastolic (congestive) heart failure; I21.4 Non-ST elevation (NSTEMI) myocardial infarction; K22.10 Ulcer of esophagus without bleeding; I48.11 Longstanding persistent atrial fibrillation; D62 Acute posthemorrhagic anemia; N17.9 Acute kidney failure, unspecified; Z68.43 Body mass index [BMI] 50.0-59.9, adult; D69.3 Immune thrombocytopenic purpura; D68.32 Hemorrhagic disorder due to extrinsic circulating anticoagulants; Z87.01 Personal history of pneumonia (recurrent); J44.9 Chronic obstructive pulmonary disease, unspecified; K21.9 Gastro-esophageal reflux disease without esophagitis; K42.9 Umbilical hernia without obstruction or gangrene; K44.9 Diaphragmatic hernia without obstruction or gangrene; K57.30 Diverticulosis of large intestine without perforation or abscess without bleeding; K64.2 Third degree hemorrhoids; M19.072 Primary osteoarthritis, left ankle and foot; M20.40 Other hammer toe(s) (acquired), unspecified foot; D37.4 Neoplasm of uncertain behavior of colon; T50.1X5A Adverse effect of loop [high-ceiling] diuretics, initial encounter; Z79.01 Long term (current) use of anticoagulants; Z79.899 Other long term (current) drug therapy; Z82.49 Family history of ischemic heart disease and other diseases of the circulatory system; Z86.2 Personal history of diseases of the blood and blood-forming organs and certain disorders involving the immune mechanism; D50.9 Iron deficiency anemia, unspecified; D53.9 Nutritional anemia, unspecified; E66.01 Morbid (severe) obesity due to excess calories; E86.0 Dehydration; E86.1 Hypovolemia; E87.5 Hyperkalemia; F32.9 Major depressive disorder, single episode, unspecified; F40.232 Fear of other medical care; G62.9 Polyneuropathy, unspecified; I08.3 Combined rheumatic disorders of mitral, aortic and tricuspid valves; I11.0 Hypertensive heart disease with heart failure; I25.5 Ischemic cardiomyopathy; I27.21 Secondary pulmonary arterial hypertension; Z86.73 Personal history of transient ischemic attack (TIA), and cerebral infarction without residual deficits; Z87.19 Personal history of other diseases of the digestive system; Z96.653 Presence of artificial knee joint, bilateral; I95.9 Hypotension, unspecified; T45.515A Adverse effect of anticoagulants, initial encounter; Z86.14 Personal history of Methicillin resistant Staphylococcus aureus infection; R26.9 Unspecified abnormalities of gait and mobility
CPT/HCPCS: 36415; 43235; 45385; 71045; 71046; 74176; 80048; 80053; 81001; 82105; 82272; 82378; 82728; 83010; 83540; 83550; 83605; 83615; 83735; 83880; 84132; 84145; 84484; 85025; 85027; 85610; 85730; 86850; 86870; 86880; 86900; 86901; 86902; 86920; 87040; 87070; 87205; 87502; 88305; 93005; 93308; 94640; 96374; 96375; 99291

== ENCOUNTER 2019-05-25 20:05 | Inpatient (IN) | payer MEDICARE ==
--- NOTE | 2019-05-25 21:37 | ED ---
Recheck HPI - General Chief Complaint: Recheck/Abnormal Lab/Rx Stated Complaint: Low Hemoglobin Time Seen by Provider: 05/25/19 21:03 Source: patient, EMS Mode of arrival: EMS Limitations: physical limitation - History of Present Illness Initial Comments: This patient is a 73-year-old woman coming from long-term to be evaluated for suspected anemia. The patient had been admitted in the hospital for suspected GI bleeding and anemia. She reportedly required a number of units of packed red cells to be transfused. The patient had been taking a blood thinner, she does not recall the name of it, as treatment for atrial fibrillation. She states th at that was stopped and she was transferred to long-term to have physical rehab. She states that at the long-term she has not been able take any rehab because she is to fatigued and gets dyspneic with exertion. Patient denies pains. No fever or chills. No cough. MD Complaint: abnormal lab Onset/Timin -: days(s) - Related Data Home Medications Medication Instructions Recorded Confirmed Potassium Chloride ER [K-Dur 20] 20 meq PO DAILY@1700 12/29/14 05/26/19 Sertraline HCl [Zoloft] 200 mg PO DAILY 12/29/14 05/26/19 Albuterol Sulfate [Ventolin HFA] 2 puff INHALATION RT-Q4H PRN 04/28/19 05/26/19 Acetaminophen [Tylenol 8 Hour] 650 mg PO Q4H PRN 05/26/19 05/26/19 Caldesene Baby Powder 1 applic TOPICAL TID 05/26/19 05/26/19 Famotidine [Pepcid] 20 mg PO DAILY 05/26/19 05/26/19 Furosemide [Lasix] 40 mg PO DAILY 05/26/19 05/26/19 Menthol-Zinc Oxide Oint 1 applic TOPICAL TID 05/26/19 05/26/19 [Calmoseptine Oint] SILVER sulfADIAZINE CREAM 1 applic TOPICAL HS 05/26/19 05/26/19 [Silvadene Cream] Previous Rx's Medication Instructions Recorded ALPRAZolam [Xanax] 0.25 mg PO DAILY PRN #3 tab 06/03/19 Atorvastatin [Lipitor] 40 mg PO HS tab 06/03/19 Gabapentin [Neurontin] 100 mg PO BID-W/MEALS #6 cap 06/03/19 HYDROcodone/APAP 5-325MG [[place] 1 tab PO Q6HR PRN #12 tab 06/03/19 5-325] Lidocaine 5% Patch [Lidoderm 5% 1 patch TOPICAL DAILY #3 patch 06/03/19 Patch] Metoprolol Tartrate [Lopressor] 12.5 mg PO TID #0 06/03/19 Midodrine [ProAmatine] 5 mg PO AC-TID #9 tab 06/03/19 Mupirocin 2% Oint [Bactroban 2% 1 applic TOPICAL TID applic 06/03/19 Oint] Simethicone Chew [Mylicon Chew] 40 mg PO QID PRN chew 06/03/19 Allergies Allergy/AdvReac Type Severity Reaction Status Date / Time No Known Allergies Allergy Verified 05/26/19 07:36 Review of Systems ROS Statement: Those systems with pertinent positive or pertinent negative responses have been documented in the HPI. ROS Other: All systems not noted in ROS Statement are negative. Constitutional: Denies: fever, chills Respiratory: Denies: cough, dyspnea Cardiovascular: Reports: dyspnea on exertion. Denies: chest pain, palpitations, orthopnea, syncope Gastrointestinal: Denies: abdominal pain, vomiting, diarrhea, melena, hemato chezia Genitourinary: Denies: dysuria, hematuria Musculoskeletal: Denies: back pain Skin: Denies: rash Neurological: Denies: headache, weakness, numbness Hematological/Lymphatic: Reports: as per HPI Past Medical History Past Medical History: Blood Disorder, Heart Failure, CVA/TIA, GERD/Reflux, Hypertension Additional Past Medical History / Comment(s): ITP DISORDER History of Any Multi-Drug Resistant Organisms: MRSA Date of last positivie culture/infection: 2012 MDRO Source:: URINE Past Surgical History: Orthopedic Surgery Additional Past Surgical History / Comment(s): BRAIN SURGERY AFTER BLEED in 2013, bilateral knee replacements Past Anesthesia/Blood Transfusion Reactions: No Reported Reaction Past Psychological History: Depression Smoking Status: Never smoker Past Alcohol Use History: None Reported Past Drug Use History: None Reported - Past Family History Sister(s) Family Medical History: AFIB, Congestive Heart Failure (CHF) Father Additional Family Medical History / Comment(s): Father had ETOH abuse. He in his later 70s. Mother Family Medical History: Hypertension General Exam Limitations: physical limitation General appearance: alert, obese Head exam: Present: atraumatic, normocephalic Eye exam: Present: normal appearance. Absent: scleral icterus, conjunctival injection ENT exam: Present: normal oropharynx Respiratory exam: Present: rales (Bilateral bases), other (Patient is pursed lip breathing, though with normal rate). Absent: wheezes, rhonchi, stridor, accessory muscle use, decreased breath sounds Cardiovascular Exam: Present: regular rate (Rate approximately 88 bpm my exam), irregular rhythm, systolic murmur (Grade 3 systolic ejection murmur at the left sternal border.). Absent: diastolic murmur, rubs, gallop GI/Abdominal exam: Present: soft. Absent: distended, tenderness, guarding, rebound, rigid, mass Extremities exam: Present: normal inspection, normal capillary refill. Absent: pedal edema, calf tenderness Back exam: Present: normal inspection. Absent: CVA tenderness (R), CVA tenderness (L) Neurological exam: Present: alert, oriented X3, CN II-XII intact Skin exam: Present: warm, dry, intact, normal color. Absent: rash Course Vital Signs 05/25/19 05/25/19 05/25/19 20:09 20:11 20:19 Temperature 98.2 F Pulse Rate 81 Pulse Rate [ Pulse Oximetery ] Respiratory 20 20 Rate Blood Pressure 111/64 Blood Pressure [Right Arm] O2 Sat by Pulse 81 L 95 Oximetry 05/25/19 05/25/19 05/26/19 22:00 23:00 00:00 Temperature Pulse Rate 82 77 78 Pulse Rate [ Pulse Oximetery ] Respiratory 24 16 20 Rate Blood Pressure 95/57 99/62 120/64 Blood Pressure [Right Arm] O2 Sat by Pulse 100 97 97 Oximetry 05/26/19 05/26/19 05/26/19 01:00 03:02 06:30 Temperature Pulse Rate 75 89 72 Pulse Rate [ Pulse Oximetery ] Respiratory 24 20 20 Rate Blood Pressure 107/69 100/61 88/64 Blood Pressure [Right Arm] O2 Sat by Pulse 99 96 96 Oximetry 05/26/19 05/26/19 05/26/19 08:00 11:01 11:03 Temperature 97.6 F 98 F 98 F Pulse Rate Pulse Rate [ 86 97 77 Pulse Oximetery ] Respiratory 18 18 18 Rate Blood Pressure Blood Pressure 113/62 94/58 94/58 [Right Arm] O2 Sat by Pulse 95 96 Oximetry Medical Decision Making - Medical Decision Making This patient is 73-year-old woman from long-term for suspected anemia. The patient's hemoglobin today is 7.4 and on discharge it was 7.8 so. To be nearly stable. More concerning is that on the exam, patient does have crackles over the lower lung hussein and his pursed lip breathing. The patient's Lasix had been stopped at the long-term due to concerns about renal function. We will admit the patient overnight for diuresis and see if this improves her exercise tolerance as well. Patient has minimally elevated troponin and suspect that t his is related to the CHF as well. Remainder of the patient's labs appear to be stable. - Lab Data Result diagrams: 05/31/19 05:46 06/03/19 06:07 Lab Results 05/25/19 05/25/19 05/25/19 Range/Units 21:53 21:53 21:53 WBC 6.4 (3.8-10.6) k/uL RBC 2.66 L (3.80-5.40) m/uL Hgb 7.4 L (11.4-16.0) gm/dL Hct 23.4 L (34.0-46.0) % MCV 88.1 (80.0-100.0) fL MCH 27.7 (25.0-35.0) pg MCHC 31.4 (31.0-37.0) g/dL RDW 17.9 H (11.5-15.5) % Plt Count 124 L (150-450) k/uL Neutrophils % 80 % Lymphocytes % 10 % Monocytes % 5 % Eosinophils % 4 % Basophils % 0 % Neutrophils # 5.1 (1.3-7.7) k/uL Lymphocytes # 0.6 L (1.0-4.8) k/uL Monocytes # 0.3 (0-1.0) k/uL Eosinophils # 0.3 (0-0.7) k/uL Basophils # 0.0 (0-0.2) k/uL Hypochromasia Slight Anisocytosis Slight PT 10.8 (9.0-12.0) sec INR 1.1 (<1.2) APTT 24.7 (22.0-30.0) sec Sodium (137-145) mmol/L Potassium (3.5-5.1) mmol/L Chloride (98-107) mmol/L Carbon Dioxide (22-30) mmol/L Anion Gap mmol/L BUN (7-17) mg/dL Creatinine (0.52-1.04) mg/dL Est GFR (CKD-EPI)AfAm (>60 ml/min/1.73 sqM) Est GFR (CKD-EPI)NonAf (>60 ml/min/1.73 sqM) Glucose (74-99) mg/dL Plasma Lactic Acid Sam (0.7-2.0) mmol/L Calcium (8.4-10.2) mg/dL Magnesium (1.6-2.3) mg/dL Total Bilirubin (0.2-1.3) mg/dL AST (14-36) U/L ALT (4-34) U/L Alkaline Phosphatase (38-126) U/L Troponin I (0.000-0.034) ng/mL NT-Pro-B Natriuret Pep pg/mL Total Protein (6.3-8.2) g/dL Albumin (3.5-5.0) g/dL Urine Color Urine Appearance (Clear) Urine pH (5.0-8.0) Ur Specific [place] (1.001-1.035) Urine Protein (Negative) Urine Glucose (UA) (Negative) Urine Ketones (Negative) Urine Blood (Negative) Urine Nitrite (Negative) Urine Bilirubin (Negative) Urine Urobilinogen (<2.0) mg/dL Ur Leukocyte Esterase (Negative) Urine RBC (0-5) /hpf Urine WBC (0-5) /hpf Ur Squamous Epith Cells (0-4) /hpf Hyaline Casts (0-2) /lpf Urine Mucus (None) /hpf Blood Type B Positive Blood Type Recheck B Pos Bld Type Recheck Status No Antibody Screen NEGATIVE Crossmatch See Detail Spec Expiration Date 05/28/2019 - 235205/25/19 05/25/19 05/25/19 Range/Units 21:53 21:53 21:53 WBC (3.8-10.6) k/uL RBC (3.80-5.40) m/uL Hgb (11.4-16.0) gm/dL Hct (34.0-46.0) % MCV (80.0-100.0) fL MCH (25.0-35.0) pg MCHC (31.0-37.0) g/dL RDW (11.5-15.5) % Plt Count (150-450) k/uL Neutrophils % % Lymphocytes % % Monocytes % % Eosinophils % % Basophils % % Neutrophils # (1.3-7.7) k/uL Lymphocytes # (1.0-4.8) k/uL Monocytes # (0-1.0) k/uL Eosinophils # (0-0.7) k/uL Basophils # (0-0.2) k/uL Hypochromasia Anisocytosis PT (9.0-12.0) sec INR (<1.2) APTT (22.0-30.0) sec Sodium 138 (137-145) mmol/L Potassium 3.7 (3.5-5.1) mmol/L Chloride 97 L (98-107) mmol/L Carbon Dioxide 37 H (22-30) mmol/L Anion Gap 4 mmol/L BUN 36 H (7-17) mg/dL Creatinine 0.85 (0.52-1.04) mg/dL Est GFR (CKD-EPI)AfAm 78 (>60 ml/min/1.73 sqM) Est GFR (CKD-EPI)NonAf 68 (>60 ml/min/1.73 sqM) Glucose 101 H (74-99) mg/dL Plasma Lactic Acid Sam 1.3 (0.7-2.0) mmol/L Calcium 8.6 (8.4-10.2) mg/dL Magnesium 2.1 (1.6-2.3) mg/dL Total Bilirubin 0.8 (0.2-1.3) mg/dL AST 42 H (14-36) U/L ALT 17 (4-34) U/L Alkaline Phosphatase 87 (38-126) U/L Troponin I 0.040 H* (0.000-0.034) ng/mL NT-Pro-B Natriuret Pep pg/mL Total Protein 6.0 L (6.3-8.2) g/dL Albumin 3.1 L (3.5-5.0) g/dL Urine Color Urine Appearance (Clear) Urine pH (5.0-8.0) Ur Specific [place] (1.001-1.035) Urine Protein (Negative) Urine Glucose (UA) (Negative) Urine Ketones (Negative) Urine Blood (Negative) Urine Nitrite (Negative) Urine Bilirubin (Negative) Urine Urobilinogen (<2.0) mg/dL Ur Leukocyte Esterase (Negative) Urine RBC (0-5) /hpf Urine WBC (0-5) /hpf Ur Squamous Epith Cells (0-4) /hpf Hyaline Casts (0-2) /lpf Urine Mucus (None) /hpf Blood Type Blood Type Recheck Bld Type Recheck Status Antibody Screen Crossmatch Spec Expiration Date 05/25/19 05/25/19 Range/Units 21:53 22:15 WBC (3.8-10.6) k/uL RBC (3.80-5.40) m/uL Hgb (11.4-16.0) gm/dL Hct (34.0-46.0) % MCV (80.0-100.0) fL MCH (25.0-35.0) pg MCHC (31.0-37.0) g/dL RDW (11.5-15.5) % Plt Count (150-450) k/uL Neutrophils % % Lymphocytes % % Monocytes % % Eosinophils % % Basophils % % Neutrophils # (1.3-7.7) k/uL Lymphocytes # (1.0-4.8) k/uL Monocytes # (0-1.0) k/uL Eosinophils # (0-0.7) k/uL Basophils # (0-0.2) k/uL Hypochromasia Anisocytosis PT (9.0-12.0) sec INR (<1.2) APTT (22.0-30.0) sec Sodium (137-145) mmol/L Potassium (3.5-5.1) mmol/L Chloride (98-107) mmol/L Carbon Dioxide (22-30) mmol/L Anion Gap mmol/L BUN (7-17) mg/dL Creatinine (0.52-1.04) mg/dL Est GFR (CKD-EPI)AfAm (>60 ml/min/1.73 sqM) Est GFR (CKD-EPI)NonAf (>60 ml/min/1.73 sqM) Glucose (74-99) mg/dL Plasma Lactic Acid Sam (0.7-2.0) mmol/L Calcium (8.4-10.2) mg/dL Magnesium (1.6-2.3) mg/dL Total Bilirubin (0.2-1.3) mg/dL AST (14-36) U/L ALT (4-34) U/L Alkaline Phosphatase (38-126) U/L Troponin I (0.000-0.034) ng/mL NT-Pro-B Natriuret Pep 3410 pg/mL Total Protein (6.3-8.2) g/dL Albumin (3.5-5.0) g/dL Urine Color Light Yellow Urine Appearance Cloudy H (Clear) Urine pH 6.0 (5.0-8.0) Ur Specific [place] 1.008 (1.001-1.035) Urine Protein Negative (Negative) Urine Glucose (UA) Negative (Negative) Urine Ketones Negative (Negative) Urine Blood Small H (Negative) Urine Nitrite Negative (Negative) Urine Bilirubin Negative (Negative) Urine Urobilinogen 2.0 (<2.0) mg/dL Ur Leukocyte Esterase Small H (Negative) Urine RBC 6 H (0-5) /hpf Urine WBC 13 H (0-5) /hpf Ur Squamous Epith Cells 2 (0-4) /hpf Hyaline Casts 6 H (0-2) /lpf Urine Mucus Rare H (None) /hpf Blood Type Blood Type Recheck Bld Type Recheck Status Antibody Screen Crossmatch Spec Expiration Date - EKG Data -: EKG Interpreted by Me EKG shows normal: sinus rhythm, axis (Normal), intervals (Normal), QRS complexes (Normal) Interpretation: nonspecific ST-T wave changes Disposition Clinical Impression: Congestive heart failure Disposition: ADMITTED IP TO THIS [facility] Condition: Stable Is patient prescribed a controlled substance at d/c from ED?: No
[2019-05-25 22:14] LABS: Anisocytosis Slight; Basophils % (A) 0 %; Eosinophils # (A) 0.3 k/uL (0-0.7); Eosinophils % (A) 4 %; HCT 23.4 % (34.0-46.0); HGB 7.4 gm/dL (11.4-16.0); Hypochromasia Slight; Lymphocytes # (A) 0.6 k/uL (1.0-4.8); Lymphocytes % (A) 10 %; MCH 27.7 pg (25.0-35.0); MCHC 31.4 g/dL (31.0-37.0); MCV 88.1 fL (80.0-100.0); Mean Platelet Volume 7.7; Monocytes # (A) 0.3 k/uL (0-1.0); Monocytes % (A) 5 %; Neutrophils # (A) 5.1 k/uL (1.3-7.7); Neutrophils % (A) 80 %; Platelet Count 124 k/uL (150-450); RBC 2.66 m/uL (3.80-5.40); RDW 17.9 % (11.5-15.5); WBC 6.4 k/uL (3.8-10.6)
--- NOTE | 2019-05-25 22:14 | XR ---
EXAMINATION TYPE: XR chest 1V portable DATE OF EXAM: 05/25/2019 COMPARISON: 05/03/2019 HISTORY: Short of breath TECHNIQUE: Single view FINDINGS: Heart is enlarged. There is mild pulmonary congestion. There is some blunting of the costop hrenic angles. Thoracic aorta is atheromatous. There are chest leads. IMPRESSION: There is evidence of mild to moderate heart failure improved compared to last exam. Moder ate cardiomegaly.
[2019-05-25 22:21] LABS: INR 1.1 (<1.2); Partial Thromboplastin Time 24.7 sec (22.0-30.0); Prothrombin Time 10.8 sec (9.0-12.0)
[2019-05-25 22:23] LABS: Albumin 3.1 g/dL (3.5-5.0); Calcium 8.6 mg/dL (8.4-10.2); Magnesium 2.1 mg/dL (1.6-2.3); Potassium 3.7 mmol/L (3.5-5.1); Total Bilirubin 0.8 mg/dL (0.2-1.3)
[2019-05-25 22:35] LABS: Appearance,Urine Cloudy (Clear); Bilirubin,Urine Negative (Negative); Blood,Urine Small (Negative); Color,Urine Light Yellow; Glucose,Urine (UA) Negative (Negative); Hyaline Casts,Urine 6 /lpf (0-2); Ketones,Urine Negative (Negative); Leukocyte Esterase,Urine Small (Negative); Mucus,Urine Rare /hpf; Nitrite,Urine Negative (Negative); Protein,Urine Negative (Negative); RBC,Urine 6 /hpf (0-5); Specific Gravity,Urine 1.008 (1.001-1.035); Squamous Epithelial Cell,Urine 2 /hpf (0-4); WBC,Urine 13 /hpf (0-5)
[2019-05-25] MEDS ORDERED: FUROSEMIDE 10 MG/ML 4 ML VIAL IV STA (23:44)
[2019-05-25] MEDS ORDERED: SUMAtriptan SUCCINATE 50 MG TAB PO PRN (23:52)
[2019-05-25] MEDS ORDERED: ALBUTEROL NEBULIZED 2.5 MG/3 ML INHALATION PRN (23:52)
[2019-05-25] MEDS ORDERED: SIMETHICONE 80 MG CHEWABLE PO PRN (23:52)
[2019-05-26] MEDS: FUROSEMIDE 10 MG/ML 4 ML VIAL IV SCH ×4 (02:46→21:59)
[2019-05-26] MEDS: POTASSIUM CHLORIDE ER 20 MEQ TAB.ER PO SCH (08:37)
[2019-05-26] MEDS: PANTOPRAZOLE 40 MG TABLET PO SCH (08:37)
[2019-05-26] MEDS: HYDROcodone/APAP 5-325MG 1 EACH TAB PO PRN (08:40)
[2019-05-26] MEDS ORDERED: METOPROLOL TARTRATE 25 MG TAB PO SCH (09:00)
[2019-05-26] MEDS ORDERED: LOSARTAN 50 MG TAB PO SCH (09:00)
[2019-05-26] MEDS ORDERED: ACETAMINOPHEN TAB 325 MG TAB PO PRN (10:28)
[2019-05-26] MEDS: SERTRALINE 100 MG TAB PO SCH (10:57)
[2019-05-26] MEDS: MUPIROCIN 2% OINT 22 GM TUBE TOPICAL SCH ×2 (10:58→14:03)
[2019-05-26] MEDS: GABAPENTIN 100 MG CAP PO SCH ×2 (12:26→22:00)
--- NOTE | 2019-05-26 13:28 | CONS ---
CONSULTATION Mrs. Mays is a 73-year-old female who presented with progressive symptoms of fatigue and lack of energy. The patient has a known history of chronic persistent atrial fibrillation, recent admission for GI bleeding as well as a history of stroke and ITP. She was in the hospital recently in April because of the symptoms of GI bleeding and underwent upper endoscopy and was found to have superficial gastritis with bleeding. After she has been home, she has been progressively fatigued, lack of energy, some mild dyspnea. She denies any chest pain. She denies any dizziness. She denies any clear signs of recurrent bleeding. She had an echocardiogram done in April that revealed a preserved systolic function. The patient's activity is somewhat limited. She has no prior history of myocardial infarction or impairment of left ventricular systolic function. She has a history of moderate aortic valve stenosis as well as moderate mitral and tricuspid regurgitation with preserved systolic function as noted. Her coronary risk factors are positive for a history of hypertension. She is nondiabetic, not hyperlipidemic. MEDICATION: Her medications at home included Lopressor 25 mg twice a day, losartan 100 mg daily, Lasix 40 mg daily, Pepcid. REVIEW OF SYSTEMS: RESPIRATORY SYSTEM: She had dyspnea on exertion. She has no recent wheezing or cough. GI SYSTEM: She had GI bleeding without any recurrence since her discharge. NERVOUS SYSTEM: She had a history of cerebrovascular accident about 5 years ago. PHYSICAL EXAMINATION: She is a 73-year-old female, alert, oriented, in no apparent distress. Blood pressure running in the low 100s. HEAD: Normocephalic. EYES: Sclerae anicteric. NECK: Good carotid upstroke. No bruit. No jugular venous distention. LUNGS: Clear to auscultation. HEART: Irregular, irregular. S1, S2. No S3 with systolic murmur heard at the base ejection type, 2/6. No diastolic murmur. No rub. ABDOMEN: Soft, obese, nontender. Positive bowel sounds. No organomegaly. EXTREMITIES: With chronic stasis noted bilaterally. LAB DATA: Lab data revealed a hemoglobin of 7.4. On the discharge on the 05 of May, she was 7.8. Her white blood cell is 6.4. BUN and creatinine 36 and 0.85. Her troponin 0.04, 0.04 and 0.04. Her NT proBNP 3410. Her chest x-ray shows fluid overload improved compared to her prior x-ray. Her EKG is suggestive of accelerated junctional rhythm. No clear P waves noted. Subsequently, on the monitor, she was in atrial fibrillation. IMPRESSION: 1. Symptoms of progressive fatigue and dyspnea, could be worsened by the anemia. Patient remains quite anemic. 2. Evidence of mild fluid overload, most likely worsened by the anemia and with a preserved systolic function. 3. Mild troponin elevation, not reflective of a cardiac ischemia. She had a flat pattern. 4. History of atrial fibrillation. 5. Morbid obesity. 6. History of hypertension. 7. Mild to moderate aortic stenosis. 8. History of hypertension. RECOMMENDATION: From the cardiac standpoint I will diurese the patient. We will follow her renal function. There is no indication to repeat her echocardiogram at this time. I will decrease the dose of her losartan at this time because of her lower blood pressure. We will continue on the beta palmira. We will hold her anticoagulation. The patient may be a candidate for Watchman procedure because of the prior stroke and the history of atrial fibrillation. Thank you for this consult. We will follow with you. MMODL / IJN: [id number] /
[2019-05-26] MEDS: MENTHOL-ZINC OXIDE OINT 113 GM TUBE TOPICAL SCH ×2 (14:03→15:55)
--- NOTE | 2019-05-26 19:44 | P.HPIM ---
History of Present Illness H&P Date: 05/26/19 Chief Complaint: Tired Chief Complaint: Short of breath History of presenting complaint: This is a very pleasant 73-year-old patient of Dr. Bob Kuo. Chronic stable medical conditions include GERD, hypertension, ITP, depression, painful periphe ral neuropathy on Neurontin, CHF, atrial fibrillation.. Recent EGD showed-grade B erosive esophagitis, superficial gastritis and some bleeding along the gastric cardia. Also had internal hemorrhoids. Patient's a prior brain bleed. Has left her with some weakness on the right side. She has trouble feeling with the right hand. Patient has been at the [facility]. Was able to get to about 15 steps. L ast few days patient been having more trouble walking. Care is extremely tired. We general aches. No fever or chills. Appetite is not good. had diarrhea for last 2 days, 3 bowel movements a day. Just watery. No blood. Slight abdominal discomfort. No nausea vomiting. No fever or chills. Patient's daughter the bedside. Review of systems: GEN.: Tired EYES: None HEENT: None NECK: None RESPIRATORY: None CARDIOVASCULAR: no chest pain GASTROINTESTINAL: As above GENITOURINARY: None MUSCULOSKELETAL: Joint pains LYMPHATICS: None HEMATOLOGICAL: None PSYCHIATRY: None NEUROLOGICAL: Residual right-sided weakness Past medical history to include: Congestive heart failure, brain bleed pleural effusion and right-sided weakness, GERD, hypertension, ITP, depression, painful peripheral neuropathy, CHF, atrial fibrillation, esophagitis, internal hemorrhoids Social history: . Does use a walker. Does not smoke or drink alcohol. Currently at [facility] Family history: Reviewed, noncontributory to presentation Physical examination: VITAL SIGNS: 98.2, 81, 20, blood pressure 111/64, 95% on 5 L GENERAL: BMI 55.7 laying in bed tired. EYES: Pupils equal. Conjunctiva pale HEENT: External appearance of nose and ears normal, oral cavity grossly normal. NECK: JVD unable to assess, masses not palpable. HEART: First and second heart sounds are normal; edema present. LUNGS: Respiratory rate normal; distant breath sounds ABDOMEN: Soft, nontender, liver spleen not palpable, no masses palpable. PSYCH: Alert and oriented x3; mood and affect tired. NEUROLOGICAL: Cranial nerves grossly intact; no facial asymmetry, power and sensation grossly intact. LYMPHATICS: No lymph nodes palpable in the axilla and neck Muscular skeletal: Evidence of OA INVESTIGATIONS, reviewed in the clinical context: White count 6.4 hemoglobin 7.4 platelets 124 potassium 3.7 bun 36 creatinine 0.85 Troponin I 0.040, 0.043, 0.040proBNP 3410 UA positive for leukoesterase, WBC EKG tracing personally reviewed by me-atrial fibrillation, rate controlled chestx-ray filmpersonally reviewed by me shows-pulmonary edema 2-D echo-Limited review EF 50-55% from April 29 Assessment: -Acute on chronic congestive heart exacerbationfrom diastolic dysfunction EF 50- 55% -Increasing weakness likely from symptomatic anemia. Was able to was above 7 given his symptoms and he will unit of blood. -Chronic esophagitis gastritis , internal hemorrhoid -Troponin leak possibly from hemodynamic mismatch with low blood pressure.Lynne from CHF -Moderate aortic stenosis, moderate tricuspid regurgitation, moderate pulmonary hypertension secondary -Persistent atrial fibrillation rate controlled -Left foot osteoarthritis with hammertoe from second to through fifth toe. 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 bleed -Depression not otherwise specified -Chronic gait dysfunction uses a walker at her baseline Plan: patient started on IV Lasix. We'll give one unit of blood. Other home medications are to continue. We'll consult PTOT. Care was discussed with the patient daughter the bedside. Prognosis guarded. cardiologyconsulted. Past Medical History Past Medical History: Blood Disorder, Heart Failure, CVA/TIA, GERD/Reflux, Hypertension Additional Past Medical History / Comment(s): ITP DISORDER History of Any Multi-Drug Resistant Organisms: MRSA Date of last positivie culture/infection: 2012 MDRO Source:: URINE Past Surgical History: Orthopedic Surgery Additional Past Surgical History / Comment(s): BRAIN SURGERY AFTER BLEED in 2013, bilateral knee replacements Past Anesthesia/Blood Transfusion Reactions: No Reported Reaction Past Psychological History: Depression Smoking Status: Never smoker Past Alcohol Use History: None Reported Past Drug Use History: None Reported - Past Family History Sister(s) Family Medical History: AFIB, Congestive Heart Failure (CHF) Father Additional Family Medical History / Comment(s): Father had ETOH abuse. He in his later 70s. Mother Family Medical History: Hypertension Medications and Allergies Home Medications Medication Instructions Recorded Confirmed Type Potassium Chloride ER [K-Dur 20] 20 meq PO DAILY@1700 12/29/14 05/26/19 History Sertraline HCl [Zoloft] 200 mg PO DAILY 12/29/14 05/26/19 History Losartan Potassium 100 mg PO DAILY 03/23/19 05/26/19 History Albuterol Sulfate [Ventolin HFA] 2 puff INHALATION RT-Q4H PRN 04/28/19 05/26/19 History HYDROcodone/APAP 5-325MG [[place] 1 tab PO Q6HR PRN #12 tab 05/06/19 05/26/19 Rx 5-325] ALPRAZolam [Xanax] 0.25 mg PO DAILY PRN 05/26/19 05/26/19 History Acetaminophen [Tylenol 8 Hour] 650 mg PO Q4H PRN 05/26/19 05/26/19 History Apixaban [Eliquis] 2.5 mg PO BID-W/MEALS 05/26/19 05/26/19 History Caldesene Baby Powder 1 applic TOPICAL TID 05/26/19 05/26/19 History Famotidine [Pepcid] 20 mg PO DAILY 05/26/19 05/26/19 History Furosemide [Lasix] 40 mg PO DAILY 05/26/19 05/26/19 History Gabapentin [Neurontin] 100 mg PO BID-W/MEALS 05/26/19 05/26/19 History Menthol-Zinc Oxide Oint 1 applic TOPICAL TID 05/26/19 05/26/19 History [Calmoseptine Oint] Metoprolol Tartrate [Lopressor] 25 mg PO BID-W/MEALS 05/26/19 05/26/19 History SILVER sulfADIAZINE CREAM 1 applic TOPICAL HS 05/26/19 05/26/19 History [Silvadene Cream] Allergies Allergy/AdvReac Type Severity Reaction Status Date / Time No Known Allergies Allergy Verified 05/26/19 07:36 Physical Exam Vitals: Vital Signs Temp Pulse Pulse Resp BP BP Pulse Ox 05/26/19 08:00 97.6 F 86 18 113/62 95 05/26/19 06:30 72 20 88/64 96 05/26/19 03:02 89 20 100/61 96 05/26/19 01:00 75 24 107/69 99 05/26/19 00:00 78 20 120/64 97 05/25/19 23:00 77 16 99/62 97 05/25/19 22:00 82 24 95/57 100 05/25/19 20:19 20 05/25/19 20:11 98.2 F 81 20 111/64 95 05/25/19 20:09 81 L Intake and Output 05/25/19 05/26/19 05/26/19 22:59 06:59 14:59 Other: # Voids 1 Weight 156.489 kg Results CBC & Chem 7: 05/25/19 21:53 05/25/19 21:53 Labs: Abnormal Lab Results - Last 24 Hours (Table) 05/25/19 05/25/19 05/25/19 Range/Units 21:53 21:53 21:53 RBC 2.66 L (3.80-5.40) m/uL Hgb 7.4 L (11.4-16.0) gm/dL Hct 23.4 L (34.0-46.0) % RDW 17.9 H (11.5-15.5) % Plt Count 124 L (150-450) k/uL Lymphocytes # 0.6 L (1.0-4.8) k/uL Chloride 97 L (98-107) mmol/L Carbon Dioxide 37 H (22-30) mmol/L BUN 36 H (7-17) mg/dL Glucose 101 H (74-99) mg/dL AST 42 H (14-36) U/L Troponin I 0.040 H* (0.000-0.034) ng/mL Total Protein 6.0 L (6.3-8.2) g/dL Albumin 3.1 L (3.5-5.0) g/dL Urine Appearance (Clear) Urine Blood (Negative) Ur Leukocyte Esterase (Negative) Urine RBC (0-5) /hpf Urine WBC (0-5) /hpf Hyaline Casts (0-2) /lpf Urine Mucus (None) /hpf 05/25/19 05/26/19 Range/Units 22:15 06:11 RBC (3.80-5.40) m/uL Hgb (11.4-16.0) gm/dL Hct (34.0-46.0) % RDW (11.5-15.5) % Plt Count (150-450) k/uL Lymphocytes # (1.0-4.8) k/uL Chloride (98-107) mmol/L Carbon Dioxide (22-30) mmol/L BUN (7-17) mg/dL Glucose (74-99) mg/dL AST (14-36) U/L Troponin I 0.043 H* (0.000-0.034) ng/mL Total Protein (6.3-8.2) g/dL Albumin (3.5-5.0) g/dL Urine Appearance Cloudy H (Clear) Urine Blood Small H (Negative) Ur Leukocyte Esterase Small H (Negative) Urine RBC 6 H (0-5) /hpf Urine WBC 13 H (0-5) /hpf Hyaline Casts 6 H (0-2) /lpf Urine Mucus Rare H (None) /hpf Microbiology - Last 24 Hours (Table) 05/25/19 22:15 Urine Culture - Preliminary Urine,Clean Catch
[2019-05-26] MEDS: ALPRAZolam 0.25 MG TAB PO PRN (21:59)
[2019-05-26] MEDS: METOPROLOL TARTRATE 25 MG TAB PO SCH (22:00)
[2019-05-26] MEDS: ATORVASTATIN 40 MG TAB PO SCH (22:00)
[2019-05-27] MEDS: MUPIROCIN 2% OINT 22 GM TUBE TOPICAL SCH ×4 (06:38→21:42)
[2019-05-27] MEDS: MENTHOL-ZINC OXIDE OINT 113 GM TUBE TOPICAL SCH ×4 (06:38→21:39)
[2019-05-27] MEDS: PANTOPRAZOLE 40 MG TABLET PO SCH (06:41)
[2019-05-27 08:05] LABS: Anisocytosis Slight; HCT 22.4 % (34.0-46.0); Hypochromasia Moderate; MCH 27.8 pg (25.0-35.0); MCV 89.6 fL (80.0-100.0); Platelet Count 113 k/uL (150-450); RDW 18.1 % (11.5-15.5); WBC 5.8 k/uL (3.8-10.6)
[2019-05-27 08:11] LABS: Calcium 8.4 mg/dL (8.4-10.2)
[2019-05-27] MEDS: GABAPENTIN 100 MG CAP PO SCH ×2 (09:23→21:23)
[2019-05-27] MEDS: HYDROcodone/APAP 5-325MG 1 EACH TAB PO PRN (09:23)
[2019-05-27] MEDS: POTASSIUM CHLORIDE ER 20 MEQ TAB.ER PO SCH (09:23)
[2019-05-27] MEDS: SERTRALINE 100 MG TAB PO SCH (09:23)
[2019-05-27] MEDS: METOPROLOL TARTRATE 25 MG TAB PO SCH ×2 (09:23→21:22)
[2019-05-27] MEDS: LOSARTAN 25 MG TAB PO SCH (09:24)
[2019-05-27] MEDS: FUROSEMIDE 10 MG/ML 4 ML VIAL IV SCH (10:59)
--- NOTE | 2019-05-27 16:11 | P.PN ---
Progress Note - Text Progress Note Date: 05/27/19 Chief Complaint: Short of breath History of presenting complaint: This is a very pleasant 73-year-old patient of Dr. Bob Kuo. Chronic stable medical conditions include GERD, hypertension, ITP, depression, painful peripheral neuropathy on Neurontin, CHF, atrial fibrillation.. Recent EGD showed-grade B erosive esophagitis, superficial gastritis and some bleeding along the gastric cardia. Also had internal hemorrhoids. Patient's a prior brain bleed. Has left her with some weakness on the right side. She has trouble feeling with the right hand. Patient has been at the [facility]. Was able to get to about 15 steps. Last few days patient been having more trouble walking. Care is extremely tired. We general aches. No fever or chills. Appetite is not good. had diarrhea for last 2 days, 3 bowel movements a day. Just watery. No blood. Slight abdominal discomfort. No nausea vomiting. No fever or chills. Patient's daughter the bedside. Patient admitted with symptomatic anemia, increasing medical debility, CHF exacerbation. One unit of blood was ordered. On IV Lasix Today-patient is getting a unit of blood. Sitting upon a chair. Some shortness of breath. Did eat all her breakfast and lunch. Remains on IV Lasix Review of systems: Was done for constitutional, cardiovascular, GI, pulmonary. relevant finding as above Active Medications Acetaminophen (Tylenol Tab) 650 mg PO Q4H PRN PRN Reason: Pain Hydrocodone Bitart/Acetaminophen ([place] 5-325) 1 each PO Q6HR PRN PRN Reason: Moderate to Severe Pain Last Admin: 05/27/19 09:23 Dose: 1 each Documented by: Albuterol Sulfate (Ventolin Nebulized) 2.5 mg INHALATION RT-Q4H PRN PRN Reason: Shortness Of Breath Alprazolam (Xanax) 0.25 mg PO TID PRN PRN Reason: Anxiety Last Admin: 05/26/19 21:59 Dose: 0.25 mg Documented by: Atorvastatin Calcium (Lipitor) 40 mg PO HS [facility] Last Admin: 05/26/19 22:00 Dose: 40 mg Documented by: Calamine/Phenol (Calmoseptine Oint) 1 applic TOPICAL TID [facility] Last Admin: 05/27/19 09:24 Dose: 1 applic Documented by: Furosemide (Lasix) 40 mg IV Q12H [facility] Last Admin: 05/27/19 10:59 Dose: 40 mg Documented by: Gabapentin (Neurontin) 100 mg PO BID [facility] Last Admin: 05/27/19 09:23 Dose: 100 mg Documented by: Losartan Potassium (Cozaar) 25 mg PO DAILY [facility] Last Admin: 05/27/19 09:24 Dose: 25 mg Documented by: Metoprolol Tartrate (Lopressor) 25 mg PO BID [facility] Last Admin: 05/27/19 09:23 Dose: 25 mg Documented by: Mupirocin (Bactroban Oint) 1 applic TOPICAL TID [facility] Last Admin: 05/27/19 09:24 Dose: Not Given Documented by: Pantoprazole Sodium (Protonix) 40 mg PO DAILY@0730 [facility] Last Admin: 05/27/19 06:41 Dose: 40 mg Documented by: Potassium Chloride (K-Dur 20) 20 meq PO DAILY [facility] Last Admin: 05/27/19 09:23 Dose: 20 meq Documented by: Sertraline HCl (Zoloft) 200 mg PO DAILY [facility] Last Admin: 05/27/19 09:23 Dose: 200 mg Documented by: Silver Sulfadiazine (Silvadene Cream) 1 applic TOPICAL HS [facility] Simethicone (Mylicon Chew) 40 mg PO QID PRN PRN Reason: gas pains/gi upset Sodium Chloride (Saline Flush) 10 ml IV BID [facility] Last Admin: 05/27/19 09:26 Dose: 10 ml Documented by: Sumatriptan Succinate (Imitrex) 50 mg PO DAILY PRN PRN Reason: Migraine Headache . Physical examination: VITAL SIGNS: 97.8, 66, 18, that pressure 95/63, 98% on 2 L GENERAL: Sitting up in a chair, more awake today EYES: Pupils equal. Conjunctiva pale HEENT: External appearance of nose and ears normal, oral cavity grossly normal. NECK: JVD unable to assess, masses not palpable. HEART: First and second heart sounds are normal; edema present. LUNGS: Respiratory rate normal; distant breath sounds ABDOMEN: Soft, nontender, liver spleen not palpable, no masses palpable. PSYCH: Alert and oriented x3; mood and affect tired. NEUROLOGICAL: Cranial nerves grossly intact; no facial asymmetry, power and sensation grossly intact. Muscular skeletal: Evidence of OA INVESTIGATIONS, reviewed in the clinical context: White count 5.8 hemoglobin 7 platelets 113 potassium 4 creatinine 0.88 Previous testing White count 6.4 hemoglobin 7.4 platelets 124 potassium 3.7 bun 36 creatinine 0.85 Troponin I 0.040, 0.043, 0.040proBNP 3410 UA positive for leukoesterase, WBC EKG tracing personally reviewed by me-atrial fibrillation, rate controlled chestx-ray filmpersonally reviewed by me shows-pulmonary edema 2-D echo-Limited review EF 50-55% from April 29 Assessment: -Acute on chronic congestive heart exacerbationfrom diastolic dysfunction EF 50- 55%, slow to respond of IV Lasix -Increasing weakness likely from symptomatic anemia. Was able to was above 7 given his symptoms getting a unit of blood -Chronic esophagitis gastritis , internal hemorrhoid -Troponin leak possibly from hemodynamic mismatch with low blood pressure.Lynne from CHF -Moderate aortic stenosis, moderate tricuspid regurgitation, moderate pulmonary hypertension secondary -Persistent atrial fibrillation rate controlled -Left foot osteoarthritis with hammertoe from second to through fifth toe. 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 Patient is getting a unit of blood. Continue with IV Lasix. PTOT has been consulted. Repeat labs in the morning.
--- NOTE | 2019-05-27 16:33 | PN ---
PROGRESS NOTE Mrs. Mays is a 73-year-old female with history of chronic persistent atrial fibrillation, recent episode of GI bleeding, history of stroke, history of ITP, who presented with progressive fatigue and lack of energy. She continues to be fatigued; slightly better today. She received transfusion. She denies any chest pain. No dizziness. She has dyspnea. No nausea. She continues to be at this time on Lipitor 40 mg daily, Lasix 40 mg IV q.12 hours, losartan 25 mg daily, metoprolol tartrate 25 mg twice a day, sertraline. PHYSICAL EXAMINATION: Blood pressure 117/60 with a heart rate in the 60s. LUNGS: Clear. HEART: Irregularly irregular. S1, S2. No S3. No rub. ABDOMEN: Soft, obese, nontender. EXTREMITIES: One plus edema. LAB DATA: Hemoglobin of 7, BUN and creatinine 32 and 0.88. IMPRESSION: 1. Symptoms of progressive fatigue and lack of energy, most likely related to the anemia and recent gastrointestinal bleeding. 2. Heart failure with diastolic dysfunction. 3. Troponin elevation, not representing cardiac ischemia; most likely representing a type 2 event related to the anemia. 4. History of hypertension. 5. Mild to moderate aortic stenosis. 6. Hypertension. RECOMMENDATIONS: I will continue present therapy, follow her renal function. The patient will continue on the diuresis. I will follow her renal function, follow her hemoglobin, and depending on her progress, further recommendations will be made. DEEPALI / KERRI: [id number] /
[2019-05-27] MEDS: ALPRAZolam 0.25 MG TAB PO PRN (21:23)
[2019-05-27] MEDS: ATORVASTATIN 40 MG TAB PO SCH (21:27)
[2019-05-27] MEDS: SILVER sulfADIAZINE Cream 400 GM 1 APPLIC APPLIC TOPICAL SCH (21:38)
[2019-05-27 21:50] LABS: Anisocytosis Slight; HCT 24.8 % (34.0-46.0); Hypochromasia Moderate; MCH 28.7 pg (25.0-35.0); MCHC 32.2 g/dL (31.0-37.0); MCV 89.3 fL (80.0-100.0); Mean Platelet Volume 8.1; Platelet Count 108 k/uL (150-450); Poikilocytosis Slight; RBC 2.78 m/uL (3.80-5.40); RDW 17.6 % (11.5-15.5); WBC 6.8 k/uL (3.8-10.6)
[2019-05-28] MEDS: FUROSEMIDE 10 MG/ML 4 ML VIAL IV SCH ×3 (00:48→23:40)
[2019-05-28] MEDS: PANTOPRAZOLE 40 MG TABLET PO SCH (06:30)
[2019-05-28 07:11] LABS: Anisocytosis Slight; Basophils % (A) 0 %; Eosinophils # (A) 0.3 k/uL (0-0.7); Eosinophils % (A) 5 %; HCT 25.7 % (34.0-46.0); HGB 7.8 gm/dL (11.4-16.0); Hypochromasia Moderate; Lymphocytes # (A) 0.9 k/uL (1.0-4.8); Lymphocytes % (A) 15 %; MCH 27.6 pg (25.0-35.0); MCHC 30.4 g/dL (31.0-37.0); MCV 90.6 fL (80.0-100.0); Mean Platelet Volume 8.1; Monocytes # (A) 0.4 k/uL (0-1.0); Monocytes % (A) 6 %; Neutrophils # (A) 4.5 k/uL (1.3-7.7); Neutrophils % (A) 72 %; Platelet Count 107 k/uL (150-450); Poikilocytosis Slight; RBC 2.84 m/uL (3.80-5.40); RDW 17.5 % (11.5-15.5); WBC 6.2 k/uL (3.8-10.6)
[2019-05-28 07:23] LABS: African American GFR (CKD) >90 (>60 ml/min/1.73 sqM); Anion Gap 5 mmol/L; Blood Urea Nitrogen 31 mg/dL (7-17); Calcium 8.5 mg/dL (8.4-10.2); Carbon Dioxide 36 mmol/L (22-30); Chloride 98 mmol/L (98-107); Glucose 84 mg/dL (74-99); Non-African American GFR(CKD) 86 (>60 ml/min/1.73 sqM); Potassium 3.9 mmol/L (3.5-5.1); Sodium 139 mmol/L (137-145)
[2019-05-28] MEDS: METOPROLOL TARTRATE 25 MG TAB PO SCH ×2 (08:20→20:13)
[2019-05-28] MEDS: POTASSIUM CHLORIDE ER 20 MEQ TAB.ER PO SCH (08:20)
[2019-05-28] MEDS: HYDROcodone/APAP 5-325MG 1 EACH TAB PO PRN (08:20)
[2019-05-28] MEDS: GABAPENTIN 100 MG CAP PO SCH ×2 (08:21→20:13)
[2019-05-28] MEDS: SERTRALINE 100 MG TAB PO SCH (08:21)
[2019-05-28] MEDS: LOSARTAN 25 MG TAB PO SCH (08:22)
[2019-05-28] MEDS: MUPIROCIN 2% OINT 22 GM TUBE TOPICAL SCH ×3 (08:24→23:40)
[2019-05-28] MEDS: MENTHOL-ZINC OXIDE OINT 113 GM TUBE TOPICAL SCH ×3 (08:24→23:39)
--- NOTE | 2019-05-28 18:04 | XR ---
EXAMINATION TYPE: XR chest 2V DATE OF EXAM: 05/28/2019 COMPARISON: 05/25/2019 HISTORY: Congestive heart failure. Shortness of breath. TECHNIQUE: Frontal and lateral views of the chest are obtained. FINDINGS: There is diffuse interstitial prominence throughout similar to the prior. Cardia mediastin al silhouette is enlarged. Pulmonary vascular congestion is seen. Diffuse osseous demineralization is present no sizable pneumothorax or pleural effusion. IMPRESSION: Similar pulmonary vascular congestion and interstitial edema in comparison to the prior of 05/25/2019
[2019-05-28 18:08] LABS: Anisocytosis Slight; HCT 24.5 % (34.0-46.0); HGB 7.6 gm/dL (11.4-16.0); Hypochromasia Moderate; MCHC 30.9 g/dL (31.0-37.0); MCV 90.6 fL (80.0-100.0); Mean Platelet Volume 8.3; Platelet Count 104 k/uL (150-450); Poikilocytosis Slight; RDW 17.6 % (11.5-15.5); WBC 5.3 k/uL (3.8-10.6)
[2019-05-28] MEDS: ALPRAZolam 0.25 MG TAB PO PRN (20:13)
[2019-05-28] MEDS: ATORVASTATIN 40 MG TAB PO SCH (20:13)
[2019-05-28] MEDS: SILVER sulfADIAZINE Cream 400 GM 1 APPLIC APPLIC TOPICAL SCH (20:14)
--- NOTE | 2019-05-28 22:23 | PN ---
PROGRESS NOTE Mrs. Mays the 73-year-old female who is admitted with symptoms of fatigue and shortness of breath. The patient recently was admitted with anemia and upper GI endoscopy showed evidence of gastritis and has been treated with blood transfusion. The patient is doing better. She denies any orthopnea or PND. The patient's lab tests and reviewed. Hemoglobin remains in the range of 7.5-7.8. Chest x-ray shows evidence of congestive cardiac failure. She has been diuresing fairly well. First and second heart sounds are normal. Lungs are fairly clear to auscultation and percussion. IMPRESSION: 1. Acute on chronic diastolic heart failure. 2. Anemia. RECOMMENDATIONS: We will continue Lasix 40 mg IV b.i.d. at present. MMODL / IJN: [id number] /
[2019-05-29] MEDS: PANTOPRAZOLE 40 MG TABLET PO SCH (06:22)
[2019-05-29 06:38] LABS: Anisocytosis Slight; Basophils % (A) 0 %; Eosinophils # (A) 0.2 k/uL (0-0.7); Eosinophils % (A) 4 %; HCT 24.2 % (34.0-46.0); HGB 7.6 gm/dL (11.4-16.0); Hypochromasia Marked; Lymphocytes # (A) 0.9 k/uL (1.0-4.8); Lymphocytes % (A) 15 %; MCHC 31.3 g/dL (31.0-37.0); MCV 89.5 fL (80.0-100.0); Mean Platelet Volume 8.1; Monocytes # (A) 0.3 k/uL (0-1.0); Monocytes % (A) 5 %; Neutrophils # (A) 4.4 k/uL (1.3-7.7); Neutrophils % (A) 74 %; Platelet Count 105 k/uL (150-450); Poikilocytosis Slight; RBC 2.71 m/uL (3.80-5.40); RDW 17.3 % (11.5-15.5); WBC 5.9 k/uL (3.8-10.6)
[2019-05-29 07:03] LABS: African American GFR (CKD) >90 (>60 ml/min/1.73 sqM); Anion Gap 4 mmol/L; Blood Urea Nitrogen 25 mg/dL (7-17); Calcium 8.5 mg/dL (8.4-10.2); Carbon Dioxide 37 mmol/L (22-30); Chloride 99 mmol/L (98-107); Glucose 89 mg/dL (74-99); Non-African American GFR(CKD) 86 (>60 ml/min/1.73 sqM); Potassium 3.7 mmol/L (3.5-5.1); Sodium 140 mmol/L (137-145)
[2019-05-29] MEDS: METOPROLOL TARTRATE 25 MG TAB PO SCH ×2 (08:46→21:19)
[2019-05-29] MEDS: GABAPENTIN 100 MG CAP PO SCH ×2 (08:46→21:19)
[2019-05-29] MEDS: SERTRALINE 100 MG TAB PO SCH (08:46)
[2019-05-29] MEDS: POTASSIUM CHLORIDE ER 20 MEQ TAB.ER PO SCH (08:47)
[2019-05-29] MEDS: LOSARTAN 25 MG TAB PO SCH (08:47)
[2019-05-29] MEDS: MUPIROCIN 2% OINT 22 GM TUBE TOPICAL SCH ×3 (08:47→21:19)
[2019-05-29] MEDS: MENTHOL-ZINC OXIDE OINT 113 GM TUBE TOPICAL SCH ×3 (08:47→21:19)
[2019-05-29] MEDS: HYDROcodone/APAP 5-325MG 1 EACH TAB PO PRN (08:51)
--- NOTE | 2019-05-29 11:50 | P.PN ---
Subjective Progress Note Date: 05/29/19 05/28/2019 This is a 73-year-old female who presented to the hospital with symptoms of progressive fatigue and lack of energy. She has a known history of chronic persistent atrial fibrillation, recent admission for GI bleeding as well as history of stroke and ITP. In April, on her admission for GI bleeding she underwent an upper endoscopy and was found to have a superficial gastritis with bleeding, since her return home the patient has been progressively fatigued with lack of energy and mild dyspnea. She had an echocardiogram with Doppler study performed in April which revealed a preserved left ventricular systolic function. Patient has a history of moderate aortic valve stenosis and moderate mitral and tricuspid regurgitation with preserved LV function, also history of hypertension. Laboratory data, hemoglobin 7.8, platelet count 107, sodium 139, potassium 3.9, BUN 31 and creatinine 0.6 today. Patient continues to be on IV Lasix. Blood pressure remaining on the low side, 86/40 with a heart rate in the 60s, 95% on room air. Objective - Vital Signs Vital signs: Vital Signs Temp 97.8 F 05/29/19 08:00 Pulse 83 05/29/19 08:00 Resp 18 05/29/19 08:00 BP 105/59 05/29/19 08:00 Pulse Ox 95 05/29/19 08:00 Intake & Output 05/28/19 05/29/19 05/29/19 18:59 06:59 18:59 Intake Total 118 Output Total 1775 Balance 118 -1775 Weight 156.8 kg Intake: Oral 118 Output: Urine 1775 Other: Voiding Method Incontinent Incontinent Incontinent - Exam PHYSICAL EXAMINATION: GENERAL: 73-year-old female in no acute distress at the time of my examination HEENT: Head is atraumatic, normocephalic. Pupils equal, round. Sclera anicteric. Conjunctiva are clear. Mucous membranes of the mouth are moist. Neck is supple. There is no elevated jugular venous pressure. No carotid bruit is heard. HEART EXAMINATION: Heart S1 and S2 irregularly irregular a systolic ejection murmur is heard CHEST EXAMINATION: Lungs are clear to auscultation and precussion. No chest wall tenderness is noted on palpation or with deep breathing. ABDOMEN: Soft, nontender. Bowel sounds are heard. No organomegaly noted. EXTREMITIES:[ 2+ peripheral pulses with evidence of peripheral edema chronic venous stasis NEUROLOGIC [patient is awake, alert and oriented - Labs CBC & Chem 7: 05/29/19 06:13 05/29/19 06:13 Labs: Abnormal Lab Results - Last 24 Hours (Table) 05/28/19 05/29/19 05/29/19 Range/Units 17:19 06:13 06:13 RBC 2.70 L 2.71 L (3.80-5.40) m/uL Hgb 7.6 L 7.6 L (11.4-16.0) gm/dL Hct 24.5 L 24.2 L (34.0-46.0) % MCHC 30.9 L (31.0-37.0) g/dL RDW 17.6 H 17.3 H (11.5-15.5) % Plt Count 104 L 105 L (150-450) k/uL Lymphocytes # 0.9 L (1.0-4.8) k/uL Carbon Dioxide 37 H (22-30) mmol/L BUN 25 H (7-17) mg/dL Microbiology - Last 24 Hours (Table) 05/25/19 22:15 Urine Culture - Final Urine,Clean Catch Pseudomonas aeruginosa Assessment and Plan Plan: Assessment and plan #1 symptoms of progressive dyspnea and fatigue, likely worsened by anemia #2 mild troponin elevation, not suggestive of acute coronary syndrome, likely secondary to anemia no significant rise and fall pattern #3 persistent A. fib #4 morbid obesity #5 hypertension #6 moderate aortic stenosis. Plan We will continue current dose of IV Lasix, repeat chest x-ray in the morning tomorrow. DNP note has been reviewed, I agree with a documented findings and plan of care. Patient was seen and examined.
[2019-05-29] MEDS: FUROSEMIDE 10 MG/ML 4 ML VIAL IV SCH ×2 (12:27→23:07)
[2019-05-29] MEDS: LIDOCAINE 5% PATCH TOPICAL SCH (14:07)
--- NOTE | 2019-05-29 19:51 | PN ---
PROGRESS NOTE This patient is admitted with congestive cardiac failure. The patient is admitted and patient also has a history of anemia. The patient is lying comfortably in the bed, has been having some non-productive cough. Vital signs remained stable. Hemoglobin is stable. First and second heart sounds are normal. Lungs examination does reveal bilateral rales. Chest x-ray done yesterday shows changes of congestive cardiac failure. Patient has an ejection systolic murmur of aortic stenosis. The patient's creatinine is 0.7, hemoglobin is 7.6. We will continue the patient currently on Lasix 40 mg IV q.12 hourly. MMODL / IJN: [id number] /
[2019-05-29] MEDS: ALPRAZolam 0.25 MG TAB PO PRN (21:19)
[2019-05-29] MEDS: ATORVASTATIN 40 MG TAB PO SCH (21:19)
[2019-05-29] MEDS: SILVER sulfADIAZINE Cream 400 GM 1 APPLIC APPLIC TOPICAL SCH (21:20)
--- NOTE | 2019-05-29 22:47 | P.PN ---
Subjective Progress Note Date: 05/28/19 Principal diagnosis: Acute CHF exacerbation This is a very pleasant 73-year-old patient of Dr. Bob Kuo. Chronic stable medical conditions include GERD, hypertension, ITP, depression, painful peripheral neuropathy on Neurontin, CHF, atrial fibrillation.. Recent EGD showed-grade B erosive esophagitis, superficial gastritis and some bleeding along the gastric cardia. Also had internal hemorrhoids. Patient's a prior brain bleed. Has left her with some weakness on the right side. She has trouble feeling with the right hand. Patient has been at the [facility]. Was able to get to about 15 steps. Last few days patient been having more trouble walking. Care is extremely tired. We general aches. No fever or chills. Appetite is not good. had diarrhea for last 2 days, 3 bowel movements a day. Just watery. No blood. Slight abdominal discomfort. No nausea vomiting. No fever or chills. Patient's daughter the bedside. Patient admitted with symptomatic anemia, increasing medical debility, CHF exacerbation. One unit of blood was ordered. On IV Lasix 05/26-patient is getting a unit of blood. Sitting upon a chair. Some shortness of breath. Did eat all her breakfast and lunch. Remains on IV Lasix. May 28 2019 Patient is currently lying in the bed comfortably. Saturating well on oxygen via nasal cannula. Currently being continued on IV Lasix. Repeat chest x-ray done today showed pulmonary vascular congestion similar to prior study. Cardiology is following. Renal function is stable. Hemoglobin is 7.6 and platelet count 105 Troponin I 0.040, 0.043, 0.040proBNP 3410 UA positive for leukoesterase, WBC EKG tracing personally reviewed by me-atrial fibrillation, rate controlled chestx-ray filmpersonally reviewed by me shows-pulmonary edema 2-D echo-Limited review EF 50-55% from April 29 Review of systems: Was done for constitutional, cardiovascular, GI, pulmonary. relevant finding as above. Current medications reviewed. Objective - Vital Signs Vital signs: Vital Signs Temp 98.3 F 05/28/19 12:00 Pulse 66 05/28/19 12:00 Resp 18 05/28/19 12:00 BP 84/43 05/28/19 12:00 Pulse Ox 95 05/28/19 12:00 Intake & Output 05/27/19 05/28/19 05/28/19 18:59 06:59 18:59 Intake Total 970 572 118 Output Total 900 1450 Balance 70 -878 118 Weight 158 kg Intake: Oral 660 572 118 Blood Product 310 Rc As-1 Unit 310 [id number] Output: Urine 900 1450 Other: Voiding Method Incontinent Incontinent - Exam GENERAL: Sitting up in a chair, more awake today EYES: Pupils equal. Conjunctiva pale HEENT: External appearance of nose and ears normal, oral cavity grossly normal. NECK: JVD unable to assess, masses not palpable. HEART: First and second heart sounds are normal; edema present. LUNGS: Respiratory rate normal; distant breath sounds ABDOMEN: Soft, nontender, liver spleen not palpable, no masses palpable. PSYCH: Alert and oriented x3; mood and affect tired. NEUROLOGICAL: Cranial nerves grossly intact; no facial asymmetry, power and sensation grossly intact. Muscular skeletal: Evidence of OA - Labs CBC & Chem 7: 05/29/19 06:13 05/29/19 06:13 Labs: Abnormal Lab Results - Last 24 Hours (Table) 05/27/19 05/28/19 05/28/19 Range/Units 21:15 06:21 06:21 RBC 2.78 L 2.84 L (3.80-5.40) m/uL Hgb 8.0 L 7.8 L (11.4-16.0) gm/dL Hct 24.8 L 25.7 L (34.0-46.0) % MCHC 30.4 L (31.0-37.0) g/dL RDW 17.6 H 17.5 H (11.5-15.5) % Plt Count 108 L 107 L (150-450) k/uL Lymphocytes # 0.9 L (1.0-4.8) k/uL Carbon Dioxide 36 H (22-30) mmol/L BUN 31 H (7-17) mg/dL Microbiology - Last 24 Hours (Table) 05/25/19 22:15 Urine Culture - Final Urine,Clean Catch Pseudomonas aeruginosa Assessment and Plan Assessment: Assessment: -Acute on chronic congestive heart exacerbationfrom diastolic dysfunction EF 50- 55%, slow to respond of IV Lasix -Increasing weakness likely from symptomatic anemia. Was able to was above 7 given his symptoms getting a unit of blood -Chronic esophagitis gastritis , internal hemorrhoid -Troponin leak possibly from hemodynamic mismatch with low blood pressure.And from CHF -Moderate aortic stenosis, moderate tricuspid regurgitation, moderate pulmonary hypertension secondary -Persistent atrial fibrillation rate controlled -Left foot osteoarthritis with hammertoe from second to through fifth toe. 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 Patient was given a unit of blood. Continue with IV Lasix. PTOT has been consulted. Repeat labs in the morning. Time with Patient: Greater than 30
--- NOTE | 2019-05-29 22:49 | P.PN ---
Subjective Progress Note Date: 05/29/19 Principal diagnosis: Acute CHF exacerbation This is a very pleasant 73-year-old patient of Dr. Bob Kuo. Chronic stable medical conditions include GERD, hypertension, ITP, depression, painful peripheral neuropathy on Neurontin, CHF, atrial fibrillation.. Recent EGD showed-grade B erosive esophagitis, superficial gastritis and some bleeding along the gastric cardia. Also had internal hemorrhoids. Patient's a prior brain bleed. Has left her with some weakness on the right side. She has trouble feeling with the right hand. [facility] Was able to get to about 15 steps. Last few days patient been having more trouble walking. Care is extremely tired. We general aches. No fever or chills. Appetite is not good. had diarrhea for last 2 days, 3 bowel movements a day. Just watery. No blood. Slight abdominal discomfort. No nausea vomiting. No fever or chills. Patient's daughter the bedside. Patient admitted with symptomatic anemia, increasing medical debility, CHF exacerbation. One unit of blood was ordered. On IV Lasix 05/26-patient is getting a unit of blood. Sitting upon a chair. Some shortness of breath. Did eat all her breakfast and lunch. Remains on IV Lasix. May 28 2019 Patient is currently lying in the bed comfortably. Saturating well on oxygen via nasal cannula. Currently being continued on IV Lasix. Repeat chest x-ray done today showed pulmonary vascular congestion similar to prior study. Cardiology is following. Renal function is stable. Hemoglobin is 7.6 and platelet count 105 Troponin I 0.040, 0.043, 0.040proBNP 3410 UA positive for leukoesterase, WBC EKG tracing personally reviewed by me-atrial fibrillation, rate controlled chestx-ray filmpersonally reviewed by me shows-pulmonary edema 2-D echo-Limited review EF 50-55% from April 29 05/29/2019 Patient is currently lying in the bed. Denied any complaints of worsening shortness of breath. Currently being continued on IV diuresis with Lasix. Hemoglobin is fairly stable at 7.6. Platelet count is 105 and is stable. Follow-up renal function. Creatinine level 0.7 today. No fever no chills. Patient says that she still not feeling very well. Will start on PTOT. Cardiology is following. Review of systems: Was done for constitutional, cardiovascular, GI, pulmonary. relevant finding as above. Current medications reviewed. Objective - Vital Signs Vital signs: Vital Signs Temp 98.7 F 05/29/19 16:54 Pulse 78 05/29/19 15:09 Resp 18 05/29/19 15:09 BP 101/67 05/29/19 15:07 Pulse Ox 95 05/29/19 15:07 Intake & Output 05/29/19 05/29/19 05/30/19 06:59 18:59 06:59 Intake Total 100 Output Total 1775 600 Balance -1775 -500 Weight 156.8 kg Intake: Oral 100 Output: Urine 1775 600 Other: Voiding Method Incontinent Incontinent - Exam GENERAL: Sitting up in a chair, more awake today EYES: Pupils equal. Conjunctiva pale HEENT: External appearance of nose and ears normal, oral cavity grossly normal. NECK: JVD unable to assess, masses not palpable. HEART: First and second heart sounds are normal; edema present. LUNGS: Respiratory rate normal; distant breath sounds ABDOMEN: Soft, nontender, liver spleen not palpable, no masses palpable. PSYCH: Alert and oriented x3; mood and affect tired. NEUROLOGICAL: Cranial nerves grossly intact; no facial asymmetry, power and sensation grossly intact. Muscular skeletal: Evidence of OA - Labs CBC & Chem 7: 05/29/19 06:13 05/29/19 06:13 Labs: Abnormal Lab Results - Last 24 Hours (Table) 05/29/19 05/29/19 Range/Units 06:13 06:13 RBC 2.71 L (3.80-5.40) m/uL Hgb 7.6 L (11.4-16.0) gm/dL Hct 24.2 L (34.0-46.0) % RDW 17.3 H (11.5-15.5) % Plt Count 105 L (150-450) k/uL Lymphocytes # 0.9 L (1.0-4.8) k/uL Carbon Dioxide 37 H (22-30) mmol/L BUN 25 H (7-17) mg/dL Assessment and Plan Assessment: Assessment: -Acute on chronic congestive heart exacerbationfrom diastolic dysfunction EF 50- 55%, slow to respond of IV Lasix -Increasing weakness likely from symptomatic anemia. Was able to was above 7 given his symptoms getting a unit of blood -Chronic esophagitis gastritis , internal hemorrhoid -Troponin leak possibly from hemodynamic mismatch with low blood pressure.And from CHF -Moderate aortic stenosis, moderate tricuspid regurgitation, moderate pulmonary hypertension secondary -Persistent atrial fibrillation rate controlled -Left foot osteoarthritis with hammertoe from second to through fifth toe. 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 Patient was given a unit of blood. Continue with IV Lasix. PTOT has been consulted. Repeat labs in the morning. Time with Patient: Greater than 30
[2019-05-30] MEDS: PANTOPRAZOLE 40 MG TABLET PO SCH (06:44)
[2019-05-30] MEDS: SERTRALINE 100 MG TAB PO SCH (10:27)
[2019-05-30] MEDS: GABAPENTIN 100 MG CAP PO SCH ×2 (10:30→20:58)
[2019-05-30] MEDS: METOPROLOL TARTRATE 25 MG TAB PO SCH ×2 (10:30→20:58)
[2019-05-30] MEDS: POTASSIUM CHLORIDE ER 20 MEQ TAB.ER PO SCH (10:30)
[2019-05-30] MEDS: LIDOCAINE 5% PATCH TOPICAL SCH (10:30)
[2019-05-30] MEDS: LOSARTAN 25 MG TAB PO SCH ×3 (10:31→12:08)
[2019-05-30] MEDS: MUPIROCIN 2% OINT 22 GM TUBE TOPICAL SCH ×3 (10:31→21:00)
[2019-05-30] MEDS: MENTHOL-ZINC OXIDE OINT 113 GM TUBE TOPICAL SCH ×3 (10:31→21:00)
--- NOTE | 2019-05-30 11:28 | PN ---
PROGRESS NOTE Mrs. Mays is a 73-year-old female who is seen for the cardiac evaluation. The patient's medical records are reviewed. She is feeling better. She denies any orthopnea or PND. Blood pressure is 107/66 mmHg. Heart S1 and S2 normal. Lungs reveal a few basal rales. ASSESSMENT AND PLAN: The patient's congestive heart failure is improving. We will recommend to switch to the p.o. Lasix and then get her a repeat chest x-ray. MMODL / IJN: [id number] /
--- NOTE | 2019-05-30 14:04 | XR ---
EXAMINATION TYPE: XR chest 2V DATE OF EXAM: 05/30/2019 COMPARISON: Prior chest x-ray 05/28/2019 HISTORY: Congestive heart failure TECHNIQUE: Frontal and lateral views of the chest are obtained. FINDINGS: The heart remains enlarged. There is improvement in the interstitium and prominence of the central vascularity. No evident pneumothorax or pleural effusion. Aorta is dense. Arthropathy noted in the shoulders. There are overlying cardiac leads. IMPRESSION: There is improvement in patient's volume status, aeration within the lungs.
[2019-05-30] MEDS: FUROSEMIDE 40 MG TAB PO SCH (16:29)
[2019-05-30] MEDS: ATORVASTATIN 40 MG TAB PO SCH (20:58)
[2019-05-30] MEDS: ALPRAZolam 0.25 MG TAB PO PRN (20:59)
[2019-05-30] MEDS: SILVER sulfADIAZINE Cream 400 GM 1 APPLIC APPLIC TOPICAL SCH (21:00)
[2019-05-31] MEDS: PANTOPRAZOLE 40 MG TABLET PO SCH (06:27)
[2019-05-31 06:44] LABS: Anisocytosis Slight; Basophils % (A) 0 %; Eosinophils # (A) 0.2 k/uL (0-0.7); Eosinophils % (A) 3 %; HCT 25.2 % (34.0-46.0); HGB 7.8 gm/dL (11.4-16.0); Hypochromasia Moderate; Lymphocytes # (A) 0.9 k/uL (1.0-4.8); Lymphocytes % (A) 12 %; MCHC 30.9 g/dL (31.0-37.0); MCV 90.7 fL (80.0-100.0); Mean Platelet Volume 8.2; Monocytes # (A) 0.4 k/uL (0-1.0); Monocytes % (A) 6 %; Neutrophils # (A) 5.9 k/uL (1.3-7.7); Neutrophils % (A) 78 %; Platelet Count 103 k/uL (150-450); RBC 2.78 m/uL (3.80-5.40); RDW 17.8 % (11.5-15.5); WBC 7.6 k/uL (3.8-10.6)
[2019-05-31 06:58] LABS: African American GFR (CKD) >90 (>60 ml/min/1.73 sqM); Anion Gap 5 mmol/L; Blood Urea Nitrogen 26 mg/dL (7-17); Calcium 8.6 mg/dL (8.4-10.2); Carbon Dioxide 36 mmol/L (22-30); Chloride 98 mmol/L (98-107); Glucose 84 mg/dL (74-99); Non-African American GFR(CKD) 86 (>60 ml/min/1.73 sqM); Potassium 3.9 mmol/L (3.5-5.1); Sodium 139 mmol/L (137-145)
[2019-05-31] MEDS: SERTRALINE 100 MG TAB PO SCH (09:55)
[2019-05-31] MEDS: GABAPENTIN 100 MG CAP PO SCH ×2 (09:55→21:03)
[2019-05-31] MEDS: METOPROLOL TARTRATE 25 MG TAB PO SCH ×2 (09:55→21:03)
[2019-05-31] MEDS: FUROSEMIDE 40 MG TAB PO SCH ×2 (09:55→16:28)
[2019-05-31] MEDS: MENTHOL-ZINC OXIDE OINT 113 GM TUBE TOPICAL SCH ×3 (09:55→21:03)
[2019-05-31] MEDS: MUPIROCIN 2% OINT 22 GM TUBE TOPICAL SCH ×3 (09:55→21:03)
[2019-05-31] MEDS: POTASSIUM CHLORIDE ER 20 MEQ TAB.ER PO SCH (09:56)
[2019-05-31] MEDS: LIDOCAINE 5% PATCH TOPICAL SCH (09:56)
[2019-05-31 10:14] VITALS: BMI 55.5
[2019-05-31] MEDS: LOSARTAN 25 MG TAB PO SCH (12:04)
--- NOTE | 2019-05-31 12:51 | P.PN ---
Subjective Progress Note Date: 05/31/19 05/28/2019 This is a 73-year-old female who presented to the hospital with symptoms of progressive fatigue and lack of energy. She has a known history of chronic persistent atrial fibrillation, recent admission for GI bleeding as well as history of stroke and ITP. In April, on her admission for GI bleeding she underwent an upper endoscopy and was found to have a superficial gastritis with bleeding, since her return home the patient has been progressively fatigued with lack of energy and mild dyspnea. She had an echocardiogram with Doppler study performed in April which revealed a preserved left ventricular systolic function. Patient has a history of moderate aortic valve stenosis and moderate mitral and tricuspid regurgitation with preserved LV function, also history of hypertension. Laboratory data, hemoglobin 7.8, platelet count 107, sodium 139, potassium 3.9, BUN 31 and creatinine 0.6 today. Patient continues to be on IV Lasix. Blood pressure remaining on the low side, 86/40 with a heart rate in the 60s, 95% on room air. 05/31/2019 Patient was seen and examined this morning, complaining of some discomfort in her right shoulder. Otherwise she's stable. Denies any shortness of breath. Blood pressure 108/50 with a heart rate in the 70s, 92% on 3 L of oxygen. White blood cell count 7.6, hemoglobin 7.8, platelet count 103. Sodium 139, potassium 3.9, BUN 26, creatinine 0.6. Objective - Vital Signs Vital signs: Vital Signs Temp 98.9 F 05/31/19 12:00 Pulse 71 05/31/19 12:00 Resp 18 05/31/19 12:00 BP 106/54 05/31/19 12:00 Pulse Ox 92 L 05/31/19 12:00 Intake & Output 05/30/19 05/31/19 05/31/19 18:59 06:59 18:59 Intake Total 698 240 Output Total 600 850 Balance 98 -850 240 Weight 151 kg 156 kg 156 kg Intake: Oral 698 240 Output: Urine 600 850 Other: Voiding Method Incontinent Incontinent Incontinent # Voids 800 - Exam PHYSICAL EXAMINATION: GENERAL: 73-year-old female in no acute distress at the time of my examination HEENT: Head is atraumatic, normocephalic. Pupils equal, round. Sclera anicteric. Conjunctiva are clear. Mucous membranes of the mouth are moist. Neck is supple. There is no elevated jugular venous pressure. No carotid bruit is heard. HEART EXAMINATION: Heart S1 and S2 irregularly irregular a systolic ejection murmur is heard CHEST EXAMINATION: Lungs are clear to auscultation and precussion. No chest wall tenderness is noted on palpation or with deep breathing. ABDOMEN: Soft, nontender. Bowel sounds are heard. No organomegaly noted. EXTREMITIES:[ 2+ peripheral pulses with evidence of peripheral edema chronic venous stasis NEUROLOGIC [patient is awake, alert and oriented - Labs CBC & Chem 7: 05/31/19 05:46 05/31/19 05:46 Labs: Abnormal Lab Results - Last 24 Hours (Table) 05/31/19 05/31/19 Range/Units 05:46 05:46 RBC 2.78 L (3.80-5.40) m/uL Hgb 7.8 L (11.4-16.0) gm/dL Hct 25.2 L (34.0-46.0) % MCHC 30.9 L (31.0-37.0) g/dL RDW 17.8 H (11.5-15.5) % Plt Count 103 L (150-450) k/uL Lymphocytes # 0.9 L (1.0-4.8) k/uL Carbon Dioxide 36 H (22-30) mmol/L BUN 26 H (7-17) mg/dL Assessment and Plan Plan: Assessment and plan #1 symptoms of progressive dyspnea and fatigue, likely worsened by anemia #2 mild troponin elevation, not suggestive of acute coronary syndrome, likely secondary to anemia no significant rise and fall pattern #3 persistent A. fib #4 morbid obesity #5 hypertension #6 moderate aortic stenosis. Plan Repeat chest x-ray showed improvement in the patient's volume status. We will continue current dose of IV Lasix. DNP note has been reviewed, I agree with a documented findings and plan of care. Patient was seen and examined.
--- NOTE | 2019-05-31 16:18 | XR ---
EXAMINATION TYPE: XR shoulder complete LT DATE OF EXAM: 05/31/2019 CLINICAL HISTORY: Left anterior shoulder pain radiating to the humerus with no known injury. TECHNIQUE: Three views of the left shoulder are obtained. COMPARISON: None. FINDINGS: There is no acute fracture/dislocation evident in the left shoulder. The acromioclavicula r and glenohumeral joint spaces are markedly narrowed with protuberant marginal osteophytes. There is sclerosis of the humeral head and glenoid at the opposing surfaces and [id number] articulation.. The visualized ribs are intact and unremarkable. There is diffuse osseous demineralization. IMPRESSION: There is no acute fracture or dislocation in the left shoulder. Severe left glenohumeral and acromioclavicular arthropathy.
[2019-05-31] MEDS: SILVER sulfADIAZINE Cream 400 GM 1 APPLIC APPLIC TOPICAL SCH (21:03)
[2019-05-31] MEDS: ALPRAZolam 0.25 MG TAB PO PRN (21:03)
[2019-05-31] MEDS: ATORVASTATIN 40 MG TAB PO SCH (21:03)
--- NOTE | 2019-06-01 01:40 | P.PN ---
Subjective Progress Note Date: 05/30/19 Principal diagnosis: Acute CHF exacerbation This is a very pleasant 73-year-old patient of Dr. Bob Kuo. Chronic stable medical conditions include GERD, hypertension, ITP, depression, painful peripheral neuropathy on Neurontin, CHF, atrial fibrillation.. Recent EGD showed-grade B erosive esophagitis, superficial gastritis and some bleeding along the gastric cardia. Also had internal hemorrhoids. Patient's a prior brain bleed. Has left her with some weakness on the right side. She has trouble feeling with the right hand. Patient has been at the [facility]. Was able to get to about 15 steps. Last few days patient been having more trouble walking. Care is extremely tired. We general aches. No fever or chills. Appetite is not good. had diarrhea for last 2 days, 3 bowel movements a day. Just watery. No blood. Slight abdominal discomfort. No nausea vomiting. No fever or chills. Patient's daughter the bedside. Patient admitted with symptomatic anemia, increasing medical debility, CHF exacerbation. One unit of blood was ordered. On IV Lasix 05/26-patient is getting a unit of blood. Sitting upon a chair. Some shortness of breath. Did eat all her breakfast and lunch. Remains on IV Lasix. May 28 2019 Patient is currently lying in the bed comfortably. Saturating well on oxygen via nasal cannula. Currently being continued on IV Lasix. Repeat chest x-ray done today showed pulmonary vascular congestion similar to prior study. Cardiology is following. Renal function is stable. Hemoglobin is 7.6 and platelet count 105 Troponin I 0.040, 0.043, 0.040proBNP 3410 UA positive for leukoesterase, WBC EKG tracing personally reviewed by me-atrial fibrillation, rate controlled chestx-ray filmpersonally reviewed by me shows-pulmonary edema 2-D echo-Limited review EF 50-55% from April 29 05/29/2019 Patient is currently lying in the bed. Denied any complaints of worsening shortness of breath. Currently being continued on IV diuresis with Lasix. Hemoglobin is fairly stable at 7.6. Platelet count is 105 and is stable. Follow-up renal function. Creatinine level 0.7 today. No fever no chills. Patient says that she still not feeling very well. Will start on PTOT. Cardiology is following. 05/30/2019 Patient is awake alert and oriented 3. Currently saturating well on nasal cannula oxygen. Patient says that her shortness of breath is better. Continued on gentle diuresis. Hemoglobin and platelet count is stable. Follow-up repeat CBC and BMP tomorrow. Otherwise patient was able to get up with physical therapy. No fever no chills. Leg swelling is better. Patient was encouraged with ambulation and PTOT. Review of systems: Was done for constitutional, cardiovascular, GI, pulmonary. relevant finding as above. Current medications reviewed. Objective - Vital Signs Vital signs: Vital Signs Temp 98.9 F 05/30/19 21:07 Pulse 79 05/30/19 21:07 Resp 18 05/30/19 21:07 BP 96/56 05/30/19 21:07 Pulse Ox 95 05/30/19 21:07 Intake & Output 05/30/19 05/30/19 05/31/19 06:59 18:59 06:59 Intake Total 698 Output Total 1560 600 Balance -1560 98 Weight 157.1 kg 151 kg Intake: Oral 698 Output: Urine 1560 600 Other: Voiding Method Incontinent Incontinent Incontinent # Voids 800 - Exam GENERAL: Sitting up in a chair, more awake today EYES: Pupils equal. Conjunctiva pale HEENT: External appearance of nose and ears normal, oral cavity grossly normal. NECK: JVD unable to assess, masses not palpable. HEART: First and second heart sounds are normal; edema present. LUNGS: Respiratory rate normal; distant breath sounds ABDOMEN: Soft, nontender, liver spleen not palpable, no masses palpable. PSYCH: Alert and oriented x3; mood and affect tired. NEUROLOGICAL: Cranial nerves grossly intact; no facial asymmetry, power and sensation grossly intact. Muscular skeletal: Evidence of OA - Labs CBC & Chem 7: 05/31/19 05:46 05/31/19 05:46 Assessment and Plan Assessment: Assessment: -Acute on chronic congestive heart exacerbationfrom diastolic dysfunction EF 50- 55%, slow to respond of IV Lasix -Increasing weakness likely from symptomatic anemia. Was able to was above 7 given his symptoms getting a unit of blood -Chronic esophagitis gastritis , internal hemorrhoid -Troponin leak possibly from hemodynamic mismatch with low blood pressure.And from CHF -Moderate aortic stenosis, moderate tricuspid regurgitation, moderate pulmonary hypertension secondary -Persistent atrial fibrillation rate controlled -Left foot osteoarthritis with hammertoe from second to through fifth toe. 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 Patient was given a unit of blood. Continue with IV Lasix. PTOT has been consulted. Repeat labs in the morning. Time with Patient: Greater than 30
--- NOTE | 2019-06-01 01:42 | P.PN ---
Subjective Progress Note Date: 05/31/19 Principal diagnosis: Acute CHF exacerbation This is a very pleasant 73-year-old patient of Dr. Bob Kuo. Chronic stable medical conditions include GERD, hypertension, ITP, depression, painful peripheral neuropathy on Neurontin, CHF, atrial fibrillation.. Recent EGD showed-grade B erosive esophagitis, superficial gastritis and some bleeding along the gastric cardia. Also had internal hemorrhoids. Patient's a prior brain bleed. Has left her with some weakness on the right side. She has trouble feeling with the right hand. Patient has been at the [facility]. Was able to get to about 15 steps. Last few days patient been having more trouble walking. Care is extremely tired. We general aches. No fever or chills. Appetite is not good. had diarrhea for last 2 days, 3 bowel movements a day. Just watery. No blood. Slight abdominal discomfort. No nausea vomiting. No fever or chills. Patient's daughter the bedside. Patient admitted with symptomatic anemia, increasing medical debility, CHF exacerbation. One unit of blood was ordered. On IV Lasix 05/26-patient is getting a unit of blood. Sitting upon a chair. Some shortness of breath. Did eat all her breakfast and lunch. Remains on IV Lasix. May 28 2019 Patient is currently lying in the bed comfortably. Saturating well on oxygen via nasal cannula. Currently being continued on IV Lasix. Repeat chest x-ray done today showed pulmonary vascular congestion similar to prior study. Cardiology is following. Renal function is stable. Hemoglobin is 7.6 and platelet count 105 Troponin I 0.040, 0.043, 0.040proBNP 3410 UA positive for leukoesterase, WBC EKG tracing personally reviewed by me-atrial fibrillation, rate controlled chestx-ray filmpersonally reviewed by me shows-pulmonary edema 2-D echo-Limited review EF 50-55% from April 29 05/29/2019 Patient is currently lying in the bed. Denied any complaints of worsening shortness of breath. Currently being continued on IV diuresis with Lasix. Hemoglobin is fairly stable at 7.6. Platelet count is 105 and is stable. Follow-up renal function. Creatinine level 0.7 today. No fever no chills. Patient says that she still not feeling very well. Will start on PTOT. Cardiology is following. 05/30/2019 Patient is awake alert and oriented 3. Currently saturating well on nasal cannula oxygen. Patient says that her shortness of breath is better. Continued on gentle diuresis. Hemoglobin and platelet count is stable. Follow-up repeat CBC and BMP tomorrow. Otherwise patient was able to get up with physical therapy. No fever no chills. Leg swelling is better. Patient was encouraged with ambulation and PTOT. 05/31/2019 Patient is lying on the bed comfortably. Complaining of left shoulder pain today. Shortness of breath is better. Currently on IV Lasix. Hemoglobin is stable at 7.8 and platelet count is also stable. Continued on PTOT. Cardiology is following. Anticipate discharged in next 24-48 hours with more clinical improvement. Leg swelling is improving. No complaints of chest pain. Tolerating oral diet. No constipation or diarrhea. Review of systems: Was done for constitutional, cardiovascular, GI, pulmonary. relevant finding as above. Current medications reviewed. Objective - Vital Signs Vital signs: Vital Signs Temp 98 F 05/31/19 20:00 Pulse 75 05/31/19 20:00 Resp 18 05/31/19 20:00 BP 86/56 05/31/19 20:00 Pulse Ox 97 05/31/19 20:00 Intake & Output 05/31/19 05/31/19 06/01/19 06:59 18:59 06:59 Intake Total 600 Output Total 850 300 Balance -850 300 Weight 156 kg 156 kg Intake: Oral 600 Output: Urine 850 300 Other: Voiding Method Incontinent Incontinent Incontinent # Bowel Movements 1 - Exam GENERAL: Sitting up in a chair, more awake today EYES: Pupils equal. Conjunctiva pale HEENT: External appearance of nose and ears normal, oral cavity grossly normal. NECK: JVD unable to assess, masses not palpable. HEART: First and second heart sounds are normal; edema present. LUNGS: Respiratory rate normal; distant breath sounds ABDOMEN: Soft, nontender, liver spleen not palpable, no masses palpable. PSYCH: Alert and oriented x3; mood and affect tired. NEUROLOGICAL: Cranial nerves grossly intact; no facial asymmetry, power and sensation grossly intact. Muscular skeletal: Evidence of OA - Labs CBC & Chem 7: 05/31/19 05:46 05/31/19 05:46 Labs: Abnormal Lab Results - Last 24 Hours (Table) 05/31/19 05/31/19 Range/Units 05:46 05:46 RBC 2.78 L (3.80-5.40) m/uL Hgb 7.8 L (11.4-16.0) gm/dL Hct 25.2 L (34.0-46.0) % MCHC 30.9 L (31.0-37.0) g/dL RDW 17.8 H (11.5-15.5) % Plt Count 103 L (150-450) k/uL Lymphocytes # 0.9 L (1.0-4.8) k/uL Carbon Dioxide 36 H (22-30) mmol/L BUN 26 H (7-17) mg/dL Assessment and Plan Assessment: Assessment: -Acute on chronic congestive heart exacerbationfrom diastolic dysfunction EF 50-55%, slow to respond of IV Lasix -Increasing weakness likely from symptomatic anemia. Was able to was above 7 given his symptoms getting a unit of blood -Chronic esophagitis gastritis , internal hemorrhoid -Troponin leak possibly from hemodynamic mismatch with low blood pressure.And from CHF -Moderate aortic stenosis, moderate tricuspid regurgitation, moderate pulmonary hypertension secondary -Persistent atrial fibrillation rate controlled -Left foot osteoarthritis with hammertoe from second to through fifth toe. 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 Patient was given a unit of blood previously. Hemoglobin is 7.8 today. Continue with IV Lasix. PTOT is following. Left shoulder x-ray was ordered.. Repeat labs in the morning. Time with Patient: Greater than 30
[2019-06-01] MEDS: PANTOPRAZOLE 40 MG TABLET PO SCH (06:27)
[2019-06-01] MEDS: GABAPENTIN 100 MG CAP PO SCH ×2 (08:17→20:26)
[2019-06-01] MEDS: SERTRALINE 100 MG TAB PO SCH (08:17)
[2019-06-01] MEDS: MENTHOL-ZINC OXIDE OINT 113 GM TUBE TOPICAL SCH ×3 (08:18→20:27)
[2019-06-01] MEDS: POTASSIUM CHLORIDE ER 20 MEQ TAB.ER PO SCH (08:18)
[2019-06-01] MEDS: FUROSEMIDE 40 MG TAB PO SCH ×2 (08:18→17:10)
[2019-06-01] MEDS: METOPROLOL TARTRATE 25 MG TAB PO SCH ×2 (08:18→20:26)
[2019-06-01] MEDS: MUPIROCIN 2% OINT 22 GM TUBE TOPICAL SCH ×3 (08:19→20:27)
[2019-06-01] MEDS: LOSARTAN 25 MG TAB PO SCH (11:42)
[2019-06-01] MEDS: LIDOCAINE 5% PATCH TOPICAL SCH (11:42)
[2019-06-01] MEDS: SILVER sulfADIAZINE Cream 400 GM 1 APPLIC APPLIC TOPICAL SCH (20:26)
[2019-06-01] MEDS: ALPRAZolam 0.25 MG TAB PO PRN (20:26)
[2019-06-01] MEDS: ATORVASTATIN 40 MG TAB PO SCH (20:26)
--- NOTE | 2019-06-01 23:29 | P.PN ---
Progress Note - Text Progress Note Date: 06/01/19 Chief Complaint: Short of breath History of presenting complaint: This is a very pleasant 73-year-old patient of Dr. Bob Kuo. Chronic stable medical conditions include GERD, hypertension, ITP, depression, painful peripheral neuropathy on Neurontin, CHF, atrial fibrillation.. Recent EGD showed-grade B erosive esophagitis, superficial gastritis and some bleeding along the gastric cardia. Also had internal hemorrhoids. Patient's a prior brain bleed. Has left her with some weakness on the right side. She has trouble feeling with the right hand. Patient has been at the [facility]. Was able to get to about 15 steps. Last few days patient been having more trouble walking. Care is extremely tired. We general aches. No fever or chills. Appetite is not good. had diarrhea for last 2 days, 3 bowel movements a day. Just watery. No blood. Slight abdominal discomfort. No nausea vomiting. No fever or chills. Patient's daughter the bedside. Patient admitted with symptomatic anemia, increasing medical debility, CHF exacerbation. He received one unit of blood. IV Lasix Today-able to take Zoloft side steps and go from bed to the chair. With physical therapy. Eating about 50-75%. Tired. Has been on oral Lasix. Review of systems: Was done for constitutional, cardiovascular, GI, pulmonary. relevant finding as above Active Medications Acetaminophen (Tylenol Tab) 650 mg PO Q4H PRN PRN Reason: Pain Hydrocodone Bitart/Acetaminophen ([place] 5-325) 1 each PO Q6HR PRN PRN Reason: Moderate to Severe Pain Last Admin: 05/29/19 08:51 Dose: 1 each Documented by: Albuterol Sulfate (Ventolin Nebulized) 2.5 mg INHALATION RT-Q4H PRN PRN Reason: Shortness Of Breath Alprazolam (Xanax) 0.25 mg PO TID PRN PRN Reason: Anxiety Last Admin: 06/01/19 20:26 Dose: 0.25 mg Documented by: Atorvastatin Calcium (Lipitor) 40 mg PO HS BLAINE Last Admin: 06/01/19 20:26 Dose: 40 mg Documented by: Calamine/Phenol (Calmoseptine Oint) 1 applic TOPICAL TID BLAINE Last Admin: 06/01/19 20:27 Dose: 1 applic Documented by: Furosemide (Lasix) 40 mg PO BID@0900,1600 [facility] Last Admin: 06/01/19 17:10 Dose: 40 mg Documented by: Gabapentin (Neurontin) 100 mg PO BID [facility] Last Admin: 06/01/19 20:26 Dose: 100 mg Documented by: Lidocaine (Lidoderm) 1 patch TOPICAL DAILY [facility] Last Admin: 06/01/19 11:42 Dose: 1 patch Documented by: Losartan Potassium (Cozaar) 25 mg PO DAILY@1200 [facility] Last Admin: 06/01/19 11:42 Dose: 25 mg Documented by: Metoprolol Tartrate (Lopressor) 25 mg PO BID [facility] Last Admin: 06/01/19 20:26 Dose: 25 mg Documented by: Mupirocin (Bactroban Oint) 1 applic TOPICAL TID [facility] Last Admin: 06/01/19 20:27 Dose: 1 applic Documented by: Pantoprazole Sodium (Protonix) 40 mg PO DAILY@0730 [facility] Last Admin: 06/01/19 06:27 Dose: 40 mg Documented by: Potassium Chloride (K-Dur 20) 20 meq PO DAILY [facility] Last Admin: 06/01/19 08:18 Dose: 20 meq Documented by: Sertraline HCl (Zoloft) 200 mg PO DAILY [facility] Last Admin: 06/01/19 08:17 Dose: 200 mg Documented by: Silver Sulfadiazine (Silvadene Cream) 1 applic TOPICAL HS [facility] Last Admin: 06/01/19 20:26 Dose: 1 applic Documented by: Simethicone (Mylicon Chew) 40 mg PO QID PRN PRN Reason: gas pains/gi upset Sodium Chloride (Saline Flush) 10 ml IV BID [facility] Last Admin: 06/01/19 20:26 Dose: 10 ml Documented by: Sumatriptan Succinate (Imitrex) 50 mg PO DAILY PRN PRN Reason: Migraine Headache . Physical examination: VITAL SIGNS: 98.6, 82, 16, blood pressure 104/52, 96% on 3 L GENERAL: Laying in bed, awake EYES: Pupils equal. Conjunctiva pale HEENT: External appearance of nose and ears normal, oral cavity grossly normal. NECK: JVD unable to assess, masses not palpable. HEART: First and second heart sounds are normal; edema decreased. LUNGS: Respiratory rate normal; distant breath sounds ABDOMEN: Soft, nontender, liver spleen not palpable, no masses palpable. PSYCH: Alert and oriented x3; mood and affect tired. INVESTIGATIONS, reviewed in the clinical context: White count 7.6 hemoglobin 7.8 potassium 3.9 creatinine 0.69 ProBNP 2360 Previous testing White count 6.4 hemoglobin 7.4 platelets 124 potassium 3.7 bun 36 creatinine 0.85 Troponin I 0.040, 0.043, 0.040proBNP 3410 UA positive for leukoesterase, WBC-cultured Pseudomonas EKG tracing personally reviewed by me-atrial fibrillation, rate controlled chestx-ray filmpersonally reviewed by me shows-pulmonary edema 2-D echo-Limited review EF 50-55% from April 29 Assessment: -Acute on chronic congestive heart exacerbationfrom diastolic dysfunction EF 50- 55%, improved -Increasing weakness likely from symptomatic anemia. Was able to was above 7 g iven his symptoms-transfuse blood -Chronic esophagitis gastritis , internal hemorrhoid -Troponin leak possibly from hemodynamic mismatch with low blood pressure.Lynne from CHF -Moderate aortic stenosis, moderate tricuspid regurgitation, moderate pulmonary hypertension secondary -Persistent atrial fibrillation rate controlled -Left foot osteoarthritis with hammertoe from second to through fifth toe. 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 Lasix. Blood pressures to coming up. Hopefully can be discharged to [facility] tomorrow. We'll hold of Cozaar temporarily till blood pressure comes up.
[2019-06-02] MEDS: PANTOPRAZOLE 40 MG TABLET PO SCH (06:34)
[2019-06-02] MEDS: LIDOCAINE 5% PATCH TOPICAL SCH (09:29)
[2019-06-02] MEDS: MENTHOL-ZINC OXIDE OINT 113 GM TUBE TOPICAL SCH ×3 (09:30→21:09)
[2019-06-02] MEDS: SERTRALINE 100 MG TAB PO SCH (09:31)
[2019-06-02] MEDS: METOPROLOL TARTRATE 25 MG TAB PO SCH ×2 (09:31→21:08)
[2019-06-02] MEDS: FUROSEMIDE 40 MG TAB PO SCH ×2 (09:31→15:25)
[2019-06-02] MEDS: POTASSIUM CHLORIDE ER 20 MEQ TAB.ER PO SCH (09:31)
[2019-06-02] MEDS: MUPIROCIN 2% OINT 22 GM TUBE TOPICAL SCH ×3 (09:31→21:08)
[2019-06-02] MEDS: GABAPENTIN 100 MG CAP PO SCH ×2 (09:31→21:08)
[2019-06-02] MEDS: MIDODRINE 5 MG TAB PO SCH ×2 (15:24→16:30)
--- NOTE | 2019-06-02 16:34 | P.PN ---
Progress Note - Text Progress Note Date: 06/02/19 Chief Complaint: Short of breath History of presenting complaint: This is a very pleasant 73-year-old patient of Dr. Bob Kuo. Chronic stable medical conditions include GERD, hypertension, ITP, depression, painful peripheral neuropathy on Neurontin, CHF, atrial fibrillation.. Recent EGD showed-grade B erosive esophagitis, superficial gastritis and some bleeding along the gastric cardia. Also had internal hemorrhoids. Patient's a prior brain bleed. Has left her with some weakness on the right side. She has trouble feeling with the right hand. Patient has been at the [facility]. Was able to get to about 15 steps. Last few days patient been having more trouble walking. Care is extremely tired. We general aches. No fever or chills. Appetite is not good. had diarrhea for last 2 days, 3 bowel movements a day. Just watery. No blood. Slight abdominal discomfort. No nausea vomiting. No fever or chills. Patient's daughter the bedside. Patient admitted with symptomatic anemia, increasing medical debility, CHF exacerbation. He received one unit of blood. IV Lasix Today-patient not too excited about the fact about fluid restriction. After discussing with her I did stop the fluid restriction. Blood pressures running on the lower side. Tolerating a diet. Tired. Review of systems: Was done for constitutional, cardiovascular, GI, pulmonary. relevant finding as above Active Medications Acetaminophen (Tylenol Tab) 650 mg PO Q4H PRN PRN Reason: Pain Last Admin: 06/02/19 05:00 Dose: 650 mg Documented by: Hydrocodone Bitart/Acetaminophen ([place] 5-325) 1 each PO Q6HR PRN PRN Reason: Moderate to Severe Pain Last Admin: 05/29/19 08:51 Dose: 1 each Documented by: Albuterol Sulfate (Ventolin Nebulized) 2.5 mg INHALATION RT-Q4H PRN PRN Reason: Shortness Of Breath Alprazolam (Xanax) 0.25 mg PO TID PRN PRN Reason: Anxiety Last Admin: 06/01/19 20:26 Dose: 0.25 mg Documented by: Atorvastatin Calcium (Lipitor) 40 mg PO HS BLAINE Last Admin: 06/01/19 20:26 Dose: 40 mg Documented by: Calamine/Phenol (Calmoseptine Oint) 1 applic TOPICAL TID [facility] Last Admin: 06/02/19 15:25 Dose: 1 applic Documented by: Furosemide (Lasix) 40 mg PO BID@0900,1600 [facility] Last Admin: 06/02/19 15:25 Dose: 40 mg Documented by: Gabapentin (Neurontin) 100 mg PO BID [facility] Last Admin: 06/02/19 09:31 Dose: 100 mg Documented by: Lidocaine (Lidoderm) 1 patch TOPICAL DAILY [facility] Last Admin: 06/02/19 09:29 Dose: 1 patch Documented by: Metoprolol Tartrate (Lopressor) 25 mg PO BID [facility] Last Admin: 06/02/19 09:31 Dose: 25 mg Documented by: Midodrine (Proamatine) 2.5 mg PO AC-TID [facility] Last Admin: 06/02/19 16:30 Dose: 2.5 mg Documented by: Mupirocin (Bactroban Oint) 1 applic TOPICAL TID [facility] Last Admin: 06/02/19 15:25 Dose: 1 applic Documented by: Pantoprazole Sodium (Protonix) 40 mg PO DAILY@0730 [facility] Last Admin: 06/02/19 06:34 Dose: 40 mg Documented by: Potassium Chloride (K-Dur 20) 20 meq PO DAILY [facility] Last Admin: 06/02/19 09:31 Dose: 20 meq Documented by: Sertraline HCl (Zoloft) 200 mg PO DAILY [facility] Last Admin: 06/02/19 09:31 Dose: 200 mg Documented by: Silver Sulfadiazine (Silvadene Cream) 1 applic TOPICAL HS [facility] Last Admin: 06/01/19 20:26 Dose: 1 applic Documented by: Simethicone (Mylicon Chew) 40 mg PO QID PRN PRN Reason: gas pains/gi upset Sodium Chloride (Saline Flush) 10 ml IV BID [facility] Last Admin: 06/02/19 09:31 Dose: Not Given Documented by: Sumatriptan Succinate (Imitrex) 50 mg PO DAILY PRN PRN Reason: Migraine Headache . Physical examination: VITAL SIGNS: 98.1, 87, 18, blood pressure 87/50, 93% on 3 L GENERAL: Laying in bed, awake EYES: Pupils equal. Conjunctiva pale HEENT: External appearance of nose and ears normal, oral cavity grossly normal. NECK: JVD unable to assess, masses not palpable. HEART: First and second heart sounds are normal; edema decreased. LUNGS: Respiratory rate normal; distant breath sounds ABDOMEN: Soft, nontender, liver spleen not palpable, no masses palpable. PSYCH: Alert and oriented x3; mood and affect tired. INVESTIGATIONS, reviewed in the clinical context: White count 7.6 hemoglobin 7.8 potassium 3.9 creatinine 0.69 ProBNP 2360 Previous testing White count 6.4 hemoglobin 7.4 platelets 124 potassium 3.7 bun 36 creatinine 0.85 Troponin I 0.040, 0.043, 0.040proBNP 3410 UA positive for leukoesterase, WBC-cultured Pseudomonas EKG tracing personally reviewed by me-atrial fibrillation, rate controlled chestx-ray filmpersonally reviewed by me shows-pulmonary edema 2-D echo-Limited review EF 50-55% from April 29 Assessment: -Acute on chronic congestive heart exacerbationfrom diastolic dysfunction EF 50- 55%, improved -Increasing weakness likely from symptomatic anemia. Was able to was above 7 given his symptoms-transfuse blood -Chronic esophagitis gastritis , internal hemorrhoid -Troponin leak possibly from hemodynamic mismatch with low blood pressure.Lynne from CHF -Moderate aortic stenosis, moderate tricuspid regurgitation, moderate pulmonary hypertension secondary -Persistent atrial fibrillation rate controlled -Left foot osteoarthritis with hammertoe from second to through fifth toe. 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 Fluid restriction to be discontinued. We'll add midodrine 2.5 milligrams times a day before meals. Hoping for discharge to the [facility] tomorrow if blood pressures more respectable.
[2019-06-02] MEDS: ATORVASTATIN 40 MG TAB PO SCH (21:08)
[2019-06-02] MEDS: SILVER sulfADIAZINE Cream 400 GM 1 APPLIC APPLIC TOPICAL SCH (21:08)
[2019-06-02] MEDS: ALPRAZolam 0.25 MG TAB PO PRN (21:08)
[2019-06-03 04:41] VITALS: TEMP 98.2
[2019-06-03] MEDS: MIDODRINE 5 MG TAB PO SCH ×2 (06:29→11:58)
[2019-06-03] MEDS: PANTOPRAZOLE 40 MG TABLET PO SCH (06:29)
[2019-06-03 06:57] LABS: African American GFR (CKD) >90 (>60 ml/min/1.73 sqM); Anion Gap 6 mmol/L; Blood Urea Nitrogen 30 mg/dL (7-17); Calcium 8.3 mg/dL (8.4-10.2); Carbon Dioxide 34 mmol/L (22-30); Chloride 99 mmol/L (98-107); Glucose 84 mg/dL (74-99); Non-African American GFR(CKD) 82 (>60 ml/min/1.73 sqM); Potassium 3.6 mmol/L (3.5-5.1); Sodium 139 mmol/L (137-145)
[2019-06-03] MEDS: METOPROLOL TARTRATE 25 MG TAB PO SCH (08:58)
[2019-06-03] MEDS: POTASSIUM CHLORIDE ER 20 MEQ TAB.ER PO SCH (08:58)
[2019-06-03] MEDS: LIDOCAINE 5% PATCH TOPICAL SCH (08:59)
[2019-06-03] MEDS: SERTRALINE 100 MG TAB PO SCH (08:59)
[2019-06-03] MEDS: MUPIROCIN 2% OINT 22 GM TUBE TOPICAL SCH (08:59)
[2019-06-03] MEDS: GABAPENTIN 100 MG CAP PO SCH (08:59)
[2019-06-03] MEDS: FUROSEMIDE 40 MG TAB PO SCH ×2 (08:59→10:25)
[2019-06-03] MEDS: MENTHOL-ZINC OXIDE OINT 113 GM TUBE TOPICAL SCH (10:25)
[2019-06-03] MEDS ORDERED: LACTATED RINGERS 1,000 ML IV SCH (10:30)
[2019-06-03 14:48] VITALS: BP 90/59; PULSE 78; RESP 18
--- NOTE | 2019-06-03 15:43 | P.DS ---
Providers Date of admission: 05/25/19 23:50 Expected date of discharge: 06/03/19 Attending physician: Shaq Carrasco Primary care physician: Bob Kuo [facility] Course: Chief Complaint: Short of breath History of presenting complaint: This is a very pleasant 73-year-old patient of Dr. Bob Kuo. Chronic stable medical conditions include GERD, hypertension, ITP, depression, painful peripheral neuropathy on Neurontin, CHF, atrial fibrillation.. Recent EGD showed-grade B erosive esophagitis, superficial gastritis and some bleeding along the gastric cardia. Also had internal hemorrhoids. Patient's a prior brain bleed. Has left her with some weakness on the right side. She has trouble feeling with the right hand. Patient has been at the [facility]. Was able to get to about 15 steps. Last few days patient been having more trouble walking. Care is extremely tired. We general aches. No fever or chills. Appetite is not good. had diarrhea for last 2 days, 3 bowel movements a day. Just watery. No blood. Slight abdominal discomfort. No nausea vomiting. No fever or chills. Patient's daughter the bedside. Patient admitted with symptomatic anemia, increasing medical debility, CHF exacerbation. He received one unit of blood. IV Lasix. Midodrine was added. Expect patient blood pressures to run in the 90 systolic. Patient is clinically deconditioned. Today-care was discussed with the patient. Stable. I'll keep her cardiology to be discharged. Midodrine was added. Questions answered. Patient is able to transfer with assist to the chair. Eliquis continues to be held because of history of GI bleed and drop of hemoglobin presentation. Discussion and discharge planning more than 35 minutes. Consultation: Cardiology associates . Physical examination: VITAL SIGNS: 98.2, 78, 18, blood pressure 94/59, 94% on 3 L GENERAL: Laying in bed, awake EYES: Pupils equal. Conjunctiva pale HEENT: External appearance of nose and ears normal, oral cavity grossly normal. NECK: JVD unable to assess, masses not palpable. HEART: First and second heart sounds are normal; edema decreased. LUNGS: Respiratory rate normal; distant breath sounds ABDOMEN: Soft, nontender, liver spleen not palpable, no masses palpable. PSYCH: Alert and oriented x3; mood and affect tired. INVESTIGATIONS, reviewed in the clinical context: White count 7.6 hemoglobin 7.8 potassium 3.6 creatinine 0.73 contribution ProBNP 2360 Previous testing White count 6.4 hemoglobin 7.4 platelets 124 potassium 3.7 bun 36 creatinine 0.85 Troponin I 0.040, 0.043, 0.040proBNP 3410 UA positive for leukoesterase, WBC-cultured Pseudomonas EKG tracing personally reviewed by me-atrial fibrillation, rate controlled chestx-ray filmpersonally reviewed by me shows-pulmonary edema 2-D echo-Limited review EF 50-55% from April 29 Assessment: -Acute on chronic congestive heart exacerbationfrom diastolic dysfunction EF 50- 55%, improved -Increasing weakness likely from symptomatic anemia. Given one unit of blood -Chronic esophagitis gastritis , internal hemorrhoid -Troponin leak possibly from hemodynamic mismatch with low blood pressure.and from CHF -Moderate aortic stenosis, moderate tricuspid regurgitation, moderate pulmonary hypertension secondary -Persistent atrial fibrillation rate controlled -Left foot osteoarthritis with hammertoe from second to through fifth toe. 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 -Depression not otherwise specified -Chronic gait dysfunction uses a walker at her baseline Disposition: F/[place] Patient Condition at Discharge: Stable Plan - Discharge Summary Discharge Rx Participant: No New Discharge Prescriptions: New Mupirocin 2% Oint [Bactroban 2% Oint] 1 applic TOPICAL TID applic Lidocaine 5% Patch [Lidoderm 5% Patch] 1 patch TOPICAL DAILY #3 patch Atorvastatin [Lipitor] 40 mg PO HS tab Simethicone Chew [Mylicon Chew] 40 mg PO QID PRN chew PRN Reason: gas pains/gi upset Midodrine [ProAmatine] 5 mg PO AC-TID #9 tab Continue Sertraline HCl [Zoloft] 200 mg PO DAILY Potassium Chloride ER [K-Dur 20] 20 meq PO DAILY@1700 Albuterol Sulfate [Ventolin HFA] 2 puff INHALATION RT-Q4H PRN PRN Reason: Shortness Of Breath SILVER sulfADIAZINE CREAM [Silvadene Cream] 1 applic TOPICAL HS Menthol-Zinc Oxide Oint [Calmoseptine Oint] 1 applic TOPICAL TID Caldesene Baby Powder 1 applic TOPICAL TID Acetaminophen [Tylenol 8 Hour] 650 mg PO Q4H PRN PRN Reason: Pain Famotidine [Pepcid] 20 mg PO DAILY Furosemide [Lasix] 40 mg PO DAILY Gabapentin [Neurontin] 100 mg PO BID-W/MEALS #6 cap HYDROcodone/APAP 5-325MG [[place] 5-325] 1 tab PO Q6HR PRN #12 tab PRN Reason: Moderate To Severe Pain ALPRAZolam [Xanax] 0.25 mg PO DAILY PRN #3 tab PRN Reason: Anxiety Changed Metoprolol Tartrate [Lopressor] 12.5 mg PO TID #0 Discontinued Losartan Potassium 100 mg PO DAILY Apixaban [Eliquis] 2.5 mg PO BID-W/MEALS Discharge Medication List Potassium Chloride ER [K-Dur 20] 20 meq PO DAILY@1700 12/29/14 [History] Sertraline HCl [Zoloft] 200 mg PO DAILY 12/29/14 [History] Albuterol Sulfate [Ventolin HFA] 2 puff INHALATION RT-Q4H PRN 04/28/19 [History] Acetaminophen [Tylenol 8 Hour] 650 mg PO Q4H PRN 05/26/19 [History] Caldesene Baby Powder 1 applic TOPICAL TID 05/26/19 [History] Famotidine [Pepcid] 20 mg PO DAILY 05/26/19 [History] Furosemide [Lasix] 40 mg PO DAILY 05/26/19 [History] Menthol-Zinc Oxide Oint [Calmoseptine Oint] 1 applic TOPICAL TID 05/26/19 [History] SILVER sulfADIAZINE CREAM [Silvadene Cream] 1 applic TOPICAL HS 05/26/19 [History] ALPRAZolam [Xanax] 0.25 mg PO DAILY PRN #3 tab 06/03/19 [Rx] Atorvastatin [Lipitor] 40 mg PO HS tab 06/03/19 [Rx] Gabapentin [Neurontin] 100 mg PO BID-W/MEALS #6 cap 06/03/19 [Rx] HYDROcodone/APAP 5-325MG [[place] 5-325] 1 tab PO Q6HR PRN #12 tab 06/03/19 [Rx] Lidocaine 5% Patch [Lidoderm 5% Patch] 1 patch TOPICAL DAILY #3 patch 06/03/19 [Rx] Metoprolol Tartrate [Lopressor] 12.5 mg PO TID #0 06/03/19 [Rx] Midodrine [ProAmatine] 5 mg PO AC-TID #9 tab 06/03/19 [Rx] Mupirocin 2% Oint [Bactroban 2% Oint] 1 applic TOPICAL TID applic 06/03/19 [Rx] Simethicone Chew [Mylicon Chew] 40 mg PO QID PRN chew 06/03/19 [Rx] Follow up Appointment(s)/Referral(s): Isabel Trujillo MD [STAFF PHYSICIAN] - 2 Weeks Nam Kc DO [STAFF PHYSICIAN] - 1-2 Days Bob Kuo MD [Primary Care Provider] - As Needed Jas Aceves MD [STAFF PHYSICIAN] - 1 Week
[2019-06-03] MEDS ORDERED: METOPROLOL TARTRATE 12.5 MG TAB PO SCH (22:00)
--- NOTE | 2019-06-06 16:09 | CDI ---
Documentation Clarification Form Date: 06/06/19 From: Kimmy Davis CCS Phone: If you have a question about this query, please contact Linda August, [employer] Professional at [phone] between 8am and 5pm. Admit Date: 05/25/19 Discharge Date:06/03/19 Patient Name: Lorraine Mays Visit Number: [id number] ATTENTION: The Clinical Documentation Specialists (CDI) and [facility] Coding Staff appreciate your assistance in clarifying documentation. Please respond to the clarification below the line at the bottom and electronically sign. The CDI & [facility] Coding staff will review the response and follow-up if needed. Please note: Queries are made part of the Legal Health Record. If you have any questions, please contact the author of this message via ITS. Dear Dr. Carrasco, A diagnosis of anemia lacks specificity to accurately reflect your patients severity of condition and clarification is needed. History/Risk Factors: Recent GI bleed, Gastritis, Hemorrhoids, Morbid Obesity Clinical indicators: Short of breath, Weakness Hemoglobin: 7.4, 7.0 Hematocrit: 23.4, 22.4 Treatment: 1 unit of PRBCs transfused, monitoring labs In order to capture the severity of condition, please clarify the type of anemia and etiology if known: Acute blood loss anemia Acute on chronic blood loss anemia Chronic blood loss anemia Iron deficiency anemia Drug induced anemia Anemia of chronic kidney disease Unable to determine Other, please specify Unable to determine MTDD
--- NOTE | 2019-06-06 16:17 | CDI ---
Documentation Clarification Form Date: 06/06/19 From: Kimmy Davis CCS Phone: If you have a question about this query, please contact Linda August, [employer] at [phone] between 8am and 5pm. Admit Date: 05/25/19 Discharge Date:06/03/19 Patient Name: Lorraine Mays Visit Number: [id number] ATTENTION: The Clinical Documentation Specialists (CDI) and [facility] [facility] Coding Staff appreciate your assistance in clarifying documentation. Please respond to the clarification below the line at the bottom and electronically sign. The CDI & [facility] [facility] [facility] [employer] Coding staff will review the response and follow-up if needed. Please note: Queries are made part of the Legal Health Record. If you have any questions, please contact the author of this message via ITS. Dear Dr. Carrasco, Patient presented with troponin of: .040, .043, .040 Patient history/risk factors: Anemia, A/C CHF, HTN, AFIB, PHTN Treatment: Lasix IV 40 mg Consult: Cassandra- Troponin elevation, not representing cardiac ischemia; most likely representing a type 2 event related to the anemia. In your professional opinion, can you please specify the diagnosis, if any, indicated by the above clinical indicators and treatment? Elevated troponin Type II NM Chest pain -Cause if known Unstable Angina Costochondritis Other, please specify Unable to determine Query already addressed in discharge summary- no change in documentation required MTDD
== END 2019-06-03 18:03 | DRG 291 ==
LOC: EC 20:05 → 3SCARD 23:50 → UNDOADMOB 23:50 → 3SCARD 05-26 02:57
PROVIDERS: ADMIT Hospitalist; ATTEND Hospitalist
PROC: 5A09557 Assistance with Respiratory Ventilation, Greater than 96 Consecutive Hours, Continuous Positive Airway Pressure (ICD-10-PCS; 2019-05-26)
PROC: 30233N1 Transfusion of Nonautologous Red Blood Cells into Peripheral Vein, Percutaneous Approach (ICD-10-PCS; principal; 2019-05-27)
DX: I11.0 Hypertensive heart disease with heart failure (principal); K29.71 Gastritis, unspecified, with bleeding; Z68.43 Body mass index [BMI] 50.0-59.9, adult; I48.19 Other persistent atrial fibrillation; D69.3 Immune thrombocytopenic purpura; I69.351 Hemiplegia and hemiparesis following cerebral infarction affecting right dominant side; I50.33 Acute on chronic diastolic (congestive) heart failure; I27.29 Other secondary pulmonary hypertension; I95.9 Hypotension, unspecified; F32.9 Major depressive disorder, single episode, unspecified; G62.9 Polyneuropathy, unspecified; K21.0 Gastro-esophageal reflux disease with esophagitis; K64.8 Other hemorrhoids; M20.40 Other hammer toe(s) (acquired), unspecified foot; M19.072 Primary osteoarthritis, left ankle and foot; R79.89 Other specified abnormal findings of blood chemistry; I08.3 Combined rheumatic disorders of mitral, aortic and tricuspid valves; E66.01 Morbid (severe) obesity due to excess calories; K29.50 Unspecified chronic gastritis without bleeding; D64.9 Anemia, unspecified; R32 Unspecified urinary incontinence; Z71.3 Dietary counseling and surveillance; Z79.01 Long term (current) use of anticoagulants; Z79.899 Other long term (current) drug therapy; Z86.14 Personal history of Methicillin resistant Staphylococcus aureus infection; Z96.653 Presence of artificial knee joint, bilateral; Z98.890 Other specified postprocedural states; Z87.19 Personal history of other diseases of the digestive system; Z82.49 Family history of ischemic heart disease and other diseases of the circulatory system
CPT/HCPCS: 36415; 71045; 71046; 80048; 80053; 81001; 83605; 83735; 83880; 84484; 85025; 85027; 85610; 85730; 86850; 86900; 86901; 86920; 87077; 87086; 87186; 93005; 96374; 99285

== ENCOUNTER 2019-06-08 13:32 | Inpatient (IN) | payer MEDICARE ==
--- NOTE | 2019-06-08 13:42 | ED ---
General Adult HPI - General Stated complaint: abnormal labs Time Seen by Provider: 06/08/19 13:32 Source: patient, RN notes reviewed, old records reviewed - History of Present Illness Initial comments: This is a 73-year-old female presents emergency Department with a past medical history significant for anemia. Patient was sent in today because [facility] and the found that her hemoglobin was 6.1. Patient states she has no symptoms at all she denies any lightheadedness or dizziness. Patient denies shortness of breath or chest pain. Recent denies any black or bloody stools. Patient denies being on any blood thinners. Patient states she feels at her baseline. - Related Data Home Medications Medication Instructions Recorded Confirmed Potassium Chloride ER [K-Dur 20] 20 meq PO DAILY@1700 12/29/14 06/08/19 Sertraline HCl [Zoloft] 200 mg PO DAILY@0800 12/29/14 06/08/19 Albuterol Sulfate [Ventolin HFA] 2 puff INHALATION RT-Q4H PRN 04/28/19 06/08/19 Acetaminophen [Tylenol 8 Hour] 650 mg PO Q4H PRN 05/26/19 06/08/19 Caldesene Baby Powder 1 applic TOPICAL TID 05/26/19 06/08/19 Famotidine [Pepcid] 20 mg PO DAILY@0800 05/26/19 06/08/19 Furosemide [Lasix] 40 mg PO DAILY@0800 05/26/19 06/08/19 Menthol-Zinc Oxide Oint 1 applic TOPICAL TID 05/26/19 06/08/19 [Calmoseptine Oint] SILVER sulfADIAZINE CREAM 1 applic TOPICAL DAILY 05/26/19 06/08/19 [Silvadene Cream] Atorvastatin [Lipitor] 40 mg PO HS@209906/08/19 06/08/19 Bisacodyl [Dulcolax] 10 mg RECTAL DAILY PRN 06/08/19 06/08/19 Gabapentin [Neurontin] 100 mg PO BID@0800,209906/08/19 06/08/19 Lidocaine 5% Patch [Lidoderm 5% 1 patch TOPICAL DAILY@0800 06/08/19 06/08/19 Patch] Magnesium Hydroxide [Milk of 2,400 mg PO DAILY PRN 06/08/19 06/08/19 Magnesia] Metoprolol Tartrate [Lopressor] 12.5 mg PO TID@0800,1200,1700 06/08/19 06/08/19 Midodrine [ProAmatine] 5 mg PO TID@0700,1100,1630 06/08/19 06/08/19 Na Phos,M-B/Na Phos,Di-Ba [Fleet 133 ml RECTAL DAILY PRN 06/08/19 06/08/19 Adult] Previous Rx's Medication Instructions Recorded ALPRAZolam [Xanax] 0.25 mg PO DAILY PRN #3 tab 06/03/19 HYDROcodone/APAP 5-325MG [[place] 1 tab PO Q6HR PRN #12 tab 06/03/19 5-325] Mupirocin 2% Oint [Bactroban 2% 1 applic TOPICAL TID applic 06/03/19 Oint] Simethicone Chew [Mylicon Chew] 40 mg PO QID PRN chew 06/03/19 Allergies Allergy/AdvReac Type Severity Reaction Status Date / Time No Known Allergies Allergy Verified 06/08/19 13:48 Review of Systems ROS Statement: Those systems with pertinent positive or pertinent negative responses have been documented in the HPI. ROS Other: All systems not noted in ROS Statement are negative. Past Medical History Past Medical History: Blood Disorder, Heart Failure, CVA/TIA, GERD/Reflux, Hypertension Additional Past Medical History / Comment(s): ITP DISORDER History of Any Multi-Drug Resistant Organisms: MRSA Date of last positivie culture/infection: 2012 MDRO Source:: URINE Past Surgical History: Orthopedic Surgery Additional Past Surgical History / Comment(s): BRAIN SURGERY AFTER BLEED in 2013, bilateral knee replacements Past Anesthesia/Blood Transfusion Reactions: No Reported Reaction Additional Past Anesthesia/Blood Transfusion Reaction / Comment(s): Pt has difficulty waking. She has received blood recently and had no reaction. Past Psychological History: Depression Smoking Status: Never smoker Past Alcohol Use History: None Reported Past Drug Use History: None Reported - Past Family History Sister(s) Family Medical History: AFIB, Congestive Heart Failure (CHF) Father Additional Family Medical History / Comment(s): Father had ETOH abuse. He in his later 70s. Mother Family Medical History: Hypertension General Exam - General Exam Comments Initial Comments: GENERAL: Patient is well-developed and well-nourished. Patient is nontoxic and well- hydrated and is in no acute distress. ENT: Neck is soft and supple. No significant lymphadenopathy is noted. Oropharynx is clear. Moist mucous membranes. Neck has full range of motion without eliciting any pain. EYES: The sclera were anicteric and conjunctiva were pink and moist. Extraocular movements were intact and pupils were equal round and reactive to light. Eyelids were unremarkable. PULMONARY: Unlabored respirations. Good breath sounds bilaterally. No audible rales rhonchi or wheezing was noted. CARDIOVASCULAR: There is a regular rate and rhythm without any murmurs gallops or rubs. ABDOMEN: Soft and nontender with normal bowel sounds. Patient is morbidly obese SKIN: Skin is clear with no lesions or rashes and otherwise unremarkable. NEUROLOGIC: Patient is alert and oriented x3. Cranial nerves II through XII are grossly intact. Motor and sensory are also intact. Normal speech, volume and content. Symmetrical smile. MUSCULOSKELETAL: Normal extremities with adequate strength and full range of motion. LYMPHATICS: No significant lymphadenopathy is noted PSYCHIATRIC: Normal psychiatric evaluation. Course Vital Signs 06/08/19 06/08/19 13:39 14:36 Temperature 99.5 F Pulse Rate 81 93 Respiratory 20 18 Rate Blood Pressure 103/86 113/72 O2 Sat by Pulse 98 95 Oximetry Medical Decision Making - Medical Decision Making patient's Hemoccult was 6.4 and ordered 1 unit of packed red blood cells. I spoke with Dr. Carrasco he agreed to admit the patient admitted the patient I wrote admitting orders. - Lab Data Result diagrams: 06/08/19 13:37 06/08/19 13:37 Lab Results 06/08/19 06/08/19 06/08/19 Range/Units 13:37 13:37 13:37 WBC 7.2 (3.8-10.6) k/uL RBC 2.32 L (3.80-5.40) m/uL Hgb 6.4 L* (11.4-16.0) gm/dL Hct 20.6 L (34.0-46.0) % MCV 88.7 (80.0-100.0) fL MCH 27.9 (25.0-35.0) pg MCHC 31.4 (31.0-37.0) g/dL RDW 17.3 H (11.5-15.5) % Plt Count 192 (150-450) k/uL Neutrophils % 75 % Lymphocytes % 12 % Monocytes % 7 % Eosinophils % 3 % Basophils % 0 % Neutrophils # 5.4 (1.3-7.7) k/uL Lymphocytes # 0.9 L (1.0-4.8) k/uL Monocytes # 0.5 (0-1.0) k/uL Eosinophils # 0.2 (0-0.7) k/uL Basophils # 0.0 (0-0.2) k/uL Hypochromasia Moderate Poikilocytosis Slight Anisocytosis Slight PT 11.1 (9.0-12.0) sec INR 1.1 (<1.2) APTT 23.8 (22.0-30.0) sec Sodium 140 (137-145) mmol/L Potassium 3.4 L (3.5-5.1) mmol/L Chloride 101 (98-107) mmol/L Carbon Dioxide 35 H (22-30) mmol/L Anion Gap 4 mmol/L BUN 20 H (7-17) mg/dL Creatinine 0.68 (0.52-1.04) mg/dL Est GFR (CKD-EPI)AfAm >90 (>60 ml/min/1.73 sqM) Est GFR (CKD-EPI)NonAf 86 (>60 ml/min/1.73 sqM) Glucose 133 H (74-99) mg/dL Calcium 8.7 (8.4-10.2) mg/dL Total Bilirubin 0.7 (0.2-1.3) mg/dL AST 39 H (14-36) U/L ALT 25 (4-34) U/L Alkaline Phosphatase 76 (38-126) U/L Total Protein 6.4 (6.3-8.2) g/dL Albumin 3.3 L (3.5-5.0) g/dL Disposition Clinical Impression: Anemia Disposition: ADMITTED IP TO THIS HOSP Referrals: Scout Beltrán MD [Primary Care Provider] - 1-2 days Time of Disposition: 14:42
[2019-06-08 14:02] LABS: INR 1.1 (<1.2); Partial Thromboplastin Time 23.8 sec (22.0-30.0); Prothrombin Time 11.1 sec (9.0-12.0)
[2019-06-08 14:05] LABS: ALT 25 U/L (4-34); AST 39 U/L (14-36); African American GFR (CKD) >90 (>60 ml/min/1.73 sqM); Albumin 3.3 g/dL (3.5-5.0); Alkaline Phosphatase 76 U/L (38-126); Anion Gap 4 mmol/L; Anisocytosis Slight; Basophils % (A) 0 %; Blood Urea Nitrogen 20 mg/dL (7-17); Calcium 8.7 mg/dL (8.4-10.2); Carbon Dioxide 35 mmol/L (22-30); Chloride 101 mmol/L (98-107); Eosinophils # (A) 0.2 k/uL (0-0.7); Eosinophils % (A) 3 %; Glucose 133 mg/dL (74-99); HCT 20.6 % (34.0-46.0); Hypochromasia Moderate; Lymphocytes # (A) 0.9 k/uL (1.0-4.8); Lymphocytes % (A) 12 %; MCH 27.9 pg (25.0-35.0); MCHC 31.4 g/dL (31.0-37.0); MCV 88.7 fL (80.0-100.0); Mean Platelet Volume 7.8; Monocytes # (A) 0.5 k/uL (0-1.0); Monocytes % (A) 7 %; Neutrophils # (A) 5.4 k/uL (1.3-7.7); Neutrophils % (A) 75 %; Non-African American GFR(CKD) 86 (>60 ml/min/1.73 sqM); Platelet Count 192 k/uL (150-450); Poikilocytosis Slight; Potassium 3.4 mmol/L (3.5-5.1); RBC 2.32 m/uL (3.80-5.40); RDW 17.3 % (11.5-15.5); Sodium 140 mmol/L (137-145); Total Bilirubin 0.7 mg/dL (0.2-1.3); Total Protein 6.4 g/dL (6.3-8.2); WBC 7.2 k/uL (3.8-10.6)
[2019-06-08 14:08] LABS: HGB 6.4 gm/dL (11.4-16.0)
[2019-06-08] MEDS ORDERED: SODIUM CHLORIDE 0.9% 1,000 ML IV ONE (14:48)
[2019-06-08 19:27] LABS: Anisocytosis Slight; HCT 21.8 % (34.0-46.0); Hypochromasia Marked; MCH 27.3 pg (25.0-35.0); MCHC 28.3 g/dL (31.0-37.0); Macrocytosis Slight; Mean Platelet Volume 7.9; Poikilocytosis Slight; RBC 2.26 m/uL (3.80-5.40); WBC 5.5 k/uL (3.8-10.6)
[2019-06-08 19:50] LABS: Band Neutrophils % 1 %; Neutrophils % (M) 79 %; Nucleated Red Blood Cells 0 /100 WBC (0-0); Poikilocytosis (M) Present; Polychromasia Present; Total Cells Counted 100
[2019-06-08 19:51] LABS: Platelet Count 172 k/uL (150-450)
[2019-06-08] MEDS ORDERED: ACETAMINOPHEN TAB 325 MG TAB PO PRN (19:54)
[2019-06-08] MEDS ORDERED: HYDROcodone/APAP 5-325MG 1 EACH TAB PO PRN (19:54)
[2019-06-08] MEDS ORDERED: SIMETHICONE 80 MG CHEWABLE PO PRN (19:54)
[2019-06-08] MEDS ORDERED: MAGNESIUM HYDROXIDE 2,400 MG/10 ML CUP PO PRN (19:54)
[2019-06-08] MEDS ORDERED: BISACODYL 10 MG SUPP RECTAL PRN (19:54)
[2019-06-08] MEDS: ATORVASTATIN 40 MG TAB PO SCH (20:26)
[2019-06-08] MEDS: GABAPENTIN 100 MG CAP PO SCH (20:26)
[2019-06-08 20:28] LABS: Eosinophils # (M) 0.11 k/uL (0-0.7); HGB 6.2 gm/dL (11.4-16.0); Lymphocytes # (M) 0.94 k/uL (1.0-4.8); Monocytes # (M) 0.06 k/uL (0-1.0)
[2019-06-08 20:29] LABS: MCV 96.6 fL (80.0-100.0)
[2019-06-08] MEDS: MENTHOL-ZINC OXIDE OINT 113 GM TUBE TOPICAL SCH (20:41)
[2019-06-08] MEDS: MUPIROCIN 2% OINT 22 GM TUBE TOPICAL SCH (20:41)
--- NOTE | 2019-06-08 21:39 | P.HPIM ---
History of Present Illness H&P Date: 06/08/19 Chief Complaint: Anemia History of presenting complaint: This is a very pleasant 73-year-old patient of Dr. Bob Kuo. Chronic stable medical conditions include GERD, hypertension, ITP, depression, painful peripheral neuropathy on Neurontin, CHF, atrial fibrillation.. Recent EGD showed-grade B erosive esophagitis, superficial gastritis and some bleeding along the gastric cardia. Also had internal hemorrhoids. Patient's a prior brain bleed. Has left her with some weakness on the right side. She has trouble feeling with the right hand. Recently the hospital from May 24 through June 02. Admitted with CHF exacerbation, symptomatic anemia and increasing medical debility. Received a unit of blood. IV Lasix. Midodrine was added. At the [facility] patient was able to transfer with assistance. Labs drawn at the [facility] should hemoglobin of 6.1. Patient only complaint is some tightness. No dark stools. Unit of blood was ordered. Review of systems: GEN.: Tired EYES: None HEENT: None NECK: None RESPIRATORY: None CARDIOVASCULAR: None GASTROINTESTINAL: None GENITOURINARY: None MUSCULOSKELETAL: Joint pains LYMPHATICS: None HEMATOLOGICAL: None PSYCHIATRY: None NEUROLOGICAL: Residual right-sided weakness Past medical history to include: Congestive heart failure, brain bleed pleural effusion and right-sided weakness, GERD, hypertension, ITP, depression, painful peripheral neuropathy, CHF, atrial fibrillation, esophagitis, internal hemorrhoids Social history: . Does use a walker. Does not smoke or drink alcohol. Currently at [facility] Family history: Reviewed, noncontributory to presentation Physical examination: VITAL SIGNS: 99.5, 81, 20, 103/86, 98% on 2 L GENERAL: BMI 54.1, laying in bed, awake EYES: Pupils equal. Conjunctiva pale HEENT: External appearance of nose and ears normal, oral cavity grossly normal. NECK: JVD unable to assess, masses not palpable. HEART: First and second heart sounds are normal; edema present. LUNGS: Respiratory rate normal; distant breath sounds ABDOMEN: Soft, nontender, liver spleen not palpable, no masses palpable. PSYCH: Alert and oriented x3; mood and affect tired. NEUROLOGICAL: Cranial nerves grossly intact; no facial asymmetry, power and sensation grossly intact. LYMPHATICS: No lymph nodes palpable in the axilla and neck Muscular skeletal: Evidence of OA INVESTIGATIONS, reviewed in the clinical context: White count 7.2 hemoglobin 6.4 potassium 3.4 creatinine 0.68 Previous testing: Hemoglobin 7.8 on May 30 2-D echo-Limited review EF 50-55% from April 29 Assessment: -Acute on chronic anemia in a patient with known esophagitis hemorrhoids. Patient's possibly having a slow GI bleed. Symptomatic. Check for hemolysis -chronic congestive heart exacerbationfrom diastolic dysfunction EF 50-55% -Chronic esophagitis gastritis , internal hemorrhoid -Moderate aortic stenosis, moderate tricuspid regurgitation, moderate pulmonary hypertension secondary -Persistent atrial fibrillation rate controlled -Left foot osteoarthritis with hammertoe from second to through fifth toe. 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 Bilirubin is 0.68. Home medications resumed. One unit of blood is being transferred. Consult GI and hematology. Iron studies. Care discussed with the patient. Past Medical History Past Medical History: Blood Disorder, Heart Failure, CVA/TIA, GERD/Reflux, Hypertension Additional Past Medical History / Comment(s): ITP DISORDER History of Any Multi-Drug Resistant Organisms: MRSA Date of last positivie culture/infection: 2012 MDRO Source:: URINE Past Surgical History: Orthopedic Surgery Additional Past Surgical History / Comment(s): BRAIN SURGERY AFTER BLEED in 2 013, bilateral knee replacements Past Anesthesia/Blood Transfusion Reactions: No Reported Reaction Additional Past Anesthesia/Blood Transfusion Reaction / Comment(s): Pt has difficulty waking. She has received blood recently and had no reaction. Past Psychological History: Depression Additional Psychological History / Comment(s): Pt currently at [facility] for rehab. She has had too much bilateral leg weakness to participate in PT last few days. She had been getting up with a walker. Now she is a lift to wheelchair. Smoking Status: Never smoker Past Alcohol Use History: None Reported Additional Past Alcohol Use History / Comment(s): Pt started smoking in 1964 and quit in 1989 Past Drug Use History: None Reported - Past Family History Sister(s) Family Medical History: AFIB, Congestive Heart Failure (CHF) Father Additional Family Medical History / Comment(s): Father had ETOH abuse. He in his later 70s. Mother Family Medical History: Hypertension Medications and Allergies Home Medications Medication Instructions Recorded Confirmed Type Potassium Chloride ER [K-Dur 20] 20 meq PO DAILY@1700 12/29/14 06/08/19 History Sertraline HCl [Zoloft] 200 mg PO DAILY@0800 12/29/14 06/08/19 History Albuterol Sulfate [Ventolin HFA] 2 puff INHALATION RT-Q4H PRN 04/28/19 06/08/19 History Acetaminophen [Tylenol 8 Hour] 650 mg PO Q4H PRN 05/26/19 06/08/19 History Caldesene Baby Powder 1 applic TOPICAL TID 05/26/19 06/08/19 History Famotidine [Pepcid] 20 mg PO DAILY@0800 05/26/19 06/08/19 History Furosemide [Lasix] 40 mg PO DAILY@0800 05/26/19 06/08/19 History Menthol-Zinc Oxide Oint 1 applic TOPICAL TID 05/26/19 06/08/19 History [Calmoseptine Oint] SILVER sulfADIAZINE CREAM 1 applic TOPICAL DAILY 05/26/19 06/08/19 History [Silvadene Cream] ALPRAZolam [Xanax] 0.25 mg PO DAILY PRN #3 tab 06/03/19 06/08/19 Rx HYDROcodone/APAP 5-325MG [[place] 1 tab PO Q6HR PRN #12 tab 06/03/19 06/08/19 Rx 5-325] Mupirocin 2% Oint [Bactroban 2% 1 applic TOPICAL TID applic 06/03/19 06/08/19 Rx Oint] Simethicone Chew [Mylicon Chew] 40 mg PO QID PRN chew 06/03/19 06/08/19 Rx Atorvastatin [Lipitor] 40 mg PO HS@209906/08/19 06/08/19 History Bisacodyl [Dulcolax] 10 mg RECTAL DAILY PRN 06/08/19 06/08/19 History Gabapentin [Neurontin] 100 mg PO BID@0800,2100 06/08/19 06/08/19 History Lidocaine 5% Patch [Lidoderm 5% 1 patch TOPICAL DAILY@0800 06/08/19 06/08/19 History Patch] Magnesium Hydroxide [Milk of 2,400 mg PO DAILY PRN 06/08/19 06/08/19 History Magnesia] Metoprolol Tartrate [Lopressor] 12.5 mg PO TID@0800,1200,1700 06/08/19 06/08/19 History Midodrine [ProAmatine] 5 mg PO TID@0700,1100,1630 06/08/19 06/08/19 History Na Phos,M-B/Na Phos,Di-Ba [Fleet 133 ml RECTAL DAILY PRN 06/08/19 06/08/19 History Adult] Allergies Allergy/AdvReac Type Severity Reaction Status Date / Time No Known Allergies Allergy Verified 06/08/19 13:48 Physical Exam Vitals: Vital Signs Temp Pulse Pulse Resp BP BP Pulse Ox 06/08/19 19:00 98.8 F 99 20 91/63 99 06/08/19 15:50 98.4 F 74 18 100/65 97 06/08/19 15:11 99.1 F 99/57 98 06/08/19 14:36 93 18 113/72 95 06/08/19 13:39 99.5 F 81 20 103/86 98 Intake and Output 06/08/19 06/08/19 06/08/19 06:59 14:59 22:59 Other: Weight 151.953 kg 151.953 kg Results CBC & Chem 7: 06/08/19 19:00 06/08/19 13:37 Labs: Abnormal Lab Results - Last 24 Hours (Table) 06/08/19 06/08/19 06/08/19 Range/Units 13:37 13:37 19:00 RBC 2.32 L 2.26 L (3.80-5.40) m/uL Hgb 6.4 L* 6.2 L* (11.4-16.0) gm/dL Hct 20.6 L 21.8 L (34.0-46.0) % MCHC 28.3 L (31.0-37.0) g/dL RDW 17.3 H 17.0 H (11.5-15.5) % Lymphocytes # 0.9 L (1.0-4.8) k/uL Lymphocytes # (Manual) 0.94 L (1.0-4.8) k/uL Potassium 3.4 L (3.5-5.1) mmol/L Carbon Dioxide 35 H (22-30) mmol/L BUN 20 H (7-17) mg/dL Glucose 133 H (74-99) mg/dL AST 39 H (14-36) U/L Albumin 3.3 L (3.5-5.0) g/dL Thrombosis Risk Factor Assmnt - Choose All That Apply Each Factor Represents 1 point: Obesity (BMI >25) Other Risk Factors: Yes Each Risk Factor Represents 3 Points: Age 75 years or older Other congenital or acquired thrombophilia - If yes, enter type in comment: No Thrombosis Risk Factor Assessment Total Risk Factor Score: 4 Thrombosis Risk Factor Assessment Level: Moderate Risk
[2019-06-08] MEDS ORDERED: [UNRECOGNIZED DRUG - OTHER] TOPICAL SCH (22:00)
[2019-06-09 02:23] LABS: Anisocytosis Slight; Basophils % (A) 0 %; Eosinophils # (A) 0.3 k/uL (0-0.7); Eosinophils % (A) 4 %; Hypochromasia Marked; Lymphocytes # (A) 0.9 k/uL (1.0-4.8); Lymphocytes % (A) 16 %; MCH 28.4 pg (25.0-35.0); MCHC 31.5 g/dL (31.0-37.0); Mean Platelet Volume 7.9; Monocytes # (A) 0.4 k/uL (0-1.0); Monocytes % (A) 7 %; Neutrophils # (A) 3.9 k/uL (1.3-7.7); Neutrophils % (A) 71 %; Platelet Count 155 k/uL (150-450); Poikilocytosis Slight; RBC 2.09 m/uL (3.80-5.40); RDW 17.2 % (11.5-15.5); WBC 5.6 k/uL (3.8-10.6)
[2019-06-09 02:34] LABS: HCT 18.9 % (34.0-46.0); HGB 5.9 gm/dL (11.4-16.0); MCV 90.3 fL (80.0-100.0)
[2019-06-09 04:54] LABS: Polychromasia Present; Target Cells Present
[2019-06-09 04:55] LABS: Ovalocytes Present
[2019-06-09] MEDS: MIDODRINE 5 MG TAB PO SCH ×3 (08:21→17:27)
[2019-06-09] MEDS: FAMOTIDINE 20 MG TAB PO SCH (08:21)
[2019-06-09] MEDS: SERTRALINE 100 MG TAB PO SCH (08:21)
[2019-06-09] MEDS: GABAPENTIN 100 MG CAP PO SCH ×2 (08:21→22:00)
[2019-06-09] MEDS: FUROSEMIDE 40 MG TAB PO SCH (08:21)
[2019-06-09] MEDS: METOPROLOL TARTRATE 12.5 MG TAB PO SCH ×3 (08:21→17:28)
[2019-06-09 08:36] LABS: Anisocytosis Slight; Basophils % (A) 0 %; Eosinophils # (A) 0.2 k/uL (0-0.7); Eosinophils % (A) 4 %; Hypochromasia Marked; Lymphocytes # (A) 0.7 k/uL (1.0-4.8); Lymphocytes % (A) 14 %; MCH 27.7 pg (25.0-35.0); MCHC 30.5 g/dL (31.0-37.0); MCV 90.8 fL (80.0-100.0); Mean Platelet Volume 7.7; Monocytes # (A) 0.4 k/uL (0-1.0); Monocytes % (A) 8 %; Neutrophils # (A) 3.9 k/uL (1.3-7.7); Neutrophils % (A) 73 %; Platelet Count 162 k/uL (150-450); Poikilocytosis Slight; RBC 2.08 m/uL (3.80-5.40); RDW 17.1 % (11.5-15.5); WBC 5.3 k/uL (3.8-10.6)
[2019-06-09] MEDS: MENTHOL-ZINC OXIDE OINT 113 GM TUBE TOPICAL SCH ×3 (08:38→22:13)
[2019-06-09] MEDS: MUPIROCIN 2% OINT 22 GM TUBE TOPICAL SCH ×3 (08:38→22:14)
[2019-06-09 08:41] LABS: HCT 18.9 % (34.0-46.0); HGB 5.8 gm/dL (11.4-16.0)
[2019-06-09 10:19] LABS: Erythrocyte Sedimentation Rate 122 mm/hr (0-20)
[2019-06-09 11:44] LABS: Ferritin 45.9 ng/mL (10.0-291.0)
[2019-06-09 11:59] LABS: % Iron Saturation 5.72 (12.00-45.00)
[2019-06-09] MEDS: LIDOCAINE 5% PATCH TOPICAL SCH (13:33)
[2019-06-09] MEDS: POTASSIUM CHLORIDE ER 20 MEQ TAB.ER PO SCH (13:35)
[2019-06-09 16:14] LABS: Reticulocyte % 4.73 % (0.10-1.80)
[2019-06-09 16:32] LABS: Folate, Serum 8.1 ng/mL
[2019-06-09 17:01] LABS: Protein, Total 5.4 g/dL (6.2-8.2)
--- NOTE | 2019-06-09 17:33 | P.PN ---
Progress Note - Text Progress Note Date: 06/09/19 Chief Complaint: Anemia History of presenting complaint: This is a very pleasant 73-year-old patient of Dr. Bob Kuo. Chronic stable medical conditions include GERD, hypertension, ITP, depression, painful peripheral neuropathy on Neurontin, CHF, atrial fibrillation.. Recent EGD showed-grade B erosive esophagitis, superficial gastritis and some bleeding along the gastric cardia. Also had internal hemorrhoids. Patient's a prior brain bleed. Has left her with some weakness on the right side. She has trouble feeling with the right hand. Recently the hospital from May 24 through June 02. Admitted with CHF exacerbation, symptomatic anemia and increasing medical debility. Received a unit of blood. IV Lasix. Midodrine was added. At the [facility] patient was able to transfer with assistance. Labs drawn at the [facility] should hemoglobin of 6.1. Patient only complaint is some tightness. No dark stools. Unit of blood was ordered. Admitted with symptomatic anemia. Today-blood was ordered. Due to national shortage still not transfuse. Laying in bed. No new issues. Review of systems: Was done for constitutional, cardiovascular, GI, pulmonary. relevant finding as above Active Medications Acetaminophen (Tylenol Tab) 650 mg PO Q4H PRN PRN Reason: Mild Pain Hydrocodone Bitart/Acetaminophen ([place] 5-325) 1 each PO Q6HR PRN PRN Reason: Moderate to Severe Pain Alprazolam (Xanax) 0.25 mg PO DAILY PRN PRN Reason: Anxiety Atorvastatin Calcium (Lipitor) 40 mg PO HS@2100 [facility] Last Admin: 06/08/19 20:26 Dose: Not Given Documented by: Bisacodyl (Dulcolax) 10 mg RECTAL DAILY PRN PRN Reason: Constipation Calamine/Phenol (Calmoseptine Oint) 1 applic TOPICAL TID [facility] Last Admin: 06/09/19 12:21 Dose: Not Given Documented by: Famotidine (Pepcid) 20 mg PO DAILY@0800 [facility] Last Admin: 06/09/19 08:21 Dose: 20 mg Documented by: Furosemide (Lasix) 40 mg PO DAILY@0800 [facility] Last Admin: 06/09/19 08:21 Dose: 40 mg Documented by: Gabapentin (Neurontin) 100 mg PO BID@0800,2100 [facility] Last Admin: 06/09/19 08:21 Dose: 100 mg Documented by: Lidocaine (Lidoderm) 1 patch TOPICAL DAILY@0800 [facility] Last Admin: 06/09/19 13:33 Dose: 1 patch Documented by: Magnesium Hydroxide (Milk Of Magnesia) 2,400 mg PO DAILY PRN PRN Reason: Constipation Metoprolol Tartrate (Lopressor) 12.5 mg PO TID@0800,1200,1700 [facility] Last Admin: 06/09/19 17:28 Dose: Not Given Documented by: Midodrine (Proamatine) 5 mg PO TID@0700,1100,1630 [facility] Last Admin: 06/09/19 17:27 Dose: 5 mg Documented by: Mupirocin (Bactroban Oint) 1 applic TOPICAL TID [facility] Last Admin: 06/09/19 12:21 Dose: Not Given Documented by: Potassium Chloride (K-Dur 20) 20 meq PO DAILY@1700 [facility] Last Admin: 06/09/19 13:35 Dose: 20 meq Documented by: Sertraline HCl (Zoloft) 200 mg PO DAILY@0800 [facility] Last Admin: 06/09/19 08:21 Dose: 200 mg Documented by: Silver Sulfadiazine (Silvadene Cream) 1 applic TOPICAL DAILY [facility] Last Admin: 06/09/19 08:38 Dose: Not Given Documented by: Simethicone (Mylicon Chew) 40 mg PO QID PRN PRN Reason: gas pains/gi upset Physical examination: VITAL SIGNS: 98.2, 88, 18, 118/75, 97% on room air GENERAL:, laying in bed, comfortable EYES: Pupils equal. Conjunctiva pale HEENT: External appearance of nose and ears normal, oral cavity grossly normal. NECK: JVD unable to assess, masses not palpable. HEART: First and second heart sounds are normal; edema present. LUNGS: Respiratory rate normal; distant breath sounds ABDOMEN: Soft, nontender, liver spleen not palpable, no masses palpable. PSYCH: Alert and oriented x3; mood and affect tired. Muscular skeletal: Evidence of OA INVESTIGATIONS, reviewed in the clinical context: White count 5.3 hemoglobin 5.8 reticulocyte count 4.73, haptoglobin the lower side 40.3 to blood factor normal,, EZEQUIEL screen negative Previous testing: White count 7.2 hemoglobin 6.4 potassium 3.4 creatinine 0.68 Hemoglobin 7.8 on May 30 2-D echo-Limited review EF 50-55% from April 29 Assessment: -Acute on chronic anemia in a patient with known esophagitis hemorrhoids. Patient's possibly having a slow GI bleed. Symptomatic. Patient has a reticulocyte count is high ; haptoglobin is low normal. Also iron deficiency anemia. -chronic congestive heart exacerbationfrom diastolic dysfunction EF 50-55% -Chronic esophagitis gastritis , internal hemorrhoid -Moderate aortic stenosis, moderate tricuspid regurgitation, moderate pulmonary hypertension secondary -Persistent atrial fibrillation rate controlled -Left foot osteoarthritis with hammertoe from second to through fifth toe. 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 Pending blood transfusion. Discussed with the patient. Follow with GI hematology.
--- NOTE | 2019-06-09 17:55 | P.CONS ---
History of Present Illness - Reason for Consult Consult date: 06/09/19 severe anemia, iron deficiency - History of Present Illness The patient is a 74-year-old white female with multiple medical problems. The patient is known to our service previously from 2012 when she had presented with ITP with platelet counts of 6000, as well as vaginal and intracranial bleeding. She was treated by Dr. Mckeon, and achieved remission. She was last seen in the office in 2016. After her initial episode she has remained in good partial remission or with normal platelet counts. She was seen again in consult in 04/04 , as anticoagulation had been recommended by cardiology for atrial fibrillation. She was felt to be an appropriate candidate for the same as dictated count is well within a safe range. In 04/04 the patient had a sodz-mo-xsjjniiz anemia with hemoglobin in the 9-10 range. Since then she has developed more severe anemia, with drop in hemoglobin into the 6 range leading to an admission in 05/05. She had an EGD and colonoscopy at that time. EGD revealed esophagitis and superficial gastritis with a small amount of blood noted in the stomach, but no obvious ulcers. Co lonoscopy revealed a transverse colon tubular adenomatous polyp. Anticoagulation was stopped at that time. The patient states that she was sent to [facility] after that patient has started feeling better. However she was readmitted earlier this month, and then again this time with marked weakness and shortness of breath on exertion, due to drop in hemoglobin. Hemoglobin this admission was in the 5 range. Consult was therefore placed for further evaluation and recommendations The patient was found to have hemorrhoids on colonoscopy in 05/05, but denies any obvious bleeding since then. No history of difficulty swallowing, upper abdominal discomfort or heartburn. Review of Systems Constitutional: Reports fatigue, Reports lethargy, Reports weakness Eyes: denies blurred vision, denies pain Ears: deny: decreased hearing, ear discharge, earache, tinnitus Ears, nose, mouth and throat: Denies headache, Denies sore throat Cardiovascular: Reports dyspnea on exertion, Reports palpitations Respiratory: Reports dyspnea Gastrointestinal: Reports as per HPI Genitourinary: Denies dysuria, Denies hematuria Menstruation: Reports postmenopausal Musculoskeletal: Reports muscle weakness Integumentary: Denies pruritus, Denies rash Neurological: Reports weakness Psychiatric: Reports anxiety Endocrine: Reports fatigue Hematologic/Lymphatic: Reports as per HPI Past Medical History Past Medical History: Blood Disorder, Heart Failure, CVA/TIA, GERD/Reflux, Hype rtension Additional Past Medical History / Comment(s): ITP DISORDER History of Any Multi-Drug Resistant Organisms: MRSA Year Discovered:: 2012 MDRO Source:: URINE Past Surgical History: Orthopedic Surgery Additional Past Surgical History / Comment(s): BRAIN SURGERY AFTER BLEED in 2013, bilateral knee replacements Past Anesthesia/Blood Transfusion Reactions: No Reported Reaction Additional Past Anesthesia/Blood Transfusion Reaction / Comm: Pt has difficulty waking. She has received blood recently and had no reaction. Past Psychological History: Depression Additional Psychological History / Comment(s): Pt currently at [facility] for rehab. She has had too much bilateral leg weakness to participate in PT last few days. She had been getting up with a walker. Now she is a lift to wheelchair. Smoking Status: Never smoker Past Alcohol Use History: None Reported Additional Past Alcohol Use History / Comment(s): Pt started smoking in 1964 and quit in 1989 Past Drug Use History: None Reported - Past Family History Sister(s) Family Medical History: AFIB, Congestive Heart Failure (CHF) Father Additional Family Medical History / Comment(s): Father had ETOH abuse. He in his later 70s. Mother Family Medical History: Hypertension Medications and Allergies Home Medications Medication Instructions Recorded Confirmed Type Potassium Chloride ER [K-Dur 20] 20 meq PO DAILY@1700 12/29/14 06/08/19 History Sertraline HCl [Zoloft] 200 mg PO DAILY@0800 12/29/14 06/08/19 History Albuterol Sulfate [Ventolin HFA] 2 puff INHALATION RT-Q4H PRN 04/28/19 06/08/19 History Acetaminophen [Tylenol 8 Hour] 650 mg PO Q4H PRN 05/26/19 06/08/19 History Caldesene Baby Powder 1 applic TOPICAL TID 05/26/19 06/08/19 History Famotidine [Pepcid] 20 mg PO DAILY@0800 05/26/19 06/08/19 History Furosemide [Lasix] 40 mg PO DAILY@0800 05/26/19 06/08/19 History Menthol-Zinc Oxide Oint 1 applic TOPICAL TID 05/26/19 06/08/19 History [Calmoseptine Oint] SILVER sulfADIAZINE CREAM 1 applic TOPICAL DAILY 05/26/19 06/08/19 History [Silvadene Cream] ALPRAZolam [Xanax] 0.25 mg PO DAILY PRN #3 tab 06/03/19 06/08/19 Rx HYDROcodone/APAP 5-325MG [[place] 1 tab PO Q6HR PRN #12 tab 06/03/19 06/08/19 Rx 5-325] Mupirocin 2% Oint [Bactroban 2% 1 applic TOPICAL TID applic 06/03/19 06/08/19 Rx Oint] Simethicone Chew [Mylicon Chew] 40 mg PO QID PRN chew 06/03/19 06/08/19 Rx Atorvastatin [Lipitor] 40 mg PO HS@2100 06/08/19 06/08/19 History Bisacodyl [Dulcolax] 10 mg RECTAL DAILY PRN 06/08/19 06/08/19 History Gabapentin [Neurontin] 100 mg PO BID@0800,2100 06/08/19 06/08/19 History Lidocaine 5% Patch [Lidoderm 5% 1 patch TOPICAL DAILY@0800 06/08/19 06/08/19 History Patch] Magnesium Hydroxide [Milk of 2,400 mg PO DAILY PRN 06/08/19 06/08/19 History Magnesia] Metoprolol Tartrate [Lopressor] 12.5 mg PO TID@0800,1200,1700 06/08/19 06/08/19 History Midodrine [ProAmatine] 5 mg PO TID@0700,1100,1630 06/08/19 06/08/19 History Na Phos,M-B/Na Phos,Di-Ba [Fleet 133 ml RECTAL DAILY PRN 06/08/19 06/08/19 History Adult] Allergies Allergy/AdvReac Type Severity Reaction Status Date / Time No Known Allergies Allergy Verified 06/08/19 13:48 Physical Exam Vitals: Vital Signs Temp Pulse Resp BP Pulse Ox 06/09/19 14:30 98.3 F 66 18 102/65 98 06/09/19 08:00 88 18 06/09/19 07:00 98.2 F 88 18 118/75 97 06/09/19 02:10 99.0 F 92 19 124/80 95 06/08/19 19:00 98.8 F 99 20 91/63 99 Intake and Output 03/26/20 03/26/20 03/26/20 06:59 14:59 22:59 Intake Total 475 Output Total 650 650 550 Balance -650 -175 -550 Intake: Intake, IV Titration 225 Amount Sodium Chloride 0.9% 1, 225 000 ml @ 75 mls/hr IV . [id number] ONE Rx#:[id number] Oral 250 Output: Urine 650 650 550 Other: # Voids 3 - Constitutional General appearance: no acute distress - EENT Eyes: EOMI, PERRLA ENT: hearing grossly normal, normal oropharynx - Neck Neck: no lymphadenopathy Thyroid: bilateral: normal size - Respiratory Respiratory: bilateral: CTA - Cardiovascular Rhythm: irregularly irregular Heart sounds: normal: S1, S2 - Gastrointestinal General gastrointestinal: normal bowel sounds, soft - Integumentary Integumentary: normal - Neurologic Neurologic: CNII-XII intact - Musculoskeletal Musculoskeletal: generalized weakness, strength equal bilaterally - Psychiatric Psychiatric: A&O x's 3, appropriate affect Results CBC & Chem 7: 06/09/19 07:39 06/08/19 13:37 Labs: Abnormal Lab Results - Last 24 Hours (Table) 06/08/19 06/08/19 06/08/19 Range/Units 14:30 19:00 22:35 RBC 2.26 L (3.80-5.40) m/uL Hgb 6.2 L* (11.4-16.0) gm/dL Hct 21.8 L (34.0-46.0) % MCHC 28.3 L (31.0-37.0) g/dL RDW 17.0 H (11.5-15.5) % Lymphocytes # (1.0-4.8) k/uL Lymphocytes # (Manual) 0.94 L (1.0-4.8) k/uL ESR (0-20) mm/hr Retic Count (0.10-1.80) % Iron 17 L (50-170) ug/dL % Saturation 5.72 L (12.00-45.00) Total Protein (PEP) (6.2-8.2) g/dL Crossmatch See Detail 06/09/19 06/09/19 06/09/19 Range/Units 01:59 07:39 07:51 RBC 2.09 L 2.08 L (3.80-5.40) m/uL Hgb 5.9 L* 5.8 L* (11.4-16.0) gm/dL Hct 18.9 L* 18.9 L* (34.0-46.0) % MCHC 30.5 L (31.0-37.0) g/dL RDW 17.2 H 17.1 H (11.5-15.5) % Lymphocytes # 0.9 L 0.7 L (1.0-4.8) k/uL Lymphocytes # (Manual) (1.0-4.8) k/uL ESR 122 H (0-20) mm/hr Retic Count 4.73 H (0.10-1.80) % Iron 25 L (50-170) ug/dL % Saturation (12.00-45.00) Total Protein (PEP) (6.2-8.2) g/dL Crossmatch 06/09/19 Range/Units 07:51 RBC (3.80-5.40) m/uL Hgb (11.4-16.0) gm/dL Hct (34.0-46.0) % MCHC (31.0-37.0) g/dL RDW (11.5-15.5) % Lymphocytes # (1.0-4.8) k/uL Lymphocytes # (Manual) (1.0-4.8) k/uL ESR (0-20) mm/hr Retic Count (0.10-1.80) % Iron (50-170) ug/dL % Saturation (12.00-45.00) Total Protein (PEP) 5.4 L (6.2-8.2) g/dL Crossmatch Comments: echocardiogram report review Procedure notes and pathology reports reviewed Chest x-ray: report reviewed CT scan - abdomen: report reviewed CT scan - pelvis: report reviewed Assessment and Plan (1) Anemia Narrative/Plan: The patient was noted to have a mild to moderate anemia in 04/04. Previous CBCs up until 2016 in the office had shown normal hemoglobin. Since then she has had major drops in hemoglobin as described. At this time iron deficiency anemia due to blood loss appears most likely. The patient had iron studies done previously which showed low normal ferritin, and very low iron saturation despite the transfusions. Given her prior history of ITP, hemolytic anemia is also a consideration. Her antibody screen during type and crossmatch was positive. However at this time hemolysis appears to be less likely as the patient's bilirubin is normal (and would usually be expected to be elevated if she truly had hemolytic anemia to this degree). In addition for anemia was due to hemolysis, her iron levels would be expected to be normal or even elevated. Iron studies will be ordered. We will also check for other causes of anemia including hemolysis though that appears to be less likely. If I deficiency is confirmed the patient will be treated with IV iron. She has not been on any iron supplementation in the outpatient setting. The etiology in that case would likely be a degree of ongoing low-volume losses, possibly from small bowel AVMs. In the meantime monitor and transfuse to keep hemoglobin greater than 7. Current Visit: Yes Status: Acute Code(s): D64.9 - ANEMIA, UNSPECIFIED SNOMED Code(s): 504290134 (2) Chronic ITP (idiopathic thrombocytopenia) Narrative/Plan: After achieving remission her initial episode, the patient has actually had either normal platelet counts, or counts above 100,000 which are well within a safe range. No change to that pattern is noted, with platelet count 162 today. Therefore her history of ITP does not appear to be an issue at this time. Continue to monitor Current Visit: Yes Status: Acute Code(s): D69.3 - IMMUNE THROMBOCYTOPENIC PURPURA SNOMED Code(s): 49939711 Plan: Defer to the admitting service for management of other medical problems As autoimmune hemolysis appears to be clinically unlikely, the positive antibody screen most likely represents alloantibody due to her previous transfusion
--- NOTE | 2019-06-09 19:56 | CONS ---
CONSULTATION DATE OF DICTATION: 06/09/2019 REASON FOR CONSULTATION: Severe anemia and Hemoccult-positive stool/iron deficiency anemia. HISTORY OF PRESENT ILLNESS: The patient is a 74-year-old pleasant white female with prior history of idiopathic thrombocytopenic purpura and follows with Dr. Pillai on an outpatient basis. She was admitted to the hospital because of severe symptomatic anemia and a hemoglobin of 5.8 g/dL. She was admitted to the hospital in April of this year with severe anemia with a hemoglobin of around 6, requiring blood transfusion, and she underwent an EGD and colonoscopy by Dr. Gordon. Upper endoscopy revealed esophagitis, gastritis with small amount of oozing noted in the stomach, but no ulcerations noted. Her colonoscopy revealed a small polyp in the transverse colon, sigmoid diverticulosis and external and internal hemorrhoids. The patient was on anticoagulation for atrial fibrillation, but during the last hospitalization it was discontinued. Lately she has been having worsening weakness and shortness of breath, and she came to the emergency room, wherein she was noted to have a hemoglobin of 5.8 g/dL. Currently she is scheduled to receive 2 units of blood transfusion, which has been delayed because of antibodies in the blood. She reports no rectal bleeding. Denies any change in her bowel habits. No abdominal pain. No nausea, no vomiting. Since February of this year she has received a total of 4 units of blood transfusion. PAST MEDICAL HISTORY: Past medical history is significant for severe iron deficiency anemia, history of the ITP diagnosed in 2011, congestive heart failure, CVA and TIA, GERD, hypertension, atrial fibrillation. PAST SURGICAL HISTORY: Brain surgery following brain bleed, bilateral knee replacement. SOCIAL HISTORY: No smoking or alcohol use. FAMILY HISTORY: Sister has congestive heart failure. Father had alcohol abuse and mother with hypertension. MEDICATIONS: Medications at home include potassium chloride, Zoloft, Ventolin, Tylenol, Pepcid, Lasix, , Silvadene cream, Xanax, [place], bacitracin, simethicone, metoprolol, milk of magnesia, midodrine, gabapentin, Lipitor. ALLERGIES: NONE. REVIEW OF SYSTEMS: CARDIOPULMONARY: She denies any chest pain. She does complain of some shortness of breath. GENITOURINARY: No dysuria or hematuria. MUSCULOSKELETAL: Unremarkable. SKIN: Unremarkable. ENDOCRINE: Unremarkable. PSYCHIATRIC: Unremarkable. NEUROLOGY: Unremarkable. ENT/VISION: Unremarkable. CONSTITUTIONAL: Some fatigue and weakness, but no fever, chills or night sweats. PHYSICAL EXAMINATION: She appears comfortable. No apparent distress. Vital signs are stable. Blood pressure 133/89, pulse rate 92 per minute and afebrile. HEENT examination unremarkable. Conjunctivae pink. Sclerae anicteric. Oral cavity no lesions. NECK: No JVD or lymph node enlargement. CHEST: Clear to auscultation. HEART: Regular rate and rhythm. ABDOMEN: Soft. Bowel sounds are positive. It was obese. EXTREMITIES: No pedal edema. SKIN: No rashes. NEUROLOGIC: Alert and oriented x3. No focal deficits. LABS: Labs done at the time of admission to the hospital showed WBC 5.6. MCV was 78. Serum iron 17, iron saturation 5.72. count was 4.73, sedimentation rate 122. IMPRESSION: 1. Severe symptomatic anemia consistent with iron deficiency anemia. CBC as per the chart in 2017 showed normal hemoglobin. She was admitted to the hospital a month ago with severe anemia and rectal bleeding and had an EGD and colonoscopy by Dr. Gordon that showed some superficial gastritis with oozing in the stomach, esophagitis and a transverse colon polyp with internal and external hemorrhoids. She was readmitted to the hospital with a hemoglobin of 5.8, awaiting blood transfusion, which is being delayed because of antibodies in the blood. At this time we are likely dealing with occult GI blood loss/subacute bleed. Last upper endoscopy done by Dr. Gordon did show evidence of some oozing in the stomach, and possibility of angiodysplasia needs to be ruled out. Also possibility of small bowel source of bleeding needs to be considered. 2. History of idiopathic thrombocytopenic purpura in the past with stable platelets now. 3. History of congestive heart failure. 4. Atrial fibrillation. Currently anticoagulation is on hold. RECOMMENDATIONS: 1. Agree with blood transfusion. 2. Will proceed with an upper endoscopy; and if negative, consider a small bowel capsule endoscopy tomorrow. I discussed with the patient risks, benefits and complications of the procedure, and she is agreeable to it. In the meantime, repeat CBC in the morning and we will follow with you closely. Thank you for this consultation. MMODL / IJN: [id number] /
[2019-06-09] MEDS: ATORVASTATIN 40 MG TAB PO SCH (22:00)
[2019-06-10 02:25] LABS: Anisocytosis Slight; Basophils % (A) 0 %; Eosinophils # (A) 0.3 k/uL (0-0.7); Eosinophils % (A) 4 %; HCT 21.8 % (34.0-46.0); Hypochromasia Moderate; Lymphocytes % (A) 15 %; MCH 28.3 pg (25.0-35.0); MCHC 31.7 g/dL (31.0-37.0); MCV 89.3 fL (80.0-100.0); Mean Platelet Volume 7.5; Monocytes # (A) 0.4 k/uL (0-1.0); Monocytes % (A) 6 %; Neutrophils # (A) 4.6 k/uL (1.3-7.7); Neutrophils % (A) 72 %; Platelet Count 167 k/uL (150-450); Poikilocytosis Moderate; RBC 2.43 m/uL (3.80-5.40); RDW 16.6 % (11.5-15.5); WBC 6.3 k/uL (3.8-10.6)
[2019-06-10 02:27] LABS: HGB 6.9 gm/dL (11.4-16.0)
[2019-06-10 02:34] LABS: African American GFR (CKD) >90 (>60 ml/min/1.73 sqM); Anion Gap 2 mmol/L; Blood Urea Nitrogen 15 mg/dL (7-17); Calcium 8.5 mg/dL (8.4-10.2); Carbon Dioxide 32 mmol/L (22-30); Chloride 103 mmol/L (98-107); Glucose 86 mg/dL (74-99); Non-African American GFR(CKD) >90 (>60 ml/min/1.73 sqM); Potassium 3.5 mmol/L (3.5-5.1); Sodium 137 mmol/L (137-145)
[2019-06-10] MEDS: METOPROLOL TARTRATE 12.5 MG TAB PO SCH ×3 (09:03→17:04)
[2019-06-10] MEDS: MIDODRINE 5 MG TAB PO SCH ×3 (09:04→17:04)
[2019-06-10] MEDS ORDERED: KETAMINE 10 MG/ML 20 ML VIAL ONE (09:22)
[2019-06-10] MEDS ORDERED: fentaNYL (PF) 50 MCG/ML 2 ML AMP ONE (09:22)
[2019-06-10] MEDS ORDERED: MIDAZOLAM 2 MG/2 ML VIAL ONE (09:22)
[2019-06-10] MEDS ORDERED: LIDOCAINE 1% INJ 10MG/ML (20 ML MDV) ONE (09:22)
--- NOTE | 2019-06-10 09:38 | P.PCN ---
Date of Procedure: 06/10/19 Procedure(s) Performed: BRIEF HISTORY: Patient is a 74-year-old, pleasant, white female, admitted hospital with severe anemia and hemoglobin of 6.5 requiring 1 unit of blood transfusion. She had a similar episode of severe anemia for which she was hospitalized 2 months ago and underwent an EGD and colonoscopy by Dr. Vines revealed some superficial gastritis with oozing in the stomach and a small colon polyp as well as internal hemorrhoids she was on Coumadin which has been on hold for the last month. Now presents with recurrent anemia but no active bleeding. She is scheduled for an upper endoscopy today and if this is negative We'll proceed with small bowel capsule endoscopy. PROCEDURE PERFORMED: Esophagogastroduodenoscopy with biopsy . PREOPERATIVE DIAGNOSIS: [Severe symptomatic anemia with a hemoglobin of 6.4 g/dL IV sedation per anesthesia. PROCEDURE: After informed consent was obtained, the patient was brought into the endoscopy unit. IV sedation was administered by Anesthesia under continuous monitoring. Initially the Olympus GIF-140 video endoscope was inserted into the mouth. Esophagus intubated without any difficulty. It was gradually advanced into the stomach and duodenum and carefully examined. The bulb and the second part of the duodenum appeared normal. there was a 2 mm small polyps in the second part of the duodenum that was biopsied. The scope at this time was withdrawn to the stomach, adequately insufflated with air, and upon careful examination, mucosa of the antrum, body, cardia and the fundus appeared normal. The scope was then withdrawn into the esophagus. The GE junction was located at 39 cm from the incisors. Small sliding type hiatal hernia noted. The esophagus appeared normal. There were no erosions or ulcerations seen and the patient tolerated the procedure well. IMPRESSION: 1. Small sliding Hiatal hernia but no evidence of esophagitis or peptic ulcer disease 2. A small 2 mm duodenal polyp status post biopsy. RECOMMENDATIONS: The findings of this examination were discussed with the patient. Since there is no obvious source of bleeding identified, will proceed with a small bowel capsule endoscopy today. She'll be on a clear liquid diet.
[2019-06-10] MEDS ORDERED: SODIUM CHLORIDE 0.9% 50 ML IV ONE (09:41)
[2019-06-10 09:44] LABS: Free Kappa Lt Chain Qnt, Serum 5.19 mg/dL (0.33-1.94)
[2019-06-10] MEDS ORDERED: SIMETHICONE 40 MG/0.6 ML DROPS 2,000 MG/30 ML BOTTLE PO ONE (11:03)
--- NOTE | 2019-06-10 12:51 | P.PN ---
Subjective Progress Note Date: 06/10/19 Principal diagnosis: Anemia Hemoglobin less than 7 today, will transfuse one unit of PRBC EGD also today Objective - Vital Signs Vital signs: Vital Signs Temp 98.3 F 06/10/19 07:05 Pulse 77 06/10/19 07:05 Resp 12 06/10/19 07:05 BP 116/70 06/10/19 07:05 Pulse Ox 93 L 06/10/19 07:05 Intake & Output 06/09/19 06/10/19 06/10/19 18:59 06:59 18:59 Intake Total 475 310 10 Output Total 1200 950 Balance -725 -533 10 Intake: IV 10 Intake, IV Titration 225 Amount Sodium Chloride 0.9% 1, 225 000 ml @ 75 mls/hr IV . [id number] ONE Rx#:[id number] Oral 250 Blood Product 310 Rc As-1 Unit 310 [id number] Output: Urine 1200 950 Other: # Voids 3 - Exam - Constitutional General appearance: no acute distress - EENT Eyes: EOMI, PERRLA ENT: hearing grossly normal, normal oropharynx - Neck Neck: no lymphadenopathy Thyroid: bilateral: normal size - Respiratory Respiratory: bilateral: CTA - Cardiovascular Rhythm: irregularly irregular Heart sounds: normal: S1, S2 - Gastrointestinal General gastrointestinal: normal bowel sounds, soft - Integumentary Integumentary: normal - Neurologic Neurologic: CNII-XII intact - Musculoskeletal Musculoskeletal: generalized weakness, strength equal bilaterally - Psychiatric Psychiatric: A&O x's 3, appropriate affect - Labs CBC & Chem 7: 06/10/19 02:08 06/10/19 02:18 Labs: Abnormal Lab Results - Last 24 Hours (Table) 06/08/19 06/09/19 06/09/19 Range/Units 22:35 07:39 07:51 RBC (3.80-5.40) m/uL Hgb (11.4-16.0) gm/dL Hct (34.0-46.0) % RDW (11.5-15.5) % Retic Count 4.73 H (0.10-1.80) % Carbon Dioxide (22-30) mmol/L Iron 25 L (50-170) ug/dL Total Protein (PEP) (6.2-8.2) g/dL IgA (60.0-350.0) mg/dL Free Sinclair LC, Quant (0.33-1.94) mg/dL Free Lambda LC, Quant (0.57-2.63) mg/dL Crossmatch See Detail Blood Bank Comment Sent to [facility] A Reference Lab Result See [facility]K REF Reports A 06/09/19 06/09/19 06/10/19 Range/Units 07:51 07:51 02:08 RBC 2.43 L (3.80-5.40) m/uL Hgb 6.9 L* (11.4-16.0) gm/dL Hct 21.8 L (34.0-46.0) % RDW 16.6 H (11.5-15.5) % Retic Count (0.10-1.80) % Carbon Dioxide (22-30) mmol/L Iron (50-170) ug/dL Total Protein (PEP) 5.4 L (6.2-8.2) g/dL IgA 422.0 H (60.0-350.0) mg/dL Free Sinclair LC, Quant 5.19 H (0.33-1.94) mg/dL Free Lambda LC, Quant 3.16 H (0.57-2.63) mg/dL Crossmatch Blood Bank Comment Reference Lab Result 06/10/19 Range/Units 02:18 RBC (3.80-5.40) m/uL Hgb (11.4-16.0) gm/dL Hct (34.0-46.0) % RDW (11.5-15.5) % Retic Count (0.10-1.80) % Carbon Dioxide 32 H (22-30) mmol/L Iron (50-170) ug/dL Total Protein (PEP) (6.2-8.2) g/dL IgA (60.0-350.0) mg/dL Free Sinclair LC, Quant (0.33-1.94) mg/dL Free Lambda LC, Quant (0.57-2.63) mg/dL Crossmatch Blood Bank Comment Reference Lab Result Assessment and Plan Plan: chocardiogram report review Procedure notes and pathology reports reviewed Chest x-ray: report reviewed CT scan - abdomen: report reviewed CT scan - pelvis: report reviewed Assessment and Plan Normocytic Anemia: - Mild to Moderate Anemia noted since March 2019 - Status post EGD and Colonoscopy in April with no significant findings except mild gastritis, she was admitted at that time with complaints of bloody stools. - She also has history of ITP and given this history will need to consider hemolytic anemia (less likely). - There is evidence of prior iron deficiency anemia as her ferritin was low - Small Bowel AVMs are also likely consideration Most recent Iron studies do reveal iron deficiency component and potential B12 deficiency (Await Methymelanic acid) IgA mildly increased FLC ratio approx 2 Chronic ITP (idiopathic thrombocytopenia): - After remission of her initial episode her platelets have remained normal Plan: - IV Iron infusions x3 inpatient and can follow-up in office for continued monitoring and prn infusions - B12 supplementation - Await results EGD today - Transfuse PRBC today Physician Attest: I have completed the full history and physical and agree with above dictation, dictated as a scribe
[2019-06-10 13:27] LABS: Gamma Globulin 1.06 g/dL (0.70-1.50)
[2019-06-10] MEDS: MENTHOL-ZINC OXIDE OINT 113 GM TUBE TOPICAL SCH ×3 (13:40→22:00)
[2019-06-10] MEDS: MUPIROCIN 2% OINT 22 GM TUBE TOPICAL SCH ×3 (13:40→22:00)
[2019-06-10] MEDS: FUROSEMIDE 40 MG TAB PO SCH (13:53)
[2019-06-10] MEDS: SERTRALINE 100 MG TAB PO SCH (13:53)
[2019-06-10] MEDS: FAMOTIDINE 20 MG TAB PO SCH (13:53)
[2019-06-10] MEDS: GABAPENTIN 100 MG CAP PO SCH ×2 (13:54→20:04)
[2019-06-10] MEDS: CYANOCOBALAMIN 500 MCG TAB PO SCH (13:59)
[2019-06-10] MEDS: LIDOCAINE 5% PATCH TOPICAL SCH (14:00)
[2019-06-10] MEDS: POTASSIUM CHLORIDE ER 20 MEQ TAB.ER PO SCH (17:04)
[2019-06-10] MEDS: ATORVASTATIN 40 MG TAB PO SCH (20:04)
--- NOTE | 2019-06-10 22:10 | P.PN ---
Progress Note - Text Progress Note Date: 06/10/19 Chief Complaint: Anemia History of presenting complaint: This is a very pleasant 73-year-old patient of Dr. Bob Kuo. Chronic stable medical conditions include GERD, hypertension, ITP, depression, painful peripheral neuropathy on Neurontin, CHF, atrial fibrillation.. Recent EGD showed-grade B erosive esophagitis, superficial gastritis and some bleeding along the gastric cardia. Also had internal hemorrhoids. Patient's a prior brain bleed. Has left her with some weakness on the right side. She has trouble feeling with the right hand. Recently the hospital from May 24 through June 02. Admitted with CHF exacerbation, symptomatic anemia and increasing medical debility. Received a unit of blood. IV Lasix. Midodrine was added. At the F patient was able to transfer with assistance. Labs drawn at the [facility] should hemoglobin of 6.1. Patient only complaint is some tightness. No dark stools. Unit of blood was ordered. Admitted with symptomatic anemia.-did get 2 units of blood. Today-EGD today-unremarkable. Small bowel capsule study started. Review of systems: Was done for constitutional, cardiovascular, GI, pulmonary. relevant finding as above Active Medications Acetaminophen (Tylenol Tab) 650 mg PO Q4H PRN PRN Reason: Mild Pain Hydrocodone Bitart/Acetaminophen ([place] 5-325) 1 each PO Q6HR PRN PRN Reason: Moderate to Severe Pain Alprazolam (Xanax) 0.25 mg PO DAILY PRN PRN Reason: Anxiety Atorvastatin Calcium (Lipitor) 40 mg PO HS@2100 [facility] Last Admin: 06/10/19 20:04 Dose: 40 mg Documented by: Bisacodyl (Dulcolax) 10 mg RECTAL DAILY PRN PRN Reason: Constipation Calamine/Phenol (Calmoseptine Oint) 1 applic TOPICAL TID [facility] Last Admin: 06/10/19 22:00 Dose: Not Given Documented by: Cyanocobalamin (Vitamin B-12) 1,000 mcg PO DAILY [facility] Last Admin: 06/10/19 13:59 Dose: 1,000 mcg Documented by: Famotidine (Pepcid) 20 mg PO DAILY@0800 [facility] Last Admin: 06/10/19 13:53 Dose: 20 mg Documented by: Furosemide (Lasix) 40 mg PO DAILY@0800 [facility] Last Admin: 06/10/19 13:53 Dose: 40 mg Documented by: Gabapentin (Neurontin) 100 mg PO BID@0800,2100 [facility] Last Admin: 06/10/19 20:04 Dose: 100 mg Documented by: Ferric Sodium Gluconate 125 mg (/ Sodium Chloride) 110 mls @ 100 mls/hr IVPB DAILY [facility] Stop: 06/13/19 10:05 Lidocaine (Lidoderm) 1 patch TOPICAL DAILY@0800 [facility] Last Admin: 06/10/19 14:00 Dose: 1 patch Documented by: Magnesium Hydroxide (Milk Of Magnesia) 2,400 mg PO DAILY PRN PRN Reason: Constipation Metoprolol Tartrate (Lopressor) 12.5 mg PO TID@0800,1200,1700 [facility] Last Admin: 06/10/19 17:04 Dose: 12.5 mg Documented by: Midodrine (Proamatine) 5 mg PO TID@0700,1100,1630 [facility] Last Admin: 06/10/19 17:04 Dose: 5 mg Documented by: Mupirocin (Bactroban Oint) 1 applic TOPICAL TID [facility] Last Admin: 06/10/19 22:00 Dose: Not Given Documented by: Potassium Chloride (K-Dur 20) 20 meq PO DAILY@1700 [facility] Last Admin: 06/10/19 17:04 Dose: 20 meq Documented by: Sertraline HCl (Zoloft) 200 mg PO DAILY@0800 [facility] Last Admin: 06/10/19 13:53 Dose: 200 mg Documented by: Silver Sulfadiazine (Silvadene Cream) 1 applic TOPICAL DAILY [facility] Last Admin: 06/10/19 13:40 Dose: Not Given Documented by: Simethicone (Mylicon Chew) 40 mg PO QID PRN PRN Reason: gas pains/gi upset Physical examination: VITAL SIGNS: 98.3, 78, 16, 133/77,& GENERAL:, laying in bed, comfortable EYES: Pupils equal. Conjunctiva pale HEENT: External appearance of nose and ears normal, oral cavity grossly normal. NECK: JVD unable to assess, masses not palpable. HEART: First and second heart sounds are normal; edema present. LUNGS: Respiratory rate normal; distant breath sounds ABDOMEN: Soft, nontender, liver spleen not palpable, no masses palpable. PSYCH: Alert and oriented x3; mood and affect tired. Muscular skeletal: Evidence of OA INVESTIGATIONS, reviewed in the clinical context: hemoglobin 6.9 Previous testing: White count 7.2 hemoglobin 6.4 potassium 3.4 creatinine 0.68 Hemoglobin 7.8 on May 30 2-D echo-Limited review EF 50-55% from April 29 reticulocyte count 4.73, haptoglobin the lower side 40.3 to blood factor normal,, EZEQUIEL screen negative Assessment: -Acute on chronic anemia in a patient with known esophagitis hemorrhoids. Patient's possibly having a slow GI bleed. Symptomatic. Patient has a reticulocyte count is high ; haptoglobin is low normal. Also iron deficiency anemia. -chronic congestive heart exacerbationfrom diastolic dysfunction EF 50-55% -Chronic esophagitis gastritis , internal hemorrhoid -Moderate aortic stenosis, moderate tricuspid regurgitation, moderate pulmonary hypertension secondary -Persistent atrial fibrillation rate controlled -Left foot osteoarthritis with hammertoe from second to through fifth toe. 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 Small bowel capsule study being done. Hematology workup in place. Patient receives second of blood.
[2019-06-11] MEDS: SERTRALINE 100 MG TAB PO SCH (07:58)
[2019-06-11] MEDS: GABAPENTIN 100 MG CAP PO SCH ×2 (07:59→20:01)
[2019-06-11] MEDS: MIDODRINE 5 MG TAB PO SCH ×3 (07:59→16:09)
[2019-06-11] MEDS: FAMOTIDINE 20 MG TAB PO SCH (07:59)
[2019-06-11] MEDS: METOPROLOL TARTRATE 12.5 MG TAB PO SCH ×3 (07:59→17:10)
[2019-06-11] MEDS: CYANOCOBALAMIN 500 MCG TAB PO SCH (07:59)
[2019-06-11] MEDS: FUROSEMIDE 40 MG TAB PO SCH (07:59)
[2019-06-11] MEDS: LIDOCAINE 5% PATCH TOPICAL SCH (07:59)
[2019-06-11] MEDS: MUPIROCIN 2% OINT 22 GM TUBE TOPICAL SCH ×3 (08:08→20:02)
[2019-06-11] MEDS: MENTHOL-ZINC OXIDE OINT 113 GM TUBE TOPICAL SCH ×3 (08:08→20:02)
[2019-06-11] MEDS: SODIUM FERRIC GLUCONAT-SUCROSE 125 MG in SODIUM CHLORIDE 0.9% 100 ML IVPB SCH (09:51)
--- NOTE | 2019-06-11 10:31 | PN ---
PROGRESS NOTE DATE OF SERVICE: 06/11/2019 Patient is a 74-year-old pleasant white female, admitted to hospital with severe symptomatic anemia and hemoglobin of 5.8, requiring 2 units of blood transfusion, today hemoglobin is 6.9 g/dL. Oncology has been consulted. Dr. Mckeon following the patient closely. She underwent an upper endoscopy yesterday that was unremarkable other than a small duodenal polyp and subsequently had a small bowel capsule endoscopy, the results of which are still pending at the time of this dictation. In the meantime, patient is doing well. She denies any complaints. PHYSICAL EXAMINATION: Appears comfortable. Vital signs are stable. Blood pressure 135/81, pulse 72, temperature 98.2. HEENT: Examination unremarkable, conjunctivae are pink, sclerae nonicteric. Oral cavity no lesions. NECK: No JVD or lymph node enlargement. CHEST: Clear to auscultation. HEART: Regular rate and rhythm. ABDOMEN: Soft. Bowel sounds are positive. No organomegaly. She is obese. EXTREMITIES: No pedal edema. SKIN: No rashes. NEUROLOGIC: Alert and oriented x3. No focal deficits. LABS: WBC 6.3, hemoglobin 6.9, platelets normal. Basic metabolic panel is within normal limits. IMPRESSION: 1. Severe symptomatic iron-deficiency anemia with no active gastrointestinal bleed, status post EGD and colonoscopy in April [address] Gordon that was unremarkable other than mild gastritis and colon polyp. She had a repeat upper endoscopy yesterday that was unremarkable other than a small duodenal polyp, small bowel capsule endoscopy done yesterday, results of which are still pending at the time of this dictation. 2. History of atrial fibrillation on Coumadin, has been on hold for one month. RECOMMENDATION: 1. Advance to regular diet today. 2. Monitor CBC daily. 3. Agree with iron infusion. 4. Await results of capsule endoscopy which was done late yesterday and patient will be notified as soon as the results are available. Thank you for this consultation. MMODL / IJN: [id number] /
[2019-06-11] MEDS: POTASSIUM CHLORIDE ER 20 MEQ TAB.ER PO SCH (16:09)
--- NOTE | 2019-06-11 18:37 | P.PN ---
Progress Note - Text Progress Note Date: 06/11/19 Chief Complaint: Anemia History of presenting complaint: This is a very pleasant 73-year-old patient of Dr. Bob Kuo. Chronic stable medical conditions include GERD, hypertension, ITP, depression, painful peripheral neuropathy on Neurontin, CHF, atrial fibrillation.. Recent EGD showed-grade B erosive esophagitis, superficial gastritis and some bleeding along the gastric cardia. Also had internal hemorrhoids. Patient's a prior brain bleed. Has left her with some weakness on the right side. She has trouble feeling with the right hand. Recently the hospital from May 24 through June 02. Admitted with CHF exacerbation, symptomatic anemia and increasing medical debility. Received a unit of blood. IV Lasix. Midodrine was added. At the F patient was able to transfer with assistance. Labs drawn at the [facility] should hemoglobin of 6.1. Patient only complaint is some tightness. No dark stools. Unit of blood was ordered. Admitted with symptomatic anemia.-did get 2 units of blood. EGD-unremarkable Today-. Tolerating a diet. Results a small bowel capsule study pending. No new issues. Review of systems: Was done for constitutional, cardiovascular, GI, pulmonary. relevant finding as above Active Medications Acetaminophen (Tylenol Tab) 650 mg PO Q4H PRN PRN Reason: Mild Pain Hydrocodone Bitart/Acetaminophen ([place] 5-325) 1 each PO Q6HR PRN PRN Reason: Moderate to Severe Pain Alprazolam (Xanax) 0.25 mg PO DAILY PRN PRN Reason: Anxiety Atorvastatin Calcium (Lipitor) 40 mg PO HS@2100 [facility] Last Admin: 06/10/19 20:04 Dose: 40 mg Documented by: Bisacodyl (Dulcolax) 10 mg RECTAL DAILY PRN PRN Reason: Constipation Calamine/Phenol (Calmoseptine Oint) 1 applic TOPICAL TID [facility] Last Admin: 06/11/19 17:10 Dose: Not Given Documented by: Cyanocobalamin (Vitamin B-12) 1,000 mcg PO DAILY [facility] Last Admin: 06/11/19 07:59 Dose: 1,000 mcg Documented by: Famotidine (Pepcid) 20 mg PO DAILY@0800 [facility] Last Admin: 06/11/19 07:59 Dose: 20 mg Documented by: Furosemide (Lasix) 40 mg PO DAILY@0800 [facility] Last Admin: 06/11/19 07:59 Dose: 40 mg Documented by: Gabapentin (Neurontin) 100 mg PO BID@0800,2100 [facility] Last Admin: 06/11/19 07:59 Dose: 100 mg Documented by: Ferric Sodium Gluconate 125 mg (/ Sodium Chloride) 110 mls @ 100 mls/hr IVPB DAILY [facility] Stop: 06/13/19 10:05 Last Admin: 06/11/19 09:51 Dose: 100 mls/hr Documented by: Lidocaine (Lidoderm) 1 patch TOPICAL DAILY@0800 [facility] Last Admin: 06/11/19 07:59 Dose: 1 patch Documented by: Magnesium Hydroxide (Milk Of Magnesia) 2,400 mg PO DAILY PRN PRN Reason: Constipation Metoprolol Tartrate (Lopressor) 12.5 mg PO TID@0800,1200,1700 [facility] Last Admin: 06/11/19 17:10 Dose: Not Given Documented by: Midodrine (Proamatine) 5 mg PO TID@0700,1100,1630 [facility] Last Admin: 06/11/19 16:09 Dose: 5 mg Documented by: Mupirocin (Bactroban Oint) 1 applic TOPICAL TID [facility] Last Admin: 06/11/19 17:10 Dose: Not Given Documented by: Potassium Chloride (K-Dur 20) 20 meq PO DAILY@1700 [facility] Last Admin: 06/11/19 16:09 Dose: 20 meq Documented by: Sertraline HCl (Zoloft) 200 mg PO DAILY@0800 [facility] Last Admin: 06/11/19 07:58 Dose: 200 mg Documented by: Silver Sulfadiazine (Silvadene Cream) 1 applic TOPICAL DAILY [facility] Last Admin: 06/10/19 13:40 Dose: Not Given Documented by: Simethicone (Mylicon Chew) 40 mg PO QID PRN PRN Reason: gas pains/gi upset Physical examination: VITAL SIGNS: 98.2, 72, 18, 135/81, 99% on 3 L GENERAL:, laying in bed, comfortable EYES: Pupils equal. Conjunctiva pale HEENT: External appearance of nose and ears normal, oral cavity grossly normal. NECK: JVD unable to assess, masses not palpable. HEART: First and second heart sounds are normal; edema present. LUNGS: Respiratory rate normal; distant breath sounds ABDOMEN: Soft, nontender, liver spleen not palpable, no masses palpable. PSYCH: Alert and oriented x3; mood and affect tired. Muscular skeletal: Evidence of OA INVESTIGATIONS, reviewed in the clinical context: hemoglobin 6.9 Previous testing: White count 7.2 hemoglobin 6.4 potassium 3.4 creatinine 0.68 Hemoglobin 7.8 on May 30 2-D echo-Limited review EF 50-55% from April 29 reticulocyte count 4.73, haptoglobin the lower side 40.3 to blood factor normal,, EZEQUIEL screen negative Assessment: -Acute on chronic anemia in a patient with known esophagitis hemorrhoids. Patient's possibly having a slow GI bleed. Symptomatic. Patient has a reticulocyte count is high ; haptoglobin is low normal. Also iron deficiency anemia. -chronic congestive heart exacerbationfrom diastolic dysfunction EF 50-55% -Chronic esophagitis gastritis , internal hemorrhoid -Moderate aortic stenosis, moderate tricuspid regurgitation, moderate pulmonary hypertension secondary -Persistent atrial fibrillation rate controlled -Left foot osteoarthritis with hammertoe from second to through fifth toe. 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 Discussed with patient.
[2019-06-11] MEDS: ALPRAZolam 0.25 MG TAB PO PRN (19:53)
[2019-06-11] MEDS: ATORVASTATIN 40 MG TAB PO SCH (20:01)
[2019-06-12] MEDS: LIDOCAINE 5% PATCH TOPICAL SCH (07:44)
[2019-06-12] MEDS: MIDODRINE 5 MG TAB PO SCH ×3 (07:45→16:33)
[2019-06-12] MEDS: SERTRALINE 100 MG TAB PO SCH (07:45)
[2019-06-12] MEDS: GABAPENTIN 100 MG CAP PO SCH ×2 (07:45→21:50)
[2019-06-12] MEDS: FAMOTIDINE 20 MG TAB PO SCH (07:45)
[2019-06-12] MEDS: CYANOCOBALAMIN 500 MCG TAB PO SCH (07:45)
[2019-06-12] MEDS: FUROSEMIDE 40 MG TAB PO SCH (07:46)
[2019-06-12] MEDS: METOPROLOL TARTRATE 12.5 MG TAB PO SCH ×3 (07:46→16:33)
[2019-06-12] MEDS: MUPIROCIN 2% OINT 22 GM TUBE TOPICAL SCH ×3 (07:49→21:47)
[2019-06-12] MEDS: MENTHOL-ZINC OXIDE OINT 113 GM TUBE TOPICAL SCH ×3 (07:49→21:47)
[2019-06-12] MEDS: SODIUM FERRIC GLUCONAT-SUCROSE 125 MG in SODIUM CHLORIDE 0.9% 100 ML IVPB SCH (08:44)
[2019-06-12 10:07] LABS: Anisocytosis Slight; Basophils % (A) 0 %; Eosinophils # (A) 0.2 k/uL (0-0.7); Eosinophils % (A) 3 %; HCT 23.2 % (34.0-46.0); HGB 7.3 gm/dL (11.4-16.0); Hypochromasia Moderate; Lymphocytes # (A) 0.8 k/uL (1.0-4.8); Lymphocytes % (A) 12 %; MCHC 31.5 g/dL (31.0-37.0); MCV 88.7 fL (80.0-100.0); Monocytes # (A) 0.5 k/uL (0-1.0); Monocytes % (A) 7 %; Neutrophils # (A) 5.3 k/uL (1.3-7.7); Neutrophils % (A) 77 %; Platelet Count 154 k/uL (150-450); Poikilocytosis Moderate; RBC 2.62 m/uL (3.80-5.40); RDW 16.8 % (11.5-15.5); WBC 6.9 k/uL (3.8-10.6)
[2019-06-12] MEDS: POTASSIUM CHLORIDE ER 20 MEQ TAB.ER PO SCH (16:33)
--- NOTE | 2019-06-12 16:57 | PN ---
PROGRESS NOTE DATE OF SERVICE: 06/12/2019 The patient is a 74-year-old, pleasant, white female admitted to the hospital with severe symptomatic anemia and hemoglobin of 5.5 requiring 2 units of PRBC transfusion. The patient had a similar episode a month ago. Had an EGD and colonoscopy by Dr. Gordon that showed some gastritis and diverticulosis and a polyp. During this hospitalization, she had an upper endoscopy done by [facility] that showed a small duodenal polyp but otherwise unremarkable. She subsequently had a small bowel capsule endoscopy yesterday that revealed evidence of oozing in multiple areas of the small bowel, most predominantly in the distal duodenum, proximal jejunum, and possibly in the proximal ileum. No obvious mucosal lesion identified but it appears that there are present angioectasia. In the meantime, her hemoglobin yesterday was 6.8. She is getting IV iron infusions. No complaints. PHYSICAL EXAMINATION: On physical examination, she appears comfortable. No apparent distress. VITAL SIGNS: Stable. Blood pressure is 143/76, pulse is 87, temperature 98.5. HEENT: Unremarkable. Conjunctivae pink. Sclerae anicteric. Oral cavity: No lesions. NECK: No JVD. No lymph node enlargement. CHEST: Clear to auscultation. HEART: Regular rate and rhythm. ABDOMEN: Soft, obese. Bowel sounds are positive. No organomegaly. EXTREMITIES: No pedal edema. SKIN: No rashes. NEUROLOGIC: Alert and oriented x3. No focal deficits. LABS: WBC 6.9, repeat hemoglobin is 7.3, platelets are 154. IMPRESSION: 1. Severe symptomatic anemia secondary to small bowel source of gastrointestinal bleeding. The patient had small bowel capsule endoscopy done yesterday that revealed oozing noted in several areas of the small bowel, most predominantly in the distal duodenum, proximal jejunum, and proximal ileum where there was fresh oozing with small clots identified, most likely representing angiodysplasia. 2. Atrial fibrillation, on Coumadin, which as been on hold for the last one month duration. 3. Anemia secondary to gastrointestinal bleed. RECOMMENDATIONS: 1. We will transfuse her with 1 unit of PRBC. 2. Continue with iron infusions. 3. In regard to the small bowel source of bleeding, I recommended an upper endoscopy with small bowel enteroscopy and she is agreeable to it. The patient is agreeable to the plan. Thank you for this consultation. MMODL / IJN: [id number] /
--- NOTE | 2019-06-12 20:24 | P.PN ---
Progress Note - Text Progress Note Date: 06/12/19 Chief Complaint: Anemia History of presenting complaint: This is a very pleasant 73-year-old patient of Dr. Bob Kuo. Chronic stable medical conditions include GERD, hypertension, ITP, depression, painful peripheral neuropathy on Neurontin, CHF, atrial fibrillation.. Recent EGD showed-grade B erosive esophagitis, superficial gastritis and some bleeding along the gastric cardia. Also had internal hemorrhoids. Patient's a prior brain bleed. Has left her with some weakness on the right side. She has trouble feeling with the right hand. Recently the hospital from May 24 through June 02. Admitted with CHF exacerbation, symptomatic anemia and increasing medical debility. Received a unit of blood. IV Lasix. Midodrine was added. At the [facility] patient was able to transfer with assistance. Labs drawn at the [facility] should hemoglobin of 6.1. Patient only complaint is some tightness. No dark stools. Unit of blood was ordered. Admitted with symptomatic anemia.-did get 2 units of blood. EGD-unremarkable. Today-. Small bowel capsule study reveals multiple areas of small bleeding. Likely representing angiodysplasia.. Review of systems: Was done for constitutional, cardiovascular, GI, pulmonary. relevant finding as above Active Medications Acetaminophen (Tylenol Tab) 650 mg PO Q4H PRN PRN Reason: Mild Pain Hydrocodone Bitart/Acetaminophen ([place] 5-325) 1 each PO Q6HR PRN PRN Reason: Moderate to Severe Pain Last Admin: 06/12/19 10:19 Dose: 1 each Documented by: Alprazolam (Xanax) 0.25 mg PO DAILY PRN PRN Reason: Anxiety Last Admin: 06/11/19 19:53 Dose: 0.25 mg Documented by: Atorvastatin Calcium (Lipitor) 40 mg PO HS@2100 [facility] Last Admin: 06/11/19 20:01 Dose: 40 mg Documented by: Bisacodyl (Dulcolax) 10 mg RECTAL DAILY PRN PRN Reason: Constipation Calamine/Phenol (Calmoseptine Oint) 1 applic TOPICAL TID [facility] Last Admin: 06/12/19 13:47 Dose: Not Given Documented by: Cyanocobalamin (Vitamin B-12) 1,000 mcg PO DAILY [facility] Last Admin: 06/12/19 07:45 Dose: 1,000 mcg Documented by: Famotidine (Pepcid) 20 mg PO DAILY@0800 [facility] Last Admin: 06/12/19 07:45 Dose: 20 mg Documented by: Furosemide (Lasix) 40 mg PO DAILY@0800 [facility] Last Admin: 06/12/19 07:46 Dose: 40 mg Documented by: Gabapentin (Neurontin) 100 mg PO BID@0800,2100 [facility] Last Admin: 06/12/19 07:45 Dose: 100 mg Documented by: Ferric Sodium Gluconate 125 mg (/ Sodium Chloride) 110 mls @ 100 mls/hr IVPB DAILY [facility] Stop: 06/13/19 10:05 Last Admin: 06/12/19 08:44 Dose: 100 mls/hr Documented by: Lidocaine (Lidoderm) 1 patch TOPICAL DAILY@0800 [facility] Last Admin: 06/12/19 07:44 Dose: 1 patch Documented by: Magnesium Hydroxide (Milk Of Magnesia) 2,400 mg PO DAILY PRN PRN Reason: Constipation Metoprolol Tartrate (Lopressor) 12.5 mg PO TID@0800,1200,1700 [facility] Last Admin: 06/12/19 16:33 Dose: 12.5 mg Documented by: Midodrine (Proamatine) 5 mg PO TID@0700,1100,1630 [facility] Last Admin: 06/12/19 16:33 Dose: 5 mg Documented by: Mupirocin (Bactroban Oint) 1 applic TOPICAL TID [facility] Last Admin: 06/12/19 13:47 Dose: Not Given Documented by: Potassium Chloride (K-Dur 20) 20 meq PO DAILY@1700 [facility] Last Admin: 06/12/19 16:33 Dose: 20 meq Documented by: Sertraline HCl (Zoloft) 200 mg PO DAILY@0800 [facility] Last Admin: 06/12/19 07:45 Dose: 200 mg Documented by: Silver Sulfadiazine (Silvadene Cream) 1 applic TOPICAL DAILY [facility] Last Admin: 06/12/19 07:49 Dose: Not Given Documented by: Simethicone (Mylicon Chew) 40 mg PO QID PRN PRN Reason: gas pains/gi upset Physical examination: VITAL SIGNS: 98.6, 76, 18, 121/75, 95% on 3 L GENERAL:, laying in bed, comfortable EYES: Pupils equal. Conjunctiva pale HEENT: External appearance of nose and ears normal, oral cavity grossly normal. NECK: JVD unable to assess, masses not palpable. HEART: First and second heart sounds are normal; edema present. LUNGS: Respiratory rate normal; distant breath sounds ABDOMEN: Soft, nontender, liver spleen not palpable, no masses palpable. PSYCH: Alert and oriented x3; mood and affect tired. Muscular skeletal: Evidence of OA INVESTIGATIONS, reviewed in the clinical context: hemoglobin 6.9 Previous testing: White count 7.2 hemoglobin 6.4 potassium 3.4 creatinine 0.68 Hemoglobin 7.8 on May 30 2-D echo-Limited review EF 50-55% from April 29 reticulocyte count 4.73, haptoglobin the lower side 40.3 to blood factor normal,, EZEQUIEL screen negative Small bowel capsule study-showing multiple areas of small bleeding. Suspect angiodysplasia Assessment: -Acute on chronic anemia in a patient with known esophagitis hemorrhoids. Patient's possibly having a slow GI bleed. Symptomatic. Patient has a reticulocyte count is high ; haptoglobin is low normal. Also iron deficiency anemia. -Small bowel capsule showing-multiple areas of small bleeders suggestive of angiodysplasia -chronic congestive heart exacerbationfrom diastolic dysfunction EF 50-55% -Chronic esophagitis gastritis , internal hemorrhoid -Moderate aortic stenosis, moderate tricuspid regurgitation, moderate pulmonary hypertension secondary -Persistent atrial fibrillation rate controlled -Left foot osteoarthritis with hammertoe from second to through fifth toe. 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 Dr. Matute planning upper endoscopy with small bowel enteroscopy. Other meds to continue.
[2019-06-12] MEDS: ALPRAZolam 0.25 MG TAB PO PRN (21:49)
[2019-06-12] MEDS: ATORVASTATIN 40 MG TAB PO SCH (21:50)
[2019-06-13 07:56] LABS: Anisocytosis Slight; Basophils % (A) 0 %; Eosinophils # (A) 0.3 k/uL (0-0.7); Eosinophils % (A) 4 %; HCT 24.4 % (34.0-46.0); HGB 7.5 gm/dL (11.4-16.0); Hypochromasia Marked; Lymphocytes # (A) 0.9 k/uL (1.0-4.8); Lymphocytes % (A) 13 %; MCH 27.6 pg (25.0-35.0); MCHC 30.8 g/dL (31.0-37.0); MCV 89.6 fL (80.0-100.0); Mean Platelet Volume 7.8; Monocytes # (A) 0.4 k/uL (0-1.0); Monocytes % (A) 6 %; Neutrophils # (A) 5.1 k/uL (1.3-7.7); Neutrophils % (A) 75 %; Platelet Count 160 k/uL (150-450); Poikilocytosis Moderate; RBC 2.72 m/uL (3.80-5.40); RDW 16.9 % (11.5-15.5); WBC 6.7 k/uL (3.8-10.6)
[2019-06-13 08:04] LABS: ALT 15 U/L (4-34); AST 26 U/L (14-36); African American GFR (CKD) >90 (>60 ml/min/1.73 sqM); Albumin 3.1 g/dL (3.5-5.0); Alkaline Phosphatase 74 U/L (38-126); Anion Gap 6 mmol/L; Blood Urea Nitrogen 14 mg/dL (7-17); Calcium 8.6 mg/dL (8.4-10.2); Carbon Dioxide 34 mmol/L (22-30); Chloride 101 mmol/L (98-107); Glucose 83 mg/dL (74-99); Non-African American GFR(CKD) 88 (>60 ml/min/1.73 sqM); Potassium 3.2 mmol/L (3.5-5.1); Sodium 141 mmol/L (137-145); Total Bilirubin 0.9 mg/dL (0.2-1.3); Total Protein 6.3 g/dL (6.3-8.2)
[2019-06-13] MEDS ORDERED: GLUCAGON 1 MG/ML VIAL ONE (09:07)
[2019-06-13] MEDS ORDERED: PROPOFOL 10 MG/ML 20 ML VIAL IV ONE (09:07)
[2019-06-13] MEDS ORDERED: LACTATED RINGERS 1,000 ML IV ONE (09:11)
--- NOTE | 2019-06-13 10:00 | P.PN ---
Subjective Progress Note Date: 06/13/19 Principal diagnosis: Anemia Continues on Iron and B12. Small bowel capsule study with evidence of AVM Objective - Vital Signs Vital signs: Vital Signs Temp 97.9 F 06/13/19 07:00 Pulse 82 06/13/19 07:00 Resp 18 06/13/19 07:00 BP 125/76 06/13/19 07:00 Pulse Ox 97 06/13/19 07:00 Intake & Output 06/12/19 06/13/19 06/13/19 18:59 06:59 18:59 Intake Total 100 240 300 Output Total 775 400 Balance -675 -160 300 Intake: IV 300 Intake, IV Titration 100 Amount Sodium Ferric Gluconat- 100 Sucrose 125 mg In Sodium Chloride 0.9% 100 ml @ 100 mls/hr IVPB DAILY [facility] Rx#:[id number] Oral 240 Output: Urine 775 400 Other: # Voids 4 - Exam - Constitutional General appearance: no acute distress - EENT Eyes: EOMI, PERRLA ENT: hearing grossly normal, normal oropharynx - Neck Neck: no lymphadenopathy Thyroid: bilateral: normal size - Respiratory Respiratory: bilateral: CTA - Cardiovascular Rhythm: irregularly irregular Heart sounds: normal: S1, S2 - Gastrointestinal General gastrointestinal: normal bowel sounds, soft - Integumentary Integumentary: normal - Neurologic Neurologic: CNII-XII intact - Musculoskeletal Musculoskeletal: generalized weakness, strength equal bilaterally - Psychiatric Psychiatric: A&O x's 3, appropriate affect - Labs CBC & Chem 7: 06/13/19 07:32 06/13/19 07:32 Labs: Abnormal Lab Results - Last 24 Hours (Table) 06/12/19 06/12/19 06/13/19 Range/Units 09:41 09:41 07:32 RBC 2.62 L 2.72 L (3.80-5.40) m/uL Hgb 7.3 L 7.5 L (11.4-16.0) gm/dL Hct 23.2 L 24.4 L (34.0-46.0) % MCHC 30.8 L (31.0-37.0) g/dL RDW 16.8 H 16.9 H (11.5-15.5) % Lymphocytes # 0.8 L 0.9 L (1.0-4.8) k/uL Potassium (3.5-5.1) mmol/L Carbon Dioxide (22-30) mmol/L Albumin (3.5-5.0) g/dL Crossmatch See Detail 06/13/19 Range/Units 07:32 RBC (3.80-5.40) m/uL Hgb (11.4-16.0) gm/dL Hct (34.0-46.0) % MCHC (31.0-37.0) g/dL RDW (11.5-15.5) % Lymphocytes # (1.0-4.8) k/uL Potassium 3.2 L (3.5-5.1) mmol/L Carbon Dioxide 34 H (22-30) mmol/L Albumin 3.1 L (3.5-5.0) g/dL Crossmatch Assessment and Plan Plan: ehocardiogram report review Procedure notes and pathology reports reviewed Chest x-ray: report reviewed CT scan - abdomen: report reviewed CT scan - pelvis: report reviewed Assessment and Plan Normocytic Anemia: - Mild to Moderate Anemia noted since March 2019 - Status post EGD and Colonoscopy in April with no significant findings except mild gastritis, she was admitted at that time with complaints of bloody stools. - She also has history of ITP and given this history will need to consider hemolytic anemia (less likely). - There is evidence of prior iron deficiency anemia as her ferritin was low - Small Bowel AVMs are also likely consideration, evidenced with small bowel capsule study this admission, EGD neg Most recent Iron studies do reveal iron deficiency component and potential B12 deficiency (Await Methymelanic acid) IgA mildly increased FLC ratio approx 2 Did review GI's EGD today - Several scattered angiectasia in the distal duodenum and proximal jejunum some of which had active oozing,status post argon plasma coagulation with good hemostasis, Normal-appearing esophagus and stomach Chronic ITP (idiopathic thrombocytopenia): - After remission of her initial episode her platelets have remained normal Plan: - IV Iron infusions x3 inpatient and can follow-up in office for continued monitoring and prn infusions, Day three today hgb = 7.5 - B12 supplementation to continue, MMA confirmed
[2019-06-13] MEDS: MIDODRINE 5 MG TAB PO SCH ×3 (10:30→15:44)
[2019-06-13] MEDS: METOPROLOL TARTRATE 12.5 MG TAB PO SCH ×3 (10:40→17:15)
[2019-06-13] MEDS: MUPIROCIN 2% OINT 22 GM TUBE TOPICAL SCH ×3 (10:41→22:12)
[2019-06-13] MEDS: MENTHOL-ZINC OXIDE OINT 113 GM TUBE TOPICAL SCH ×3 (10:41→22:12)
[2019-06-13] MEDS: ONDANSETRON 4 MG/2 ML VIAL IVP PRN ×2 (10:44→17:18)
[2019-06-13] MEDS: SODIUM FERRIC GLUCONAT-SUCROSE 125 MG in SODIUM CHLORIDE 0.9% 100 ML IVPB SCH (10:48)
[2019-06-13] MEDS: FAMOTIDINE 20 MG TAB PO SCH (10:57)
[2019-06-13] MEDS: GABAPENTIN 100 MG CAP PO SCH ×2 (11:03→20:44)
[2019-06-13] MEDS: CYANOCOBALAMIN 500 MCG TAB PO SCH (11:03)
[2019-06-13] MEDS: SERTRALINE 100 MG TAB PO SCH (11:03)
[2019-06-13] MEDS: LIDOCAINE 5% PATCH TOPICAL SCH (11:05)
--- NOTE | 2019-06-13 11:06 | P.PCN ---
Date of Procedure: 06/13/19 Procedure(s) Performed: Procedure Note Patient Name: Carolyn Mcallister Date of : 03/17/1942 Patient Status: Inpatient Attending Provider: Shaq Carrasco Date: 06/13/19 09:36 Initialization Date: 06/13/19 09:36 Date of Procedure: 06/13/19 Procedure(s) Performed: BRIEF HISTORY: Patient is a 77-year-old, pleasant, white female admitted hospital with severe symptomatic anemia and hemoglobin of 5.8 requiring 2 units of blood transition. She had a similar hospitalization 2 months ago requiring EGD and colonoscopy that showed mild gastritis and diverticulosis. Previous hospitalization she underwent another upper endoscopy 3 days ago was unremarkable. A small bowel capsule endoscopy done subsequently showed multiple bleeding/oozing angiectasia in the distal duodenum, proximal jejunum and the ileum. She is hence scheduled for a small bowel enteroscopy today.. PROCEDURE PERFORMED: Esophagogastroduodenoscopy/small bowel enteroscopy with argon plasma coagulation. PREOPERATIVE DIAGNOSIS: Active GI bleed/severe anemia. IV sedation per anesthesia. PROCEDURE: After informed consent was obtained, the patient was brought into the endoscopy unit. IV sedation was administered by Anesthesia under continuous monitoring. Initially the Olympus GIF-140 video endoscope was inserted into the mouth. Esophagus intubated without any difficulty. It was gradually advanced into the stomach and duodenum and into the proximal jejunum and the scope was advanced at least 50 cm from the ligament of Treitz. There were several angiectasia identified in the proximal jejunum and 2 of them in the distal duodenum and stomach with with active oozing. There were coagulated using argon plasma with good hemostasis. The scope at this time was withdrawn to the stomach, adequately insufflated with air, and upon careful examination, mucosa of the antrum, body, cardia and the fundus appeared normal. The scope was then withdrawn into the esophagus. The GE junction was located at 39 cm from the incisors. The esophagus appeared normal. There were no erosions or ulcerations seen and the patient tolerated the procedure well. IMPRESSION: 1. Several scattered angiectasia in the distal duodenum and proximal jejunum some of which had active oozing,status post argon plasma coagulation with good hemostasis. 2. Normal-appearing esophagus and stomach. RECOMMENDATIONS: The findings of this examination were discussed with the patient as well as a family. At this time and diet will be advanced as tolerated. She will continue with iron supplements and iron infusions. She can be discharged with close monitoring of CBC outpatient basis. She'll be seen in office in 2 weeks.. Additional CC's: Scout Beltrán
[2019-06-13] MEDS ORDERED: POTASSIUM CHLORIDE ER 20 MEQ TAB.ER PO STA (13:00)
[2019-06-13] MEDS: FUROSEMIDE 40 MG TAB PO SCH (15:44)
[2019-06-13] MEDS: POTASSIUM CHLORIDE ER 20 MEQ TAB.ER PO SCH (17:15)
[2019-06-13] MEDS: ALPRAZolam 0.25 MG TAB PO PRN (19:29)
--- NOTE | 2019-06-13 20:18 | P.PN ---
Progress Note - Text Progress Note Date: 06/13/19 Chief Complaint: Anemia History of presenting complaint: This is a very pleasant 73-year-old patient of Dr. Bob Kuo. Chronic stable medical conditions include GERD, hypertension, ITP, depression, painful peripheral neuropathy on Neurontin, CHF, atrial fibrillation.. Recent EGD showed-grade B erosive esophagitis, superficial gastritis and some bleeding along the gastric cardia. Also had internal hemorrhoids. Patient's a prior brain bleed. Has left her with some weakness on the right side. She has trouble feeling with the right hand. Recently the hospital from May 24 through June 02. Admitted with CHF exacerbation, symptomatic anemia and increasing medical debility. Received a unit of blood. IV Lasix. Midodrine was added. At the F patient was able to transfer with assistance. Labs drawn at the [facility] should hemoglobin of 6.1. Patient only complaint is some tightness. No dark stools. Unit of blood was ordered. Admitted with symptomatic anemia.-did get 2 units of blood. EGD-unremarkable. Small bowel capsule study reveals multiple areas of small bleeding. Likely representing angiodysplasia. Today-. Underwent EGD was found to have sinus several scattered angiectasia in the distal duodenum and proximal jejunum with active oozing status post argon plasma coagulation with good hemostasis. Patient laying in bed. Comfortable. One unit of blood was ordered by GI. . Review of systems: Was done for constitutional, cardiovascular, GI, pulmonary. relevant finding as above Active Medications Acetaminophen (Tylenol Tab) 650 mg PO Q4H PRN PRN Reason: Mild Pain Hydrocodone Bitart/Acetaminophen ([place] 5-325) 1 each PO Q6HR PRN PRN Reason: Moderate to Severe Pain Last Admin: 06/12/19 10:19 Dose: 1 each Documented by: Alprazolam (Xanax) 0.25 mg PO DAILY PRN PRN Reason: Anxiety Last Admin: 06/13/19 19:29 Dose: 0.25 mg Documented by: Atorvastatin Calcium (Lipitor) 40 mg PO HS@2100 [facility] Last Admin: 06/12/19 21:50 Dose: 40 mg Documented by: Bisacodyl (Dulcolax) 10 mg RECTAL DAILY PRN PRN Reason: Constipation Calamine/Phenol (Calmoseptine Oint) 1 applic TOPICAL TID [facility] Last Admin: 06/13/19 16:57 Dose: Not Given Documented by: Cyanocobalamin (Vitamin B-12) 1,000 mcg PO DAILY [facility] Last Admin: 06/13/19 11:03 Dose: 1,000 mcg Documented by: Famotidine (Pepcid) 20 mg PO DAILY@0800 [facility] Last Admin: 06/13/19 10:57 Dose: 20 mg Documented by: Furosemide (Lasix) 40 mg PO DAILY@0800 [facility] Last Admin: 06/13/19 15:44 Dose: 40 mg Documented by: Gabapentin (Neurontin) 100 mg PO BID@0800,2100 [facility] Last Admin: 06/13/19 11:03 Dose: 100 mg Documented by: Lidocaine (Lidoderm) 1 patch TOPICAL DAILY@0800 [facility] Last Admin: 06/13/19 11:05 Dose: 1 patch Documented by: Magnesium Hydroxide (Milk Of Magnesia) 2,400 mg PO DAILY PRN PRN Reason: Constipation Metoprolol Tartrate (Lopressor) 12.5 mg PO TID@0800,1200,1700 [facility] Last Admin: 06/13/19 17:15 Dose: 12.5 mg Documented by: Midodrine (Proamatine) 5 mg PO TID@0700,1100,1630 [facility] Last Admin: 06/13/19 15:44 Dose: 5 mg Documented by: Mupirocin (Bactroban Oint) 1 applic TOPICAL TID [facility] Last Admin: 06/13/19 15:49 Dose: Not Given Documented by: Ondansetron HCl (Zofran) 4 mg IVP Q6HR PRN PRN Reason: Nausea And Vomiting Last Admin: 06/13/19 17:18 Dose: 4 mg Documented by: Potassium Chloride (K-Dur 20) 20 meq PO DAILY@1700 [facility] Last Admin: 06/13/19 17:15 Dose: 20 meq Documented by: Sertraline HCl (Zoloft) 200 mg PO DAILY@0800 [facility] Last Admin: 06/13/19 11:03 Dose: 200 mg Documented by: Silver Sulfadiazine (Silvadene Cream) 1 applic TOPICAL DAILY [facility] Last Admin: 06/13/19 10:41 Dose: Not Given Documented by: Simethicone (Mylicon Chew) 40 mg PO QID PRN PRN Reason: gas pains/gi upset Physical examination: VITAL SIGNS: 98.1, 70, 14, 95/68, 96% on 3 L GENERAL:, laying in bed, comfortable EYES: Pupils equal. Conjunctiva pale HEENT: External appearance of nose and ears normal, oral cavity grossly normal. NECK: JVD unable to assess, masses not palpable. HEART: First and second heart sounds are normal; edema present. LUNGS: Respiratory rate normal; distant breath sounds ABDOMEN: Soft, nontender, liver spleen not palpable, no masses palpable. PSYCH: Alert and oriented x3; mood and affect tired. Muscular skeletal: Evidence of OA INVESTIGATIONS, reviewed in the clinical context: hemoglobin 6.9 Previous testing: White count 7.2 hemoglobin 6.4 potassium 3.4 creatinine 0.68 Hemoglobin 7.8 on May 30 2-D echo-Limited review EF 50-55% from April 29 reticulocyte count 4.73, haptoglobin the lower side 40.3 to blood factor normal,, EZEQUIEL screen negative Small bowel capsule study-showing multiple areas of small bleeding. Suspect angiodysplasia Assessment: -Acute on chronic anemia in a patient with known esophagitis hemorrhoids. Patient's possibly having a slow GI bleed. Multiple angiectasia in the small bowel-status post argon plasma coagulation -Small bowel capsule showing-multiple areas of small bleeders suggestive of angiodysplasia -chronic congestive heart exacerbationfrom diastolic dysfunction EF 50-55% -Chronic esophagitis gastritis , internal hemorrhoid -Moderate aortic stenosis, moderate tricuspid regurgitation, moderate pulmonary hypertension secondary -Persistent atrial fibrillation rate controlled -Left foot osteoarthritis with hammertoe from second to through fifth toe. 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 Matute. There were many angiectasia. Down the road expect hemoglobin to drop again. Options are limited.
[2019-06-13] MEDS: ATORVASTATIN 40 MG TAB PO SCH (20:44)
[2019-06-14 01:15] VITALS: TEMP 98.6
[2019-06-14 06:41] LABS: Anisocytosis Slight; Basophils % (A) 0 %; Eosinophils # (A) 0.3 k/uL (0-0.7); Eosinophils % (A) 4 %; HCT 26.5 % (34.0-46.0); HGB 8.2 gm/dL (11.4-16.0); Hypochromasia Moderate; Lymphocytes # (A) 0.9 k/uL (1.0-4.8); Lymphocytes % (A) 12 %; MCH 27.9 pg (25.0-35.0); MCV 90.1 fL (80.0-100.0); Mean Platelet Volume 7.6; Monocytes # (A) 0.5 k/uL (0-1.0); Monocytes % (A) 6 %; Neutrophils # (A) 6.2 k/uL (1.3-7.7); Neutrophils % (A) 77 %; Platelet Count 146 k/uL (150-450); Poikilocytosis Slight; RBC 2.94 m/uL (3.80-5.40); RDW 16.8 % (11.5-15.5); WBC 8.1 k/uL (3.8-10.6)
[2019-06-14 07:34] VITALS: BP 120/71; PULSE 90; RESP 16
[2019-06-14] MEDS: CYANOCOBALAMIN 500 MCG TAB PO SCH (07:52)
[2019-06-14] MEDS: SERTRALINE 100 MG TAB PO SCH (07:52)
[2019-06-14] MEDS: METOPROLOL TARTRATE 12.5 MG TAB PO SCH ×2 (07:52→12:11)
[2019-06-14] MEDS: GABAPENTIN 100 MG CAP PO SCH (07:52)
[2019-06-14] MEDS: MIDODRINE 5 MG TAB PO SCH ×2 (07:53→12:12)
[2019-06-14] MEDS: LIDOCAINE 5% PATCH TOPICAL SCH (07:53)
[2019-06-14] MEDS: FUROSEMIDE 40 MG TAB PO SCH (07:53)
[2019-06-14] MEDS: FAMOTIDINE 20 MG TAB PO SCH (07:53)
[2019-06-14] MEDS: MUPIROCIN 2% OINT 22 GM TUBE TOPICAL SCH (07:58)
[2019-06-14] MEDS: MENTHOL-ZINC OXIDE OINT 113 GM TUBE TOPICAL SCH (07:58)
[2019-06-14 09:54] VITALS: BMI 54.1
--- NOTE | 2019-06-14 14:10 | P.PN ---
Subjective Progress Note Date: 06/14/19 Principal diagnosis: Anemia Dr. Pillai seen and assessed patient this am, no new complaints. Objective - Vital Signs Vital signs: Vital Signs Temp 98.6 F 06/14/19 07:10 Pulse 90 06/14/19 07:10 Resp 16 06/14/19 07:10 BP 120/71 06/14/19 07:10 Pulse Ox 97 06/14/19 07:10 Intake & Output 06/13/19 06/14/19 06/14/19 18:59 06:59 18:59 Intake Total 1328 592 Output Total 600 1100 Balance 728 -1100 592 Weight 151.953 kg Intake: IV 300 Oral 718 592 Blood Product 310 Rc As-1 Unit 310 [id number] Output: Urine 600 1100 Other: # Voids 1 3 - Exam - Constitutional General appearance: no acute distress - EENT Eyes: EOMI, PERRLA ENT: hearing grossly normal, normal oropharynx - Neck Neck: no lymphadenopathy Thyroid: bilateral: normal size - Respiratory Respiratory: bilateral: CTA - Cardiovascular Rhythm: irregularly irregular Heart sounds: normal: S1, S2 - Gastrointestinal General gastrointestinal: normal bowel sounds, soft - Integumentary Integumentary: normal - Neurologic Neurologic: CNII-XII intact - Musculoskeletal Musculoskeletal: generalized weakness, strength equal bilaterally - Psychiatric Psychiatric: A&O x's 3, appropriate affect - Labs CBC & Chem 7: 06/14/19 06:11 06/13/19 07:32 Labs: Abnormal Lab Results - Last 24 Hours (Table) 06/12/19 06/14/19 Range/Units 09:41 06:11 RBC 2.94 L (3.80-5.40) m/uL Hgb 8.2 L (11.4-16.0) gm/dL Hct 26.5 L (34.0-46.0) % RDW 16.8 H (11.5-15.5) % Plt Count 146 L (150-450) k/uL Lymphocytes # 0.9 L (1.0-4.8) k/uL Crossmatch See Detail Assessment and Plan Plan: ehocardiogram report review Procedure notes and pathology reports reviewed Chest x-ray: report reviewed CT scan - abdomen: report reviewed CT scan - pelvis: report reviewed Assessment and Plan Normocytic Anemia: improved - Mild to Moderate Anemia noted since March 2019 - Status post EGD and Colonoscopy in April with no significant findings except mild gastritis, she was admitted at that time with complaints of bloody stools. - She also has history of ITP and given this history will need to consider hemolytic anemia (less likely). - There is evidence of prior iron deficiency anemia as her ferritin was low - Small Bowel AVMs are also likely consideration, evidenced with small bowel capsule study this admission, EGD neg Most recent Iron studies do reveal iron deficiency component and potential B12 deficiency (Await Methymelanic acid) IgA mildly increased FLC ratio approx 2 Did review GI's EGD today - Several scattered angiectasia in the distal duodenum and proximal jejunum some of which had active oozing,status post argon plasma coagulation with good hemostasis, Normal-appearing esophagus and stomach Chronic ITP (idiopathic thrombocytopenia): - After remission of her initial episode her platelets have remained normal Hypokalemia: - Repeat BMP today Plan: - Repeat BMP - IV Iron infusions x3 inpatient and can follow-up in office for continued monitoring and prn infusions, Day three today hgb = 8.2 - B12 supplementation to continue, MMA confirmed Physician Attest: I have completed the full history and physical and agree with above dictation, dictated as a scribe
--- NOTE | 2019-06-14 14:21 | P.DS ---
Providers Date of admission: 06/08/19 14:43 Expected date of discharge: 06/14/19 Attending physician: Shaq Carrasco Consults: 06/08/19 14:48 Consult Physician Urgent Consulting Provider: Sweta Faria Consult Reason/Comments: Anemia Do you want consulting provider notified?: Yes, Notify in am 06/08/19 21:40 Consult Physician Routine Consulting Provider: Farhad Pillai Consult Reason/Comments: Possible hemolytic anemia Do you want consulting provider notified?: Yes Primary care physician: [facility] Course: Chief Complaint: Anemia History of presenting complaint: This is a very pleasant 73-year-old patient of Dr. Bob Kuo. Chronic stable medical conditions include GERD, hypertension, ITP, depression, painful peripheral neuropathy on Neurontin, CHF, atrial fibrillation.. Recent EGD showed-grade B erosive esophagitis, superficial gastritis and some bleeding along the gastric cardia. Also had internal hemorrhoids. Patient's a prior brain bleed. Has left her with some weakness on the right side. She has trouble feeling with the right hand. Recently the hospital from May 24 through June 02. Admitted with CHF exacerb ation, symptomatic anemia and increasing medical debility. Received a unit of blood. IV Lasix. Midodrine was added. At the [facility] patient was able to transfer with assistance. Labs drawn at the [facility] should hemoglobin of 6.1. Patient only complaint is some tightness. No dark stools. Unit of blood was ordered. Admitted with symptomatic anemia.- EGD-unremarkable. Small bowel capsule study reveals multiple areas of small bleeding. Likely representing angiodysplasia. Repeat EGD/small bowel enteroscopy - several scattered angiectasia in the distal duodenum and proximal jejunum with active oozing status post argon plasma coagulation with good hemostasis. It was explained to the patient that expect slow GIs intermittent blood loss over a period of time. Very limited options. Periodic checking of CBC. Patient understands the same. Patient received a total of 3 units of blood. Today- Patient laying in bed. Comfortable. Stable. No new issues. Cleared by GI. Consultation: Dr. Xander Faria from GI Dr. Pillai from hematology Physical examination: VITAL SIGNS: 98.6, 90, 16, 120/71, 97% on 3 L GENERAL:, laying in bed, comfortable EYES: Pupils equal. Conjunctiva pale HEENT: External appearance of nose and ears normal, oral cavity grossly normal. NECK: JVD unable to assess, masses not palpable. HEART: First and second heart sounds are normal; edema present. LUNGS: Respiratory rate normal; distant breath sounds ABDOMEN: Soft, nontender, liver spleen not palpable, no masses palpable. PSYCH: Alert and oriented x3; mood and affect tired. Muscular skeletal: Evidence of OA INVESTIGATIONS, reviewed in the clinical context: Hemoglobin 8.2 Previous testing: White count 7.2 hemoglobin 6.4 potassium 3.4 creatinine 0.68 Hemoglobin 7.8 on May 30 2-D echo-Limited review EF 50-55% from April 29 reticulocyte count 4.73, haptoglobin the lower side 40.3 to blood factor normal,, EZEQUIEL screen negative Small bowel capsule study-showing multiple areas of small bleeding. Suspect angiodysplasia Assessment: -Acute on chronic anemia in a patient with known esophagitis hemorrhoids. Patient's possibly having a slow GI bleed. Multiple angiectasia in the small bowel-status post argon plasma coagulation -Small bowel capsule showing-multiple areas of small bleeders suggestive of angiodysplasia -chronic congestive heart from diastolic dysfunction EF 50-55% -Chronic esophagitis gastritis , internal hemorrhoid -Moderate aortic stenosis, moderate tricuspid regurgitation, moderate pulmonary hypertension secondary -Persistent atrial fibrillation rate controlled -Left foot osteoarthritis with hammertoe from second to through fifth toe. 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 [facility] Patient Condition at Discharge: Stable Plan - Discharge Summary Discharge Rx Participant: Yes New Discharge Prescriptions: New Cyanocobalamin [Vitamin B-12] 1,000 mcg PO DAILY tab Continue Sertraline HCl [Zoloft] 200 mg PO DAILY@0800 Potassium Chloride ER [K-Dur 20] 20 meq PO DAILY@1700 Albuterol Sulfate [Ventolin HFA] 2 puff INHALATION RT-Q4H PRN PRN Reason: Shortness Of Breath SILVER sulfADIAZINE CREAM [Silvadene Cream] 1 applic TOPICAL DAILY Menthol-Zinc Oxide Oint [Calmoseptine Oint] 1 applic TOPICAL TID Caldesene Baby Powder 1 applic TOPICAL TID Acetaminophen [Tylenol 8 Hour] 650 mg PO Q4H PRN PRN Reason: Pain Famotidine [Pepcid] 20 mg PO DAILY@0800 Furosemide [Lasix] 40 mg PO DAILY@0800 Mupirocin 2% Oint [Bactroban 2% Oint] 1 applic TOPICAL TID applic Simethicone Chew [Mylicon Chew] 40 mg PO QID PRN chew PRN Reason: gas pains/gi upset Atorvastatin [Lipitor] 40 mg PO HS@2100 Bisacodyl [Dulcolax] 10 mg RECTAL DAILY PRN PRN Reason: Constipation Magnesium Hydroxide [Milk of Magnesia] 2,400 mg PO DAILY PRN PRN Reason: Constipation Metoprolol Tartrate [Lopressor] 12.5 mg PO TID@0800,1200,1700 Midodrine [ProAmatine] 5 mg PO TID@0700,1100,1630 Na Phos,M-B/Na Phos,Di-Ba [Fleet Adult] 133 ml RECTAL DAILY PRN PRN Reason: Constipation Lidocaine 5% Patch [Lidoderm 5% Patch] 1 patch TOPICAL DAILY@0800 #3 patch Gabapentin [Neurontin] 100 mg PO BID@0800,2100 #6 cap HYDROcodone/APAP 5-325MG [[place] 5-325] 1 tab PO Q6HR PRN #12 tab PRN Reason: Moderate To Severe Pain ALPRAZolam [Xanax] 0.25 mg PO DAILY PRN #3 tab PRN Reason: Anxiety Discharge Medication List Potassium Chloride ER [K-Dur 20] 20 meq PO DAILY@1700 12/29/14 [History] Sertraline HCl [Zoloft] 200 mg PO DAILY@0800 12/29/14 [History] Albuterol Sulfate [Ventolin HFA] 2 puff INHALATION RT-Q4H PRN 04/28/19 [History] Acetaminophen [Tylenol 8 Hour] 650 mg PO Q4H PRN 05/26/19 [History] Caldesene Baby Powder 1 applic TOPICAL TID 05/26/19 [History] Famotidine [Pepcid] 20 mg PO DAILY@0800 05/26/19 [History] Furosemide [Lasix] 40 mg PO DAILY@0800 05/26/19 [History] Menthol-Zinc Oxide Oint [Calmoseptine Oint] 1 applic TOPICAL TID 05/26/19 [History] SILVER sulfADIAZINE CREAM [Silvadene Cream] 1 applic TOPICAL DAILY 05/26/19 [History] Mupirocin 2% Oint [Bactroban 2% Oint] 1 applic TOPICAL TID applic 06/03/19 [Rx] Simethicone Chew [Mylicon Chew] 40 mg PO QID PRN chew 06/03/19 [Rx] Atorvastatin [Lipitor] 40 mg PO HS@2100 06/08/19 [History] Bisacodyl [Dulcolax] 10 mg RECTAL DAILY PRN 06/08/19 [History] Magnesium Hydroxide [Milk of Magnesia] 2,400 mg PO DAILY PRN 06/08/19 [History] Metoprolol Tartrate [Lopressor] 12.5 mg PO TID@0800,1200,1700 06/08/19 [History] Midodrine [ProAmatine] 5 mg PO TID@0700,1100,1630 06/08/19 [History] Na Phos,M-B/Na Phos,Di-Ba [Fleet Adult] 133 ml RECTAL DAILY PRN 06/08/19 [History] ALPRAZolam [Xanax] 0.25 mg PO DAILY PRN #3 tab 06/14/19 [Rx] Cyanocobalamin [Vitamin B-12] 1,000 mcg PO DAILY tab 06/14/19 [Rx] Gabapentin [Neurontin] 100 mg PO BID@0800,2100 #6 cap 06/14/19 [Rx] HYDROcodone/APAP 5-325MG [[place] 5-325] 1 tab PO Q6HR PRN #12 tab 06/14/19 [Rx] Lidocaine 5% Patch [Lidoderm 5% Patch] 1 patch TOPICAL DAILY@0800 #3 patch 06/14/19 [Rx] Follow up Appointment(s)/Referral(s): Scout Beltrán MD [Primary Care Provider] - 1-2 days Sweta Faria MD [STAFF PHYSICIAN] - 2 Weeks Margarita Lacy [NON-STAFF] - As Needed Activity/Diet/Wound Care/Special Instructions: cbc - 5 days
[2019-06-14 14:46] LABS: African American GFR (CKD) >90 (>60 ml/min/1.73 sqM); Anion Gap 2 mmol/L; Blood Urea Nitrogen 13 mg/dL (7-17); Calcium 8.8 mg/dL (8.4-10.2); Carbon Dioxide 35 mmol/L (22-30); Chloride 103 mmol/L (98-107); Glucose 83 mg/dL (74-99); Non-African American GFR(CKD) 89 (>60 ml/min/1.73 sqM); Potassium 3.8 mmol/L (3.5-5.1); Sodium 140 mmol/L (137-145)
--- NOTE | 2019-06-14 15:19 | PN ---
PROGRESS NOTE DATE OF SERVICE: 06/14/2019 Patient is a pleasant 74-year-old female admitted to the hospital with severe symptomatic anemia and hemoglobin of 5.6, requiring 3 units of blood transfusion. She underwent EGD/small bowel enteroscopy yesterday and was noted to have several scattered angioectasia in the proximal small bowel that we coagulated using argon plasma. She is doing well today. She denies any symptoms. PHYSICAL EXAMINATION: Appears comfortable. Vital signs are stable. Blood pressure is 120/71, pulse rate 90, temperature 98.6. HEENT: Examination unremarkable, conjunctivae are pink, sclerae nonicteric. Oral cavity no lesions. NECK: No JVD or lymph node enlargement. CHEST: Clear to auscultation. HEART: Regular rate and rhythm. ABDOMEN: Soft. Bowel sounds are positive. No organomegaly. EXTREMITIES: No pedal edema. SKIN: No rashes. NEUROLOGIC: Alert and oriented x3. No focal deficits. LABS: WBC 8.1, hemoglobin 8.2, platelets 146. Rest of the labs are within normal limits. IMPRESSION: Severe symptomatic anemia secondary to small bowel angioectasia with active oozing, status post EGD/enteroscopy yesterday with argon plasma coagulation of the proximal small bowel angioectasia. Patient doing well. She is status post 3 units of blood transfusion so far. Last hemoglobin is 8.2 g/dL. RECOMMENDATION: 1. Iron supplement daily. 2. Monitor CBC every 2 weeks. 3. Transfuse if hemoglobin is less than 7. 4. She can be discharged home with an outpatient followup in 2 weeks. Thank you for this consultation. MMODL / IJN: [id number] /
== END 2019-06-14 16:05 | DRG 378 ==
LOC: EC 13:32 → 4SSUR 14:43
PROVIDERS: ADMIT Hospitalist; ATTEND Hospitalist
PROC: 30233N1 Transfusion of Nonautologous Red Blood Cells into Peripheral Vein, Percutaneous Approach (ICD-10-PCS; 2019-06-09)
PROC: 05HD33Z Insertion of Infusion Device into Right Cephalic Vein, Percutaneous Approach (ICD-10-PCS; 2019-06-09)
PROC: 0DB98ZX Excision of Duodenum, Via Natural or Artificial Opening Endoscopic, Diagnostic (ICD-10-PCS; 2019-06-10)
PROC: 0DJD8ZZ Inspection of Lower Intestinal Tract, Via Natural or Artificial Opening Endoscopic (ICD-10-PCS; 2019-06-10)
PROC: 05HF33Z Insertion of Infusion Device into Left Cephalic Vein, Percutaneous Approach (ICD-10-PCS; 2019-06-13)
PROC: 0W3P8ZZ Control Bleeding in Gastrointestinal Tract, Via Natural or Artificial Opening Endoscopic (ICD-10-PCS; principal; 2019-06-13 07:30)
DX: K55.21 Angiodysplasia of colon with hemorrhage (principal); D69.3 Immune thrombocytopenic purpura; Z68.43 Body mass index [BMI] 50.0-59.9, adult; I48.19 Other persistent atrial fibrillation; I50.32 Chronic diastolic (congestive) heart failure; D62 Acute posthemorrhagic anemia; I69.151 Hemiplegia and hemiparesis following nontraumatic intracerebral hemorrhage affecting right dominant side; I27.29 Other secondary pulmonary hypertension; I08.2 Rheumatic disorders of both aortic and tricuspid valves; I11.0 Hypertensive heart disease with heart failure; E66.01 Morbid (severe) obesity due to excess calories; F32.9 Major depressive disorder, single episode, unspecified; G62.9 Polyneuropathy, unspecified; K29.50 Unspecified chronic gastritis without bleeding; K21.0 Gastro-esophageal reflux disease with esophagitis; K64.8 Other hemorrhoids; M20.40 Other hammer toe(s) (acquired), unspecified foot; M19.072 Primary osteoarthritis, left ankle and foot; R26.9 Unspecified abnormalities of gait and mobility; K64.4 Residual hemorrhoidal skin tags; K63.5 Polyp of colon; K44.9 Diaphragmatic hernia without obstruction or gangrene; K31.7 Polyp of stomach and duodenum; K57.30 Diverticulosis of large intestine without perforation or abscess without bleeding; K29.70 Gastritis, unspecified, without bleeding; E87.6 Hypokalemia; Z79.899 Other long term (current) drug therapy; Z86.14 Personal history of Methicillin resistant Staphylococcus aureus infection; Z96.653 Presence of artificial knee joint, bilateral; Z98.890 Other specified postprocedural states; Z87.891 Personal history of nicotine dependence; Z87.19 Personal history of other diseases of the digestive system; Z82.49 Family history of ischemic heart disease and other diseases of the circulatory system; Z81.1 Family history of alcohol abuse and dependence
CPT/HCPCS: 36410; 36415; 43239; 43270; 76937; 80048; 80053; 82607; 82728; 82746; 82784; 83010; 83540; 83550; 83615; 83883; 83921; 84165; 85025; 85045; 85610; 85652; 85730; 86038; 86334; 86431; 86850; 86870; 86880; 86900; 86901; 86902; 86920; 88305; 91110; 96360; 99284

== ENCOUNTER 2019-08-03 13:51 | Inpatient (IN) | payer MEDICARE ==
[2019-08-03] MEDS ORDERED: PANTOPRAZOLE 40 MG/10 ML VIAL IVP ONE (14:11)
--- NOTE | 2019-08-03 14:12 | ED ---
General Adult HPI - General Source: patient, EMS Mode of arrival: EMS Limitations: no limitations <RobbyMarcellavikas Carvajal - Last Filed: 08/03/19 15:07> <Kam Gaona - Last Filed: 08/03/19 15:55> - General Chief complaint: Recheck/Abnormal Lab/Rx Stated complaint: Low Hemoglobin Time Seen by Provider: 08/03/19 13:56 - History of Present Illness Initial comments: Dictation was produced using Engage dictation software. please excuse any grammatical, word or spelling errors. This patient was cared for during a federal and state declared state of emergency secondary to Covid 19 Chief Complaint: 74-year-old female past medical history of GI bleed presents with low hemoglobin. History of Present Illness: 84-year-old female she was sent in by primary care physician for abnormal outpatient lab. Patient has been having outpatient monitoring of her hemoglobin. She has history of anemia. Yesterday she had a hemoglobin level of 7.0. Patient has history of anemia. Admitted multiple times for anemia in the past. She states that she has a history of hemorrhoids. Her primary care doctor put her on iron supplementation recently. Patient denies any blood thinners. Patient reports that they have not found out what patient's anemia is from. She denies any fever, chills or night sweats. No shortness of breath. No pain complaints. She does however feel more tired than usual. The ROS documented in this emergency department record has been reviewed and confirmed by me. Those systems with pertinent positive or negative responses have been documented in the HPI. All other systems are other negative and/or noncontributory. PHYSICAL EXAM: General Impression: Alert and oriented x3, not in acute distress, pale HEENT: Normocephalic atraumatic, extra-ocular movements intact, pupils equal and reactive to light bilaterally, mucous membranes moist. Cardiovascular: Heart regular rate and rhythm Chest: Able to complete full sentences, no retractions, no tachypnea Abdomen: abdomen soft, non-tender, non-distended, no organomegaly Musculoskeletal: Pulses present and equal in all extremities, no peripheral edema Motor: no focal deficits noted Neurological: CN II-XII grossly intact, no focal motor or sensory deficits noted Skin: Intact with no visualized rashes Psych: Normal affect and mood Rectal: Dark stools noted on rectal exam ED course: 74-year-old female presents with abnormal outpatient lab signs upon arrival are within acceptable limits. Patient is sent out to Dr. Gaona. EKG interpretation: Ventricular rate 69, irregular rhythm QRS 112, QTc 507. Irregular rhythm with no discernible P waves to suggest sinus or atrial tachycardia. This is compared to previous EKGs from this year which appears to be similar. (Syed Bustamante) - Related Data Home Medications Medication Instructions Recorded Confirmed Potassium Chloride ER [K-Dur 20] 20 meq PO DAILY@1700 12/29/14 06/08/19 Sertraline HCl [Zoloft] 200 mg PO DAILY@0800 12/29/14 06/08/19 Albuterol Sulfate [Ventolin HFA] 2 puff INHALATION RT-Q4H PRN 04/28/19 06/08/19 Acetaminophen [Tylenol 8 Hour] 650 mg PO Q4H PRN 05/26/19 06/08/19 Caldesene Baby Powder 1 applic TOPICAL TID 05/26/19 06/08/19 Famotidine [Pepcid] 20 mg PO DAILY@0800 05/26/19 06/08/19 Furosemide [Lasix] 40 mg PO DAILY@0800 05/26/19 06/08/19 Menthol-Zinc Oxide Oint 1 applic TOPICAL TID 05/26/19 06/08/19 [Calmoseptine Oint] SILVER sulfADIAZINE CREAM 1 applic TOPICAL DAILY 05/26/19 06/08/19 [Silvadene Cream] Atorvastatin [Lipitor] 40 mg PO HS@2100 06/08/19 06/08/19 Bisacodyl [Dulcolax] 10 mg RECTAL DAILY PRN 06/08/19 06/08/19 Magnesium Hydroxide [Milk of 2,400 mg PO DAILY PRN 06/08/19 06/08/19 Magnesia] Metoprolol Tartrate [Lopressor] 12.5 mg PO TID@0800,1200,1700 06/08/19 06/08/19 Midodrine [ProAmatine] 5 mg PO TID@0700,1100,1630 06/08/19 06/08/19 Na Phos,M-B/Na Phos,Di-Ba [Fleet 133 ml RECTAL DAILY PRN 06/08/19 06/08/19 Adult] Previous Rx's Medication Instructions Recorded Mupirocin 2% Oint [Bactroban 2% 1 applic TOPICAL TID applic 06/03/19 Oint] Simethicone Chew [Mylicon Chew] 40 mg PO QID PRN chew 06/03/19 ALPRAZolam [Xanax] 0.25 mg PO DAILY PRN #3 tab 06/14/19 Cyanocobalamin [Vitamin B-12] 1,000 mcg PO DAILY tab 06/14/19 Gabapentin [Neurontin] 100 mg PO BID@0800,2100 #6 cap 06/14/19 HYDROcodone/APAP 5-325MG [Ebro 1 tab PO Q6HR PRN #12 tab 06/14/19 5-325] Lidocaine 5% Patch [Lidoderm 5% 1 patch TOPICAL DAILY@0800 #3 patch 06/14/19 Patch] Allergies Allergy/AdvReac Type Severity Reaction Status Date / Time No Known Allergies Allergy Verified 08/03/19 13:59 Review of Systems ROS Other: All systems not noted in ROS Statement are negative. <Syed Bustamante - Last Filed: 08/03/19 15:07> ROS Other: All systems not noted in ROS Statement are negative. <Kam Gaona - Last Filed: 08/03/19 15:55> ROS Statement: Those systems with pertinent positive or pertinent negative responses have been documented in the HPI. Past Medical History Past Medical History: Blood Disorder, Heart Failure, CVA/TIA, GERD/Reflux, Hypertension Additional Past Medical History / Comment(s): ITP DISORDER- History of Any Multi-Drug Resistant Organisms: MRSA Date of last positivie culture/infection: 2012 MDRO Source:: URINE Past Surgical History: Orthopedic Surgery Additional Past Surgical History / Comment(s): BRAIN SURGERY AFTER BLEED in 2013, bilateral knee replacements Past Anesthesia/Blood Transfusion Reactions: No Reported Reaction Additional Past Anesthesia/Blood Transfusion Reaction / Comment(s): Pt has difficulty waking. She has received blood recently and had no reaction. Past Psychological History: Depression Smoking Status: Never smoker Past Alcohol Use History: None Reported Past Drug Use History: None Reported - Past Family History Sister(s) Family Medical History: AFIB, Congestive Heart Failure (CHF) Father Additional Family Medical History / Comment(s): Father had ETOH abuse. He in his later 70s. Mother Family Medical History: Hypertension <Syed Bustamante - Last Filed: 08/03/19 15:07> General Exam Limitations: no limitations <Syed Bustamante - Last Filed: 08/03/19 15:07> Course Vital Signs 08/03/19 08/03/19 08/03/19 13:56 15:00 15:30 Temperature 99.2 F Pulse Rate 78 68 68 Respiratory 20 17 23 Rate Blood Pressure 115/64 96/44 102/61 O2 Sat by Pulse 98 98 98 Oximetry Medical Decision Making - Lab Data Result diagrams: 08/03/19 14:45 08/03/19 14:45 <Kam Gaona - Last Filed: 08/03/19 15:55> - Medical Decision Making Patient's hemoglobin was below 7 psychiatric the patient one unit of packed red blood cells. Spoke because she agreed to admit the patient admitted the patient I wrote admitting orders. (Kam Gaona) - Lab Data Lab Results 08/03/19 08/03/19 08/03/19 Range/Units 14:45 14:45 14:45 WBC 8.1 (3.8-10.6) k/uL RBC 2.51 L (3.80-5.40) m/uL Hgb 6.7 L* D (11.4-16.0) gm/dL Hct 22.1 L (34.0-46.0) % MCV 88.1 (80.0-100.0) fL MCH 26.8 (25.0-35.0) pg MCHC 30.4 L (31.0-37.0) g/dL RDW 17.6 H (11.5-15.5) % Plt Count 158 (150-450) k/uL Neutrophils % 81 % Lymphocytes % 9 % Monocytes % 5 % Eosinophils % 3 % Basophils % 0 % Neutrophils # 6.6 (1.3-7.7) k/uL Lymphocytes # 0.8 L (1.0-4.8) k/uL Monocytes # 0.4 (0-1.0) k/uL Eosinophils # 0.2 (0-0.7) k/uL Basophils # 0.0 (0-0.2) k/uL Hypochromasia Marked Poikilocytosis Slight Anisocytosis Slight PT 10.5 (9.0-12.0) sec INR 1.0 (<1.2) APTT 25.3 (22.0-30.0) sec Sodium (137-145) mmol/L Potassium (3.5-5.1) mmol/L Chloride (98-107) mmol/L Carbon Dioxide (22-30) mmol/L Anion Gap mmol/L BUN (7-17) mg/dL Creatinine (0.52-1.04) mg/dL Est GFR (CKD-EPI)AfAm (>60 ml/min/1.73 sqM) Est GFR (CKD-EPI)NonAf (>60 ml/min/1.73 sqM) Glucose (74-99) mg/dL Plasma Lactic Acid Sam (0.7-2.0) mmol/L Calcium (8.4-10.2) mg/dL Stool Occult Blood Positive H (Negative) 08/03/19 08/03/19 Range/Units 14:45 14:45 WBC (3.8-10.6) k/uL RBC (3.80-5.40) m/uL Hgb (11.4-16.0) gm/dL Hct (34.0-46.0) % MCV (80.0-100.0) fL MCH (25.0-35.0) pg MCHC (31.0-37.0) g/dL RDW (11.5-15.5) % Plt Count (150-450) k/uL Neutrophils % % Lymphocytes % % Monocytes % % Eosinophils % % Basophils % % Neutrophils # (1.3-7.7) k/uL Lymphocytes # (1.0-4.8) k/uL Monocytes # (0-1.0) k/uL Eosinophils # (0-0.7) k/uL Basophils # (0-0.2) k/uL Hypochromasia Poikilocytosis Anisocytosis PT (9.0-12.0) sec INR (<1.2) APTT (22.0-30.0) sec Sodium 139 (137-145) mmol/L Potassium 3.8 (3.5-5.1) mmol/L Chloride 102 (98-107) mmol/L Carbon Dioxide 31 H (22-30) mmol/L Anion Gap 6 mmol/L BUN 17 (7-17) mg/dL Creatinine 0.57 (0.52-1.04) mg/dL Est GFR (CKD-EPI)AfAm >90 (>60 ml/min/1.73 sqM) Est GFR (CKD-EPI)NonAf >90 (>60 ml/min/1.73 sqM) Glucose 101 H (74-99) mg/dL Plasma Lactic Acid Sam 1.0 (0.7-2.0) mmol/L Calcium 8.6 (8.4-10.2) mg/dL Stool Occult Blood (Negative) Disposition <Syed Bustamante - Last Filed: 08/03/19 15:07> Time of Disposition: 15:55 <Kam Gaona - Last Filed: 08/03/19 15:55> Clinical Impression: Anemia, GI bleed Disposition: ADMITTED IP TO THIS HOSP Referrals: Bob Kuo MD [Primary Care Provider] - 1-2 days
[2019-08-03 15:08] LABS: Anisocytosis Slight; Basophils % (A) 0 %; Eosinophils # (A) 0.2 k/uL (0-0.7); Eosinophils % (A) 3 %; HCT 22.1 % (34.0-46.0); Hypochromasia Marked; Lymphocytes # (A) 0.8 k/uL (1.0-4.8); Lymphocytes % (A) 9 %; MCH 26.8 pg (25.0-35.0); MCHC 30.4 g/dL (31.0-37.0); MCV 88.1 fL (80.0-100.0); Monocytes # (A) 0.4 k/uL (0-1.0); Monocytes % (A) 5 %; Neutrophils # (A) 6.6 k/uL (1.3-7.7); Neutrophils % (A) 81 %; Platelet Count 158 k/uL (150-450); Poikilocytosis Slight; RBC 2.51 m/uL (3.80-5.40); RDW 17.6 % (11.5-15.5); WBC 8.1 k/uL (3.8-10.6)
[2019-08-03 15:11] LABS: HGB 6.7 gm/dL (11.4-16.0)
[2019-08-03 15:13] LABS: Partial Thromboplastin Time 25.3 sec (22.0-30.0); Prothrombin Time 10.5 sec (9.0-12.0)
[2019-08-03 15:16] LABS: African American GFR (CKD) >90 (>60 ml/min/1.73 sqM); Anion Gap 6 mmol/L; Blood Urea Nitrogen 17 mg/dL (7-17); Calcium 8.6 mg/dL (8.4-10.2); Carbon Dioxide 31 mmol/L (22-30); Chloride 102 mmol/L (98-107); Glucose 101 mg/dL (74-99); Non-African American GFR(CKD) >90 (>60 ml/min/1.73 sqM); Potassium 3.8 mmol/L (3.5-5.1); Sodium 139 mmol/L (137-145)
[2019-08-03] MEDS ORDERED: SODIUM CHLORIDE 0.9% 1,000 ML IV ONE (15:56)
[2019-08-03] MEDS ORDERED: SIMETHICONE 80 MG CHEWABLE PO PRN (20:01)
[2019-08-03] MEDS ORDERED: ALPRAZolam 0.25 MG TAB PO PRN (20:01)
[2019-08-03] MEDS ORDERED: ALBUTEROL HFA INHALER INHALATION PRN (20:01)
[2019-08-03] MEDS ORDERED: MIDODRINE 5 MG TAB PO PRN (20:01)
[2019-08-03] MEDS ORDERED: MELATONIN 3 MG TABLET PO PRN (20:02)
[2019-08-03] MEDS ORDERED: ONDANSETRON 4 MG/2 ML VIAL IVP PRN (20:02)
[2019-08-03] MEDS ORDERED: CALCIUM CARBONATE 500 MG CHEWABLE PO PRN (20:02)
[2019-08-03] MEDS ORDERED: NALOXONE 0.4 MG/ML 1 ML VIAL IV PRN (20:02)
[2019-08-03] MEDS ORDERED: MAGNESIUM HYDROXIDE 2,400 MG/10 ML CUP PO PRN (20:02)
[2019-08-03] MEDS ORDERED: NA PHOS,M-B/NA PHOS,DI-BA 133 ML ENEMA RECTAL PRN (20:02)
[2019-08-03] MEDS ORDERED: ACETAMINOPHEN TAB 325 MG TAB PO PRN (20:02)
[2019-08-03] MEDS ORDERED: MAG HYDROX/AL HYDROX/SIMETH 30 ML CUP PO PRN (20:02)
[2019-08-03] MEDS ORDERED: LACTULOSE 20 GM/30 ML CUP PO PRN (20:02)
[2019-08-03] MEDS: METOPROLOL TARTRATE 12.5 MG TAB PO SCH (21:33)
[2019-08-03] MEDS: ALPRAZolam 0.25 MG TAB PO SCH (21:33)
[2019-08-03] MEDS: ATORVASTATIN 40 MG TAB PO SCH (21:33)
--- NOTE | 2019-08-03 22:01 | P.HPIM ---
History of Present Illness H&P Date: 08/03/19 Chief Complaint: Anemia Chief Complaint: Anemia History of presenting complaint: This is a very pleasant 73-year-old patient of Dr. Bob Kuo. Chronic stable medical conditions include GERD, hypertension, ITP, depression, painful peripheral neuropathy on Neurontin, CHF, atrial fibrillation.. EGD-grade B erosive esophagitis, superficial gastritis and some bleeding along the gastric cardia. Also had internal hemorrhoids. Patient's a prior brain bleed. Has left her with some weakness on the right side. She has trouble feeling with the right hand. In May of this issue was again Admitted with symptomatic anemia.- EGD- unremarkable. Small bowel capsule study reveals multiple areas of small bleeding. Likely representing angiodysplasia. Repeat EGD/small bowel enteroscopy - several scattered angiectasia in the distal duodenum and proximal jejunum with active oozing status post argon plasma coagulation with good hemostasis. It was explained to the patient that expect slow GIs intermittent blood loss over a period of time. Very limited options. Patient had received a total of 3 units of blood. Patient now presents with weakness tiredness. Hemoglobin in the ER was found to be 6.7. Blood was ordered but because of antibodies, still awaiting the unit of blood. Patient rather upset about the same. Patient has been feeling weak tired. Otherwise up to recently patient is up to walk about 50 steps. Does feel dizzy lightheaded and tired. Review of systems: GEN.: Tired EYES: None HEENT: None NECK: None RESPIRATORY: None CARDIOVASCULAR: None GASTROINTESTINAL: None GENITOURINARY: None MUSCULOSKELETAL: Joint pains LYMPHATICS: None HEMATOLOGICAL: None PSYCHIATRY: None NEUROLOGICAL: Residual right-sided weakness Past medical history to include: Congestive heart failure, brain bleed pleural effusion and right-sided weakness, GERD, hypertension, ITP, depression, painful peripheral neuropathy, CHF, atrial fibrillation, esophagitis, internal hemorrhoids, small bowel angiodysplasia causing recurrent bleeding status post argon plasma coagulation Social history: . Does use a walker. Does not smoke or drink alcohol. Currently at [facility] Family history: Reviewed, noncontributory to presentation Physical examination: VITAL SIGNS: 99.2, 78, 20, 96/44, 98% on 3 L GENERAL: BMI 54.4, laying in bed, tired EYES: Pupils equal. Conjunctiva pale HEENT: External appearance of nose and ears normal, oral cavity grossly normal. NECK: JVD unable to assess, masses not palpable. HEART: First and second heart sounds are normal; edema present. LUNGS: Respiratory rate normal; distant breath sounds ABDOMEN: Soft, nontender, liver spleen not palpable, no masses palpable. PSYCH: Alert and oriented x3; mood and affect tired. NEUROLOGICAL: Cranial nerves grossly intact; no facial asymmetry, power and sensation grossly intact. LYMPHATICS: No lymph nodes palpable in the axilla and neck Muscular skeletal: Evidence of OA INVESTIGATIONS, reviewed in the clinical context: White count 8.1 hemoglobin 6.7 potassium 3.8 creatinine 0.57 Previous testing: Hemoglobin 8.2 on June 13 2-D echo-Limited review EF 50-55% from April 29 Assessment: -Small bowel-angiodysplasia with history of argon plasma coag ablation now presenting with GI bleed causing symptomatic anemia -Chronic esophagitis, internal hemorrhoids -chronic congestive heart from diastolic dysfunction EF 50-55% -Chronic esophagitis gastritis , internal hemorrhoid -Moderate aortic stenosis, moderate tricuspid regurgitation, moderate pulmonary hypertension secondary -Persistent atrial fibrillation rate controlled -Left foot osteoarthritis with hammertoe from second to through fifth toe. 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 bleed -Depression not otherwise specified -Chronic gait dysfunction uses a walker at her baseline Plan: Patient is put on a clear liquid diet. Home medications resumed. Blood has been ordered. Discussed with the patient. Patient may need a repeat argon plasma coagulation. GIs been consulted. Repeat hemoglobin in the morning.. Past Medical History Past Medical History: Blood Disorder, Heart Failure, CVA/TIA, GERD/Reflux, Hypertension Additional Past Medical History / Comment(s): ITP DISORDER- History of Any Multi-Drug Resistant Organisms: MRSA Date of last positivie culture/infection: 2012 MDRO Source:: URINE Past Surgical History: Orthopedic Surgery Additional Past Surgical History / Comment(s): BRAIN SURGERY AFTER BLEED in 2013, bilateral knee replacements Past Anesthesia/Blood Transfusion Reactions: No Reported Reaction Additional Past Anesthesia/Blood Transfusion Reaction / Comment(s): Pt has difficulty waking. She has received blood recently and had no reaction. Past Psychological History: Depression Additional Psychological History / Comment(s): Pt currently at [facility] for rehab. She has had too much bilateral leg weakness to participate in PT last few days. She had been getting up with a walker. Now she is a lift to wheelchair. Smoking Status: Never smoker Past Alcohol Use History: None Reported Additional Past Alcohol Use History / Comment(s): Pt started smoking in 1964 and quit in 1989 Past Drug Use History: None Reported - Past Family History Sister(s) Family Medical History: AFIB, Congestive Heart Failure (CHF) Father Additional Family Medical History / Comment(s): Father had ETOH abuse. He in his later 70s. Mother Family Medical History: Hypertension Medications and Allergies Home Medications Medication Instructions Recorded Confirmed Type Potassium Chloride ER [K-Dur 20] 20 meq PO DAILY 12/29/14 08/03/19 History Sertraline HCl [Zoloft] 200 mg PO DAILY 12/29/14 08/03/19 History Albuterol Sulfate [Ventolin HFA] 2 puff INHALATION RT-Q4H PRN 04/28/19 08/03/19 History Famotidine [Pepcid] 20 mg PO DAILY 05/26/19 08/03/19 History SILVER sulfADIAZINE CREAM 1 applic TOPICAL DAILY 05/26/19 08/03/19 History [Silvadene Cream] Simethicone Chew [Mylicon Chew] 40 mg PO QID PRN chew 06/03/19 08/03/19 Rx Atorvastatin [Lipitor] 40 mg PO HS 06/08/19 08/03/19 History Metoprolol Tartrate [Lopressor] 12.5 mg PO TID 06/08/19 08/03/19 History Midodrine [ProAmatine] 5 mg PO TID PRN 06/08/19 08/03/19 History ALPRAZolam [Xanax] 0.25 mg PO BID PRN 08/03/19 08/03/19 History ALPRAZolam [Xanax] 0.25 mg PO HS 08/03/19 08/03/19 History Cyanocobalamin (Vitamin B-12) 1,000 mcg PO DAILY 08/03/19 08/03/19 History [Vitamin B-12] Ferrous Sulfate [Feosol] 325 mg PO DAILY@0300 08/03/19 08/03/19 History Furosemide [Lasix] 40 mg PO DAILY 08/03/19 08/03/19 History Allergies Allergy/AdvReac Type Severity Reaction Status Date / Time No Known Allergies Allergy Verified 08/03/19 16:13 Physical Exam Vitals: Vital Signs Temp Pulse Pulse Resp BP BP Pulse Ox 08/03/19 20:09 98.2 F 76 18 118/70 100 08/03/19 17:00 98.3 F 72 21 117/67 99 08/03/19 16:30 60 16 107/65 99 08/03/19 16:00 64 18 100/64 98 08/03/19 15:30 68 23 102/61 98 08/03/19 15:00 68 17 96/44 98 08/03/19 13:56 99.2 F 78 20 115/64 98 Intake and Output 08/03/19 08/03/19 08/03/19 06:59 14:59 22:59 Other: # Bowel Movements 0 Weight 143.789 kg 143.789 kg Results CBC & Chem 7: 08/03/19 14:45 08/03/19 14:45 Labs: Abnormal Lab Results - Last 24 Hours (Table) 08/03/19 08/03/19 08/03/19 Range/Units 14:45 14:45 14:45 RBC 2.51 L (3.80-5.40) m/uL Hgb 6.7 L* D (11.4-16.0) gm/dL Hct 22.1 L (34.0-46.0) % MCHC 30.4 L (31.0-37.0) g/dL RDW 17.6 H (11.5-15.5) % Lymphocytes # 0.8 L (1.0-4.8) k/uL Carbon Dioxide 31 H (22-30) mmol/L Glucose 101 H (74-99) mg/dL Stool Occult Blood Positive H (Negative) Crossmatch 08/03/19 Range/Units 17:15 RBC (3.80-5.40) m/uL Hgb (11.4-16.0) gm/dL Hct (34.0-46.0) % MCHC (31.0-37.0) g/dL RDW (11.5-15.5) % Lymphocytes # (1.0-4.8) k/uL Carbon Dioxide (22-30) mmol/L Glucose (74-99) mg/dL Stool Occult Blood (Negative) Crossmatch See Detail Thrombosis Risk Factor Assmnt - Choose All That Apply Any of the Below Risk Factors Present?: Yes Each Factor Represents 1 point: Obesity (BMI >25), Swollen legs (current) Each Risk Factor Represents 3 Points: Age 75 years or older Thrombosis Risk Factor Assessment Total Risk Factor Score: 5 Thrombosis Risk Factor Assessment Level: High Risk
[2019-08-03 23:22] LABS: Anisocytosis Slight; Basophils % (A) 0 %; Eosinophils # (A) 0.3 k/uL (0-0.7); Eosinophils % (A) 4 %; HCT 21.3 % (34.0-46.0); Hypochromasia Marked; Lymphocytes # (A) 1.2 k/uL (1.0-4.8); Lymphocytes % (A) 15 %; MCH 26.4 pg (25.0-35.0); MCHC 30.5 g/dL (31.0-37.0); MCV 86.8 fL (80.0-100.0); Mean Platelet Volume 7.8; Monocytes # (A) 0.5 k/uL (0-1.0); Monocytes % (A) 6 %; Neutrophils # (A) 5.8 k/uL (1.3-7.7); Neutrophils % (A) 74 %; Platelet Count 146 k/uL (150-450); Poikilocytosis Slight; RBC 2.45 m/uL (3.80-5.40); RDW 17.7 % (11.5-15.5); WBC 7.9 k/uL (3.8-10.6)
[2019-08-03 23:27] LABS: HGB 6.5 gm/dL (11.4-16.0)
[2019-08-04 06:33] LABS: Anisocytosis Slight; HCT 20.9 % (34.0-46.0); Hypochromasia Marked; MCHC 29.9 g/dL (31.0-37.0); MCV 90.1 fL (80.0-100.0); Mean Platelet Volume 8.3; Platelet Count 139 k/uL (150-450); Poikilocytosis Slight; RBC 2.32 m/uL (3.80-5.40); RDW 17.6 % (11.5-15.5); WBC 7.4 k/uL (3.8-10.6)
[2019-08-04 07:04] LABS: HGB 6.3 gm/dL (11.4-16.0)
[2019-08-04] MEDS ORDERED: FUROSEMIDE 40 MG TAB PO SCH (09:00)
[2019-08-04] MEDS: METOPROLOL TARTRATE 12.5 MG TAB PO SCH ×3 (09:35→21:11)
[2019-08-04] MEDS: FAMOTIDINE 20 MG TAB PO SCH (09:35)
[2019-08-04] MEDS: POTASSIUM CHLORIDE ER 20 MEQ TAB.ER PO SCH (09:35)
[2019-08-04] MEDS: SERTRALINE 100 MG TAB PO SCH (09:36)
[2019-08-04] MEDS: CYANOCOBALAMIN 500 MCG TAB PO SCH (09:36)
[2019-08-04 10:34] LABS: Anisocytosis Slight; HCT 23.6 % (34.0-46.0); HGB 7.2 gm/dL (11.4-16.0); Hypochromasia Marked; MCH 27.1 pg (25.0-35.0); MCHC 30.6 g/dL (31.0-37.0); MCV 88.6 fL (80.0-100.0); Mean Platelet Volume 7.4; Platelet Count 147 k/uL (150-450); Poikilocytosis Slight; RBC 2.66 m/uL (3.80-5.40); RDW 17.1 % (11.5-15.5); WBC 7.6 k/uL (3.8-10.6)
--- NOTE | 2019-08-04 20:35 | P.PN ---
Progress Note - Text Progress Note Date: 08/04/19 History of presenting complaint: This is a very pleasant 73-year-old patient of Dr. Bob Kuo. Chronic stable medical conditions include GERD, hypertension, ITP, depression, painful peripheral neuropathy on Neurontin, CHF, atrial fibrillation.. EGD-grade B erosive esophagitis, superficial gastritis and some bleeding along the gastric cardia. Also had internal hemorrhoids. Patient's a prior brain bleed. Has left her with some weakness on the right side. She has trouble feeling with the right hand. In May this issue was again Admitted with symptomatic anemia.- EGD- unremarkable. Small bowel capsule study reveals multiple areas of small bleeding. Likely representing angiodysplasia. Repeat EGD/small bowel enteroscopy - several scattered angiectasia in the distal duodenum and proximal jejunum with active oozing status post argon plasma coagulation with good hemostasis. It was explained to the patient that expect slow GIs intermittent blood loss over a period of time. Very limited options. Patient had received a total of 3 units of blood. Patient now presents with weakness tiredness. Hemoglobin in the ER was found to be 6.7. Blood was ordered but because of antibodies, still awaiting the unit of blood. Patient rather upset about the same. Patient has been feeling weak tired. Otherwise up to recently patient is up to walk about 50 steps. Does feel dizzy lightheaded and tired. Today-this morning patient received a unit of blood. Feeling bit better. A bit tired. Review of systems: Was done for constitutional, cardiovascular, GI, pulmonary. relevant finding as above Active Medications Acetaminophen (Tylenol Tab) 650 mg PO Q6HR PRN PRN Reason: Mild Pain or Fever > 100.5 Al Hydroxide/Mg Hydroxide (Maalox) 15 ml PO Q6HR PRN PRN Reason: Indigestion Albuterol Sulfate (Ventolin Hfa Inhaler) 2 puff INHALATION RT-Q4H PRN PRN Reason: Shortness Of Breath Alprazolam (Xanax) 0.25 mg PO BID PRN PRN Reason: Anxiety Alprazolam (Xanax) 0.25 mg PO [facility] Last Admin: 08/03/19 21:33 Dose: 0.25 mg Documented by: Atorvastatin Calcium (Lipitor) 40 mg PO [facility] Last Admin: 08/03/19 21:33 Dose: 40 mg Documented by: Calcium Carbonate/Glycine (Tums) 1,000 mg PO Q4HR PRN PRN Reason: Dyspepsia Cyanocobalamin (Vitamin B-12) 1,000 mcg PO DAILY [facility] Last Admin: 08/04/19 09:36 Dose: 1,000 mcg Documented by: Famotidine (Pepcid) 20 mg PO DAILY [facility] Last Admin: 08/04/19 09:35 Dose: 20 mg Documented by: Ferrous Sulfate (Feosol) 325 mg PO BID [facility] Lactulose (Cephulac) 20 gm PO DAILY PRN PRN Reason: Constipation Magnesium Hydroxide (Milk Of Magnesia) 2,400 mg PO DAILY PRN PRN Reason: Constipation Melatonin (Melatonin) 3 mg PO HS PRN PRN Reason: Insomnia Metoprolol Tartrate (Lopressor) 12.5 mg PO TID [facility] Last Admin: 08/04/19 15:03 Dose: 12.5 mg Documented by: Midodrine (Proamatine) 5 mg PO TID PRN PRN Reason: low bp Naloxone HCl (Narcan) 0.2 mg IV Q2M PRN PRN Reason: Opioid Reversal Ondansetron HCl (Zofran) 4 mg IVP Q8HR PRN PRN Reason: Nausea And Vomiting Potassium Chloride (K-Dur 20) 20 meq PO DAILY [facility] Last Admin: 08/04/19 09:35 Dose: 20 meq Documented by: Sertraline HCl (Zoloft) 200 mg PO DAILY [facility] Last Admin: 08/04/19 09:36 Dose: 200 mg Documented by: Silver Sulfadiazine (Silvadene Cream) 1 applic TOPICAL DAILY [facility] Last Admin: 08/04/19 09:36 Dose: 1 applic Documented by: Simethicone (Mylicon Chew) 40 mg PO QID PRN PRN Reason: gas pains/gi upset Sodium Biphosphate/Sodium Phosphate (Fleet Adult) 133 ml RECTAL ONCE PRN PRN Reason: Constipation Physical examination: VITAL SIGNS: 98.5, 63, 18, 138/79, 96% on 3 L GENERAL: Laying in bed, awake EYES: Pupils equal. Conjunctiva pale HEENT: External appearance of nose and ears normal, oral cavity grossly normal. NECK: JVD unable to assess, masses not palpable. HEART: First and second heart sounds are normal; edema present. LUNGS: Respiratory rate normal; distant breath sounds ABDOMEN: Soft, nontender, liver spleen not palpable, no masses palpable. PSYCH: Alert and oriented x3; mood and affect tired. Muscular skeletal: Evidence of OA INVESTIGATIONS, reviewed in the clinical context: Hemoglobin 7.2 after one unit of blood this morning. White count 8.1 hemoglobin 6.7 potassium 3.8 creatinine 0.57-upon presentation Previous testing: Hemoglobin 8.2 on June 13 2-D echo-Limited review EF 50-55% from April 29 Assessment: -Small bowel-angiodysplasia with history of argon plasma coag ablation now presenting with GI bleed causing symptomatic anemia -Chronic esophagitis, internal hemorrhoids -chronic congestive heart from diastolic dysfunction EF 50-55% -Chronic esophagitis gastritis , internal hemorrhoid -Moderate aortic stenosis, moderate tricuspid regurgitation, moderate pulmonary hypertension secondary -Persistent atrial fibrillation rate controlled -Left foot osteoarthritis with hammertoe from second to through fifth toe. 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 Discuss with GI Dr. Xander Faria. She did order a second unit of blood. If hemoglobin remains stable and patient plan is for the patient returned to the [facility] tomorrow.
[2019-08-04] MEDS: ALPRAZolam 0.25 MG TAB PO SCH (21:11)
[2019-08-04] MEDS: FERROUS SULFATE 325 MG TAB PO SCH (21:11)
[2019-08-04] MEDS: ATORVASTATIN 40 MG TAB PO SCH (21:11)
--- NOTE | 2019-08-05 00:34 | CONS ---
CONSULTATION DATE OF DICTATION: 08/04/2019 REASON FOR CONSULTATION: Recurrent anemia. HISTORY OF PRESENT ILLNESS: The patient is a 74-year-old pleasant white female with history of GERD, hypertension, congestive heart failure, history of atrial fibrillation, was admitted to the hospital because of symptomatic anemia. She presented to the ER with weakness, tiredness and in the ER, was noted to have a hemoglobin of 6.7 and received one unit of blood transfusion. The patient denies any abdominal pain, reports no rectal bleeding or melena. She was admitted to the hospital in March of this year with severe bleeding at which time she was on anticoagulation which was discontinued. An EGD and a colonoscopy at that time revealed erosive esophagitis, superficial gastritis and some bleeding along the gastric cardia as well as small internal hemorrhoids. She was readmitted to the hospital in May of this year at which time an upper endoscopy was unremarkable. Subsequently, a small bowel capsule endoscopy revealed multiple areas of angioectasia noted in distal duodenum and proximal jejunum. Subsequently she underwent a small bowel enteroscopy which revealed several scattered angioectasia in the distal duodenum and proximal jejunum that were cauterized following which the patient was discharged home and she continued to be on iron supplements. She denies any active GI bleed. PAST MEDICAL HISTORY: Her past medical history is significant for hypertension, gastroesophageal reflux disease, anxiety, depression, congestive heart failure, atrial fibrillation, not on any anticoagulation at the present time; history of gastroesophageal reflux disease. MEDICATIONS: Medications at home include Zoloft, K-Dur, midodrine, Lopressor, Lasix, Feosol, Pepcid, Lipitor, Xanax Ventolin. ALLERGIES: None. SOCIAL HISTORY: No smoking or alcohol use. FAMILY HISTORY: Unremarkable. REVIEW OF SYSTEMS: CARDIOPULMONARY: No chest pain or shortness of breath. GENITOURINARY: No dysuria or hematuria. MUSCULOSKELETAL: Unremarkable. SKIN: Unremarkable. ENDOCRINE: Unremarkable. PSYCHIATRIC: Unremarkable. NEUROLOGY: Unremarkable. ENT/VISION: Unremarkable. CONSTITUTIONAL: No recent weight loss. Extreme fatigue and weakness. PHYSICAL EXAMINATION: Blood pressure 138/79, pulse 63, temperature 98.6. HEENT EXAMINATION: Unremarkable. Conjunctivae pink. Sclerae anicteric. Oral cavity no lesions. NECK: No JVD or lymph node enlargement. CHEST: Clear to auscultation. HEART: Regular rate and rhythm. ABDOMEN: Soft. Bowel sounds are positive. No organomegaly. EXTREMITIES: No pedal edema. NEUROLOGIC: Alert and oriented x3. No focal deficits. LABS: WBC 8.1, hemoglobin 6.7, platelets normal. Repeat hemoglobin this morning is 6.3, so far received one unit of blood transfusion. BUN and creatinine are within normal limits. Stool occult blood is positive. IMPRESSION: 1. Recurrent anemia secondary to occult gastrointestinal blood loss/obscure gastrointestinal bleed. She underwent extensive investigations. In March had an EGD and colonoscopy that showed some gastritis and a small hiatal hernia and colonoscopy showed internal hemorrhoids. Repeat upper endoscopy May of 2019 was unremarkable. Small bowel capsule endoscopy revealed multiple angioectasia in the distal duodenum and proximal jejunum. Hence, he underwent an enteroscopy in May of this year with cautery of angioectasia. Remains on iron supplements. Presents to the hospital with a hemoglobin of 6.7. Clinically no active bleeding. Most likely secondary to occult gastrointestinal blood loss, probably from small bowel angioectasia. 2. Atrial fibrillation. Anticoagulation is on hold. 3. History of hypertension. RECOMMENDATIONS: 1. Will give her one more unit of blood transfusion. 2. Start her on iron supplements. 3. Repeat hemoglobin in the morning and if it is stable she can be discharged home with an outpatient followup in 2 weeks and we will consider referring her to [facility] for small bowel balloon enteroscopy in the near future. Thank you for this consultation. MMODL / IJN: [id number] /
[2019-08-05 04:25] VITALS: BP 121/75; PULSE 73; RESP 16; TEMP 97.6
[2019-08-05] MEDS: FERROUS SULFATE 325 MG TAB PO SCH (08:58)
[2019-08-05] MEDS: POTASSIUM CHLORIDE ER 20 MEQ TAB.ER PO SCH (08:58)
[2019-08-05] MEDS: FAMOTIDINE 20 MG TAB PO SCH (08:58)
[2019-08-05] MEDS: METOPROLOL TARTRATE 12.5 MG TAB PO SCH (08:58)
[2019-08-05] MEDS: SERTRALINE 100 MG TAB PO SCH (08:59)
[2019-08-05] MEDS: CYANOCOBALAMIN 500 MCG TAB PO SCH (08:59)
[2019-08-05 11:08] LABS: Anisocytosis Slight; Basophils % (A) 0 %; Eosinophils # (A) 0.2 k/uL (0-0.7); Eosinophils % (A) 3 %; HCT 26.1 % (34.0-46.0); Hypochromasia Marked; Lymphocytes # (A) 0.6 k/uL (1.0-4.8); Lymphocytes % (A) 8 %; MCH 27.5 pg (25.0-35.0); MCHC 30.6 g/dL (31.0-37.0); MCV 89.9 fL (80.0-100.0); Mean Platelet Volume 7.7; Monocytes # (A) 0.4 k/uL (0-1.0); Monocytes % (A) 5 %; Neutrophils # (A) 6.7 k/uL (1.3-7.7); Neutrophils % (A) 84 %; Platelet Count 156 k/uL (150-450); Poikilocytosis Slight; WBC 8.1 k/uL (3.8-10.6)
--- NOTE | 2019-08-05 17:21 | P.DS ---
Providers Date of admission: 08/03/19 15:57 Expected date of discharge: 08/05/19 Attending physician: Shaq Carrasco Consults: 08/03/19 15:56 Consult Physician Urgent Consulting Provider: Jas Aceves Consult Reason/Comments: GI bleed Do you want consulting provider notified?: Yes Primary care physician: Bob Kuo [facility] Course: History of presenting complaint: This is a very pleasant 73-year-old patient of Dr. Bob Kuo. Chronic stable medical conditions include GERD, hypertension, ITP, depression, painful peripheral neuropathy on Neurontin, CHF, atrial fibrillation.. EGD-grade B erosive esophagitis, superficial gastritis and some bleeding along the gastric cardia. Also had internal hemorrhoids. Patient's a prior brain bleed. Has left her with some weakness on the right side. She has trouble feeling with the right hand. In May of this issue was again Admitted with symptomatic anemia.- EGD- unremarkable. Small bowel capsule study reveals multiple areas of small bleeding. Likely representing angiodysplasia. Repeat EGD/small bowel enteroscopy - several scattered angiectasia in the distal duodenum and proximal jejunum with active oozing status post argon plasma coagulation with good hemostasis. It was explained to the patient that expect slow GIs intermittent blood loss over a period of time. Very limited options. Patient had received a total of 3 units of blood. Patient now presents with weakness tiredness. Hemoglobin in the ER was found to be 6.7. Blood was ordered but because of antibodies, still awaiting the unit of blood. Patient rather upset about the same. Patient has been feeling weak tired. Otherwise up to recently patient is up to walk about 50 steps. Does feel dizzy lightheaded and tired. Patient received a total of 2 units of blood. Today-stable. Sitting upon a chair. Comfortable.. Hemoglobin this morning 8. As discussed with Dr. Xander Faria. No intervention at the present time. Consultation: Dr. Xander Faria from GI Physical examination: VITAL SIGNS: 97.6, 73, 16, 121/75, 96% on 3 L GENERAL: Sitting up, comfortable EYES: Pupils equal. Conjunctiva pale HEENT: External appearance of nose and ears normal, oral cavity grossly normal. NECK: JVD unable to assess, masses not palpable. HEART: First and second heart sounds are normal; edema present. LUNGS: Respiratory rate normal; distant breath sounds ABDOMEN: Soft, nontender, liver spleen not palpable, no masses palpable. PSYCH: Alert and oriented x3; mood and affect tired. Muscular skeletal: Evidence of OA INVESTIGATIONS, reviewed in the clinical context: Hemoglobin 8 White count 8.1 hemoglobin 6.7 potassium 3.8 creatinine 0.57-upon presentation Previous testing: Hemoglobin 8.2 on June 13 2-D echo-Limited review EF 50-55% from April 29 Assessment: -Small bowel-angiodysplasia with history of argon plasma coag ablation now presenting with GI bleed causing symptomatic anemia, POA -Chronic esophagitis, internal hemorrhoids -chronic congestive heart from diastolic dysfunction EF 50-55% -Chronic esophagitis gastritis , internal hemorrhoid -Moderate aortic stenosis, moderate tricuspid regurgitation, moderate pulmonary hypertension secondary -Persistent atrial fibrillation rate controlled -Left foot osteoarthritis with hammertoe from second to through fifth toe. 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 bleed -Depression not otherwise specified -Chronic gait dysfunction uses a walker at her baseline Disposition: Home Patient Condition at Discharge: Stable Plan - Discharge Summary New Discharge Prescriptions: Continue Sertraline HCl [Zoloft] 200 mg PO DAILY Potassium Chloride ER [K-Dur 20] 20 meq PO DAILY Albuterol Sulfate [Ventolin HFA] 2 puff INHALATION RT-Q4H PRN PRN Reason: Shortness Of Breath SILVER sulfADIAZINE CREAM [Silvadene Cream] 1 applic TOPICAL DAILY Famotidine [Pepcid] 20 mg PO DAILY Simethicone Chew [Mylicon Chew] 40 mg PO QID PRN chew PRN Reason: gas pains/gi upset Atorvastatin [Lipitor] 40 mg PO HS Metoprolol Tartrate [Lopressor] 12.5 mg PO TID Midodrine [ProAmatine] 5 mg PO TID PRN PRN Reason: low bp Furosemide [Lasix] 40 mg PO DAILY Ferrous Sulfate [Iron (65 MG Elemental)] 325 mg PO DAILY@0300 Cyanocobalamin (Vitamin B-12) [Vitamin B-12] 1,000 mcg PO DAILY ALPRAZolam [Xanax] 0.25 mg PO HS ALPRAZolam [Xanax] 0.25 mg PO BID PRN PRN Reason: Anxiety Discharge Medication List Potassium Chloride ER [K-Dur 20] 20 meq PO DAILY 12/29/14 [History] Sertraline HCl [Zoloft] 200 mg PO DAILY 12/29/14 [History] Albuterol Sulfate [Ventolin HFA] 2 puff INHALATION RT-Q4H PRN 04/28/19 [History] Famotidine [Pepcid] 20 mg PO DAILY 05/26/19 [History] SILVER sulfADIAZINE CREAM [Silvadene Cream] 1 applic TOPICAL DAILY 05/26/19 [History] Simethicone Chew [Mylicon Chew] 40 mg PO QID PRN chew 06/03/19 [Rx] Atorvastatin [Lipitor] 40 mg PO HS 06/08/19 [History] Metoprolol Tartrate [Lopressor] 12.5 mg PO TID 06/08/19 [History] Midodrine [ProAmatine] 5 mg PO TID PRN 06/08/19 [History] ALPRAZolam [Xanax] 0.25 mg PO BID PRN 08/03/19 [History] ALPRAZolam [Xanax] 0.25 mg PO HS 08/03/19 [History] Cyanocobalamin (Vitamin B-12) [Vitamin B-12] 1,000 mcg PO DAILY 08/03/19 [History] Ferrous Sulfate [Iron (65 MG Elemental)] 325 mg PO DAILY@0300 08/03/19 [History] Furosemide [Lasix] 40 mg PO DAILY 08/03/19 [History] Follow up Appointment(s)/Referral(s): Bob Kuo MD [Primary Care Provider] - 08/11/19 2:00 pm Sweta Faria MD [STAFF PHYSICIAN] - 08/16/19 3:00 pm [facility], [NON-STAFF] - 1 Week Patient Instructions/Handouts: Gastrointestinal Bleeding (GEN), Anemia (GEN) Discharge Disposition: HOME SELF-CARE
== END 2019-08-05 13:16 | disposition home or self-care (01) | DRG 378 ==
LOC: EC 13:51 → 5NMEDONC 15:57
PROVIDERS: ADMIT Hospitalist; ATTEND Hospitalist
PROC: 30233N1 Transfusion of Nonautologous Red Blood Cells into Peripheral Vein, Percutaneous Approach (ICD-10-PCS; principal; 2019-08-03)
DX: K55.21 Angiodysplasia of colon with hemorrhage (principal); Z68.43 Body mass index [BMI] 50.0-59.9, adult; D69.3 Immune thrombocytopenic purpura; I48.19 Other persistent atrial fibrillation; I69.254 Hemiplegia and hemiparesis following other nontraumatic intracranial hemorrhage affecting left non-dominant side; I50.32 Chronic diastolic (congestive) heart failure; E66.01 Morbid (severe) obesity due to excess calories; I27.20 Pulmonary hypertension, unspecified; M19.072 Primary osteoarthritis, left ankle and foot; M20.40 Other hammer toe(s) (acquired), unspecified foot; I08.2 Rheumatic disorders of both aortic and tricuspid valves; K21.9 Gastro-esophageal reflux disease without esophagitis; Z96.653 Presence of artificial knee joint, bilateral; K64.8 Other hemorrhoids; R26.9 Unspecified abnormalities of gait and mobility; I11.0 Hypertensive heart disease with heart failure; D50.0 Iron deficiency anemia secondary to blood loss (chronic); K29.70 Gastritis, unspecified, without bleeding; F32.9 Major depressive disorder, single episode, unspecified; G62.9 Polyneuropathy, unspecified; Z11.59 Encounter for screening for other viral diseases; Z79.899 Other long term (current) drug therapy; Z82.49 Family history of ischemic heart disease and other diseases of the circulatory system; Z86.14 Personal history of Methicillin resistant Staphylococcus aureus infection; Z98.890 Other specified postprocedural states; Z87.891 Personal history of nicotine dependence
CPT/HCPCS: 36415; 80048; 82272; 83605; 85025; 85027; 85610; 85730; 86850; 86870; 86880; 86900; 86901; 86902; 86920; 87635; 93005; 96374; 99285

== ENCOUNTER 2019-09-22 11:38 | Observation (INO) | payer MEDICARE ==
[2019-09-22] MEDS ORDERED: FUROSEMIDE 10 MG/ML 4 ML VIAL IV STA (11:53)
--- NOTE | 2019-09-22 11:56 | ED ---
General Adult HPI - General Chief complaint: Shortness of Breath Stated complaint: SOB Time Seen by Provider: 09/22/19 11:45 Source: patient, EMS, RN notes reviewed, old records reviewed Mode of arrival: EMS Limitations: no limitations - History of Present Illness Initial comments: This is a 74-year-old female who presents emergency department with past medical history significant for atrial fibrillation congestive heart failure and anemia. Patient comes in today because she states having a difficult time breathing and is having increased swelling to her legs. Patient denies any chest pain. Patient denies any recent fever chills or cough. Patient denies any abdominal pain patient denies nausea vomiting diarrhea. - Related Data Home Medications Medication Instructions Recorded Confirmed Potassium Chloride ER [K-Dur 20] 20 meq PO DAILY 12/29/14 09/22/19 Sertraline HCl [Zoloft] 200 mg PO DAILY 12/29/14 09/22/19 Albuterol Sulfate [Ventolin HFA] 2 puff INHALATION RT-Q4H PRN 04/28/19 09/22/19 Famotidine [Pepcid] 20 mg PO DAILY 05/26/19 09/22/19 SILVER sulfADIAZINE CREAM 1 applic TOPICAL DAILY 05/26/19 09/22/19 [Silvadene Cream] Atorvastatin [Lipitor] 40 mg PO HS 06/08/19 09/22/19 Metoprolol Tartrate [Lopressor] 12.5 mg PO TID 06/08/19 09/22/19 Midodrine [ProAmatine] 5 mg PO TID PRN 06/08/19 09/22/19 ALPRAZolam [Xanax] 0.25 mg PO HS 08/03/19 09/22/19 Cyanocobalamin (Vitamin B-12) 1,000 mcg PO DAILY 08/03/19 09/22/19 [Vitamin B-12] Ferrous Sulfate [Iron (65 MG 325 mg PO DAILY@0300 08/03/19 09/22/19 Elemental)] Furosemide [Lasix] 40 mg PO DAILY 08/03/19 09/22/19 Docusate Sodium [Dok] 100 mg PO BID 09/22/19 09/22/19 Gabapentin [Neurontin] 100 mg PO BID 09/22/19 09/22/19 Previous Rx's Medication Instructions Recorded Simethicone Chew [Mylicon Chew] 40 mg PO QID PRN chew 06/03/19 Allergies Allergy/AdvReac Type Severity Reaction Status Date / Time No Known Allergies Allergy Verified 09/22/19 12:55 Review of Systems ROS Statement: Those systems with pertinent positive or pertinent negative responses have been documented in the HPI. ROS Other: All systems not noted in ROS Statement are negative. Past Medical History Past Medical History: Blood Disorder, Heart Failure, CVA/TIA, GERD/Reflux, Hypertension Additional Past Medical History / Comment(s): ITP DISORDER- , chronic anemia. History of Any Multi-Drug Resistant Organisms: MRSA Date of last positivie culture/infection: 2012 MDRO Source:: URINE Past Surgical History: Orthopedic Surgery Additional Past Surgical History / Comment(s): BRAIN SURGERY AFTER BLEED in , bilateral knee replacements Past Anesthesia/Blood Transfusion Reactions: No Reported Reaction Additional Past Anesthesia/Blood Transfusion Reaction / Comment(s): Pt has difficulty waking. She has received blood recently and had no reaction. Past Psychological History: Depression Smoking Status: Never smoker Past Alcohol Use History: None Reported Past Drug Use History: None Reported - Past Family History Sister(s) Family Medical History: AFIB, Congestive Heart Failure (CHF) Father Additional Family Medical History / Comment(s): Father had ETOH abuse. He in his later 70s. Mother Family Medical History: Hypertension General Exam - General Exam Comments Initial Comments: GENERAL: Patient is well-developed and well-nourished. Patient is nontoxic and well- hydrated and is in mild distress. ENT: Neck is soft and supple. No significant lymphadenopathy is noted. Oropharynx is clear. Moist mucous membranes. Neck has full range of motion without eliciting any pain. EYES: The sclera were anicteric and conjunctiva were pink and moist. Extraocular movements were intact and pupils were equal round and reactive to light. Eyelids were unremarkable. PULMONARY: Unlabored respirations. Good breath sounds bilaterally. No audible rales rhonc hi or wheezing was noted. CARDIOVASCULAR: There is a regular rate and rhythm without any murmurs gallops or rubs. ABDOMEN: Soft and nontender with normal bowel sounds. SKIN: Skin is clear with no lesions or rashes and otherwise unremarkable. NEUROLOGIC: Patient is alert and oriented x3. Cranial nerves II through XII are grossly intact. Motor and sensory are also intact. Normal speech, volume and content. Symmetrical smile. MUSCULOSKELETAL: Normal extremities with adequate strength and full range of motion. 2+ bilaterally. LYMPHATICS: No significant lymphadenopathy is noted PSYCHIATRIC: Normal psychiatric evaluation. Limitations: no limitations Course Vital Signs 09/22/19 09/22/19 09/22/19 11:44 12:01 13:04 Temperature 98.3 F Pulse Rate 78 72 Respiratory 20 18 18 Rate Blood Pressure 147/102 140/92 O2 Sat by Pulse 97 97 Oximetry 09/22/19 13:32 Temperature Pulse Rate 91 Respiratory 18 Rate Blood Pressure 122/81 O2 Sat by Pulse 97 Oximetry Medical Decision Making - Medical Decision Making EKG shows atrial fibrillation 77 bpm QRS is 94 Q-T intervals 4:30 QTC is 486 per patient's EKG shows no ST segment elevation. Chest x-ray shows no acute abnormality. I went into the room to reevaluate the patient she did not feel comfortable going home nor did her feel comfortable having her home. So I spoke with Dr. Suellen Ken agreed to admit the patient. - Lab Data Result diagrams: 09/22/19 11:59 09/22/19 11:59 Lab Results 09/22/19 09/22/19 09/22/19 Range/Units 11:59 11:59 11:59 WBC 5.8 (3.8-10.6) k/uL RBC 3.12 L (3.80-5.40) m/uL Hgb 8.5 L (11.4-16.0) gm/dL Hct 28.2 L (34.0-46.0) % MCV 90.4 (80.0-100.0) fL MCH 27.1 (25.0-35.0) pg MCHC 30.0 L (31.0-37.0) g/dL RDW 16.6 H (11.5-15.5) % Plt Count 136 L (150-450) k/uL Neutrophils % 79 % Lymphocytes % 11 % Monocytes % 6 % Eosinophils % 3 % Basophils % 1 % Neutrophils # 4.6 (1.3-7.7) k/uL Lymphocytes # 0.6 L (1.0-4.8) k/uL Monocytes # 0.3 (0-1.0) k/uL Eosinophils # 0.2 (0-0.7) k/uL Basophils # 0.0 (0-0.2) k/uL Hypochromasia Marked Anisocytosis Slight PT 11.3 (9.0-12.0) sec INR 1.1 (<1.2) APTT 24.4 (22.0-30.0) sec Sodium 140 (137-145) mmol/L Potassium 3.8 (3.5-5.1) mmol/L Chloride 102 (98-107) mmol/L Carbon Dioxide 31 H (22-30) mmol/L Anion Gap 7 mmol/L BUN 17 (7-17) mg/dL Creatinine 0.63 (0.52-1.04) mg/dL Est GFR (CKD-EPI)AfAm >90 (>60 ml/min/1.73 sqM) Est GFR (CKD-EPI)NonAf 88 (>60 ml/min/1.73 sqM) Glucose 105 H (74-99) mg/dL Plasma Lactic Acid Sam (0.7-2.0) mmol/L Calcium 8.9 (8.4-10.2) mg/dL Magnesium 2.0 (1.6-2.3) mg/dL Total Bilirubin 0.8 (0.2-1.3) mg/dL AST 28 (14-36) U/L ALT 19 (4-34) U/L Alkaline Phosphatase 131 H (38-126) U/L Troponin I (0.000-0.034) ng/mL NT-Pro-B Natriuret Pep pg/mL Total Protein 7.0 (6.3-8.2) g/dL Albumin 3.6 (3.5-5.0) g/dL 09/22/19 09/22/19 09/22/19 Range/Units 11:59 11:59 11:59 WBC (3.8-10.6) k/uL RBC (3.80-5.40) m/uL Hgb (11.4-16.0) gm/dL Hct (34.0-46.0) % MCV (80.0-100.0) fL MCH (25.0-35.0) pg MCHC (31.0-37.0) g/dL RDW (11.5-15.5) % Plt Count (150-450) k/uL Neutrophils % % Lymphocytes % % Monocytes % % Eosinophils % % Basophils % % Neutrophils # (1.3-7.7) k/uL Lymphocytes # (1.0-4.8) k/uL Monocytes # (0-1.0) k/uL Eosinophils # (0-0.7) k/uL Basophils # (0-0.2) k/uL Hypochromasia Anisocytosis PT (9.0-12.0) sec INR (<1.2) APTT (22.0-30.0) sec Sodium (137-145) mmol/L Potassium (3.5-5.1) mmol/L Chloride (98-107) mmol/L Carbon Dioxide (22-30) mmol/L Anion Gap mmol/L BUN (7-17) mg/dL Creatinine (0.52-1.04) mg/dL Est GFR (CKD-EPI)AfAm (>60 ml/min/1.73 sqM) Est GFR (CKD-EPI)NonAf (>60 ml/min/1.73 sqM) Glucose (74-99) mg/dL Plasma Lactic Acid Sam 1.4 (0.7-2.0) mmol/L Calcium (8.4-10.2) mg/dL Magnesium (1.6-2.3) mg/dL Total Bilirubin (0.2-1.3) mg/dL AST (14-36) U/L ALT (4-34) U/L Alkaline Phosphatase (38-126) U/L Troponin I <0.012 (0.000-0.034) ng/mL NT-Pro-B Natriuret Pep 1020 pg/mL Total Protein (6.3-8.2) g/dL Albumin (3.5-5.0) g/dL Disposition Clinical Impression: Pedal edema, Dyspnea Disposition: ADMITTED IP TO THIS HOSP Is patient prescribed a controlled substance at d/c from ED?: No Referrals: Bob Kuo MD [Primary Care Provider] - 1-2 days Time of Disposition: 13:52
[2019-09-22 12:18] LABS: Anisocytosis Slight; Basophils % (A) 1 %; Eosinophils # (A) 0.2 k/uL (0-0.7); Eosinophils % (A) 3 %; HCT 28.2 % (34.0-46.0); HGB 8.5 gm/dL (11.4-16.0); Hypochromasia Marked; Lymphocytes # (A) 0.6 k/uL (1.0-4.8); Lymphocytes % (A) 11 %; MCH 27.1 pg (25.0-35.0); MCV 90.4 fL (80.0-100.0); Mean Platelet Volume 7.9; Monocytes # (A) 0.3 k/uL (0-1.0); Monocytes % (A) 6 %; Neutrophils # (A) 4.6 k/uL (1.3-7.7); Neutrophils % (A) 79 %; Platelet Count 136 k/uL (150-450); RBC 3.12 m/uL (3.80-5.40); RDW 16.6 % (11.5-15.5); WBC 5.8 k/uL (3.8-10.6)
[2019-09-22 12:27] LABS: ALT 19 U/L (4-34); AST 28 U/L (14-36); African American GFR (CKD) >90 (>60 ml/min/1.73 sqM); Albumin 3.6 g/dL (3.5-5.0); Alkaline Phosphatase 131 U/L (38-126); Anion Gap 7 mmol/L; Blood Urea Nitrogen 17 mg/dL (7-17); Calcium 8.9 mg/dL (8.4-10.2); Carbon Dioxide 31 mmol/L (22-30); Chloride 102 mmol/L (98-107); Glucose 105 mg/dL (74-99); Non-African American GFR(CKD) 88 (>60 ml/min/1.73 sqM); Potassium 3.8 mmol/L (3.5-5.1); Sodium 140 mmol/L (137-145); Total Bilirubin 0.8 mg/dL (0.2-1.3)
[2019-09-22 12:30] LABS: INR 1.1 (<1.2); Partial Thromboplastin Time 24.4 sec (22.0-30.0); Prothrombin Time 11.3 sec (9.0-12.0)
--- NOTE | 2019-09-22 12:33 | XR ---
EXAMINATION TYPE: XR chest 2V DATE OF EXAM: 09/22/2019 COMPARISON: 05/30/2019 HISTORY: Shortness of breath TECHNIQUE: Frontal and lateral views of the chest are obtained. FINDINGS: Scattered senescent parenchymal changes noted. Hyperinflation compatible with COPD. Moderate cardiomegaly with pulmonary venous congestion without overt failure. Mediastinal structures are stable and grossly unremarkable. No evidence for hilar prominence. Degenerative changes dorsal spine. IMPRESSION: 1. Moderate cardiomegaly with pulmonary venous congestion without overt failure.
[2019-09-22] MEDS ORDERED: MIDODRINE 5 MG TAB PO PRN (15:46)
[2019-09-22] MEDS ORDERED: ALBUTEROL HFA INHALER INHALATION PRN (15:46)
--- NOTE | 2019-09-22 15:55 | P.HPIM ---
History of Present Illness H&P Date: 09/22/19 Chief Complaint: Worsening edema This is a 74-year-old female with complex past medical history noted below who presented to the emergency room with worsening lower extremity edema and shortness of breath. Patient does not have underlying diastolic heart failure and moderate pulmonary hypertension and has been taking her Lasix as directed 40 mg once a day in the morning. She said that over the past few days her lower extremity is being getting more swollen and start weeping fluid. Patient is usually on 3 L of oxygen at home but reported worsening shortness of breath over the last 2 days as well. She denies any chest pain. No fevers or chills. No cough. She was evaluated in the ER her BNP was only slightly elevated. Chest x-ray showed evidence of vascular congestion. Patient will be placed on observation for diuresis. Review of Systems Review of system: 14 points review of systems were obtained and were negative except to what were mentioned in the HPI. Past Medical History Past Medical History: Blood Disorder, Heart Failure, CVA/TIA, GERD/Reflux, Hypertension Additional Past Medical History / Comment(s): ITP DISORDER- , chronic anemia. History of Any Multi-Drug Resistant Organisms: MRSA Date of last positivie culture/infection: 2012 MDRO Source:: URINE Past Surgical History: Orthopedic Surgery Additional Past Surgical History / Comment(s): BRAIN SURGERY AFTER BLEED in 2013, bilateral knee replacements Past Anesthesia/Blood Transfusion Reactions: No Reported Reaction Additional Past Anesthesia/Blood Transfusion Reaction / Comment(s): Pt has difficulty waking. She has received blood recently and had no reaction. Past Psychological History: Depression Smoking Status: Never smoker Past Alcohol Use History: None Reported Past Drug Use History: None Reported - Past Family History Sister(s) Family Medical History: AFIB, Congestive Heart Failure (CHF) Father Additional Family Medical History / Comment(s): Father had ETOH abuse. He in his later 70s. Mother Family Medical History: Hypertension Medications and Allergies Home Medications Medication Instructions Recorded Confirmed Type Potassium Chloride ER [K-Dur 20] 20 meq PO DAILY 12/29/14 09/22/19 History Sertraline HCl [Zoloft] 200 mg PO DAILY 12/29/14 09/22/19 History Albuterol Sulfate [Ventolin HFA] 2 puff INHALATION RT-Q4H PRN 04/28/19 09/22/19 History Famotidine [Pepcid] 20 mg PO DAILY 05/26/19 09/22/19 History SILVER sulfADIAZINE CREAM 1 applic TOPICAL DAILY 05/26/19 09/22/19 History [Silvadene Cream] Simethicone Chew [Mylicon Chew] 40 mg PO QID PRN chew 06/03/19 09/22/19 Rx Atorvastatin [Lipitor] 40 mg PO HS 06/08/19 09/22/19 History Metoprolol Tartrate [Lopressor] 12.5 mg PO TID 06/08/19 09/22/19 History Midodrine [ProAmatine] 5 mg PO TID PRN 06/08/19 09/22/19 History ALPRAZolam [Xanax] 0.25 mg PO HS 08/03/19 09/22/19 History Cyanocobalamin (Vitamin B-12) 1,000 mcg PO DAILY 08/03/19 09/22/19 History [Vitamin B-12] Ferrous Sulfate [Iron (65 MG 325 mg PO DAILY@0300 08/03/19 09/22/19 History Elemental)] Furosemide [Lasix] 40 mg PO DAILY 08/03/19 09/22/19 History Docusate Sodium [Dok] 100 mg PO BID 09/22/19 09/22/19 History Gabapentin [Neurontin] 100 mg PO BID 09/22/19 09/22/19 History Allergies Allergy/AdvReac Type Severity Reaction Status Date / Time No Known Allergies Allergy Verified 09/22/19 12:55 Physical Exam Vitals: Vital Signs Temp Pulse Resp BP Pulse Ox 09/22/19 15:43 98.1 F 66 18 134/75 100 09/22/19 13:32 91 18 122/81 97 09/22/19 13:04 18 09/22/19 12:01 72 18 140/92 97 09/22/19 11:44 98.3 F 78 20 147/102 97 Intake and Output 09/22/19 09/22/19 09/22/19 06:59 14:59 22:59 Output Total 400 Balance -400 Output: Urine 400 Other: Weight 148.325 kg General: The patient is awake and alert, in no distress. Patient is morbidly obese Eye: there is normal conjunctiva bilaterally. Neck: The neck is supple, there is no JVD. Cardiovascular: Distant heart sounds Normal S1-S2, no S3-S4, no murmurs. Respiratory: Lungs clear to auscultation bilaterally Gastrointestinal: Abdomen is soft, nontender Musculoskeletal: There is +2-3 pedal edema up to the midshin. Neurological:. Speech is normal. Skin: Skin is warm and dry Results CBC & Chem 7: 09/22/19 11:59 09/22/19 11:59 Labs: Abnormal Lab Results - Last 24 Hours (Table) 09/22/19 09/22/19 Range/Units 11:59 11:59 RBC 3.12 L (3.80-5.40) m/uL Hgb 8.5 L (11.4-16.0) gm/dL Hct 28.2 L (34.0-46.0) % MCHC 30.0 L (31.0-37.0) g/dL RDW 16.6 H (11.5-15.5) % Plt Count 136 L (150-450) k/uL Lymphocytes # 0.6 L (1.0-4.8) k/uL Carbon Dioxide 31 H (22-30) mmol/L Glucose 105 H (74-99) mg/dL Alkaline Phosphatase 131 H (38-126) U/L Assessment and Plan Assessment: 1. Acute diastolic heart failure exacerbation: I will start the patient on Lasix 40 mg IV twice daily. Strict I's and O's. Fluid restriction. Daily weight. Bladder scan to check postvoid residual. 2. Moderate pulmonary hypertension, moderate aortic stenosis, and more during tricuspid regurg 3. Essential hypertension 4. Chronic blood loss anemia, hemoglobin stable 5. History of small bowel angiodysplasia with history of prior ablation 6. Underlying depression Patient will be placed on observation for further diuresis. Despite discharge home
[2019-09-22] MEDS: METOPROLOL TARTRATE 12.5 MG TAB PO SCH ×2 (16:30→21:50)
--- NOTE | 2019-09-22 17:31 | US ---
EXAMINATION TYPE: US bladder DATE OF EXAM: 09/22/2019 COMPARISON: CT April 30, 2019. CLINICAL HISTORY: check PVR. Assess Post Void Residual on Incontinent patient with external dwelling bladder catheter. Incontinence. EXAM MEASUREMENTS: US: Pre void bladder volume = 97.7ml. Post Void Residual Volume: 0 mL as patient voided during transabdominal US bladder assessment and no visualized fluid was seen in bladder immediately post void. Normal Post Void Residual (less than 50ml): yes. IMPRESSION: Patient completely empties bladder on voiding.
[2019-09-22] MEDS: FUROSEMIDE 10 MG/ML 4 ML VIAL IV SCH (20:22)
[2019-09-22] MEDS: DOCUSATE 100 MG CAP PO SCH (20:23)
[2019-09-22] MEDS: GABAPENTIN 100 MG CAP PO SCH (20:23)
[2019-09-22] MEDS ORDERED: ATORVASTATIN 40 MG TAB PO SCH (21:00)
[2019-09-22] MEDS ORDERED: ALPRAZolam 0.25 MG TAB PO SCH (21:00)
[2019-09-23] MEDS ORDERED: FERROUS SULFATE 325 MG TAB PO SCH ×2 (03:00→05:00)
[2019-09-23 06:41] LABS: African American GFR (CKD) >90 (>60 ml/min/1.73 sqM); Anion Gap 6 mmol/L; Blood Urea Nitrogen 16 mg/dL (7-17); Calcium 8.5 mg/dL (8.4-10.2); Carbon Dioxide 34 mmol/L (22-30); Chloride 99 mmol/L (98-107); Glucose 90 mg/dL (74-99); Magnesium 1.9 mg/dL (1.6-2.3); Non-African American GFR(CKD) 86 (>60 ml/min/1.73 sqM); Potassium 3.3 mmol/L (3.5-5.1); Sodium 139 mmol/L (137-145)
[2019-09-23] MEDS ORDERED: Potassium Replacement Protocol 1 EACH MISC MISCELLANE PRN (07:54)
[2019-09-23] MEDS: DOCUSATE 100 MG CAP PO SCH (08:17)
[2019-09-23] MEDS: METOPROLOL TARTRATE 12.5 MG TAB PO SCH (08:17)
[2019-09-23] MEDS: GABAPENTIN 100 MG CAP PO SCH (08:17)
[2019-09-23] MEDS: FUROSEMIDE 10 MG/ML 4 ML VIAL IV SCH (08:17)
[2019-09-23] MEDS ORDERED: FAMOTIDINE 20 MG TAB PO SCH (09:00)
[2019-09-23] MEDS ORDERED: POTASSIUM CHLORIDE ER 20 MEQ TAB.ER PO SCH (09:00)
[2019-09-23] MEDS ORDERED: SERTRALINE 100 MG TAB PO SCH (09:00)
[2019-09-23] MEDS: POTASSIUM CHLORIDE ER 20 MEQ TAB.ER PO SCH ×2 (09:54→10:39)
--- NOTE | 2019-09-23 09:55 | P.DS ---
Providers Date of admission: 09/22/19 15:17 Expected date of discharge: 09/23/19 Attending physician: Rosa Ken DO Primary care physician: Bob Carvajal Shiel[facility] [place] Hospital Course: This is a 74-year-old female with past medical history noted below who presented to the emergency room with worsening lower extremity edema and mild shortness of breath. Patient was evaluated in the ER and admitted to the hospital for further management of her medical problems noted below. 1. Acute diastolic heart failure exacerbation: Started on Lasix 40 mg IV twice daily. Strict I's and O's. Fluid restriction. Daily weight. Bladder scan to check postvoid residual. 2. Moderate pulmonary hypertension, moderate aortic stenosis, and more during tricuspid regurg 3. Essential hypertension: Blood pressure within acceptable range 4. Chronic blood loss anemia, hemoglobin stable 5. History of small bowel angiodysplasia with history of prior ablation. Scheduled to follow-up with [facility] 6. Underlying depression Patient's overall condition improved. Her home dose of Lasix would be increased to 40 mg twice daily. She was advised to follow-up with her primary care physician in the next 3 days for repeat BMP. She already has an appointment scheduled. Patient will be discharged home in a stable condition. For further details about this hospitalization please refer to the electronic chart. Patient Condition at Discharge: Fair Plan - Discharge Summary Discharge Rx Participant: No New Discharge Prescriptions: New Furosemide [Lasix] 40 mg PO BID #60 tablet Continue Sertraline HCl [Zoloft] 200 mg PO DAILY Albuterol Sulfate [Ventolin HFA] 2 puff INHALATION RT-Q4H PRN PRN Reason: Shortness Of Breath SILVER sulfADIAZINE CREAM [Silvadene Cream] 1 applic TOPICAL DAILY Famotidine [Pepcid] 20 mg PO DAILY Simethicone Chew [Mylicon Chew] 40 mg PO QID PRN chew PRN Reason: gas pains/gi upset Atorvastatin [Lipitor] 40 mg PO HS Metoprolol Tartrate [Lopressor] 12.5 mg PO TID Midodrine [ProAmatine] 5 mg PO TID PRN PRN Reason: low bp Ferrous Sulfate [Iron (65 MG Elemental)] 325 mg PO DAILY@0300 Cyanocobalamin (Vitamin B-12) [Vitamin B-12] 1,000 mcg PO DAILY ALPRAZolam [Xanax] 0.25 mg PO HS Gabapentin [Neurontin] 100 mg PO BID Docusate Sodium [Dok] 100 mg PO BID Changed Potassium Chloride ER [K-Dur 20] 20 meq PO BID #60 tab Discontinued Furosemide [Lasix] 40 mg PO DAILY Discharge Medication List Sertraline HCl [Zoloft] 200 mg PO DAILY 12/29/14 [History] Albuterol Sulfate [Ventolin HFA] 2 puff INHALATION RT-Q4H PRN 04/28/19 [History] Famotidine [Pepcid] 20 mg PO DAILY 05/26/19 [History] SILVER sulfADIAZINE CREAM [Silvadene Cream] 1 applic TOPICAL DAILY 05/26/19 [History] Simethicone Chew [Mylicon Chew] 40 mg PO QID PRN chew 06/03/19 [Rx] Atorvastatin [Lipitor] 40 mg PO HS 06/08/19 [History] Metoprolol Tartrate [Lopressor] 12.5 mg PO TID 06/08/19 [History] Midodrine [ProAmatine] 5 mg PO TID PRN 06/08/19 [History] ALPRAZolam [Xanax] 0.25 mg PO HS 08/03/19 [History] Cyanocobalamin (Vitamin B-12) [Vitamin B-12] 1,000 mcg PO DAILY 08/03/19 [History] Ferrous Sulfate [Iron (65 MG Elemental)] 325 mg PO DAILY@0300 08/03/19 [History] Docusate Sodium [Dok] 100 mg PO BID 09/22/19 [History] Gabapentin [Neurontin] 100 mg PO BID 09/22/19 [History] Furosemide [Lasix] 40 mg PO BID #60 tablet 09/23/19 [Rx] Potassium Chloride ER [K-Dur 20] 20 meq PO BID #60 tab 09/23/19 [Rx] Follow up Appointment(s)/Referral(s): Bob Kuo MD [Primary Care Provider] - 1-2 days Discharge Disposition: HOME SELF-CARE
[2019-09-23 10:08] VITALS: BP 115/69; PULSE 76; RESP 20; TEMP 98.6
--- NOTE | 2019-09-26 12:57 | CDI ---
Documentation Clarification Form Date: 09/26/2019 12:46:41 PM From: Tamia Ennis Phone: If you have a question about this query, please contact Linda August [employer]ment Inspector at [phone] between 8am and 5pm. Admit Date: 09/22/2019 03:17:00 PM Patient Name: Lorraine Mays Visit Number: [id number] Discharge Date: 09/23/2019 12:43:00 PM ATTENTION: The Clinical Documentation Specialists (CDI) and [facility] Coding Staff appreciate your assistance in clarifying documentation. Please respond to the clarification below the line at the bottom and electronically sign. The CDI & [facility] Coding staff will review the response and follow-up if needed. Please note: Queries are made part of the Legal Health Record. If you have any questions, please contact the author of this message via ITS. Dr. Bobby Tomas Patient has a BMI of 53.3. A clinical diagnosis needs to be documented by physician. History/Risk Factors: CHF, HTN ITP Patients weight is 154.221 kg Patients height is 5'7" Calculated BMI is 53.3 Heart Healthy Diet In order to capture the severity of condition associated with patient BMI of 55.3, a clinical diagnosis needs to be documented by the physician. Please clarify: Overweight Obesity, Class 1 Obesity, Class 2 Extreme (Morbid) (severe) obesity Other, please specify ____ Unable to determine NIH Classification for BMI: Overweight BMI 2529.9 Obesity (Class 1) BMI 3034.9 Obesity (Class 2) BMI 3539.9 Extreme (Morbid) (severe) obesity BMI =40 MTDD
== END 2019-09-23 12:43 | disposition home health service (06) ==
LOC: EC 11:38 → INTOOBSV 15:17 → 5NMEDONC 15:17 → UNDODISIN 09-23 12:43
PROVIDERS: ADMIT Internal Medicine; ATTEND Internal Medicine
DX: I11.0 Hypertensive heart disease with heart failure (principal); I50.31 Acute diastolic (congestive) heart failure; I48.91 Unspecified atrial fibrillation; I27.20 Pulmonary hypertension, unspecified; I08.2 Rheumatic disorders of both aortic and tricuspid valves; D69.3 Immune thrombocytopenic purpura; K21.9 Gastro-esophageal reflux disease without esophagitis; F32.9 Major depressive disorder, single episode, unspecified; D50.0 Iron deficiency anemia secondary to blood loss (chronic); Z20.828 Contact with and (suspected) exposure to other viral communicable diseases; K55.20 Angiodysplasia of colon without hemorrhage; E66.01 Morbid (severe) obesity due to excess calories; Z68.43 Body mass index [BMI] 50.0-59.9, adult; Z86.73 Personal history of transient ischemic attack (TIA), and cerebral infarction without residual deficits; Z86.14 Personal history of Methicillin resistant Staphylococcus aureus infection; Z79.899 Other long term (current) drug therapy; Z96.653 Presence of artificial knee joint, bilateral; Z82.49 Family history of ischemic heart disease and other diseases of the circulatory system; Z81.1 Family history of alcohol abuse and dependence
CPT/HCPCS: 96376 ×2; 96374; 99285; 36415; 93005; 83880; 80053; 80048; 83605; 83735 ×2; 84484; 85025; 85610; 85730; 71046; 76857; G0378 ×2; U0003; J1940 ×2

== ENCOUNTER 2020-01-09 14:03 | Inpatient (IN) | payer MEDICARE ==
--- NOTE | 2020-01-09 14:12 | ED ---
Weakness HPI - General Stated complaint: increased weakness/SOB Time Seen by Provider: 01/09/20 14:11 Source: RN notes reviewed, old records reviewed Limitations: no limitations - History of Present Illness Initial comments: This is a 74-year-old female DF for evaluation patient Dese for evaluation regar ds to shortness of breath lower extremity edema swelling abdominal swelling. Patient denies any chest pain but again does complain of shortness of breath and heart beating elevated heart rate MD Complaint: generalized weakness -: days(s) Location: generalized Severity: severe Severity scale (1-10): 8 Consistency: constant Improves with: none Worsens with: movement, exertion Context: history of similar Associated Symptoms: shortness of breath - Related Data Home Medications Medication Instructions Recorded Confirmed Sertraline HCl [Zoloft] 200 mg PO DAILY 12/29/14 01/09/20 Albuterol Sulfate [Ventolin HFA] 2 puff INHALATION RT-Q4H PRN 04/28/19 01/09/20 Famotidine [Pepcid] 20 mg PO DAILY 05/26/19 01/09/20 SILVER sulfADIAZINE CREAM 1 applic TOPICAL DAILY 05/26/19 01/09/20 [Silvadene Cream] Atorvastatin [Lipitor] 40 mg PO HS 06/08/19 01/09/20 Metoprolol Tartrate [Lopressor] 12.5 mg PO TID 06/08/19 01/09/20 ALPRAZolam [Xanax] 0.25 mg PO HS 08/03/19 01/09/20 Cyanocobalamin (Vitamin B-12) 1,000 mcg PO DAILY 08/03/19 01/09/20 [Vitamin B-12] Ferrous Sulfate [Iron (65 MG 325 mg PO DAILY 08/03/19 01/09/20 Elemental)] Docusate Sodium [Dok] 100 mg PO BID 09/22/19 01/09/20 Gabapentin [Neurontin] 100 mg PO BID 09/22/19 01/09/20 Simethicone Chew [Mylicon Chew] 40 mg PO QID PRN 01/09/20 01/09/20 traMADol HCL 50 mg PO DAILY PRN 01/09/20 01/09/20 Previous Rx's Medication Instructions Recorded Furosemide [Lasix] 40 mg PO BID #60 tablet 09/23/19 Potassium Chloride ER [K-Dur 20] 20 meq PO BID #60 tab 09/23/19 Allergies Allergy/AdvReac Type Severity Reaction Status Date / Time Sulfa (Sulfonamide Allergy Rash/Hives Verified 01/09/20 15:52 Antibiotics) Review of Systems ROS Statement: Those systems with pertinent positive or pertinent negative responses have been documented in the HPI. ROS Other: All systems not noted in ROS Statement are negative. Past Medical History Past Medical History: Blood Disorder, Heart Failure, CVA/TIA, GERD/Reflux, Hypertension Additional Past Medical History / Comment(s): ITP DISORDER- , chronic anemia, multiple blood transfusions History of Any Multi-Drug Resistant Organisms: MRSA Date of last positivie culture/infection: 2012 MDRO Source:: URINE Past Surgical History: Orthopedic Surgery Additional Past Surgical History / Comment(s): BRAIN SURGERY AFTER BLEED in 2013, bilateral knee replacements Past Anesthesia/Blood Transfusion Reactions: No Reported Reaction Additional Past Anesthesia/Blood Transfusion Reaction / Comment(s): Pt has difficulty waking. She has received blood recently and had no reaction. Past Psychological History: Depression Additional Psychological History / Comment(s): She had been getting up with a walker. She has a lift and a hospital bed and a wheelchair and a walker at home. Past Alcohol Use History: None Reported Additional Past Alcohol Use History / Comment(s): [id number] Past Drug Use History: None Reported - Past Family History Sister(s) Family Medical History: AFIB, Congestive Heart Failure (CHF) Father Additional Family Medical History / Comment(s): Father had ETOH abuse. He in his later 70s. Mother Family Medical History: Hypertension General Exam General appearance: alert, in no apparent distress Head exam: Present: atraumatic, normocephalic, normal inspection Eye exam: Present: normal appearance, PERRL, EOMI. Absent: scleral icterus, conjunctival injection, periorbital swelling ENT exam: Present: normal exam, mucous membranes moist Neck exam: Present: normal inspection. Absent: tenderness, meningismus, lymphadenopathy Respiratory exam: Present: normal lung sounds bilaterally. Absent: respiratory distress, wheezes, rales, rhonchi, stridor Cardiovascular Exam: Present: regular rate, normal rhythm, normal heart sounds. Absent: systolic murmur, diastolic murmur, rubs, gallop, clicks GI/Abdominal exam: Present: soft, normal bowel sounds. Absent: distended, tenderness, guarding, rebound, rigid Extremities exam: Present: normal inspection, full ROM, normal capillary refill. Absent: tenderness, pedal edema, joint swelling, calf tenderness Back exam: Present: normal inspection Neurological exam: Present: alert, oriented X3, CN II-XII intact Psychiatric exam: Present: normal affect, normal mood Skin exam: Present: warm, dry, intact, normal color. Absent: rash Course Vital Signs 01/09/20 01/09/20 01/09/20 14:15 15:29 16:24 Temperature 98.5 F Pulse Rate 113 H 92 89 Respiratory 16 18 16 Rate Blood Pressure 148/112 112/83 113/84 O2 Sat by Pulse 96 96 96 Oximetry - Reevaluation(s) Reevaluation #1: 01/09/20 16:39 Medical records reviewed Reevaluation #2: 01/09/20 16:39 No improvement in symptoms shortness of short of breath Reevaluation #3: 01/09/20 16:39 Patient informed of results and questions answered EKG Findings - EKG Comments: EKG Findings:: EKG is A. fib with RVR 101 QRS 114 QTc 539 Medical Decision Making - Medical Decision Making 74 female DF for evaluation of shortness of breath. Patient has CHF atrial fibrillation and severely elevated troponin at 12 likely PA within the last few days - Lab Data Result diagrams: 01/09/20 14:26 01/09/20 14:26 Lab Results 01/09/20 01/09/20 01/09/20 Range/Units 14:26 14:26 14:26 WBC 10.1 (3.8-10.6) k/uL RBC 3.65 L (3.80-5.40) m/uL Hgb 10.7 L (11.4-16.0) gm/dL Hct 33.9 L (34.0-46.0) % MCV 93.0 (80.0-100.0) fL MCH 29.5 (25.0-35.0) pg MCHC 31.7 (31.0-37.0) g/dL RDW 16.6 H (11.5-15.5) % Plt Count 125 L (150-450) k/uL Neutrophils % 87 % Lymphocytes % 6 % Monocytes % 5 % Eosinophils % 1 % Basophils % 0 % Neutrophils # 8.8 H (1.3-7.7) k/uL Lymphocytes # 0.6 L (1.0-4.8) k/uL Monocytes # 0.5 (0-1.0) k/uL Eosinophils # 0.1 (0-0.7) k/uL Basophils # 0.0 (0-0.2) k/uL Hypochromasia Slight Anisocytosis Slight PT 13.1 H (9.0-12.0) sec INR 1.3 H (<1.2) APTT 27.5 (22.0-30.0) sec Sodium 140 (137-145) mmol/L Potassium 4.2 (3.5-5.1) mmol/L Chloride 104 (98-107) mmol/L Carbon Dioxide 28 (22-30) mmol/L Anion Gap 8 mmol/L BUN 19 H (7-17) mg/dL Creatinine 0.77 (0.52-1.04) mg/dL Est GFR (CKD-EPI)AfAm 87 (>60 ml/min/1.73 sqM) Est GFR (CKD-EPI)NonAf 76 (>60 ml/min/1.73 sqM) Glucose 102 H (74-99) mg/dL Calcium 8.9 (8.4-10.2) mg/dL Phosphorus 4.1 (2.5-4.5) mg/dL Magnesium 2.0 (1.6-2.3) mg/dL Total Bilirubin 2.5 H (0.2-1.3) mg/dL AST 85 H (14-36) U/L ALT 26 (4-34) U/L Alkaline Phosphatase 167 H (38-126) U/L Creatine Kinase 316 H (30-135) U/L Troponin I (0.000-0.034) ng/mL NT-Pro-B Natriuret Pep pg/mL Total Protein 7.5 (6.3-8.2) g/dL Albumin 3.4 L (3.5-5.0) g/dL 01/09/20 01/09/20 Range/Units 14:26 14:26 WBC (3.8-10.6) k/uL RBC (3.80-5.40) m/uL Hgb (11.4-16.0) gm/dL Hct (34.0-46.0) % MCV (80.0-100.0) fL MCH (25.0-35.0) pg MCHC (31.0-37.0) g/dL RDW (11.5-15.5) % Plt Count (150-450) k/uL Neutrophils % % Lymphocytes % % Monocytes % % Eosinophils % % Basophils % % Neutrophils # (1.3-7.7) k/uL Lymphocytes # (1.0-4.8) k/uL Monocytes # (0-1.0) k/uL Eosinophils # (0-0.7) k/uL Basophils # (0-0.2) k/uL Hypochromasia Anisocytosis PT (9.0-12.0) sec INR (<1.2) APTT (22.0-30.0) sec Sodium (137-145) mmol/L Potassium (3.5-5.1) mmol/L Chloride (98-107) mmol/L Carbon Dioxide (22-30) mmol/L Anion Gap mmol/L BUN (7-17) mg/dL Creatinine (0.52-1.04) mg/dL Est GFR (CKD-EPI)AfAm (>60 ml/min/1.73 sqM) Est GFR (CKD-EPI)NonAf (>60 ml/min/1.73 sqM) Glucose (74-99) mg/dL Calcium (8.4-10.2) mg/dL Phosphorus (2.5-4.5) mg/dL Magnesium (1.6-2.3) mg/dL Total Bilirubin (0.2-1.3) mg/dL AST (14-36) U/L ALT (4-34) U/L Alkaline Phosphatase (38-126) U/L Creatine Kinase (30-135) U/L Troponin I 12.200 H* (0.000-0.034) ng/mL NT-Pro-B Natriuret Pep 23987 pg/mL Total Protein (6.3-8.2) g/dL Albumin (3.5-5.0) g/dL - Radiology Data Radiology results: report reviewed (Chest x-rays positive for CHF), image reviewed Critical Care Time Critical Care Time: Yes Total Critical Care Time: 31 Disposition Clinical Impression: Lower extremity edema, Congestive heart failure, NSTEMI (non-ST elevated myocardial infarction), Atrial fibrillation Disposition: ADMITTED IP TO THIS HOSP Condition: Serious Is patient prescribed a controlled substance at d/c from ED?: No Referrals: Bob Kuo MD [Primary Care Provider] - 1-2 days
[2020-01-09 14:49] LABS: Anisocytosis Slight; Basophils % (A) 0 %; Eosinophils # (A) 0.1 k/uL (0-0.7); Eosinophils % (A) 1 %; HCT 33.9 % (34.0-46.0); HGB 10.7 gm/dL (11.4-16.0); Hypochromasia Slight; Lymphocytes # (A) 0.6 k/uL (1.0-4.8); Lymphocytes % (A) 6 %; MCH 29.5 pg (25.0-35.0); MCHC 31.7 g/dL (31.0-37.0); Mean Platelet Volume 8.2; Monocytes # (A) 0.5 k/uL (0-1.0); Monocytes % (A) 5 %; Neutrophils # (A) 8.8 k/uL (1.3-7.7); Neutrophils % (A) 87 %; Platelet Count 125 k/uL (150-450); RBC 3.65 m/uL (3.80-5.40); RDW 16.6 % (11.5-15.5); WBC 10.1 k/uL (3.8-10.6)
[2020-01-09 15:00] LABS: INR 1.3 (<1.2); Partial Thromboplastin Time 27.5 sec (22.0-30.0); Prothrombin Time 13.1 sec (9.0-12.0)
[2020-01-09 15:01] LABS: Albumin 3.4 g/dL (3.5-5.0); Calcium 8.9 mg/dL (8.4-10.2); Phosphorus 4.1 mg/dL (2.5-4.5); Potassium 4.2 mmol/L (3.5-5.1); Total Bilirubin 2.5 mg/dL (0.2-1.3); Total Protein 7.5 g/dL (6.3-8.2)
--- NOTE | 2020-01-09 15:43 | XR ---
EXAMINATION TYPE: XR chest 2V DATE OF EXAM: 01/09/2020 COMPARISON: Prior chest x-ray 09/22/2019 HISTORY: Weakness, shortness of breath TECHNIQUE: Frontal and lateral views of the chest are obtained. FINDINGS: There is prominence of the central vascularity and interstitium. No evident pneumothorax. No pleural effusion. The aorta is dense. Lung volumes are low, technique is apical lordotic and rota wade. The cardiac silhouette size is enlarged. The osseous structures are intact. IMPRESSION: Correlate for pulmonary venous hypertension and interstitial edema.
[2020-01-09] MEDS ORDERED: METOPROLOL TARTRATE 5 MG/5 ML VIAL IVP STA (15:49)
[2020-01-09] MEDS ORDERED: HEPARIN SODIUM,PORCINE 5,000 UNIT/ML 1 ML VIAL IV ONE (16:37)
[2020-01-09] MEDS ORDERED: NITROGLYCERIN SL TABS 0.4 MG TAB SUBLINGUAL PRN (16:37)
[2020-01-09] MEDS ORDERED: HEPARIN SODIUM,PORCINE 5,000 UNIT/ML 1 ML VIAL IV PRN (16:37)
[2020-01-09] MEDS ORDERED: ASPIRIN 81 MG PO STA (16:37)
[2020-01-09] MEDS ORDERED: HEPARIN SOD,PORK IN 0.45% NACL 25,000 UNIT in 0.45% NACL 1 250ML.BAG IV SCH (16:45)
[2020-01-09] MEDS ORDERED: METOPROLOL TARTRATE 25 MG TAB PO SCH (18:15)
[2020-01-09 21:24] LABS: Amorphous Sediment,Urine Rare /hpf; Appearance,Urine Cloudy (Clear); Bacteria,Urine Few /hpf; Bilirubin,Urine 1+ (Negative); Blood,Urine Small (Negative); Color,Urine Yellow; Glucose,Urine (UA) Negative (Negative); Hyaline Casts,Urine 344 /lpf (0-2); Ketones,Urine Negative (Negative); Leukocyte Esterase,Urine Large (Negative); Mucus,Urine Rare /hpf; Nitrite,Urine Negative (Negative); PH, Urine 5.5 (5.0-8.0); Protein,Urine 1+ (Negative); RBC,Urine 3 /hpf (0-5); Specific Gravity,Urine 1.018 (1.001-1.035); Squamous Epithelial Cell,Urine 7 /hpf (0-4); WBC,Urine 43 /hpf (0-5)
[2020-01-09] MEDS ORDERED: SIMETHICONE 80 MG CHEWABLE PO PRN (22:41)
[2020-01-09] MEDS ORDERED: ALBUTEROL NEBULIZED 2.5 MG/3 ML INHALATION PRN (22:41)
--- NOTE | 2020-01-09 22:52 | P.HPIM ---
History of Present Illness H&P Date: 01/09/20 The patient is a 74-year-old female with a PMH of diastolic CHF, moderate aortic stenosis, moderate tricuspid regurg, permanent A. fib (not on anticoagulation due to history of intracerebral hemorrhage and GI bleed), peripheral neuropathy on gabapentin, hypertension, esophagitis, gastritis, and ITP presented to the emergency room with complaints of breath. The patient reports that over the past 2 or 3 weeks, her excess tolerance is decreased significantly. Patient reports that previously she was able to ambulate with a walker, though now doesn't have the energy to even stand up. She also reports orthopnea and now has been sleeping in a recliner. Notes that her lower extremity swelling has also worsened over the past few weeks despite fluid restriction. Reports pain in both her legs which she attributes to the swelling. Denied chest discomfort, nausea, vomiting, or palpitations. Also denied abdominal pain, diarrhea, or dysuria. Patient underwent an extensive evaluation in the emergency room with an EKG showing A. fib with RVR at 10 1 bpm with a new incomplete right bundle nai block and a prolonged QT. No acute ST changes were noted. Chest x-ray was consistent with edema. Laboratory evaluation revealed a troponin of 12.2, proBNP 10,500, WBC count 10.1, hemoglobin 10.7, platelets 125, sodium 140, potassium 4.2, BUN 19, creatinine 0.77, CK 316, AST 85, total bilirubin 2.5, and alkaline phosphatase 167. The patient's EKGs from the emergency room were sent to Dr. Byrd for review. The case was also discussed with Dr. Benedict (electrical design technologist television servicer) who recommended serial EKGs, heparin IV, and cardiac monitoring for now and noted that the patient likely had a cardiac event previously with no indication for emergent cardiac catheterization. Review of Systems Pertinent positives and negatives as discussed in HPI, a complete review of s ystems was performed and all other systems are negative. Past Medical History Past Medical History: Atrial Fibrillation, Blood Disorder, Heart Failure, CVA/TIA, GERD/Reflux, GI Bleed, Hypertension, Osteoarthritis (OA) Additional Past Medical History / Comment(s): ITP DISORDER- , chronic anemia, multiple blood transfusions History of Any Multi-Drug Resistant Organisms: MRSA Date of last positivie culture/infection: 2012 MDRO Source:: URINE Past Surgical History: Orthopedic Surgery Additional Past Surgical History / Comment(s): BRAIN SURGERY AFTER BLEED in 2013, bilateral knee replacements, upper scope,colonoscopy Past Anesthesia/Blood Transfusion Reactions: No Reported Reaction Additional Past Anesthesia/Blood Transfusion Reaction / Comment(s): Pt has difficulty waking. She has received blood recently and had no reaction. Past Psychological History: Depression Additional Psychological History / Comment(s): She had been getting up with a walker. She has a lift and a hospital bed and a wheelchair and a walker at home. Smoking Status: Former smoker Past Alcohol Use History: None Reported Additional Past Alcohol Use History / Comment(s): [id number] Past Drug Use History: None Reported - Past Family History Sister(s) Family Medical History: AFIB, Congestive Heart Failure (CHF) Father Additional Family Medical History / Comment(s): Father had ETOH abuse. He in his later 70s. Mother Family Medical History: Hypertension Medications and Allergies Home Medications Medication Instructions Recorded Confirmed Type Sertraline HCl [Zoloft] 200 mg PO DAILY 12/29/14 01/09/20 History Albuterol Sulfate [Ventolin HFA] 2 puff INHALATION RT-Q4H PRN 04/28/19 01/09/20 History Famotidine [Pepcid] 20 mg PO DAILY 05/26/19 01/09/20 History SILVER sulfADIAZINE CREAM 1 applic TOPICAL DAILY 05/26/19 01/09/20 History [Silvadene Cream] Atorvastatin [Lipitor] 40 mg PO HS 06/08/19 01/09/20 History Metoprolol Tartrate [Lopressor] 12.5 mg PO TID 06/08/19 01/09/20 History ALPRAZolam [Xanax] 0.25 mg PO HS 08/03/19 01/09/20 History Cyanocobalamin (Vitamin B-12) 1,000 mcg PO DAILY 08/03/19 01/09/20 History [Vitamin B-12] Ferrous Sulfate [Iron (65 MG 325 mg PO DAILY 08/03/19 01/09/20 History Elemental)] Docusate Sodium [Dok] 100 mg PO BID 09/22/19 01/09/20 History Gabapentin [Neurontin] 100 mg PO BID 09/22/19 01/09/20 History Furosemide [Lasix] 40 mg PO BID #60 tablet 09/23/19 01/09/20 Rx Potassium Chloride ER [K-Dur 20] 20 meq PO BID #60 tab 09/23/19 01/09/20 Rx Simethicone Chew [Mylicon Chew] 40 mg PO QID PRN 01/09/20 01/09/20 History traMADol HCL 50 mg PO DAILY PRN 01/09/20 01/09/20 History Allergies Allergy/AdvReac Type Severity Reaction Status Date / Time Sulfa (Sulfonamide Allergy Rash/Hives Verified 01/09/20 15:52 Antibiotics) Physical Exam Vitals: Vital Signs Temp Pulse Pulse Resp BP BP Pulse Ox 01/09/20 20:22 97.7 F 93 18 130/86 94 L 01/09/20 17:07 98.6 F 86 18 117/52 96 01/09/20 17:03 98.4 F 86 18 155/64 95 01/09/20 16:24 89 16 113/84 96 01/09/20 15:29 92 18 112/83 96 01/09/20 14:15 98.5 F 113 H 16 148/112 96 Intake and Output 01/09/20 01/09/20 01/09/20 06:59 14:59 22:59 Other: # Voids 3 Weight 158.757 kg 158.757 kg General: non toxic, no distress, appears at stated age, morbidly obese Derm: no unusual rashes/lesions no unusual ecchymoses, warm, dry Head: atraumatic, normocephalic, symmetric Eyes: EOMI, no lid lag, anicteric sclera, pupils equal round reactive to light ENT: Nose and ears atraumatic, no thrush, no pharyngeal erythema Neck: No thyromegaly, no cervical lymphadenopathy, trachea midline, supple Mouth: no lip lesion, mucus membranes moist Cardiovascular: Irregularly irregular, systolic grade 3 murmur appreciated, positive posterior tibial pulse bilateral, 2+ bilateral lower extremity pitting edema, capillary refill less than 2 seconds Lungs: Bibasilar rales, no rhonchi or wheezing appreciated, no accessory muscle use Abdominal: soft, nontender to palpation, no guarding, no appreciable organomegaly, normal bowel sounds Ext: no gross muscle atrophy, muscle strength 3 out of 5 in all 4 extremities grossly, no contractures, Neuro: CN II-XI grossly intact, light touch intact all 4 extremities, finger to nose within normal limits, Psych: Alert, oriented, appropriate affect Results CBC & Chem 7: 01/09/20 14:26 01/09/20 14:26 Labs: Abnormal Lab Results - Last 24 Hours (Table) 01/09/20 01/09/20 01/09/20 Range/Units 14: 14: 14:26 RBC 3.65 L (3.80-5.40) m/uL Hgb 10.7 L (11.4-16.0) gm/dL Hct 33.9 L (34.0-46.0) % RDW 16.6 H (11.5-15.5) % Plt Count 125 L (150-450) k/uL Neutrophils # 8.8 H (1.3-7.7) k/uL Lymphocytes # 0.6 L (1.0-4.8) k/uL PT 13.1 H (9.0-12.0) sec INR 1.3 H (<1.2) BUN 19 H (7-17) mg/dL Glucose 102 H (74-99) mg/dL Total Bilirubin 2.5 H (0.2-1.3) mg/dL AST 85 H (14-36) U/L Alkaline Phosphatase 167 H (38-126) U/L Creatine Kinase 316 H (30-135) U/L Troponin I (0.000-0.034) ng/mL Albumin 3.4 L (3.5-5.0) g/dL 01/09/20 01/09/20 Range/Units 14:26 18:07 RBC (3.80-5.40) m/uL Hgb (11.4-16.0) gm/dL Hct (34.0-46.0) % RDW (11.5-15.5) % Plt Count (150-450) k/uL Neutrophils # (1.3-7.7) k/uL Lymphocytes # (1.0-4.8) k/uL PT (9.0-12.0) sec INR (<1.2) BUN (7-17) mg/dL Glucose (74-99) mg/dL Total Bilirubin (0.2-1.3) mg/dL AST (14-36) U/L Alkaline Phosphatase (38-126) U/L Creatine Kinase (30-135) U/L Troponin I 12.200 H* 11.900 H* (0.000-0.034) ng/mL Albumin (3.5-5.0) g/dL Assessment and Plan Plan: NSTEMI -Continue with heparin infusion -Serial troponins and EKGs -Continue with aspirin -Cardiac monitoring -Cardiology consult Acute on chronic diastolic CHF exacerbation -Lasix 40 mg IV push every 12 hourly -Intake and output -Fluid restriction -Daily weights -Monitor electrolytes and replace as needed Permanent A. fib -Not on anticoagulation due to history of intracerebral and GI bleeds -Cardiac monitoring Abnormal LFTs -Likely secondary to CHF exacerbation with hepatic congestion -Monitor for now Abnormal UA -Patient is symptomatic, likely asymptomatic bacteriuria -Hold off on antibiotics at this time Debility -Physical therapy consult DVT prophylaxis -Heparin infusion The patient is admitted with an anticipated greater than 2 midnight stay for evaluation of NSTEMI CODE STATUS: Full Code Discussed with: Patient Anticipated discharge date: 3-[address]: [facility] A total of 45 minutes was spent on the care of this complex patient more than 50% of the time was spent in counseling and care coordination.
[2020-01-09] MEDS: FUROSEMIDE 10 MG/ML 4 ML VIAL IV SCH (23:18)
[2020-01-10 07:49] LABS: Anisocytosis Slight; HCT 34.7 % (34.0-46.0); HGB 10.7 gm/dL (11.4-16.0); Hypochromasia Moderate; MCH 29.5 pg (25.0-35.0); MCV 95.2 fL (80.0-100.0); Mean Platelet Volume 8.1; Platelet Count 140 k/uL (150-450); RBC 3.65 m/uL (3.80-5.40); RDW 16.4 % (11.5-15.5); WBC 8.5 k/uL (3.8-10.6)
[2020-01-10 08:03] LABS: Albumin 3.5 g/dL (3.5-5.0); Potassium 4.1 mmol/L (3.5-5.1); Total Bilirubin 2.7 mg/dL (0.2-1.3); Total Protein 7.5 g/dL (6.3-8.2)
[2020-01-10] MEDS ORDERED: SERTRALINE 100 MG TAB PO SCH (09:00)
[2020-01-10] MEDS ORDERED: ASPIRIN 325 MG TAB PO SCH (09:00)
[2020-01-10] MEDS: DOCUSATE 100 MG CAP PO SCH ×2 (09:34→19:59)
[2020-01-10] MEDS: POTASSIUM CHLORIDE ER 20 MEQ TAB.ER PO SCH ×2 (09:34→19:59)
[2020-01-10] MEDS: METOPROLOL TARTRATE 50 MG TAB PO SCH ×2 (09:34→19:59)
[2020-01-10] MEDS: GABAPENTIN 100 MG CAP PO SCH ×2 (09:34→19:59)
[2020-01-10] MEDS: FAMOTIDINE 20 MG TAB PO SCH (09:34)
[2020-01-10] MEDS: FUROSEMIDE 10 MG/ML 4 ML VIAL IV SCH ×2 (09:35→19:58)
--- NOTE | 2020-01-10 10:30 | P.CRDCN ---
History of Present Illness History of present illness: HISTORY OF PRESENTING ILLNESS This is a pleasant 74-year-old female past medical history significant for chronic persistent atrial fibrillation not on intermediate designer anti-coagulation se condary to GI bleeding, hypertension, dyslipidemia and morbid obesity. She follows in the office with Dr. Benedict. We have been asked to see in consultation for elevated troponin. She presented to the hospital with symptoms of generalized weakness, shortness of breath and lower extremity swelling. She states her weakness has been getting worse to the point she cannot even get up and do any walking with her walker. She denies chest pain or pressure. Troponin elevations indicate a non-Q wave IL that likely occurred in the last day or 2. Most recent echo obtained 04/2019 revealed preserved LV systolic function with EF 50-55%, moderate LVH, aortic stenosis with mean gradient of 23 mmHg, moderate MR, moderate TR and moderate pulmonary hypertension with RVSP 57 mmHg. DIAGNOSTICS EKG reveals atrial fibrillation with heart rate 101 and right bundle branch block and non-specific inferior changes in lead III only, consistent with previous EKG's. No acute changes. Chest xray prominence of central vascularity and interstitium. Laboratory reviewed, WBC 8.5, hemoglobin 10.7, platelets 140, sodium 140, potassium 4.1, creatinine 0.85, magnesium 2.0, total bilirubin 2.7, AST 224, ALT 67, alkaline phosphate 160, troponin 12.2, 11.9, 11.0, and T proBNP 10,500, LDL 71 and HDL 43. Current cardiac medications include Lasix 40 mg twice a day, atorvastatin 40 mg at bedtime and metoprolol 12.5 mg 3 times a day. REVIEW OF SYSTEMS At the time of my exam: CONSTITUTIONAL: Denies fever or chills. CARDIOVASCULAR: Denies chest pain, shortness of breath, orthopnea, PND or palpitations. RESPIRATORY: Denies cough. GASTROINTESTINAL: Denies abdominal pain, diarrhea, constipation, nausea or vomiting. MUSCULOSKELETAL: Complains of generalized weakness. Denies myalgias. NEUROLOGIC: Denies numbness, tingling or weakness. ENDOCRINE: Denies fatigue, weight change, polydipsia or polyurina. GENITOURINARY: Denies burning, hematuria or urgency with micturation. HEMATOLOGIC: Denies history of anemia or bleeding. PHYSICAL EXAMINATION Blood pressure 121/83 heart rate 83 afebrile and maintaining oxygen saturation on nasal cannula. CONSTITUTIONAL: No apparent distress. Morbidly obese. HEENT: Head is normocephalic. Pupils are equal, round. Sclerae anicteric. Mucous membranes of the mouth are moist. No JVD. No carotid bruit. CHEST EXAMINATION: Lungs are clear to auscultation. No chest wall tenderness is noted on palpation or with deep breathing. Diminished bilaterally. Difficult to auscultate secondary to body habitus. HEART EXAMINATION: Irregular rate and rhythm. S1, S2 heard. Systolic ejection murmur at the base, no gallops or rub. ABDOMEN: Soft, nontender. Positive bowel sounds. EXTREMITIES: 2+ peripheral pulses, 2+ bilateral lower extremity pitting edema and no calf tenderness. NEUROLOGIC EXAMINATION: Patient is awake, alert and oriented x3. ASSESSMENT Non-ST elevated myocardial infarction Acute on chronic diastolic heart failure Chronic persistent atrial fibrillation Hypertension Dyslipidemia History of GI bleeding and brain bleed 2013 Transaminitis Morbid obesity, BMI 67 PLAN Given her history of significant GI and brain bleeding she is contraindicated for anti-coagulation whatsoever. She will not be able to tolerate IV heparin, IC heparin for the procedure or anti-platelets thereafter if she requires PCI. Therefore, we will treat her medically for IL. Increase atorvastatin to 80 mg daily. Increase lopressor to 50 mg BID. Obtain 2D echocardiogram and doppler study to assess cardiac structure and function. Continue IV diuresis. Document accurate intake and output along with daily weights. Follow renal function and electrolytes in the morning. Further recommendations to follow based on clinical course. Thank you kindly for this consultation. Nurse Practitioner note has been reviewed, I agree with a documented findings and plan of care. Patient was seen and examined. Past Medical History Past Medical History: Atrial Fibrillation, Blood Disorder, Heart Failure, CVA/TIA, GERD/Reflux, GI Bleed, Hypertension, Osteoarthritis (OA) Additional Past Medical History / Comment(s): ITP DISORDER- , chronic anemia, multiple blood transfusions History of Any Multi-Drug Resistant Organisms: MRSA Date of last positivie culture/infection: 2012 MDRO Source:: URINE Past Surgical History: Orthopedic Surgery Additional Past Surgical History / Comment(s): BRAIN SURGERY AFTER BLEED in 2013, bilateral knee replacements, upper scope,colonoscopy Past Anesthesia/Blood Transfusion Reactions: No Reported Reaction Additional Past Anesthesia/Blood Transfusion Reaction / Comment(s): Pt has difficulty waking. She has received blood recently and had no reaction. Past Psychological History: Depression Additional Psychological History / Comment(s): She had been getting up with a walker. She has a lift and a hospital bed and a wheelchair and a walker at home. Smoking Status: Former smoker Past Alcohol Use History: None Reported Additional Past Alcohol Use History / Comment(s): [id number] Past Drug Use History: None Reported - Past Family History Sister(s) Family Medical History: AFIB, Congestive Heart Failure (CHF) Father Additional Family Medical History / Comment(s): Father had ETOH abuse. He in his later 70s. Mother Family Medical History: Hypertension Medications and Allergies Home Medications Medication Instructions Recorded Confirmed Type Sertraline HCl [Zoloft] 200 mg PO DAILY 12/29/14 01/09/20 History Albuterol Sulfate [Ventolin HFA] 2 puff INHALATION RT-Q4H PRN 04/28/19 01/09/20 History Famotidine [Pepcid] 20 mg PO DAILY 05/26/19 01/09/20 History SILVER sulfADIAZINE CREAM 1 applic TOPICAL DAILY 05/26/19 01/09/20 History [Silvadene Cream] Atorvastatin [Lipitor] 40 mg PO HS 06/08/19 01/09/20 History Metoprolol Tartrate [Lopressor] 12.5 mg PO TID 06/08/19 01/09/20 History ALPRAZolam [Xanax] 0.25 mg PO HS 08/03/19 01/09/20 History Cyanocobalamin (Vitamin B-12) 1,000 mcg PO DAILY 08/03/19 01/09/20 History [Vitamin B-12] Ferrous Sulfate [Iron (65 MG 325 mg PO DAILY 08/03/19 01/09/20 History Elemental)] Docusate Sodium [Dok] 100 mg PO BID 09/22/19 01/09/20 History Gabapentin [Neurontin] 100 mg PO BID 09/22/19 01/09/20 History Furosemide [Lasix] 40 mg PO BID #60 tablet 09/23/19 01/09/20 Rx Potassium Chloride ER [K-Dur 20] 20 meq PO BID #60 tab 09/23/19 01/09/20 Rx Simethicone Chew [Mylicon Chew] 40 mg PO QID PRN 01/09/20 01/09/20 History traMADol HCL 50 mg PO DAILY PRN 01/09/20 01/09/20 History Allergies Allergy/AdvReac Type Severity Reaction Status Date / Time Sulfa (Sulfonamide Allergy Rash/Hives Verified 01/09/20 15:52 Antibiotics) Physical Exam Vitals: Vital Signs Temp Pulse Pulse Resp BP BP Pulse Ox 01/10/20 08:30 23 01/10/20 07:53 97.5 F L 83 23 121/83 95 01/10/20 04:00 98.8 F 78 17 110/80 96 01/10/20 00:00 98.1 F 82 18 119/71 95 01/09/20 20:22 97.7 F 93 18 130/86 94 L 01/09/20 20:00 80 22 01/09/20 17:07 98.6 F 86 18 117/52 96 01/09/20 17:03 98.4 F 86 18 155/64 95 01/09/20 16:24 89 16 113/84 96 01/09/20 15:29 92 18 112/83 96 01/09/20 14:15 98.5 F 113 H 16 148/112 96 Intake and Output 01/09/20 01/10/20 01/10/20 22:59 06:59 14:59 Output Total 530 Balance -530 Output: Urine 530 Other: # Voids 3 Weight 158.757 kg 188.5 kg Results 01/10/20 07:00 01/10/20 07:00 Cardiac Enzymes 01/09/20 01/09/20 01/09/20 Range/Units 14:26 14:26 18:07 AST 85 H (14-36) U/L Troponin I 12.200 H* 11.900 H* (0.000-0.034) ng/mL 01/09/20 01/10/20 Range/Units 20:22 07:00 AST 224 H (14-36) U/L Troponin I 11.000 H* (0.000-0.034) ng/mL Coagulation 01/09/20 Range/Units 14:26 PT 13.1 H (9.0-12.0) sec APTT 27.5 (22.0-30.0) sec Lipids 01/10/20 Range/Units 07:00 Triglycerides 85 (<150) mg/dL Cholesterol 131 (<200) mg/dL HDL Cholesterol 43 (40-60) mg/dL CBC 01/09/20 01/10/20 Range/Units 14: 07:00 WBC 10.1 8.5 (3.8-10.6) k/uL RBC 3.65 L 3.65 L (3.80-5.40) m/uL Hgb 10.7 L 10.7 L (11.4-16.0) gm/dL Hct 33.9 L 34.7 (34.0-46.0) % Plt Count 125 L 140 L (150-450) k/uL Comprehensive Metabolic Panel 01/09/20 01/10/20 Range/Units 14: 07:00 Sodium 140 140 (137-145) mmol/L Potassium 4.2 4.1 (3.5-5.1) mmol/L Chloride 104 104 (98-107) mmol/L Carbon Dioxide 28 28 (22-30) mmol/L BUN 19 H 25 H (7-17) mg/dL Creatinine 0.77 0.85 (0.52-1.04) mg/dL Glucose 102 H 78 (74-99) mg/dL Calcium 8.9 9.0 (8.4-10.2) mg/dL AST 85 H 224 H (14-36) U/L ALT 26 67 H (4-34) U/L Alkaline Phosphatase 167 H 160 H (38-126) U/L Total Protein 7.5 7.5 (6.3-8.2) g/dL Albumin 3.4 L 3.5 (3.5-5.0) g/dL Current Medications Generic Name Dose Route Start Last Admin Trade Name Freq PRN Reason Stop Dose Admin Albuterol Sulfate 2 mg 01/09/20 22:41 Albuterol Nebulized 2.5 Mg/3 Ml INHALATION RT-Q4H PRN Shortness Of Breath Atorvastatin Calcium 80 mg 01/10/20 21:00 Atorvastatin 80 Mg Tab PO HS BLAINE Docusate Sodium 100 mg 01/10/20 09:00 01/10/20 09:34 Docusate 100 Mg Cap PO 100 mg BID BLAINE Administration Famotidine 20 mg 01/10/20 09:00 01/10/20 09:34 Famotidine 20 Mg Tab PO 20 mg DAILY BLAINE Administration Furosemide 40 mg 01/09/20 23:00 01/10/20 09:35 Furosemide 10 Mg/Ml 4 Ml Vial IV 40 mg Q12HR BLAINE Administration Gabapentin 100 mg 01/10/20 09:00 01/10/20 09:34 Gabapentin 100 Mg Cap PO 100 mg BID BLAINE Administration Heparin Sodium (Porcine) 0 unit 01/09/20 16:37 Heparin Sodium,Porcine 5,000 Unit/Ml 1 Ml Vial IV Q6HR PRN Low PTT Protocol Metoprolol Tartrate 50 mg 01/10/20 09:00 01/10/20 09:34 Metoprolol Tartrate 50 Mg Tab PO 50 mg BID BLAINE Administration Nitroglycerin 0.4 mg 01/09/20 16:37 Nitroglycerin Sl Tabs 0.4 Mg Tab SUBLINGUAL Q5M PRN Chest Pain Potassium Chloride 20 meq 01/10/20 09:00 01/10/20 09:34 Potassium Chloride Er 20 Meq Tab.Er PO 20 meq BID BLAINE Administration Simethicone 40 mg 01/09/20 22:41 Simethicone 80 Mg Chewable PO QID PRN GI Upset Intake and Output 01/09/20 01/10/20 01/10/20 22:59 06:59 14:59 Output Total 530 Balance -530 Output: Urine 530 Other: # Voids 3 Weight 158.757 kg 188.5 kg 01/10/20 07:00 01/10/20 07:00
--- NOTE | 2020-01-10 11:30 | ECHOF ---
Referral Reason:nstemi MEASUREMENTS -------- HEIGHT: 165.1 cm WEIGHT: 188.2 kg BP: RVIDd: 4.2 cm (< 3.3) IVSd: 1.6 cm (0.6 - 1.1) LVIDd: 5.0 cm (3.9 - 5.3) LVPWd: 1.7 cm (0.6 - 1.1) IVSs: 1.7 cm LVIDs: 3.9 cm LVPWs: 1.4 cm LA Diam: 5.2 cm (2.7 - 3.8) Ao Diam: 2.3 cm (2.0 - 3.7) AV Cusp: 0.9 cm (1.5 - 2.6) LA Diam: 6.2 cm (2.7 - 3.8) MV EXCURSION: 17.310 mm (> 18.000) MV EF SLOPE: 71 mm/s (70 - 150) EPSS: 0.5 cm AV maxP.52 mmHg AV meanP.29 mmHg RAP: 15.00 mmHg RVSP: 60.57 mmHg FINDINGS -------- Sinus rhythm. Morbid Obesity This was a techncally difficult study with suboptimal views, , Lumason utilized for enhancement of images. The left ventricular size is normal. There is moderate concentric left ventricular hypertrophy. O verall left ventricular systolic function is moderately impaired with, an EF between 35 - 40 %. In spite of Lumison,this study is technically difficult to assess left ankle function accurately and al so assess segmental wall motion defects. There appears to be definite hypokinesis of the apical aide on. Inferior Hypokinesis [place] Hypokinesis. The right ventricle is severely enlarged. The right ventricular septal wall is flattened in diastol e and systole which is consistent with right ventricular volume and pressure overload. The left atrium is markedly dilated. The right atrial size is normal. 5.0mg OF Lumason UTLIZED: 2 OR MORE WALL SEGMENTS NOT VISUALIZED. There is severe aortic stenosis present. Peak/mean gradient across the Aortic Valve is 50.52mmHg / 31.29mmHg. Moderate mitral regurgitation is present. Moderate to severe tricuspid regurgitation present. There is moderate to severe pulmonary hypertens ion. Trace/mild (physiologic) pulmonic regurgitation. The aortic root size is normal. There is no pericardial effusion. CONCLUSIONS -------- 1. Morbid Obesity 2. This was a techncally difficult study with suboptimal views, , Lumason utilized for enhancement of images. 3. The left ventricular size is normal. 4. There is moderate concentric left ventricular hypertrophy. 5. Overall left ventricular systolic function is moderately impaired with, an EF between 35 - 40 %. 6. In spite of Lumison,this study is technically difficult to assess left ankle function accurately and also assess segmental wall motion defects. There appears to be definite hypokinesis of the apica l regions 7. Inferior Hypokinesis 8. [place] Hypokinesis. 9. The right ventricle is severely enlarged. 10. The right ventricular septal wall is flattened in diastole and systole which is consistent with right ventricular volume and pressure overload. 11. The left atrium is markedly dilated. 12. The right atrial size is normal. 13. 5.0mg OF Lumason UTLIZED: 2 OR MORE WALL SEGMENTS NOT VISUALIZED. 14. There is severe aortic stenosis present. 15. Peak/mean gradient across the Aortic Valve is 50.52mmHg / 31.29mmHg. 16. Moderate mitral regurgitation is present. 17. Moderate to severe tricuspid regurgitation present. 18. There is moderate to severe pulmonary hypertension. 19. Trace/mild (physiologic) pulmonic regurgitation. 20. The aortic root size is normal. 21. There is no pericardial effusion. ACTUARY MANAGER: Mariana Mullen RDCS
--- NOTE | 2020-01-10 14:11 | P.PN ---
Subjective Progress Note Date: 01/10/20 Patient was seen and examined. No acute events overnight. Patient reports continued shortness of breath since admission. She also reports lower extremity swelling that has been progressively getting worse over the last couple of weeks. She denies any recent episode of chest pain. No nausea or vomiting. No fever or chills. States that she can't be on any anticoagulation due to GI and brain bleed. Objective - Vital Signs Vital signs: Vital Signs Temp 98.1 F 01/10/20 11:49 Pulse 83 01/10/20 12:00 Resp 21 01/10/20 12:00 BP 125/85 01/10/20 11:49 Pulse Ox 95 01/10/20 11:49 Intake & Output 01/09/20 01/10/20 01/10/20 18:59 06:59 18:59 Output Total 530 Balance -530 Weight 158.757 kg 188.5 kg Output: Urine 530 Other: # Voids 3 - Exam General: [non toxic], [no distress], [appears at stated age], [morbidly obese] Derm: [warm], [dry] Head: [atraumatic], [normocephalic], [symmetric] Eyes: [EOMI], [no lid lag], [anicteric sclera] Mouth: [no lip lesion], [mucus membranes moist] Cardiovascular: [S1S2 reg], [no murmur], [positive DP pulse bilateral], Lungs: [Decreased breath sounds bilateral largely due to body habitus], [no rhonchi, no rales] , [no accessory muscle use] Abdominal: [soft], [ nontender to palpation], [no guarding], [no appreciable organomegaly] Ext: [no gross muscle atrophy], [2+ pitting lower extremity edema], [no contractures] Neuro: [no focal neuro deficits] Psych: [Alert], [oriented], [appropriate affect] - Labs CBC & Chem 7: 01/10/20 07:00 01/10/20 07:00 Labs: Abnormal Lab Results - Last 24 Hours (Table) 01/09/20 01/09/20 01/09/20 Range/Units 14:26 14:26 14:26 RBC 3.65 L (3.80-5.40) m/uL Hgb 10.7 L (11.4-16.0) gm/dL Hct 33.9 L (34.0-46.0) % RDW 16.6 H (11.5-15.5) % Plt Count 125 L (150-450) k/uL Neutrophils # 8.8 H (1.3-7.7) k/uL Lymphocytes # 0.6 L (1.0-4.8) k/uL PT 13.1 H (9.0-12.0) sec INR 1.3 H (<1.2) BUN 19 H (7-17) mg/dL Glucose 102 H (74-99) mg/dL Total Bilirubin 2.5 H (0.2-1.3) mg/dL AST 85 H (14-36) U/L ALT (4-34) U/L Alkaline Phosphatase 167 H (38-126) U/L Creatine Kinase 316 H (30-135) U/L Troponin I (0.000-0.034) ng/mL Albumin 3.4 L (3.5-5.0) g/dL Urine Appearance (Clear) Urine Protein (Negative) Urine Blood (Negative) Urine Bilirubin (Negative) Ur Leukocyte Esterase (Negative) Urine WBC (0-5) /hpf Ur Squamous Epith Cells (0-4) /hpf Amorphous Sediment (None) /hpf Urine Bacteria (None) /hpf Hyaline Casts (0-2) /lpf Urine Mucus (None) /hpf 01/09/20 01/09/20 01/09/20 Range/Units 14:26 18:07 20:22 RBC (3.80-5.40) m/uL Hgb (11.4-16.0) gm/dL Hct (34.0-46.0) % RDW (11.5-15.5) % Plt Count (150-450) k/uL Neutrophils # (1.3-7.7) k/uL Lymphocytes # (1.0-4.8) k/uL PT (9.0-12.0) sec INR (<1.2) BUN (7-17) mg/dL Glucose (74-99) mg/dL Total Bilirubin (0.2-1.3) mg/dL AST (14-36) U/L ALT (4-34) U/L Alkaline Phosphatase (38-126) U/L Creatine Kinase (30-135) U/L Troponin I 12.200 H* 11.900 H* 11.000 H* (0.000-0.034) ng/mL Albumin (3.5-5.0) g/dL Urine Appearance (Clear) Urine Protein (Negative) Urine Blood (Negative) Urine Bilirubin (Negative) Ur Leukocyte Esterase (Negative) Urine WBC (0-5) /hpf Ur Squamous Epith Cells (0-4) /hpf Amorphous Sediment (None) /hpf Urine Bacteria (None) /hpf Hyaline Casts (0-2) /lpf Urine Mucus (None) /hpf 01/09/20 01/10/20 01/10/20 Range/Units 21:12 07:00 07:00 RBC 3.65 L (3.80-5.40) m/uL Hgb 10.7 L (11.4-16.0) gm/dL Hct (34.0-46.0) % RDW 16.4 H (11.5-15.5) % Plt Count 140 L (150-450) k/uL Neutrophils # (1.3-7.7) k/uL Lymphocytes # (1.0-4.8) k/uL PT (9.0-12.0) sec INR (<1.2) BUN 25 H (7-17) mg/dL Glucose (74-99) mg/dL Total Bilirubin 2.7 H (0.2-1.3) mg/dL AST 224 H (14-36) U/L ALT 67 H (4-34) U/L Alkaline Phosphatase 160 H (38-126) U/L Creatine Kinase (30-135) U/L Troponin I (0.000-0.034) ng/mL Albumin (3.5-5.0) g/dL Urine Appearance Cloudy H (Clear) Urine Protein 1+ H (Negative) Urine Blood Small H (Negative) Urine Bilirubin 1+ H (Negative) Ur Leukocyte Esterase Large H (Negative) Urine WBC 43 H (0-5) /hpf Ur Squamous Epith Cells 7 H (0-4) /hpf Amorphous Sediment Rare H (None) /hpf Urine Bacteria Few H (None) /hpf Hyaline Casts 344 H (0-2) /lpf Urine Mucus Rare H (None) /hpf Microbiology - Last 24 Hours (Table) 01/09/20 21:12 Urine Culture - Preliminary Urine,Voided Assessment and Plan Assessment: NSTEMI -Heparin discontinued -Contraindication to aspirin and Plavix -Cardiac monitoring -Cardiology consult - recommends maximized medical management (Lipitor and Metoprolol increased) Acute systolic CHF exacerbation -Echocardiogram shows EF 35-40% with hypokinetic wall motion significantly different from March echocardiogram with EF of 55-60% -Lasix 40 mg IV push every 12 hourly -Intake and output -Fluid restriction -Daily weights -Monitor electrolytes and replace as needed Permanent A. fib -Not on anticoagulation due to history of intracerebral and GI bleeds -Cardiac monitoring Abnormal LFTs -Likely secondary to CHF exacerbation with hepatic congestion -Monitor for now Abnormal UA -Patient is symptomatic, likely asymptomatic bacteriuria -Hold off on antibiotics at this time Debility -Physical therapy consult DVT prophylaxis -Heparin infusion [Patient admitted after non-ST elevation [place] and newly found systolic CHF exacerbation. On IV diuresis. Cardiology recommended maximized medical management. She is pending clinical improvement. Likely DC in 2-3 days.]
[2020-01-10] MEDS: LOSARTAN 25 MG TAB PO SCH (19:59)
[2020-01-10] MEDS: ATORVASTATIN 80 MG TAB PO SCH (19:59)
[2020-01-10] MEDS ORDERED: ATORVASTATIN 40 MG TAB PO SCH (21:00)
[2020-01-11 07:17] LABS: Anisocytosis Slight; HCT 35.1 % (34.0-46.0); HGB 10.6 gm/dL (11.4-16.0); Hypochromasia Slight; MCH 28.5 pg (25.0-35.0); MCHC 30.2 g/dL (31.0-37.0); MCV 94.2 fL (80.0-100.0); Mean Platelet Volume 8.6; Platelet Count 151 k/uL (150-450); RBC 3.73 m/uL (3.80-5.40); RDW 16.6 % (11.5-15.5); WBC 7.9 k/uL (3.8-10.6)
[2020-01-11 07:36] LABS: Albumin 3.2 g/dL (3.5-5.0); Calcium 8.6 mg/dL (8.4-10.2); Potassium 4.2 mmol/L (3.5-5.1); Total Bilirubin 2.6 mg/dL (0.2-1.3); Total Protein 7.1 g/dL (6.3-8.2)
[2020-01-11] MEDS: FUROSEMIDE 10 MG/ML 4 ML VIAL IV SCH (10:29)
[2020-01-11] MEDS: DOCUSATE 100 MG CAP PO SCH ×2 (10:37→21:47)
[2020-01-11] MEDS: FAMOTIDINE 20 MG TAB PO SCH (10:38)
[2020-01-11] MEDS: METOPROLOL TARTRATE 50 MG TAB PO SCH ×2 (10:38→21:47)
[2020-01-11] MEDS: GABAPENTIN 100 MG CAP PO SCH ×2 (10:38→21:49)
[2020-01-11] MEDS: POTASSIUM CHLORIDE ER 20 MEQ TAB.ER PO SCH (10:39)
[2020-01-11] MEDS: traMADol 50 MG TAB PO PRN (11:50)
[2020-01-11] MEDS ORDERED: FUROSEMIDE 10 MG/ML 4 ML VIAL IV STA (12:31)
--- NOTE | 2020-01-11 12:43 | P.PN ---
Subjective HISTORY OF PRESENTING ILLNESS This is a pleasant 74-year-old female past medical history significant for chronic persistent atrial fibrillation not on termite helper anti-coagulation secondary to GI bleeding, hypertension, dyslipidemia and morbid obesity. She follows in the office with Dr. Benedict. She is seen and examined laying mostly flat with head slightly elevated in no acute distress. She appears comfortable at rest, however does continue to complain of shortness of breath. She has no chest pain, dizziness or palpitations. Echocardiogram obtained revealed impaired LV systolic function with EF 35-40%, images were difficult although there appears to be definite hypokinesia of the apical and inferior regions. Severe aortic stenosis with a mean gradient of 31 mmHg, moderate MR, moderate TR and severepulmonary hypertension with an RVSP of 50 mmHg. Currently maintained onatorvastatin 80 mg at bedtime, Lasix 40 mg IV twice a day, losartan 25 mg daily and Lopressor 50 mg twice a day.laboratory data reviewed, WBC 7.9, hemoglobin 10.6, platelets 151, sodium 137, potassium 4.2, creatinine 0.92. Output reflects a negative fluid balance however not entirely accurate and she is incontinent of urine. PHYSICAL EXAMINATION CONSTITUTIONAL: No apparent distress. Morbidly obese. HEENT: Head is normocephalic. Pupils are equal, round. Sclerae anicteric. Mucous membranes of the mouth are moist. No JVD. No carotid bruit. CHEST EXAMINATION: Lungs are clear to auscultation. No chest wall tenderness is noted on palpation or with deep breathing. Diminished bilaterally. Difficult to auscultate secondary to body habitus. HEART EXAMINATION: Irregular rate and rhythm. S1, S2 heard. Systolic ejection murmur at the base, no gallops or rub. EXTREMITIES: 2+ peripheral pulses, 2+ bilateral lower extremity pitting edema and no calf tenderness. 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 Document accurate intake and output along with daily weights. Follow renal function and electrolytes in the morning. Nurse Practitioner note has been reviewed, I agree with a documented findings and plan of care. Patient was seen and examined. Objective - Vital Signs Vital signs: Vital Signs Temp 98.1 F 01/11/20 11:58 Pulse 71 01/11/20 11:58 Resp 22 01/11/20 11:58 BP 105/70 01/11/20 11:58 Pulse Ox 97 01/11/20 11:58 Intake & Output 01/10/20 01/11/20 01/11/20 18:59 06:59 18:59 Intake Total 460 180 Output Total 500 300 Balance -40 -120 Weight 188.3 kg Intake: Oral 460 180 Output: Urine 500 300 Other: Voiding Method Diaper Incontinent # Voids 1 # Bowel Movements 1 - Labs CBC & Chem 7: 01/11/20 06:29 01/11/20 06:29 Labs: Abnormal Lab Results - Last 24 Hours (Table) 01/11/20 01/11/20 Range/Units 06:29 06:29 RBC 3.73 L (3.80-5.40) m/uL Hgb 10.6 L (11.4-16.0) gm/dL MCHC 30.2 L (31.0-37.0) g/dL RDW 16.6 H (11.5-15.5) % BUN 33 H (7-17) mg/dL Total Bilirubin 2.6 H (0.2-1.3) mg/dL AST 279 H (14-36) U/L ALT 98 H (4-34) U/L Alkaline Phosphatase 146 H (38-126) U/L Albumin 3.2 L (3.5-5.0) g/dL Microbiology - Last 24 Hours (Table) 01/09/20 21:12 Urine Culture - Preliminary Urine,Voided Gram Neg Bacilli
[2020-01-11] MEDS: SPIRONOLACTONE 25 MG TAB PO SCH (13:03)
--- NOTE | 2020-01-11 14:34 | P.PN ---
Subjective Progress Note Date: 01/11/20 Patient was seen and examined. No acute events overnight. Patient reports continued shortness of breath since admission. She also reports lower extremity swelling. Not much urine output over the last 24 hours. Weight remains the same. States that she can't be on any anticoagulation due to GI and brain bleed. Objective - Vital Signs Vital signs: Vital Signs Temp 98.1 F 01/11/20 11:58 Pulse 62 01/11/20 12:42 Resp 20 01/11/20 12:42 BP 104/67 01/11/20 12:42 Pulse Ox 96 01/11/20 12:42 Intake & Output 01/10/20 01/11/20 01/11/20 18:59 06:59 18:59 Intake Total 460 180 Output Total 500 300 Balance -40 -120 Weight 188.3 kg Intake: Oral 460 180 Output: Urine 500 300 Other: Voiding Method Diaper Incontinent # Voids 1 # Bowel Movements 1 - Exam General: [non toxic], [no distress], [appears at stated age], [morbidly obese] Derm: [warm], [dry] Head: [atraumatic], [normocephalic], [symmetric] Eyes: [EOMI], [no lid lag], [anicteric sclera] Mouth: [no lip lesion], [mucus membranes moist] Cardiovascular: [S1S2 reg], [no murmur], [positive DP pulse bilateral], Lungs: [Decreased breath sounds bilateral largely due to body habitus], [no rhonchi, no rales] , [no accessory muscle use] Abdominal: [soft], [ nontender to palpation], [no guarding], [no appreciable organomegaly] Ext: [no gross muscle atrophy], [2+ pitting lower extremity edema], [no contractures] Neuro: [no focal neuro deficits] Psych: [Alert], [oriented], [appropriate affect] - Labs CBC & Chem 7: 01/11/20 06:29 01/11/20 06:29 Labs: Abnormal Lab Results - Last 24 Hours (Table) 01/11/20 01/11/20 Range/Units 06:29 06:29 RBC 3.73 L (3.80-5.40) m/uL Hgb 10.6 L (11.4-16.0) gm/dL MCHC 30.2 L (31.0-37.0) g/dL RDW 16.6 H (11.5-15.5) % BUN 33 H (7-17) mg/dL Total Bilirubin 2.6 H (0.2-1.3) mg/dL AST 279 H (14-36) U/L ALT 98 H (4-34) U/L Alkaline Phosphatase 146 H (38-126) U/L Albumin 3.2 L (3.5-5.0) g/dL Microbiology - Last 24 Hours (Table) 01/09/20 21:12 Urine Culture - Preliminary Urine,Voided Gram Neg Bacilli Assessment and Plan Assessment: NSTEMI -Heparin discontinued -Contraindication to aspirin and Plavix -Cardiac monitoring -Cardiology consult - recommends maximized medical management (Lipitor and Metoprolol increased) Acute systolic CHF exacerbation -Echocardiogram shows EF 35-40% with hypokinetic wall motion significantly different from March echocardiogram with EF of 55-60% -Lasix increased to 80 mg IV twice a day -Repeat chest x-ray tomorrow morning -Intake and output -Fluid restriction -Daily weights -Monitor electrolytes and replace as needed Permanent A. fib -Not on anticoagulation due to history of intracerebral and GI bleeds -Cardiac monitoring Abnormal LFTs -Likely secondary to CHF exacerbation with hepatic congestion -Obtain gallbladder ultrasound to rule out obstruction Abnormal UA -Urine cultures showing gram-negative bacilli -Start Rocephin 1 g IV daily Debility -Physical therapy consult DVT prophylaxis -Heparin infusion [Patient admitted after non-ST elevation [place] and newly found systolic CHF exacerbation. On IV diuresis. Cardiology recommended maximized medical management. She is pending clinical improvement. Likely DC in 2-3 days.]
--- NOTE | 2020-01-11 15:33 | US ---
EXAMINATION TYPE: US liver DATE OF EXAM: 01/11/2020 COMPARISON: NONE CLINICAL HISTORY: include gallbladder r/o obstruction. 415lbs EXAM MEASUREMENTS: Liver Length: 20.1 cm Gallbladder Wall: 0.4 cm CBD: 0.8 cm Right Kidney: 12.9 x 5.1 x 6.1 cm Pancreas: wnl Liver: difficult to image due to size Gallbladder: thickened wall, dependant stones Evidence for sonographic Marsh's sign: no CBD: appears to be under PV, dilated Right Kidney: wnl IMPRESSION: 1. No suspicious acute ultrasound changes 2. Hepatomegaly
[2020-01-11] MEDS: ATORVASTATIN 80 MG TAB PO SCH (21:47)
[2020-01-11] MEDS: FUROSEMIDE 10 MG/ML 10 ML VIAL IV SCH (21:48)
[2020-01-11] MEDS: LOSARTAN 25 MG TAB PO SCH (21:49)
[2020-01-12] MEDS: FUROSEMIDE 10 MG/ML 10 ML VIAL IV SCH ×2 (08:54→20:01)
[2020-01-12] MEDS: SPIRONOLACTONE 25 MG TAB PO SCH (08:55)
[2020-01-12] MEDS: FAMOTIDINE 20 MG TAB PO SCH (08:55)
[2020-01-12] MEDS: GABAPENTIN 100 MG CAP PO SCH ×2 (08:55→20:01)
[2020-01-12] MEDS: METOPROLOL TARTRATE 50 MG TAB PO SCH ×2 (08:55→20:01)
[2020-01-12] MEDS: DOCUSATE 100 MG CAP PO SCH ×2 (08:55→20:01)
[2020-01-12 08:57] LABS: Anisocytosis Slight; HCT 34.2 % (34.0-46.0); HGB 10.6 gm/dL (11.4-16.0); Hypochromasia Moderate; MCH 29.6 pg (25.0-35.0); MCV 95.4 fL (80.0-100.0); Mean Platelet Volume 8.7; Platelet Count 144 k/uL (150-450); RBC 3.59 m/uL (3.80-5.40); RDW 16.4 % (11.5-15.5); WBC 7.6 k/uL (3.8-10.6)
--- NOTE | 2020-01-12 09:34 | XR ---
EXAMINATION TYPE: XR chest 1V portable DATE OF EXAM: 01/12/2020 COMPARISON: Prior chest x-ray 01/09/2020 HISTORY: Congestive heart failure TECHNIQUE: Single frontal view of the chest is obtained. FINDINGS: Technique is apical lordotic and rotated. Aorta is dense. Heart is enlarged. There may be some improvement in the prominence of the central vascularity. No evident pneumothorax or pleural eff usion. IMPRESSION: Rotated apical lordotic exam, there may be some improvement in patient's volume status, correlate
[2020-01-12 09:45] LABS: Albumin 3.2 g/dL (3.5-5.0); Calcium 8.6 mg/dL (8.4-10.2); Magnesium 2.1 mg/dL (1.6-2.3); Potassium 4.2 mmol/L (3.5-5.1); Total Bilirubin 2.3 mg/dL (0.2-1.3); Total Protein 7.3 g/dL (6.3-8.2)
--- NOTE | 2020-01-12 12:25 | P.PN ---
Subjective HISTORY OF PRESENTING ILLNESS This is a pleasant 74-year-old female past medical history significant for chronic persistent atrial fibrillation not on terminal clerk anti-coagulation secondary to GI bleeding, hypertension, dyslipidemia and morbid obesity. She follows in the office with Dr. Benedict. She is seen and examined sitting up in bed in no acute distress. Her breathing is still labored but improved since admission. She denies chest pain, dizziness or palpitations. Blood pressure 109/64 heart rate 71 afebrile and maintaining oxygen saturation on nasal cannula. She is also being treated for a urinary tract infection. Laboratory data reviewed, WBC 7.6, hemoglobin 10.6, platelets 144, sodium 137, potassium 4.2, magnesium 2.1 and creatinine 1.05. Chest xray this morning revealed some improvement in pulmonary vascularity. PHYSICAL EXAMINATION CONSTITUTIONAL: No apparent distress. Morbidly obese. HEENT: Head is normocephalic. Pupils are equal, round. Sclerae anicteric. Mucous membranes of the mouth are moist. No JVD. No carotid bruit. CHEST EXAMINATION: Lungs are clear to auscultation. No chest wall tenderness is noted on palpation or with deep breathing. Diminished bilaterally. Difficult to auscultate secondary to body habitus although more air exchange noted on today's exam. HEART EXAMINATION: Irregular rate and rhythm. S1, S2 heard. Systolic ejection murmur at the base, no gallops or rub. EXTREMITIES: 2+ peripheral pulses, 2+ bilateral lower extremity pitting edema and no calf tenderness. 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 Continue current medical regimen. Document accurate intake and output along with daily weights. Follow renal function and electrolytes in the morning. Nurse Practitioner note has been reviewed, I agree with a documented findings and plan of care. Patient was seen and examined. Objective - Vital Signs Vital signs: Vital Signs Temp 97.1 F L 01/12/20 11:42 Pulse 71 01/12/20 11:42 Resp 20 01/12/20 11:42 BP 109/64 01/12/20 11:42 Pulse Ox 95 01/12/20 11:42 Intake & Output 01/11/20 01/12/20 01/12/20 18:59 06:59 18:59 Intake Total 790 237 Output Total 300 300 401 Balance 490 -300 -164 Weight 191 kg Intake: IV 10 Invasive Line 1 10 Oral 780 237 Output: Urine 300 300 400 Stool 1 Other: Voiding Method Diaper Indwelling Catheter Indwelling Catheter Incontinent # Voids 2 # Bowel Movements 1 1 - Labs CBC & Chem 7: 01/12/20 07:33 01/12/20 07:33 Labs: Abnormal Lab Results - Last 24 Hours (Table) 01/12/20 01/12/20 Range/Units 07:33 07:33 RBC 3.59 L (3.80-5.40) m/uL Hgb 10.6 L (11.4-16.0) gm/dL RDW 16.4 H (11.5-15.5) % Plt Count 144 L (150-450) k/uL BUN 38 H (7-17) mg/dL Creatinine 1.05 H (0.52-1.04) mg/dL Total Bilirubin 2.3 H (0.2-1.3) mg/dL AST 257 H (14-36) U/L ALT 103 H (4-34) U/L Alkaline Phosphatase 146 H (38-126) U/L Albumin 3.2 L (3.5-5.0) g/dL Microbiology - Last 24 Hours (Table) 01/09/20 21:12 Urine Culture - Final Urine,Voided Escherichia coli
--- NOTE | 2020-01-12 19:34 | P.PN ---
Progress Note - Text Progress Note Date: 01/12/20 History of presenting complaint: pleasant 74-year-old patient of Dr. Bob Kuo. Chronic stable medical conditions include GERD, hypertension, ITP, depression, painful peripheral neuropathy on Neurontin, , atrial fibrillation.. Previous EGD-grade B erosive esophagitis, superficial gastritis and some bleeding along the gastric cardia., internal hemorrhoids.prior brain bleed- left her with some weakness on the right side. She has trouble feeling with the right hand. Small bowel capsule study reveals multiple areas of small bleeding. Likely representing angiodysplasia. Repeat EGD/small bowel enteroscopy - several scattered angiectasia in the distal duodenum and proximal jejunum with active oozing status post argon plasma coagulation with good hemostasis. Patient now presents with shortness of breath, lower extremity swelling. Admitted with a diagnosis of acute MA and CHF exacerbation. Patient cannot get anticoagulations and antiplatelet agents because of prior bleeds. Today-breathing better. No chest pain. Eating better. Review of systems: Was done for constitutional, cardiovascular, GI, pulmonary. relevant finding as above Active Medications Albuterol Sulfate (Albuterol Nebulized 2.5 Mg/3 Ml) 2 mg INHALATION RT-Q4H PRN PRN Reason: Shortness Of Breath Atorvastatin Calcium (Atorvastatin 80 Mg Tab) 80 mg PO HS [facility] Last Admin: 01/11/20 21:47 Dose: 80 mg Documented by: Docusate Sodium (Docusate 100 Mg Cap) 100 mg PO BID [facility] Last Admin: 01/12/20 08:55 Dose: 100 mg Documented by: Famotidine (Famotidine 20 Mg Tab) 20 mg PO DAILY [facility] Last Admin: 01/12/20 08:55 Dose: 20 mg Documented by: Furosemide (Furosemide 10 Mg/Ml 10 Ml Vial) 80 mg IV Q12HR [facility] Last Admin: 01/12/20 08:54 Dose: 80 mg Documented by: Gabapentin (Gabapentin 100 Mg Cap) 100 mg PO BID [facility] Last Admin: 01/12/20 08:55 Dose: 100 mg Documented by: Heparin Sodium (Porcine) (Heparin Sodium,Porcine 5,000 Unit/Ml 1 Ml Vial) 0 unit IV Q6HR PRN; Protocol PRN Reason: Low PTT Ceftriaxone Sodium 1 gm/ (Sodium Chloride) 50 mls @ 100 mls/hr IVPB Q24HR [facility] Last Admin: 01/12/20 08:54 Dose: 100 mls/hr Documented by: Losartan Potassium (Losartan 25 Mg Tab) 25 mg PO HS [facility] Last Admin: 01/11/20 21:49 Dose: 25 mg Documented by: Metoprolol Tartrate (Metoprolol Tartrate 50 Mg Tab) 50 mg PO BID [facility] Last Admin: 01/12/20 08:55 Dose: 50 mg Documented by: Nitroglycerin (Nitroglycerin Sl Tabs 0.4 Mg Tab) 0.4 mg SUBLINGUAL Q5M PRN PRN Reason: Chest Pain Simethicone (Simethicone 80 Mg Chewable) 40 mg PO QID PRN PRN Reason: GI Upset Spironolactone (Spironolactone 25 Mg Tab) 25 mg PO DAILY [facility] Last Admin: 01/12/20 08:55 Dose: 25 mg Documented by: Tramadol HCl (Tramadol 50 Mg Tab) 50 mg PO DAILY PRN PRN Reason: Migraine Headache Last Admin: 01/11/20 11:50 Dose: 50 mg Documented by: Physical examination: VITAL SIGNS: 97.1, 71, 20, 109/64, 95% on 3 L GENERAL: Sitting up, on bed, comfortable EYES: Pupils equal. Conjunctiva normal NECK: JVD unable to assess, masses not palpable. HEART: First and second heart sounds are normal; edema present. LUNGS: Respiratory rate normal; distant breath sounds ABDOMEN: Soft, nontender, liver spleen not palpable, no masses palpable. PSYCH: Alert and oriented x3; mood and affect tired. INVESTIGATIONS, reviewed in the clinical context: White count 7.6 hemoglobin 10.6 platelets 144 potassium 4.2 creatinine 1.05 AST 257 ALT 103 UA positive for leukoesterase and WBC Troponins 11 Chest x-ray film personally reviewed by me-portable/cardiomegaly questionable venous prominence Ultrasound-hepatomegaly 2-D echocardiogram-technically difficult study-EF 35-40% and hypokinesis of the apical regions right ventricle severely enlarged, severe aortic stenosis, moderate mitral regurgitation, moderate to severe tricuspid regurgitation, moderate to severe pulmonary hypertension Assessment: -Acute non-Q-wave MA, POA -Acute congestive heart failure exacerbation from systolic dysfunction EF 35-40% -Small bowel-angiodysplasia with history of argon plasma coag ablation -Chronic esophagitis, internal hemorrhoids -Chronic esophagitis gastritis , internal hemorrhoid -Severe aortic stenosis, moderate tricuspid regurgitation, moderate pulmonary hypertension secondary -Persistent atrial fibrillation rate controlled -Left foot osteoarthritis with hammertoe from second to through fifth toe. 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 Patient also on increased dose of Lipitor. Plan: Continue current medication treatment plan. If no improvement LFTs will need to cut back dose of Lipitor a hoarded off temporarily. Patient's creatinine started to rise. Keep a close eye.
[2020-01-12] MEDS: traMADol 50 MG TAB PO PRN (20:01)
[2020-01-12] MEDS: LOSARTAN 25 MG TAB PO SCH (20:01)
[2020-01-12] MEDS: ATORVASTATIN 80 MG TAB PO SCH (20:01)
[2020-01-13 08:10] LABS: Albumin 3.2 g/dL (3.5-5.0); Calcium 8.5 mg/dL (8.4-10.2); Potassium 4.1 mmol/L (3.5-5.1); Total Protein 7.2 g/dL (6.3-8.2)
[2020-01-13] MEDS: FUROSEMIDE 10 MG/ML 10 ML VIAL IV SCH ×2 (09:17→22:18)
[2020-01-13] MEDS: SPIRONOLACTONE 25 MG TAB PO SCH (09:19)
[2020-01-13] MEDS: DOCUSATE 100 MG CAP PO SCH ×2 (09:19→22:18)
[2020-01-13] MEDS: FAMOTIDINE 20 MG TAB PO SCH (09:19)
[2020-01-13] MEDS: GABAPENTIN 100 MG CAP PO SCH ×2 (09:20→22:18)
[2020-01-13] MEDS: METOPROLOL TARTRATE 50 MG TAB PO SCH ×2 (09:20→22:18)
--- NOTE | 2020-01-13 10:43 | P.PN ---
Subjective Patient is resting comfortably in bed. She continues to have pursed lip breathing and tachypnea but she is significantly better than when I saw her in the ER a few days back Breath sounds are reduced bilaterally but I don't hear any rhonchi or crackles Pursed breathing is noted Systolic murmur over the precordium noted Lower extremity edema She is currently being treated for pneumonitis She's had a non-Q-wave myocardial infarction but is chest pain-free The plan is medical management only from a CAD standpoint She is currently on IV Lasix 80 mg twice daily BUN/creatinine is relatively stable We will monitor the patient creatinine and over the weekend I will switch to by mouth Lasix 80 mg twice daily once her BUN begins to creep up At home she takes 40 mg twice daily but will needle higher dose now, possibly 80 mg twice daily I reviewed her labs sodium 138 potassium 4.1, BUN 39 and creatinine 1.06 She is on IV antibiotics at this time Objective - Vital Signs Vital signs: Vital Signs Temp 96.9 F L 01/13/20 08:13 Pulse 68 01/13/20 08:13 Resp 16 01/13/20 08:13 BP 112/72 01/13/20 08:13 Pulse Ox 95 01/13/20 08:13 Intake & Output 01/12/20 01/13/20 01/13/20 18:59 06:59 18:59 Intake Total 714 Output Total 611 Balance 103 Weight 160.5 kg Intake: Oral 714 Output: Urine 610 Stool 1 Other: Voiding Method Indwelling Catheter Indwelling Catheter Indwelling Catheter # Bowel Movements 1 - Labs CBC & Chem 7: 01/12/20 07:33 01/13/20 07:49 Labs: Abnormal Lab Results - Last 24 Hours (Table) 01/13/20 Range/Units 07:49 Carbon Dioxide 33 H (22-30) mmol/L BUN 39 H (7-17) mg/dL Creatinine 1.06 H (0.52-1.04) mg/dL Total Bilirubin 2.0 H (0.2-1.3) mg/dL AST 208 H (14-36) U/L ALT 97 H (4-34) U/L Alkaline Phosphatase 150 H (38-126) U/L Albumin 3.2 L (3.5-5.0) g/dL
[2020-01-13] MEDS: traMADol 50 MG TAB PO PRN (19:40)
[2020-01-13] MEDS ORDERED: HYDROmorphone 0.5 MG/0.5 ML SYRINGE IVP STA (19:50)
[2020-01-13] MEDS ORDERED: ZOLPIDEM 5 MG TAB PO ONE (21:00)
[2020-01-13] MEDS: ATORVASTATIN 80 MG TAB PO SCH (22:18)
[2020-01-13] MEDS: LOSARTAN 25 MG TAB PO SCH (22:18)
--- NOTE | 2020-01-13 22:37 | P.PN ---
Progress Note - Text Progress Note Date: 01/13/20 History of presenting complaint: pleasant 74-year-old patient of Dr. Bob Kuo. Chronic stable medical conditions include GERD, hypertension, ITP, depression, painful peripheral neuropathy on Neurontin, , atrial fibrillation.. Previous EGD-grade B erosive esophagitis, superficial gastritis and some bleeding along the gastric cardia., internal hemorrhoids.prior brain bleed- left her with some weakness on the right side. She has trouble feeling with the right hand. Small bowel capsule study reveals multiple areas of small bleeding. Likely representing angiodysplasia. Repeat EGD/small bowel enteroscopy - several scattered angiectasia in the distal duodenum and proximal jejunum with active oozing status post argon plasma coagulation with good hemostasis. Patient now presents with shortness of breath, lower extremity swelling. Admitted with a diagnosis of acute [place] and CHF exacerbation. Patient cannot get anticoagulations and antiplatelet agents because of prior bleeds. Today-remains on IV Lasix. He is better. No chest pain.eating well. Review of systems: Was done for constitutional, cardiovascular, GI, pulmonary. relevant finding as above Active Medications Albuterol Sulfate (Albuterol Nebulized 2.5 Mg/3 Ml) 2 mg INHALATION RT-Q4H PRN PRN Reason: Shortness Of Breath Atorvastatin Calcium (Atorvastatin 80 Mg Tab) 80 mg PO HS [facility] Last Admin: 01/13/20 22:18 Dose: 80 mg Documented by: Docusate Sodium (Docusate 100 Mg Cap) 100 mg PO BID [facility] Last Admin: 01/13/20 22:18 Dose: 100 mg Documented by: Famotidine (Famotidine 20 Mg Tab) 20 mg PO DAILY [facility] Last Admin: 01/13/20 09:19 Dose: 20 mg Documented by: Furosemide (Furosemide 10 Mg/Ml 10 Ml Vial) 80 mg IV Q12HR [facility] Last Admin: 01/13/20 22:18 Dose: 80 mg Documented by: Gabapentin (Gabapentin 100 Mg Cap) 100 mg PO BID [facility] Last Admin: 01/13/20 22:18 Dose: 100 mg Documented by: Heparin Sodium (Porcine) (Heparin Sodium,Porcine 5,000 Unit/Ml 1 Ml Vial) 0 unit IV Q6HR PRN; Protocol PRN Reason: Low PTT Ceftriaxone Sodium 1 gm/ (Sodium Chloride) 50 mls @ 100 mls/hr IVPB Q24HR [facility] Last Admin: 01/13/20 09:16 Dose: 100 mls/hr Documented by: Losartan Potassium (Losartan 25 Mg Tab) 25 mg PO HS [facility] Last Admin: 01/13/20 22:18 Dose: 25 mg Documented by: Metoprolol Tartrate (Metoprolol Tartrate 50 Mg Tab) 50 mg PO BID [facility] Last Admin: 01/13/20 22:18 Dose: 50 mg Documented by: Nitroglycerin (Nitroglycerin Sl Tabs 0.4 Mg Tab) 0.4 mg SUBLINGUAL Q5M PRN PRN Reason: Chest Pain Silver Sulfadiazine (Silver Sulfadiazine 1% Cream 25 Gm Tube) 1 applic TOPICAL HS [facility] Last Admin: 01/13/20 22:09 Dose: Not Given Documented by: Simethicone (Simethicone 80 Mg Chewable) 40 mg PO QID PRN PRN Reason: GI Upset Spironolactone (Spironolactone 25 Mg Tab) 25 mg PO DAILY [facility] Last Admin: 01/13/20 09:19 Dose: 25 mg Documented by: Tramadol HCl (Tramadol 50 Mg Tab) 50 mg PO DAILY PRN PRN Reason: Migraine Headache Last Admin: 01/13/20 19:40 Dose: 50 mg Documented by: Physical examination: VITAL SIGNS: 97, 65, 18, 105/82, 98% on 3 daughters GENERAL: Sitting up, on bed, comfortable EYES: Pupils equal. Conjunctiva normal NECK: JVD unable to assess, masses not palpable. HEART: First and second heart sounds are normal; edema present. LUNGS: Respiratory rate normal; distant breath sounds ABDOMEN: Soft, nontender, liver spleen not palpable, no masses palpable. PSYCH: Alert and oriented x3; mood and affect tired. INVESTIGATIONS, reviewed in the clinical context: Bun 39 creatinine 1.06 AST 208 ALT 97 Previous testing White count 7.6 hemoglobin 10.6 platelets 144 potassium 4.2 creatinine 1.05 AST 257 ALT 103 UA positive for leukoesterase and WBC Troponins 11 Chest x-ray film personally reviewed by me-portable/cardiomegaly questionable venous prominence Ultrasound-hepatomegaly 2-D echocardiogram-technically difficult study-EF 35-40% and hypokinesis of the apical regions right ventricle severely enlarged, severe aortic stenosis, moderate mitral regurgitation, moderate to severe tricuspid regurgitation, moderate to severe pulmonary hypertension Assessment: -Acute non-Q-wave [place], POA -Acute congestive heart failure exacerbation from systolic dysfunction EF 35- 40%improved -Small bowel-angiodysplasia with history of argon plasma coag ablation -Chronic esophagitis, internal hemorrhoids -Chronic esophagitis gastritis , internal hemorrhoid -Severe aortic stenosis, moderate tricuspid regurgitation, moderate pulmonary hypertension secondary -Persistent atrial fibrillation rate controlled -Left foot osteoarthritis with hammertoe from second to through fifth toe. 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 Patient also on increased dose of Lipitor. Plan: check CMP in the morning. Hopefully can be switched to oral Lasix tomorrow morning. Discussed with the patient.
[2020-01-14 08:23] LABS: Albumin 3.2 g/dL (3.5-5.0); Calcium 8.3 mg/dL (8.4-10.2); Total Protein 7.1 g/dL (6.3-8.2)
[2020-01-14] MEDS: DOCUSATE 100 MG CAP PO SCH ×2 (08:36→21:26)
[2020-01-14] MEDS: METOPROLOL TARTRATE 50 MG TAB PO SCH ×2 (08:36→21:26)
[2020-01-14] MEDS: GABAPENTIN 100 MG CAP PO SCH ×2 (08:36→21:26)
[2020-01-14] MEDS: FAMOTIDINE 20 MG TAB PO SCH (08:36)
[2020-01-14] MEDS: SPIRONOLACTONE 25 MG TAB PO SCH (08:36)
[2020-01-14] MEDS: FUROSEMIDE 10 MG/ML 10 ML VIAL IV SCH ×2 (08:45→21:26)
--- NOTE | 2020-01-14 13:26 | P.PN ---
Subjective Progress Note Date: 01/14/20 The patient is lying comfortably in bed. She is not labored during our conversation. She states she is still short of breath, however it has been stable. She does report an increase in swelling in her upper extremities. She denies a palpitations, dizziness, or lightheadedness. GENERAL: This is a 74-year-old female in no apparent distress at the time of my examination. HEENT: Head is atraumatic, normocephalic. Pupils are equal, round. Sclerae anicteric. Conjunctivae are clear. Mucous membranes of the mouth are moist. Neck is supple. There is no jugular venous distention. No carotid bruit is heard. LUNGS: Lungs diminished auscultation. Mild inspiratory wheeze No chest wall tenderness is noted on palpation or with deep breathing. HEART: Regular rate and rhythm. Systolic murmur. No rubs or gallops. S1 and S2 heard. ABDOMEN: Soft, nontender. Bowel sounds are heard. No organomegaly noted. EXTREMITIES: 3+ pitting edema on upper and lower extremities. and no calf tenderness noted. VASCULAR: Radial and dorsalis pedis pulses palpated, no evidence of clubbing. NEUROLOGIC: Patient is awake, alert and oriented x3. VITALS: Blood pressure 100/69, 98.9F, pulse 68, respiratory rate 18, SpO2 97% 3L LABS: Sodium 135, potassium 4.0, BUN 41, creatinine 0.98, AST 154, ALT 80 IMPRESSION: #1 NSTEMI #2 acute on chronic diastolic heart failure #3 chronic persistent atrial fibrillation #4 hypertension #5 dyslipidemia #6 morbid obesity #7 severe aortic stenosis #8 ischemic cardiomyopathy 35% PLAN: Continue IV Lasix. Consider switching to oral diuretics tomorrow. Objective - Vital Signs Vital signs: Vital Signs Temp 98.9 F 01/14/20 08:00 Pulse 68 01/14/20 08:00 Resp 18 01/14/20 08:00 BP 100/69 01/14/20 08:00 Pulse Ox 97 01/14/20 08:00 Intake & Output 01/13/20 01/14/20 01/14/20 18:59 06:59 18:59 Intake Total 480 200 Output Total 1100 1 Balance -620 199 Weight 179.5 kg Intake: Oral 480 200 Output: Urine 1100 Stool 1 Other: Voiding Method Incontinent Incontinent Incontinent # Voids 2 - Labs CBC & Chem 7: 01/12/20 07:33 01/14/20 07:44 Labs: Abnormal Lab Results - Last 24 Hours (Table) 01/14/20 Range/Units 07:44 Sodium 135 L (137-145) mmol/L Carbon Dioxide 31 H (22-30) mmol/L BUN 41 H (7-17) mg/dL Calcium 8.3 L (8.4-10.2) mg/dL Total Bilirubin 2.0 H (0.2-1.3) mg/dL AST 154 H (14-36) U/L ALT 80 H (4-34) U/L Alkaline Phosphatase 154 H (38-126) U/L Albumin 3.2 L (3.5-5.0) g/dL
[2020-01-14] MEDS: traMADol 50 MG TAB PO PRN (21:26)
[2020-01-14] MEDS: ATORVASTATIN 80 MG TAB PO SCH (21:26)
[2020-01-14] MEDS: LOSARTAN 25 MG TAB PO SCH (21:26)
--- NOTE | 2020-01-14 23:00 | P.PN ---
Progress Note - Text Progress Note Date: 01/14/20 History of presenting complaint: pleasant 74-year-old patient of Dr. Bob Kuo. Chronic stable medical conditions include GERD, hypertension, ITP, depression, painful peripheral neuropathy on Neurontin, , atrial fibrillation.. Previous EGD-grade B erosive esophagitis, superficial gastritis and some bleeding along the gastric cardia., internal hemorrhoids.prior brain bleed- left her with some weakness on the right side. She has trouble feeling with the right hand. Small bowel capsule study reveals multiple areas of small bleeding. Likely representing angiodysplasia. Repeat EGD/small bowel enteroscopy - several scattered angiectasia in the distal duodenum and proximal jejunum with active oozing status post argon plasma coagulation with good hemostasis. Patient now presents with shortness of breath, lower extremity swelling. Admitted with a diagnosis of acute [place] and CHF exacerbation. Patient cannot get anticoagulations and antiplatelet agents because of prior bleeds. Today-remains on IV Lasix. Not much urine output. Short of breath at rest. Tired. Decreased oral intake. Review of systems: Was done for constitutional, cardiovascular, GI, pulmonary. relevant finding as above Active Medications Albuterol Sulfate (Albuterol Nebulized 2.5 Mg/3 Ml) 2 mg INHALATION RT-Q4H PRN PRN Reason: Shortness Of Breath Atorvastatin Calcium (Atorvastatin 80 Mg Tab) 80 mg PO HS [facility] Last Admin: 01/14/20 21:26 Dose: 80 mg Documented by: Docusate Sodium (Docusate 100 Mg Cap) 100 mg PO BID [facility] Last Admin: 01/14/20 21:26 Dose: 100 mg Documented by: Famotidine (Famotidine 20 Mg Tab) 20 mg PO DAILY [facility] Last Admin: 01/14/20 08:36 Dose: 20 mg Documented by: Furosemide (Furosemide 10 Mg/Ml 10 Ml Vial) 80 mg IV Q12HR [facility] Last Admin: 01/14/20 21:26 Dose: 80 mg Documented by: Gabapentin (Gabapentin 100 Mg Cap) 100 mg PO BID [facility] Last Admin: 01/14/20 21:26 Dose: 100 mg Documented by: Heparin Sodium (Porcine) (Heparin Sodium,Porcine 5,000 Unit/Ml 1 Ml Vial) 0 unit IV Q6HR PRN; Protocol PRN Reason: Low PTT Ceftriaxone Sodium 1 gm/ (Sodium Chloride) 50 mls @ 100 mls/hr IVPB Q24HR [facility] Last Admin: 01/14/20 08:36 Dose: 100 mls/hr Documented by: Losartan Potassium (Losartan 25 Mg Tab) 25 mg PO HS [facility] Last Admin: 01/14/20 21:26 Dose: 25 mg Documented by: Metoprolol Tartrate (Metoprolol Tartrate 50 Mg Tab) 50 mg PO BID [facility] Last Admin: 01/14/20 21:26 Dose: 50 mg Documented by: Nitroglycerin (Nitroglycerin Sl Tabs 0.4 Mg Tab) 0.4 mg SUBLINGUAL Q5M PRN PRN Reason: Chest Pain Silver Sulfadiazine (Silver Sulfadiazine 1% Cream 25 Gm Tube) 1 applic TOPICAL HS [facility] Last Admin: 01/13/20 22:09 Dose: Not Given Documented by: Simethicone (Simethicone 80 Mg Chewable) 40 mg PO QID PRN PRN Reason: GI Upset Spironolactone (Spironolactone 25 Mg Tab) 25 mg PO DAILY [facility] Last Admin: 01/14/20 08:36 Dose: 25 mg Documented by: Tramadol HCl (Tramadol 50 Mg Tab) 50 mg PO DAILY PRN PRN Reason: Migraine Headache Last Admin: 01/14/20 21:26 Dose: 50 mg Documented by: Physical examination: VITAL SIGNS: 98.9, 68, 18, 100/69, 97% on 3 L GENERAL: Propped up in bed, short of breath at rest EYES: Pupils equal. Conjunctiva normal NECK: JVD unable to assess, masses not palpable. HEART: First and second heart sounds are normal; edema present. LUNGS: Respiratory rate increased; distant breath sounds ABDOMEN: Soft, nontender, liver spleen not palpable, no masses palpable. PSYCH: Alert and oriented x3; mood and affect tired. DERMATOLOGICAL: Some bruising INVESTIGATIONS, reviewed in the clinical context: Potassium 4 creatinine 0.98 bilirubin 2 AST 154 ALT 80 Previous testing White count 7.6 hemoglobin 10.6 platelets 144 potassium 4.2 creatinine 1.05 AST 257 ALT 103 UA positive for leukoesterase and WBC Troponins 11 Chest x-ray film personally reviewed by me-portable/cardiomegaly questionable venous prominence Ultrasound-hepatomegaly 2-D echocardiogram-technically difficult study-EF 35-40% and hypokinesis of the apical regions right ventricle severely enlarged, severe aortic stenosis, mo derate mitral regurgitation, moderate to severe tricuspid regurgitation, moderate to severe pulmonary hypertension Assessment: -Acute non-Q-wave [place], POA -Acute congestive heart failure exacerbation from systolic dysfunction EF 35- 40%improved -Small bowel-angiodysplasia with history of argon plasma coag ablation -Chronic esophagitis, internal hemorrhoids -Chronic esophagitis gastritis , internal hemorrhoid -Severe aortic stenosis, moderate tricuspid regurgitation, moderate pulmonary hypertension secondary -Persistent atrial fibrillation rate controlled -Left foot osteoarthritis with hammertoe from second to through fifth toe. 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 coli -Acute hepatitis could be from CHF ischemia. -Improving Plan: Patient remains on IV Lasix 80 mg every 12. Changed to patient to Keflex. Follow labs. Advanced care planning: Had a lengthy talk with patient about her multiple comorbidities. She un derstands that she is not doing very well. Appetite is not good. had talked about end-of-life care yesterday a bit. Patient wishes to proceed to be a DO NOT RESUSCITATE. She is concerned that this may not cover with her . I did emphasize that this is about her quality of life and her decision about end-of-life care. About 20 minutes was spent in this.
[2020-01-15 05:57] LABS: Albumin 3.3 g/dL (3.5-5.0); Calcium 8.6 mg/dL (8.4-10.2); Total Bilirubin 2.2 mg/dL (0.2-1.3); Total Protein 7.4 g/dL (6.3-8.2)
[2020-01-15] MEDS: GABAPENTIN 100 MG CAP PO SCH ×2 (09:31→22:30)
[2020-01-15] MEDS: FUROSEMIDE 10 MG/ML 10 ML VIAL IV SCH (09:31)
[2020-01-15] MEDS: FAMOTIDINE 20 MG TAB PO SCH (09:31)
[2020-01-15] MEDS: METOPROLOL TARTRATE 50 MG TAB PO SCH ×2 (09:31→22:30)
[2020-01-15] MEDS: DOCUSATE 100 MG CAP PO SCH ×2 (09:31→22:30)
[2020-01-15] MEDS: SPIRONOLACTONE 25 MG TAB PO SCH (09:31)
[2020-01-15] MEDS: CEPHALEXIN 250 MG CAP PO SCH ×3 (09:31→22:30)
--- NOTE | 2020-01-15 12:05 | P.PN ---
Subjective Progress Note Date: 01/15/20 The patient is resting comfortably lying in bed. Edema appears better today as her skin is no longer taut. She does report some mild shortness of breath. No chest pain, chest pressure, palpitations, or dizziness. GENERAL: Well-appearing, obese female in no acute distress. NECK: Supple without JVD or thyromegaly. LUNGS: Breath sounds clear to auscultation bilaterally. Diminished in the bases. Respiration equal and unlabored. No wheezes, rales or rhonchi. HEART: Regular rate and rhythm. Systolic murmur. No rubs or gallops. S1 and S2 heard. EXTREMITIES: Normal range of motion. +3 pitting edema, improved. No clubbing or cyanosis. Peripheral pulses intact and strong. VITALS: 119/73, respiratory rate 20, pulse rate 70, temperature 97.9F, 96% SpO2 on 3 L nasal cannula LABS: Sodium 135, potassium 4.0, BUN 41, creatinine 0.96, AST 139, ALT 72 IMPRESSION: #1 NSTEMI #2 acute on chronic diastolic heart failure #3 chronic persistent atrial fibrillation #4 hypertension #5 dyslipidemia #6 morbid obesity #7 severe aortic stenosis #8 ischemic cardiomyopathy, ejection fraction 35% PLAN: Transition to oral Lasix. Continue to monitor electrolytes and kidney function. Objective - Vital Signs Vital signs: Vital Signs Temp 97.9 F 01/15/20 08:00 Pulse 70 01/15/20 08:00 Resp 20 01/15/20 08:00 BP 119/73 01/15/20 08:00 Pulse Ox 96 01/15/20 08:00 Intake & Output 01/14/20 01/15/20 01/15/20 19:59 06:59 18:59 Intake Total 100 Output Total 551 Balance -451 Weight Intake: Oral 100 Output: Urine 550 Stool 1 Other: Voiding Method Incontinent # Voids - Labs CBC & Chem 7: 01/12/20 07:33 01/15/20 05:27 Labs: Abnormal Lab Results - Last 24 Hours (Table) 01/15/20 Range/Units 05:27 Sodium 135 L (137-145) mmol/L Chloride 97 L (98-107) mmol/L Carbon Dioxide 32 H (22-30) mmol/L BUN 41 H (7-17) mg/dL Total Bilirubin 2.2 H (0.2-1.3) mg/dL AST 139 H (14-36) U/L ALT 72 H (4-34) U/L Alkaline Phosphatase 187 H (38-126) U/L Albumin 3.3 L (3.5-5.0) g/dL
--- NOTE | 2020-01-15 12:44 | P.PN ---
Subjective Progress Note Date: 01/15/20 Principal diagnosis: shortness of breath pleasant 74-year-old patient of Dr. Bob Kuo. Chronic stable medical conditions include GERD, hypertension, ITP, depression, painful peripheral neuropathy on Neurontin, , atrial fibrillation.. Previous EGD-grade B erosive esophagitis, superficial gastritis and some bleeding along the gastric cardia., internal hemorrhoids.prior brain bleed- left her with some weakness on the right side. She has trouble feeling with the right hand. Small bowel capsule study reveals multiple areas of small bleeding. Likely representing angiodysplasia. Repeat EGD/small bowel enteroscopy - several scattered angiectasia in the distal duodenum and proximal jejunum with active oozing status post argon plasma coagulation with good hemostasis. Patient now presents with shortness of breath, lower extremity swelling. Admitted with a diagnosis of acute [place] and CHF exacerbation. Patient cannot get anticoagulations and antiplatelet agents because of prior bleeds. This morning cardiology has changed the patient to oral Lasix. Patient remains short of breath. Per nurse last night when patient became cyanotic when she is lying down flat and was also confused. This morning patient is AAO 3. She appears to be in mild to moderate respiratory distress. I had a lengthy discussion with patient's as well as daughter is and they have agreed to home with hospice. I discussed with nurse who will consult hospice. Objective - Vital Signs Vital signs: Vital Signs Temp 97.9 F 01/15/20 08:00 Pulse 70 01/15/20 08:00 Resp 20 01/15/20 08:00 BP 119/73 01/15/20 08:00 Pulse Ox 96 01/15/20 08:00 Intake & Output 01/14/20 01/15/20 01/15/20 19:59 06:59 18:59 Intake Total 100 Output Total 551 Balance -451 Weight Intake: Oral 100 Output: Urine 550 Stool 1 Other: Voiding Method Incontinent # Voids - Exam General examination - Alert and Oriented 3 in [id number] respiratory distress, appears chronically debilitated Heart - + S1S2 no murmurs Lungs -diminished breath sounds bilaterally Abdomen soft NT ND +ve BS Extremities - +3 pitting edema in bilateral lower extremities [employer] - Moving all 4 extremities spontaneously Psych -flat affect - Labs CBC & Chem 7: 01/12/20 07:33 01/15/20 05:27 Labs: Abnormal Lab Results - Last 24 Hours (Table) 01/15/20 Range/Units 05:27 Sodium 135 L (137-145) mmol/L Chloride 97 L (98-107) mmol/L Carbon Dioxide 32 H (22-30) mmol/L BUN 41 H (7-17) mg/dL Total Bilirubin 2.2 H (0.2-1.3) mg/dL AST 139 H (14-36) U/L ALT 72 H (4-34) U/L Alkaline Phosphatase 187 H (38-126) U/L Albumin 3.3 L (3.5-5.0) g/dL Assessment and Plan Assessment: Assessment: -Acute non-Q-wave [place], POA -Acute congestive heart failure exacerbation from systolic dysfunction EF 35- 40%improved -Small bowel-angiodysplasia with history of argon plasma coag ablation -Chronic esophagitis, internal hemorrhoids -Chronic esophagitis gastritis , internal hemorrhoid -Severe aortic stenosis, moderate tricuspid regurgitation, moderate pulmonary hypertension secondary -Persistent atrial fibrillation rate controlled -Left foot osteoarthritis with hammertoe from second to through fifth toe. 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 coli -Acute hepatitis could be from CHF ischemia. -Improving Plan: Cardiology transition patient to oral Lasix. Resume Keflex. Follow labs. Advanced care planning: Yesterday patient agreed to DNR/DNI. She wanted us to discuss with her family regarding hospice. I had a lengthy discussion with the patient's and daughters. I told him that patient has poor prognosis due to coronary artery disease that is not amenable to intervention and heart failure and other comorbidities. I gave patient option if we should continue diuresing the patient to see if she improves or comfort care. Family did not believe that the diuresing was helping and they thought that her edema was worsening. Family said that patient in the past expressed that she wanted to come home. Family would like her to come home and be comfortable. I told nurse to consult hospice. Anticipated patient will go home with hospice tomorrow. PATIENT WAS ON DR. BRIGGS SERVICE. FAMILY REQUESTED TRANSFER OF CARE
[2020-01-15] MEDS: traMADol 50 MG TAB PO PRN (15:08)
[2020-01-15] MEDS: FUROSEMIDE 80 MG TAB PO SCH (15:08)
[2020-01-15] MEDS: LOSARTAN 25 MG TAB PO SCH (22:30)
[2020-01-15] MEDS: ATORVASTATIN 80 MG TAB PO SCH (22:30)
[2020-01-16 00:43] VITALS: RESP 18
[2020-01-16 08:37] VITALS: BP 117/84; PULSE 77; TEMP 97.5
[2020-01-16] MEDS: SPIRONOLACTONE 25 MG TAB PO SCH (08:42)
[2020-01-16] MEDS: FUROSEMIDE 80 MG TAB PO SCH (08:42)
[2020-01-16] MEDS: DOCUSATE 100 MG CAP PO SCH (08:42)
[2020-01-16] MEDS: METOPROLOL TARTRATE 50 MG TAB PO SCH (08:42)
[2020-01-16] MEDS: CEPHALEXIN 250 MG CAP PO SCH (08:42)
[2020-01-16] MEDS: FAMOTIDINE 20 MG TAB PO SCH (08:42)
[2020-01-16] MEDS: GABAPENTIN 100 MG CAP PO SCH (08:42)
[2020-01-16 09:11] LABS: Albumin 3.3 g/dL (3.5-5.0); Calcium 8.5 mg/dL (8.4-10.2); Potassium 3.6 mmol/L (3.5-5.1); Total Bilirubin 2.8 mg/dL (0.2-1.3); Total Protein 7.6 g/dL (6.3-8.2)
--- NOTE | 2020-01-16 12:29 | P.DS ---
Providers Date of admission: 01/09/20 16:37 Expected date of discharge: 01/16/20 Attending physician: Rosa Ken DO Consults: 01/09/20 16:37 Consult Physician Urgent Consulting Provider: Marcos Byrd Consult Reason/Comments: Wendy Do you want consulting provider notified?: Yes Primary care physician: Bob Kuo [facility] Course: Assessment: -Acute non-Q-wave KS, POA -Acute congestive heart failure exacerbation from systolic dysfunction EF 35- 40%improved -Small bowel-angiodysplasia with history of argon plasma coag ablation -Chronic esophagitis, internal hemorrhoids -Chronic esophagitis gastritis , internal hemorrhoid -Severe aortic stenosis, moderate tricuspid regurgitation, moderate pulmonary hypertension secondary -Persistent atrial fibrillation rate controlled -Left foot osteoarthritis with hammertoe from second to through fifth toe. 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 coli -Acute hepatitis could be from CHF ischemia. -Improving Pleasant 74-year-old patient of Dr. Bob Kuo. Chronic stable medical conditions include GERD, hypertension, ITP, depression, painful peripheral neuropathy on Neurontin, , atrial fibrillation.. Previous EGD-grade B erosive esophagitis, superficial gastritis and some bleeding along the gastric cardia., internal hemorrhoids.prior brain bleed- left her with some weakness on the right side. She has trouble feeling with the right hand. Small bowel capsule study revealed multiple areas of small bleeding. Likely representing angiodysplasia. Repeat EGD/small bowel enteroscopy - several scattered angiectasia in the distal duodenum and proximal jejunum with active oozing status post argon plasma coagulation with good hemostasis. Patient now presented with shortness of breath, lower extremity swelling. Admitted with a diagnosis of acute KS and CHF exacerbation. Patient cannot get anticoagulations and antiplatelet agents because of prior bleeds. On 01/14 morning cardiology changed the patient to oral Lasix. Patient remains short of breath. Per nursing, when patient became cyanotic when she is lying do wn flat and was also confused. This morning patient is AAO 3. She appears to be in mild to moderate respiratory distress. After lengthy discussion with patient's as well as daughter, they have agreed to home with hospice. Pt was discharged home with he oral heart failure medications, inhalers, as well as with cephalexin for UTI. I spent more than 30 minutes planning this discharge. Assessment: Gen: awake, alert HEENT: normocephalic, atraumatic, good hearing acuity, moist mucous membranes Resp: Multiple bilateral posterior crackles, slightly tachypneic, no accessory muscle use CVS: Perfusing all extremities GI: soft, NTTP, ND : no SPT, no CVAT, rouse catheter is present MSK: + pitting edema, no clubbing Neuro: non-focal, no sensory deficits, appropriate tone Psych: cooperative, euthymic mood Patient Condition at Discharge: Poor Plan - Discharge Summary Discharge Rx Participant: No New Discharge Prescriptions: New Spironolactone [Aldactone] 25 mg PO DAILY 30 Days #30 tab Losartan [Cozaar] 25 mg PO HS 30 Days #30 tab Cephalexin [Keflex] 250 mg PO TID 9 Days #27 cap Furosemide [Lasix] 80 mg PO BID@0900,1600 30 Days tab Metoprolol Tartrate [Lopressor] 50 mg PO BID 30 Days #60 tab Nitroglycerin Sl Tabs [Nitrostat] 0.4 mg SUBLINGUAL Q5M PRN #30 tab PRN Reason: Chest Pain Continue Sertraline HCl [Zoloft] 200 mg PO DAILY Albuterol Sulfate [Ventolin HFA] 2 puff INHALATION RT-Q4H PRN PRN Reason: Shortness Of Breath SILVER sulfADIAZINE CREAM [Silvadene Cream] 1 applic TOPICAL DAILY Famotidine [Pepcid] 20 mg PO DAILY Atorvastatin [Lipitor] 40 mg PO HS Ferrous Sulfate [Iron (65 MG Elemental)] 325 mg PO DAILY Cyanocobalamin (Vitamin B-12) [Vitamin B-12] 1,000 mcg PO DAILY ALPRAZolam [Xanax] 0.25 mg PO HS Gabapentin [Neurontin] 100 mg PO BID Docusate Sodium [Dok] 100 mg PO BID Potassium Chloride ER [K-Dur 20] 20 meq PO BID #60 tab Simethicone Chew [Mylicon Chew] 40 mg PO QID PRN PRN Reason: Gi Upset traMADol HCL 50 mg PO DAILY PRN PRN Reason: Migraine Headache Discontinued Metoprolol Tartrate [Lopressor] 12.5 mg PO TID Furosemide [Lasix] 40 mg PO BID #60 tablet Discharge Medication List Sertraline HCl [Zoloft] 200 mg PO DAILY 12/29/14 [History] Albuterol Sulfate [Ventolin HFA] 2 puff INHALATION RT-Q4H PRN 04/28/19 [History] Famotidine [Pepcid] 20 mg PO DAILY 05/26/19 [History] SILVER sulfADIAZINE CREAM [Silvadene Cream] 1 applic TOPICAL DAILY 05/26/19 [History] Atorvastatin [Lipitor] 40 mg PO HS 06/08/19 [History] ALPRAZolam [Xanax] 0.25 mg PO HS 08/03/19 [History] Cyanocobalamin (Vitamin B-12) [Vitamin B-12] 1,000 mcg PO DAILY 08/03/19 [History] Ferrous Sulfate [Iron (65 MG Elemental)] 325 mg PO DAILY 08/03/19 [History] Docusate Sodium [Dok] 100 mg PO BID 09/22/19 [History] Gabapentin [Neurontin] 100 mg PO BID 09/22/19 [History] Potassium Chloride ER [K-Dur 20] 20 meq PO BID #60 tab 09/23/19 [Rx] Simethicone Chew [Mylicon Chew] 40 mg PO QID PRN 01/09/20 [History] traMADol HCL 50 mg PO DAILY PRN 01/09/20 [History] Cephalexin [Keflex] 250 mg PO TID 9 Days #27 cap 01/16/20 [Rx] Furosemide [Lasix] 80 mg PO BID@0900,1600 30 Days tab 01/16/20 [Rx] Losartan [Cozaar] 25 mg PO HS 30 Days #30 tab 01/16/20 [Rx] Metoprolol Tartrate [Lopressor] 50 mg PO BID 30 Days #60 tab 01/16/20 [Rx] Nitroglycerin Sl Tabs [Nitrostat] 0.4 mg SUBLINGUAL Q5M PRN #30 tab 01/16/20 [Rx] Spironolactone [Aldactone] 25 mg PO DAILY 30 Days #30 tab 01/16/20 [Rx] Follow up Appointment(s)/Referral(s): Bob Kuo MD [Primary Care Provider] - 1-2 days Patient Instructions/Handouts: Rouse Catheter Placement and Care (DC) Activity/Diet/Wound Care/Special Instructions: palliative care score of 5
--- NOTE | 2020-01-16 14:05 | P.PN ---
Subjective HISTORY OF PRESENT ILLNESS: Patient seen and examined at the bedside. She denies shortness of breath. She denies chest pain or pressure. Blood pressure this morning 117/84. Heart rate in the 70s. PHYSICAL EXAM: VITAL SIGNS: Reviewed. GENERAL: Well-developed in no acute distress. NECK: Supple. No JVD or thyromegaly LUNGS: Respirations even and unlabored. Lungs diminished HEART: Irregular rate and rhythm. S1 and S2 heard. Systolic murmur. EXTREMITIES: Normal range of motion. No clubbing or cyanosis. Peripheral pulses intact. 2-3+ bilateral lower extremity edema ASSESSMENT: NSTEMI Acute exacerbation of systolic congestive heart failure, EF 35-40% Chronic persistent atrial fibrillation Ischemic cardiomyopathy Hypertension Hyperlipidemia Severe aortic stenosis PLAN: Continue current cardiac medications Patient is being discharged home today with hospice Nurse practitioner note has been reviewed by physician. Signing provider agrees with the documented findings, assessment, and plan of care. Objective - Vital Signs Vital signs: Vital Signs Temp 97.5 F L 01/16/20 08:00 Pulse 77 01/16/20 08:00 Resp 18 01/16/20 08:00 BP 117/84 01/16/20 08:00 Pulse Ox 94 L 01/16/20 08:00 Intake & Output 01/15/20 01/16/20 01/16/20 18:59 06:59 18:59 Intake Total 940 Output Total 1753 3 Balance -813 -3 Weight 145.5 kg Intake: Oral 940 Output: Urine 1750 Stool 3 3 Other: Voiding Method Incontinent Incontinent - Labs CBC & Chem 7: 01/12/20 07:33 01/16/20 08:24 Labs: Abnormal Lab Results - Last 24 Hours (Table) 01/16/20 Range/Units 08:24 Sodium 136 L (137-145) mmol/L Chloride 95 L (98-107) mmol/L Carbon Dioxide 35 H (22-30) mmol/L BUN 34 H (7-17) mg/dL Total Bilirubin 2.8 H (0.2-1.3) mg/dL AST 140 H (14-36) U/L ALT 70 H (4-34) U/L Alkaline Phosphatase 205 H (38-126) U/L Albumin 3.3 L (3.5-5.0) g/dL
== END 2020-01-16 12:36 | disposition hospice, home (50) | DRG 280 ==
LOC: EC 14:03 → 3SCARD 16:37
PROVIDERS: ADMIT Internal Medicine; ATTEND Internal Medicine
PROC: 5A09557 Assistance with Respiratory Ventilation, Greater than 96 Consecutive Hours, Continuous Positive Airway Pressure (ICD-10-PCS; principal; 2020-01-09)
DX: I21.4 Non-ST elevation (NSTEMI) myocardial infarction (principal); I50.43 Acute on chronic combined systolic (congestive) and diastolic (congestive) heart failure; D69.3 Immune thrombocytopenic purpura; I48.21 Permanent atrial fibrillation; Z68.44 Body mass index [BMI] 60.0-69.9, adult; B17.9 Acute viral hepatitis, unspecified; I69.251 Hemiplegia and hemiparesis following other nontraumatic intracranial hemorrhage affecting right dominant side; I27.20 Pulmonary hypertension, unspecified; I25.5 Ischemic cardiomyopathy; I25.10 Atherosclerotic heart disease of native coronary artery without angina pectoris; I11.0 Hypertensive heart disease with heart failure; Z66 Do not resuscitate; Z51.5 Encounter for palliative care; I08.2 Rheumatic disorders of both aortic and tricuspid valves; M19.072 Primary osteoarthritis, left ankle and foot; Z96.653 Presence of artificial knee joint, bilateral; F32.9 Major depressive disorder, single episode, unspecified; M20.42 Other hammer toe(s) (acquired), left foot; E78.5 Hyperlipidemia, unspecified; G62.9 Polyneuropathy, unspecified; E66.01 Morbid (severe) obesity due to excess calories; I45.10 Unspecified right bundle-branch block; N30.90 Cystitis, unspecified without hematuria; K64.8 Other hemorrhoids; K55.20 Angiodysplasia of colon without hemorrhage; K29.70 Gastritis, unspecified, without bleeding; K21.00 Gastro-esophageal reflux disease with esophagitis, without bleeding; Z79.899 Other long term (current) drug therapy; Z88.2 Allergy status to sulfonamides; Z87.891 Personal history of nicotine dependence; Z86.73 Personal history of transient ischemic attack (TIA), and cerebral infarction without residual deficits; Z87.19 Personal history of other diseases of the digestive system; Z82.49 Family history of ischemic heart disease and other diseases of the circulatory system; Z86.14 Personal history of Methicillin resistant Staphylococcus aureus infection; Z98.890 Other specified postprocedural states
CPT/HCPCS: 36415; 71045; 71046; 76705; 80053; 80061; 81001; 82550; 83735; 83880; 84100; 84484; 85025; 85027; 85049; 85610; 85730; 87077; 87086; 87186; 93005; 93306; 94760; 96374; 99291